=== PATIENT | female | born 1935 | race Hispanic/Latino ===

== ENCOUNTER 2017-07-09 16:11 | Inpatient (IN) | payer MEDICARE, OTHER ==
--- NOTE | 2017-07-09 16:52 | ED PDOC ---
Arrival/HPI - General Historian: Patient - History of Present Illness Time/Duration: Prior to Arrival Symptom Onset: Gradual Symptom Course: Unchanged Activities at Onset: Rest Context: Sitting <NINA MEJIA - Last Filed: 07/09/17 22:21> <YaChris - Last Filed: 07/09/17 22:46> - General Chief Complaint: Altered Mental Status Time Seen by Provider: 07/09/17 16:20 - History of Present Illness Narrative History of Present Illness (Text): 07/09/17 16:46 82yo F PMH ESRD on HD, ESRD, DM2, HTN and falls who presents [facility] after family insisted on it. Per nurse from [facility], the pt is mentally at baseline. The pt states that she fell 3 weeks ago because her legs gave out and was taken to [facility] ([facility] for a broken hip. Pt states that she was in a coma and only woke up from it an hour ago when she was in this hospital. Pt denies fevers, chills, n/v/d, cp, sob, but does complain of being unable to walk, and hunger. (NINA MEJIA) Past Medical History - Provider Review Nursing Documentation Reviewed: Yes - Infectious Disease Hx of Infectious Diseases: None - Cardiac Hx Cardiac Disorders: Yes Hx Hypertension: Yes - Pulmonary Hx Respiratory Disorders: Yes Hx Chronic Obstructive Pulmonary Disease (COPD): Yes - HEENT Other/Comment: Right eye blindness - Renal Hx Dialysis: Yes (was supposed to receive today but did not ) Hx Renal Failure: Yes - Endocrine/Metabolic Hx Diabetes Mellitus Type 2: Yes - Hematological/Oncological Hx Cancer: Yes (TO BREAST WITH MASTECTOMY B/L) - Gastrointestinal Other/Comment: "liver problems" - Genitourinary/Gynecological Other/Comment: HX OF BREAST CA WITH B/L MASTECTOMY - Psychiatric Hx Substance Use: No - Surgical History Other/Comment: BILATERAL MASTECTOMY. RIGHT SUBCLAVIAN PERMACATH H/D CATH - Anesthesia Hx Anesthesia: Yes Hx Anesthesia Reactions: No Hx Malignant Hyperthermia: No <NINA MEJIA - Last Filed: 07/09/17 22:21> Family/Social History - Physician Review Nursing Documentation Reviewed: Yes Family/Social History: No Known Family HX Smoking Status: Never Smoked Hx Alcohol Use: No Hx Substance Use: No <NINA MEJIA - Last Filed: 07/09/17 22:21> Allergies/Home Meds <NINA MEJIA - Last Filed: 07/09/17 22:21> <Chris Pandya - Last Filed: 07/09/17 22:46> Allergies/Adverse Reactions: Allergies albuterol Allergy (Verified 07/09/17 16:25) DIZZINESS clonidine Allergy (Verified 07/09/17 16:25) DIZZINESS ibuprofen Allergy (Verified 07/09/17 16:25) VOMITING prednisone Allergy (Verified 07/09/17 16:25) VOMITING Home Medications: Home Meds Medication Instructions Recorded Confirmed Atorvastatin [Lipitor] 10 mg PO DAILY 07/09/17 07/09/17 B Complex W-C No.20/Folic Acid 1 cap PO DAILY 07/09/17 07/09/17 [Nephrocaps Softgel] Calcitriol [Rocaltrol] 1 mcg PO MWF 07/09/17 07/09/17 Cinacalcet [Sensipar] 30 mg PO DAILY 07/09/17 07/09/17 Folic Acid 1 mg PO DAILY 07/09/17 07/09/17 Ipratropium 0.02% [Atrovent] 2.5 ml NEB Q6 07/09/17 07/09/17 Lactobacillus Acidophilus [Bacid 1 cap PO BID 07/09/17 07/09/17 Acidophilus] Miconazole 2% [Miconazole 2% Cream] 1 apful TOP Q8 07/09/17 07/09/17 Montelukast [Singulair] 10 mg PO DAILY 07/09/17 07/09/17 Ondansetron HCl [Zofran] 4 mg PO Q8 PRN 07/09/17 07/09/17 Pantoprazole Sodium [Protonix] 40 mg PO DAILY 07/09/17 07/09/17 Piperacillin/Tazobact 2.25gm 2.25 g IVPB Q8 07/09/17 07/09/17 [ZOSYN 2.25 gm in 0.9% 100 ml] Zolpidem [Ambien] 5 mg PO HS PRN 07/09/17 07/09/17 metroNIDAZOLE 500mg/100ml NS 500 mg IVPB Q8 07/09/17 07/09/17 [Flagyl 500MG/100ML NS] oxyCODONE [oxyCODONE Immediate 5 mg PO Q4 PRN 07/09/17 07/09/17 Release Tab] Review of Systems - Physician Review All systems were reviewed & negative as marked: Yes - Review of Systems Systems not reviewed;Unavailable: Altered Mental Status Constitutional: Normal Respiratory: absent: SOB, Cough Cardiovascular: absent: Chest Pain Gastrointestinal: absent: Nausea, Vomiting <NINA MEJIA - Last Filed: 07/09/17 22:21> Physical Exam Vital Signs Reviewed: Yes Appearance: Positive for: Non-Toxic Pain Distress: None Mental Status: Positive for: Confused - Systems Exam Head: Present: Atraumatic Pupils: Present: PERRL Extroacular Muscles: Present: EOMI Neck: Present: Normal Range of Motion Respiratory/Chest: Present: Clear to Auscultation, Good Air Exchange Cardiovascular: Present: Normal S1, S2, Tachycardic Abdomen: No: Tenderness, Distention Back: Present: Normal Inspection. No: CVA Tenderness Lower Extremity: Present: Normal Inspection. No: Edema, CALF TENDERNESS Neurological: Present: Speech Normal. No: Motor Func Grossly Intact Skin: Present: Other (sacral ulcer stage 3) Psychiatric: Present: Alert. No: Oriented x 3 (oriented to person and time but not place (thinks she's in [facility] <NINA MEJIA - Last Filed: 07/09/17 22:21> Vital Signs Temp Pulse Resp BP Pulse Ox 07/09/17 20:07 98.3 F 99 H 16 145/64 100 07/09/17 16:37 98.8 F 105 H 17 132/87 99 Medical Decision Making <NINA MEJIA - Last Filed: 07/09/17 22:21> <Chris Pandya - Last Filed: 07/09/17 22:46> ED Course and Treatment: 07/09/17 16:59 Impression: 82yo F PM COPD, ESRD on HD, DM2 and HTN presenting w/ AMS Plan: -- Reassess and disposition - EKG - CBC/CMP Progress Notes: was contacted @ [phone] by resident. States that the patient fell down 7-8wks ago and broke her hip which was treated at [facility], and the patient was transferred to "[facility]" which he further states is a [facility]. Pt was then transferred back to [facility] and found to be internally bleeding and experiencing loss of bowel movements which she was treated for. Pt continued to receive dialysis. This morning, the patient's contacted the [facility] and found out that she had not gotten her HD yet and he was agitated that at her condition, they would keep her in a chair for 2 hours while waiting for HD. then demanded that she be transferred to [facility]. States he will be down to ER in 15 minutes. 07/09/17 17:33 Pt's back was examined with aid of nurse. Shows stage 3 large lumbo-sacral ulcer about 3" in diameter. 07/09/17 18:33 K level of 2.7 noted. will replete 07/09/17 21:[address] Hodges who accepts her onto his service (NINA MEJIA) 07/09/17 22:42 Patient seen and examined; spoke with son and who said that patient suffered a hip fx several weeks ago and was treated at [facility]; they said she then developed an ulcer at the [facility] and now has a hip infection. She is now back at the [facility] but has progressively become more confused with a large sacral ulcer. She is also due for HD today. She will need to be admitted for work up and treatment of alt ms, ID eval, dialysis as well as surgical eval of the large sacral ulcer. 07/09/17 22:[address] Madrid at the [facility]. Case was discussed with the on-call physician, Dr. Hodges for admission. (Chris Pandya) - Lab Interpretations Lab Results: 07/09/17 18:00 07/09/17 18:00 Lab Results 07/09/17 18:00: Sodium 141, Potassium 2.7 L*, Chloride 104, Carbon Dioxide 24, Anion Gap 16, BUN 46 H, Creatinine 4.5 H, Est GFR ( Amer) 11, Est GFR ( Non-Af Amer) 9, Random Glucose 102, Calcium 7.6 L, Total Bilirubin 0.4, AST 31, ALT 26, Alkaline Phosphatase 121, Total Protein 6.1, Albumin 2.6 L, Globulin 3.5 , Albumin/Globulin Ratio 0.7 L 07/09/17 18:00: WBC 9.1, RBC 3.11 L, Hgb 8.8 L, Hct 29.1 L, MCV 93.6, MCH 28.3, MCHC 30.2 L, RDW 17.4 H, Plt Count 239, MPV 8.8, Gran % 76.9 H, Lymph % (Auto) 11.4 L, [place] % (Auto) 9.2 H, Eos % (Auto) 2.0, Baso % (Auto) 0.5, Gran # 7.01 H , Lymph # 1.0 L, [place] # 0.8 H, Eos # 0.2, Baso # 0.05 07/09/17 17:45: Urine Color Yellow, Urine Appearance Clear, Urine pH 6.5, Ur Specific Jack[place] 1.015, Urine Protein 100 H, Urine Glucose (UA) Negative, Urine Ketones Negative, Urine Blood Small H, Urine Nitrate Negative, Urine Bilirubin Negative, Urine Urobilinogen 0.2, Ur Leukocyte Esterase Negative, Urine RBC 5 - 10, Urine WBC 2 - 5, Ur Epithelial Cells 0 - 2, Urine Bacteria Small - RAD Interpretation Radiology Orders: 07/09/17 20:16 CHEST PORTABLE [RAD] Stat - Medication Orders Current Medication Orders: Calcitriol (Rocaltrol) 1 mcg PO MWF [facility] Cinacalcet (Sensipar) 30 mg PO DAILY [facility] Potassium Chloride (Potassium Chloride 20 Meq/100 Ml) 20 meq in 100 mls @ 50 mls/hr IVPB Q2H [facility] Stop: 07/09/17 23:14 Last Admin: 07/09/17 22:00 Dose: 50 mls/hr eMAR Start Stop Document 07/09/17 22:00 [facility] (Rec: 07/09/17 22[email or web address] Intravenous Solution Start Date 07/09/17 Start Time 22:00 End Date 07/09/17 Metronidazole (Flagyl) 500 mg in 100 mls @ 100 mls/hr IVPB Q8 [facility] Piperacillin Sod/Tazobactam Sod (Zosyn 2.25 Gm In 0.9% 100 Ml) 2.25 gm in 100 mls @ 100 mls/hr IVPB Q8 [facility] Stop: 07/10/17 06:59 Lactobacillus Acidophilus (Bacid Acidophilus) 1 cap PO BID [facility] Miconazole Nitrate (Miconazole 2% Cream) 0 ea TOP Q8 [facility] Morphine Sulfate (Morphine) 2 mg IVP Q4H PRN PRN Reason: Pain, moderate (4-7) Ondansetron HCl (Zofran Inj) 4 mg IVP Q4H PRN PRN Reason: Nausea/Vomiting Discontinued Medications Oxycodone/Acetaminophen (Percocet 5/325 Mg Tab) 1 tab PO STAT ST[facility] Stop: 07/09/17 18:03 Last Admin: 07/09/17 18:11 Dose: 1 tab MAR Pain Assessment Document 07/09/17 18:11 IT (Rec: 07/09/17 18:13 IT [id number]) Pain Reassessment Is this a pain reassessment? No Sleep Is patient sleeping during reassessment? 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 MD/DO has examined the patient and agrees with the treatment plan. <Chris Pandya - Last Filed: 07/09/17 22:46> Disposition/Present on Arrival - Present on Arrival Any Indicators Present on Arrival: No History of DVT/PE: No History of Uncontrolled Diabetes: No Urinary Catheter: No History of Decub. Ulcer: Yes - Disposition Have Diagnosis and Disposition been Completed?: Yes Disposition Time: 22:21 <NINA MEJIA - Last Filed: 07/09/17 22:21> - Present on Arrival Any Indicators Present on Arrival: No - Disposition Have Diagnosis and Disposition been Completed?: Yes Disposition Time: 21:50 Patient Plan: Admission <Chris Pandya - Last Filed: 07/09/17 22:46> - Disposition Diagnosis: Altered mental status, Sacral ulcer Disposition: HOSPITALIZED Patient Problems: Current Active Problems Problem Status Onset Altered mental status Acute Sacral ulcer Acute Condition: FAIR
[2017-07-09] MEDS ORDERED: Oxycodone/Acetaminophen 5/325 mg Tab PO STA (18:02)
[2017-07-09 18:29] LABS: BASO # 0.05 K/mm3 (0.0-2.0); BASO % 0.5 % (0.0-3.0); EOS # 0.2 (0.0-0.7); GRAN # 7.01 (1.4-6.5); GRAN % 76.9 % (50.0-68.0); HEMATOCRIT 29.1 % (36.0-48.0); LYMPH % 11.4 % (22.0-35.0); MEAN CELL VOLUME 93.6 fl (80.0-105.0); MEAN CORPUSCULAR HEMOGLOBIN 28.3 pg (25.0-35.0); MEAN CORPUSCULAR HGB CONC 30.2 g/dl (31.0-37.0); MEAN PLATELET VOLUME 8.8 fl (7.0-11.0); MONO # 0.8 (0.1-0.6); MONO % 9.2 % (1.0-6.0); RED CELL DISTRIBUTION WIDTH 17.4 % (11.5-14.5); WHITE BLOOD COUNT 9.1 10^3/ul (4.5-11.0)
[2017-07-09 18:34] LABS: ALB/GLOB RATIO 0.7 (1.1-1.8); BILIRUBIN,TOTAL 0.4 mg/dL (0.2-1.3); CALCIUM 7.6 mg/dL (8.4-10.5); TOTAL PROTEIN 6.1 g/dL (5.8-8.3)
[2017-07-09 18:45] LABS: POTASSIUM 2.7 mmol/L (3.6-5.0)
[2017-07-09] MEDS ORDERED: Morphine 2 mg/ml ISec IVP PRN (21:34)
[2017-07-09 22:00] LABS: PH,URINE 6.5 (4.7-8.0); URINE APPEARANCE CLEAR (CLEAR); URINE BILIRUBIN NEGATIVE (NEGATIVE); URINE BLOOD SMALL (NEGATIVE); URINE COLOR YELLOW (YELLOW); URINE GLUCOSE (UA) NEGATIVE (NEGATIVE); URINE KETONE NEGATIVE (NEGATIVE); URINE LEUKOCYTE ESTERASE NEGATIVE Leu/uL (NEGATIVE); URINE PROTEIN 100 mg/dL (<30 mg/dL); URINE UROBILINOGEN 0.2 E.U./dL (<1 E.U./dL)
[2017-07-09] MEDS ORDERED: TAZOBACT IVPB SCH (22:00)
[2017-07-09] MEDS ORDERED: PIPERACILLIN IVPB SCH (22:00)
[2017-07-09] MEDS ORDERED: NS 500 MG IVPB SCH (22:00)
[2017-07-09] MEDS ORDERED: METRONIDAZOLE 500 MG/100 ML IVPB SCH (22:00)
[2017-07-09 22:21] LABS: URINE BACTERIA SMALL (NEG); URINE EPITHELIAL CELLS 0 - 2 /hpf (0-5)
[2017-07-09 22:36] LABS: VENOUS BLOOD GAS BASE EXCESS -1.2 mmol/L (0.0-2.0); VENOUS BLOOD PH 7.39 (7.32-7.43)
--- NOTE | 2017-07-09 23:22 | CP.PCM.CON ---
History of Present Illness - History of Present Illness History of Present Illness: Surgery Consult note. Dr. Tirado 82yo F with ESRD on HD TThSat, DM, HTN, Breast CA, here for evaluation of AMS. Surgical consult requested for multiple pressure ulcers and wounds. Patient reports a fall about 3 weeks ago, found to have a right sided hip fracture treated with ORIF at [facility]. She was then discharged back to [facility] She was brought in by ambulance for eval of acute AMS. Patient states that she has been confused about where she has been over the past couple of days. She states that she has been c/o low back pain for many days at the [facility] and is unsure if she received any treatment for it. She also reports pain at the right knee and right foot. Patient denies any fevers or chills. Denies any CP/SOB. No N/V/D. No Abd pain. Denies any bowel changes or urinary changes. She does report that she missed her HD today. PMHx: ESRD on HD TThSat, DM, HTN, Breast CA PSHx: Bilat Mastectomy, right subclavian permacath Social Hx: hx of 1+ppd smoker for "many years", quit 20 years ago. Rare ETOH use. Denies any drugs. Resident at [facility]. Allergy: Albuterol, Clonidine, Ibuprofen, Prednisone : [phone] Review of Systems - Review of Systems Systems not reviewed;Unavailable: Altered Mental Status All systems: reviewed and no additional remarkable complaints except - Constitutional Constitutional: Frequent Falls. absent: Anorexia, Chills, Fever - EENT Eyes: absent: Blurred Vision - Cardiovascular Cardiovascular: absent: Chest Pain, Diaphoresis, Dyspnea - Respiratory Respiratory: absent: Dyspnea - Genitourinary Genitourinary: absent: Dysuria - Musculoskeletal Musculoskeletal: Back Pain - Integumentary Integumentary: Skin Ulcer, Wounds Past Patient History - Infectious Disease Hx of Infectious Diseases: None - Past Medical History & Family History Past Medical History?: Yes Past Family History: Reviewed and not pertinent - Past Social History Smoking Status: Former Smoker Alcohol: Occasional Drugs: Denies Home Situation {Lives}: Jail - CARDIAC Hx Cardiac Disorders: Yes Hx Hypertension: Yes - PULMONARY Hx Respiratory Disorders: Yes Hx Chronic Obstructive Pulmonary Disease (COPD): Yes - NEUROLOGICAL Hx Neurological Disorder: No - HEENT Other/Comment: Right eye blindness - RENAL Hx Dialysis: Yes (was supposed to receive today but did not ) Hx Renal Failure: Yes - ENDOCRINE/METABOLIC Hx Diabetes Mellitus Type 2: Yes - HEMATOLOGICAL/ONCOLOGICAL Hx Cancer: Yes (TO BREAST WITH MASTECTOMY B/L) - MUSCULOSKELETAL/RHEUMATOLOGICAL Other/Comment: FX HEAD/NECK R FEMUR - GASTROINTESTINAL Other/Comment: "liver problems" - GENITOURINARY/GYNECOLOGICAL Other/Comment: HX OF BREAST CA WITH B/L MASTECTOMY - PSYCHIATRIC Hx Substance Use: No - SURGICAL HISTORY Other/Comment: BILATERAL MASTECTOMY. RIGHT SUBCLAVIAN PERMACATH H/D CATH - ANESTHESIA Hx Anesthesia: Yes Hx Anesthesia Reactions: No Hx Malignant Hyperthermia: No Meds Allergies/Adverse Reactions: Allergies Allergy/AdvReac Type Severity Reaction Status Date / Time albuterol Allergy DIZZINESS Verified 07/09/17 16:25 clonidine Allergy DIZZINESS Verified 07/09/17 16:25 ibuprofen Allergy VOMITING Verified 07/09/17 16:25 prednisone Allergy VOMITING Verified 07/09/17 16:25 - Medications Medications: Current Medications Calcitriol (Rocaltrol) 1 mcg PO MWF [facility] Cinacalcet (Sensipar) 30 mg PO DAILY [facility] Metronidazole (Flagyl) 500 mg in 100 mls @ 100 mls/hr IVPB Q8 [facility] Piperacillin Sod/Tazobactam Sod (Zosyn 2.25 Gm In 0.9% 100 Ml) 2.25 gm in 100 mls @ 100 mls/hr IVPB Q8 [facility] Stop: 07/16/17 22:01 Lactobacillus Acidophilus (Bacid Acidophilus) 1 cap PO BID [facility] Miconazole Nitrate (Miconazole 2% Cream) 0 ea TOP Q8 [facility] Morphine Sulfate (Morphine) 2 mg IVP Q4H PRN PRN Reason: Pain, moderate (4-7) Ondansetron HCl (Zofran Inj) 4 mg IVP Q4H PRN PRN Reason: Nausea/Vomiting Physical Exam - Constitutional Appears: Well, No Acute Distress - Head Exam Head Exam: ATRAUMATIC, NORMAL INSPECTION, NORMOCEPHALIC - Eye Exam Eye Exam: EOMI, Normal appearance. absent: Scleral icterus - ENT Exam ENT Exam: Mucous Membranes Moist - Respiratory Exam Respiratory Exam: Clear to Auscultation Bilateral. absent: Accessory Muscle Use , Decreased Breath Sounds, Rales, Rhonchi, Wheezes, Respiratory Distress - Cardiovascular Exam Cardiovascular Exam: RRR, +S1, +S2. absent: JVD - GI/Abdominal Exam GI & Abdominal Exam: Soft. absent: Distended, Firm, Guarding, Rebound, Rigid, Tenderness - Extremities Exam Extremities exam: Negative for: calf tenderness, pedal edema - Neurological Exam Neurological exam: Alert Additional comments: Oriented to person and time, not oriented to place. - Psychiatric Exam Psychiatric exam: Normal Affect - Skin Skin Exam: Warm Additional comments: Sacrum: Large Stage 3/4 sacral decubitus ulcer. Skin edges with some necrotic skin. Clean pink skin base. Right knee: large ulce with some evidence of necrotic skin. tender to palpation. Right dorsum foot: large eschar noted, no active drainage Right heel: eschar noted Left heel: eschar noted. Results - Vital Signs Recent Vital Signs: Last Vital Signs Temp 98.3 F 07/09/17 20:07 Pulse 99 H 07/09/17 20:07 Resp 16 07/09/17 20:07 BP 145/64 07/09/17 20:07 Pulse Ox 100 07/09/17 20:07 - Labs Result Diagrams: 07/09/17 18:00 07/09/17 18:00 Labs: Laboratory Results - last 24 hr 07/09/17 22:15 pO2 166 H VBG pH 7.39 VBG pCO2 39.0 L VBG HCO3 23.6 VBG Total CO2 24.8 VBG O2 Sat (Calc) 99.4 H VBG Base Excess -1.2 L VBG Potassium 3.4 L Sodium 139.0 Chloride 111.0 H Glucose 81 Lactate 0.7 FiO2 21.0 Venous Blood Potassium 3.4 L Assessment & Plan - Assessment and Plan (Free Text) Assessment: 82yo F with PMHx of ESRD on HD, DM, HTN, COPD here for eval of AMS. Surgery consulted for multiple skin ulcers/decubiti - Recommend wound care consult - Sacral Decub: may consider debridement/wound vac placement - Right Knee: may consider local debridement - Right foot, Right heel, Left heel eschars: may benefit with santly and local wound care -pressure off-loading heel supports - air mattress - On Abx as per Primary/ID - continue to medically maximize - monitor and replete electrolytes prn - Pain management Will discuss case with Dr. Tirado for further wound care pamela Allan PGY1 surgery pager: [phone]
[2017-07-10] MEDS: Piperacillin/Tazobact 2.25gm 2.25 GM/100 ML BAG IVPB SCH ×4 (00:10→21:30)
[2017-07-10] MEDS: metroNIDAZOLE IV 500 mg in 100 ML IVPB SCH ×2 (01:32→06:00)
[2017-07-10] MEDS ORDERED: Morphine 2 mg/ml ISec IVP STA (02:31)
[2017-07-10] MEDS: Miconazole 2% Cream(30 gm) TOP SCH ×4 (06:08→21:31)
[2017-07-10 06:10] LABS: HEMATOCRIT 27.6 % (36.0-48.0); MEAN CELL VOLUME 93.6 fl (80.0-105.0); MEAN CORPUSCULAR HEMOGLOBIN 28.8 pg (25.0-35.0); MEAN CORPUSCULAR HGB CONC 30.8 g/dl (31.0-37.0); MEAN PLATELET VOLUME 8.9 fl (7.0-11.0); RED CELL DISTRIBUTION WIDTH 17.7 % (11.5-14.5)
[2017-07-10 07:10] LABS: ALB/GLOB RATIO 0.7 (1.1-1.8); BILIRUBIN,TOTAL 0.5 mg/dL (0.2-1.3); CALCIUM 7.7 mg/dL (8.4-10.5); POTASSIUM 3.2 mmol/L (3.6-5.0); TOTAL PROTEIN 5.6 g/dL (5.8-8.3)
[2017-07-10] MEDS ORDERED: Vancomycin 1gm in NS 250ml 1 GM/250 ML BAG IVPB STA (08:41)
[2017-07-10] MEDS: Morphine 2 mg/ml ISec IVP PRN ×4 (08:47→23:45)
[2017-07-10 08:53] LABS: MAGNESIUM 1.6 mg/dL (1.7-2.2); PHOSPHOROUS 4.1 mg/dL (2.5-4.5)
--- NOTE | 2017-07-10 09:31 | RAD ---
HISTORY: alt ms COMPARISON: No prior. FINDINGS: Right center venous catheter identified terminating at the distal superior cava. An additional central venous catheter appears to be a dialysis catheter prominent placed terminating at the cavoatrial junction. Further, left-sided central venous port is identified in position placed via left subclavian approach with tip terminating at the superior cava as well. The initial 2 catheters by right internal jugular approach. LUNGS: No airspace disease appreciated with some prominence of the bronchovascular markings noted at the mid inferior lung zones which may be a function of technique. PLEURA: No significant pleural effusion identified, no pneumothorax apparent. CARDIOVASCULAR: Normal. OSSEOUS STRUCTURES: No significant abnormalities. VISUALIZED UPPER ABDOMEN: Normal. OTHER FINDINGS: None. IMPRESSION: No acute infiltrate or pleural effusion identified bilaterally. No pulmonary derangement. Mild prominence of bronchovascular markings appears nonspecific.
[2017-07-10] MEDS: Multivitamin Vitamin B Complex (Nephro-Vite) Tab PO SCH (10:11)
[2017-07-10] MEDS: Lactobacillus Acidophilus 500 MU Cap PO SCH ×2 (10:11→18:02)
[2017-07-10] MEDS: Darbepoetin Alfa 60 mcg/ml Inj IVP ONE ×2 (10:11→13:10)
--- NOTE | 2017-07-10 10:58 | HP ---
HISTORY OF PRESENT ILLNESS: I was called down to the emergency room to evaluate Aan. She is resting in bed. She is alert and talking to me. She has a history being an 82-year-old female who had a fall about 3 weeks ago, had ORIF of the right hip at [facility] She went to [facility] where she was not able to do much therapy she said she was weak and just could no do what they asked her to do and she ended up with a very large sacral wound, deep and big. The family was very upset and they send her to [facility] for evaluation. She has low back pain. PAST MEDICAL HISTORY: She has a past medical history of diabetes, hypertension, breast cancer, and end-stage renal disease on hemodialysis. PAST SURGICAL HISTORY: She had bilateral mastectomy Right subclavian PermCath. SOCIAL HISTORY: She has history of one pack per day smoker for many years, quit 20 years ago, rare alcohol, and no drugs. She has albuterol, Clonidine, ibuprofen, and Prednisone. REVIEW OF SYSTEMS: She is alert, comfortable, talking to me, answering questions, in and out of it mentally, confused at times, and frequent falls. She has blurred vision. No acute hearing changes. She has back pain. No chest pain or palpitation. No cough or congestion. Now, she has a very large sacral ulcer. She also has hypertension, COPD, right eye is blind, dialysis, bilateral mastectomy with breast cancer. She had fracture of the right femur with ORIF. She has history of liver problems. ALLERGIES: SHE HAS ALLERGIES TO ALBUTEROL, CLONIDINE, IBUPROFEN, AND PREDNISONE. MEDICATIONS: She takes Rocaltrol, Sensipar, Flagyl, Zosyn, lactobacillus, miconazole, morphine, and Zofran. PHYSICAL EXAMINATION: VITAL SIGNS: She has a 98.3 temperature, 99 pulse, 16 respiratory rate, 145/64 blood pressure, and 100% O2 saturation on room air. GENERAL: She is alert and talking, in no acute distress at this moment. HEENT: Head is atraumatic and normocephalic. Extraocular muscles are intact. Throat is moist. NECK: Supple. Thyroid midline. No appreciable palpable lymphadenopathy at this time. HEART: Regular rate. Normal S1 and S2. LUNGS: Decreased breath sounds bilaterally. Poor inspiration, but there are no wheezes, rhonchi, or rales. ABDOMEN: Soft and tender. Positive bowel sounds. No guarding. No rebound. No CVA tenderness. EXTREMITIES: Legs, no edema. SKIN: She has a large 10 inches x 12 inches sacral ulcer grade IV almost to bone. NEUROLOGIC: She is alert. PSYCHIATRIC: Normal affect. Upset about her condition. No anxiety. No depression. LABORATORY DATA: She had multiple tests. She has 9 white count, 8.5 hemoglobin, 27.6 hematocrit with 226 platelets and 7.39 pH. She has 143 sodium, potassium was 2.7, it is up to 3.2, I will add potassium. BUN is 45 and creatinine is 4.9, she is on dialysis. GFR is 8. Calcium is 7.7 and sugar is 77. Total bilirubin is 0.58, AST is 28, ALT is 32, alkaline phosphatase is 111, and total protein is 5.6. Urine was negative. DIAGNOSTIC DATA: She has a chest x-ray pending. IMPRESSION AND PLAN: She was seen by Dr. Tirado, the surgeon for the large sacral ulcer, then may consider debridement, wound vac placement. She has multiple other ulcers on the right knee, on the right heel. Continue with antibiotics and checking laboratories. Continue with aggressive treatment and care on Ana Hendrickson, who has a large sacral decubitus ulcer. She also has end-stage renal disease, change in mentation, and possible sepsis. Eric Hodges DO MTDD
--- NOTE | 2017-07-10 11:42 | CARD ---
APPROVED REPORT EKG Measurement Heart [id number] <Conclusion> Sinus tachycardia Nonspecific ST abnormality Abnormal ECG
--- NOTE | 2017-07-10 12:21 | CP.PCM.CON ---
History of Present Illness - History of Present Illness History of Present Illness: renal consult dictated dialysis today and then TTS schedule Past Patient History - Infectious Disease Hx of Infectious Diseases: None - Past Medical History & Family History Past Medical History?: Yes Past Family History: Reviewed and not pertinent - Past Social History Smoking Status: Former Smoker Alcohol: Occasional Drugs: Denies Home Situation {Lives}: Retirement - CARDIAC Hx Cardiac Disorders: Yes Hx Hypertension: Yes - PULMONARY Hx Respiratory Disorders: Yes Hx Chronic Obstructive Pulmonary Disease (COPD): Yes - NEUROLOGICAL Hx Neurological Disorder: No - HEENT Other/Comment: Right eye blindness - RENAL Hx Dialysis: Yes (was supposed to receive today but did not ) Hx Renal Failure: Yes - ENDOCRINE/METABOLIC Hx Diabetes Mellitus Type 2: Yes - HEMATOLOGICAL/ONCOLOGICAL Hx Cancer: Yes (TO BREAST WITH MASTECTOMY B/L) - MUSCULOSKELETAL/RHEUMATOLOGICAL Other/Comment: FX HEAD/NECK R FEMUR - GASTROINTESTINAL Other/Comment: "liver problems" - GENITOURINARY/GYNECOLOGICAL Other/Comment: HX OF BREAST CA WITH B/L MASTECTOMY - PSYCHIATRIC Hx Substance Use: No - SURGICAL HISTORY Other/Comment: BILATERAL MASTECTOMY. RIGHT SUBCLAVIAN PERMACATH H/D CATH - ANESTHESIA Hx Anesthesia: Yes Hx Anesthesia Reactions: No Hx Malignant Hyperthermia: No Meds Allergies/Adverse Reactions: Allergies Allergy/AdvReac Type Severity Reaction Status Date / Time albuterol Allergy DIZZINESS Verified 07/09/17 16:25 clonidine Allergy DIZZINESS Verified 07/09/17 16:25 ibuprofen Allergy VOMITING Verified 07/09/17 16:25 prednisone Allergy VOMITING Verified 07/09/17 16:25 - Medications Medications: Current Medications Calcitriol (Rocaltrol) 1 mcg PO MWF [facility] Last Admin: 07/10/17 10:12 Dose: 1 mcg Cinacalcet (Sensipar) 30 mg PO DAILY [facility] Last Admin: 07/10/17 10:11 Dose: 30 mg Collagenase (Santyl) 1 gm TOP DAILY [facility] Piperacillin Sod/Tazobactam Sod (Zosyn 2.25 Gm In 0.9% 100 Ml) 2.25 gm in 100 mls @ 100 mls/hr IVPB Q8 [facility] Stop: 07/16/17 22:01 Last Admin: 07/10/17 07:28 Dose: 100 mls/hr Lactobacillus Acidophilus (Bacid Acidophilus) 1 cap PO BID [facility] Last Admin: 07/10/17 10:11 Dose: 1 cap Miconazole Nitrate (Miconazole 2% Cream) 0 ea TOP Q8 [facility] Last Admin: 07/10/17 06:08 Dose: 1 applic Morphine Sulfate (Morphine) 2 mg IVP Q4H PRN PRN Reason: Pain, moderate (4-7) Last Admin: 07/10/17 08:47 Dose: 2 mg Ondansetron HCl (Zofran Inj) 4 mg IVP Q4H PRN PRN Reason: Nausea/Vomiting Vitamin B Complex/Vit C/Folic Acid (Nephro-Yesica) 1 tab PO 0800 [facility] Last Admin: 07/10/17 10:11 Dose: 1 tab Results - Vital Signs Recent Vital Signs: Last Vital Signs Temp 98.3 F 07/09/17 20:07 Pulse 107 H 07/10/17 10:14 Resp 18 07/10/17 10:14 BP 148/50 L 07/10/17 10:14 Pulse Ox 98 07/10/17 10:14 - Labs Result Diagrams: 07/10/17 05:30 07/10/17 05:30 Labs: Laboratory Results - last 24 hr 07/09/17 07/10/17 07/10/17 22:15 05:30 05:30 WBC 9.0 RBC 2.95 L Hgb 8.5 L Hct 27.6 L MCV 93.6 MCH 28.8 MCHC 30.8 L RDW 17.7 H Plt Count 226 MPV 8.9 ESR pO2 166 H VBG pH 7.39 VBG pCO2 39.0 L VBG HCO3 23.6 VBG Total CO2 24.8 VBG O2 Sat (Calc) 99.4 H VBG Base Excess -1.2 L VBG Potassium 3.4 L Sodium 139.0 143 Chloride 111.0 H 109 Glucose 81 Lactate 0.7 FiO2 21.0 Potassium 3.2 L Carbon Dioxide 23 Anion Gap 14 BUN 45 H Creatinine 4.9 H Est GFR ( Amer) 10 Est GFR (Non-Af Amer) 8 Random Glucose 77 Calcium 7.7 L Phosphorus 4.1 Magnesium 1.6 L Total Bilirubin 0.5 AST 28 ALT 32 Alkaline Phosphatase 111 C-React Prot High Sens Total Protein 5.6 L Albumin 2.3 L Globulin 3.3 Albumin/Globulin Ratio 0.7 L Venous Blood Potassium 3.4 L 07/10/17 07/10/17 08:30 08:30 WBC RBC Hgb Hct MCV MCH MCHC RDW Plt Count MPV ESR 90 H pO2 VBG pH VBG pCO2 VBG HCO3 VBG Total CO2 VBG O2 Sat (Calc) VBG Base Excess VBG Potassium Sodium Chloride Glucose Lactate FiO2 Potassium Carbon Dioxide Anion Gap BUN Creatinine Est GFR ( Amer) Est GFR (Non-Af Amer) Random Glucose Calcium Phosphorus Magnesium Total Bilirubin AST ALT Alkaline Phosphatase C-React Prot High Sens > 15.00 H Total Protein Albumin Globulin Albumin/Globulin Ratio Venous Blood Potassium
--- NOTE | 2017-07-10 15:11 | CP.PCM.PCO ---
Physician Communication Note - Physician Communication Note Physician Communication Note: Not able to locate pt. today - will see contreras landa Vanco x 1
--- NOTE | 2017-07-10 15:14 | CON ---
DATE: 07/10/2017 INITIAL NEPHROLOGY CONSULTATION CHIEF COMPLAINT: Kidney problem. REASON FOR CONSULTATION: ESRD, hypokalemia. HISTORY OF PRESENT ILLNESS AND REVIEW OF SYSTEMS: The patient is an 82-year-old female with history as mentioned and was referred from [facility] for concern for altered mental status. The patient denies any new complaint at this time. She is not aware why she is in the hospital. She denies any nausea, vomiting, chest pain or palpitation. Denies any shortness of breath. The patient is mostly bed bound. PAST MEDICAL HISTORY: As mentioned in the consultation note. FAMILY HISTORY: No history of CKD or dialysis. REVIEW OF SYSTEMS: GENERAL: Overall, the patient feels in usual health. Denies any fevers or chills. NEUROLOGIC: Denies any headaches, tingling, numbness or dizziness. EYES: Denies any watery or itchy eyes, reports right eye blindness. EARS, NOSE, THROAT: Denies any ear pain, sore throat, or congestion. CARDIOVASCULAR: Denies any chest pain or palpitations. RESPIRATORY: Denies any shortness of breath, cough, or phlegm at this time. GASTROINTESTINAL: No nausea, vomiting, constipation, or diarrhea. EXTREMITIES: Denies any leg swelling. PSYCHIATRIC: Denies any depression. LYMPHATIC. Denies any lymph node swelling. HEMATOLOGIC: Denies any bleeding. SKIN: Does report wound in the legs. GENITOURINARY: Denies any painful burning urination. PHYSICAL EXAMINATION: GENERAL: The patient is elderly female, appears chronically debilitated, not in acute distress. VITAL SIGNS: Afebrile, pulse is 107, blood pressure 148/50, saturation is well maintained. NEUROLOGIC: The patient is alert, awake and oriented x3 at this time. She is mostly bed bound. Moving all 4 extremities though. EYES: Pupil equal and reactive. 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 EARS, NOSE, THROAT: Oral cavity with normal pharynx, normal mucosa. No rash, ulceration, or thrush. NECK: Supple. No lymphadenopathy. No bruits. No thyromegaly. CARDIOVASCULAR: S1 and S2 normal. No murmur, rub or gallop. RESPIRATORY: Bilateral vesicular breath sounds. Bilateral air entry normal and symmetrical. ABDOMEN: Soft and nontender. No organomegaly could be appreciated. EXTREMITIES: No edema at this time. SKIN: The patient has bilateral heal ulcers which are dressed at this time; otherwise, turgor is somewhat decreased as well. LYMPHATICS: No lymphadenopathy in neck. HEMATOLOGIC: No acute bleeding could be appreciated. PSYCHIATRIC: Judgement is appropriate. Affect is normal. Pleasant, she is cooperative. No hallucinations. LABORATORY STUDY: Workup was reviewed. Hemoglobin is 8.5. Potassium is 3.2. CRP and ESR are elevated. Cultures are pending. Chest x-ray is unremarkable. MEDICATIONS: Current medications were reviewed. ASSESSMENT: 1. End-stage renal disease, on hemodialysis via Perm-A-Cath. 2. 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 3. Questionable change in mental status. 4. Hypokalemia. 5. Recent hospitalization for femur fracture, status post surgery; history of gastrointestinal bleed at that time, history of Clostridium difficile at that time as well. 6. History of carcinoma of breast with bilateral mastectomy. RECOMMENDATIONS: The patient missed dialysis yesterday. She is on TTS schedule. We will plan for dialysis today with 3.5 potassium bath. We will also plan for dialysis from tomorrow onward as per TTS schedule. She is on Calcitrol - Saturday, Saturday, Saturday; also on Sensipar. We will give a dose of Aranesp because of her anemia. She was given potassium supplementation already. We will also start her on multivitamin. Thank you for the consultation. Please call if any questions. Wang France MD
[2017-07-10] MEDS: Collagenase 250 Units/gm Ointment(30 gm) TOP SCH (18:21)
[2017-07-10 19:09] VITALS: BMI 21.2
[2017-07-10] MEDS ORDERED: Pneumococcal 23-Valent Vaccine IM ONE (19:10)
--- NOTE | 2017-07-10 23:56 | CP.PCM.PN ---
Subjective - Date & Time of Evaluation Date of Evaluation: 07/10/17 Time of Evaluation: 23:56 - Subjective Subjective: Patient was seen at bedside. She complained of headache, mild headache. No dizziness, nausea, vomiting, paraestesia , weakness. No ear,nose eye symptoms. Medical record was reviewed. This 82 year old woman was admitted with weakness, back pain. Has PMH of DM II, HTN, breast cancer, ESRD. Objective - Vital Signs/Intake and Output Vital Signs (last 24 hours): Temp Pulse Resp BP Pulse Ox 982 F H 78 18 145/52 L 98 07/10/17 18:45 07/10/17 18:45 07/10/17 18:45 07/10/17 18:45 07/10/17 17:37 Intake and Output: 07/10/17 07/11/17 18:59 06:59 Intake Total 120 Balance 120 - Medications Medications: Current Medications Calcitriol (Rocaltrol) 1 mcg PO MWF [facility] Last Admin: 07/10/17 10:12 Dose: 1 mcg Cinacalcet (Sensipar) 30 mg PO DAILY [facility] Last Admin: 07/10/17 10:11 Dose: 30 mg Collagenase (Santyl) 1 gm TOP DAILY [facility] Last Admin: 07/10/17 18:21 Dose: Not Given Piperacillin Sod/Tazobactam Sod (Zosyn 2.25 Gm In 0.9% 100 Ml) 2.25 gm in 100 mls @ 100 mls/hr IVPB Q8 [facility] Stop: 07/16/17 22:01 Last Admin: 07/10/17 21:30 Dose: 100 mls/hr Lactobacillus Acidophilus (Bacid Acidophilus) 1 cap PO BID [facility] Last Admin: 07/10/17 18:02 Dose: 1 cap Miconazole Nitrate (Miconazole 2% Cream) 0 ea TOP Q8 [facility] Last Admin: 07/10/17 21:31 Dose: 1 applic Morphine Sulfate (Morphine) 2 mg IVP Q4H PRN PRN Reason: Pain, moderate (4-7) Last Admin: 07/10/17 23:45 Dose: 2 mg Ondansetron HCl (Zofran Inj) 4 mg IVP Q4H PRN PRN Reason: Nausea/Vomiting Vitamin B Complex/Vit C/Folic Acid (Nephro-Yesica) 1 tab PO 0800 [facility] Last Admin: 07/10/17 10:11 Dose: 1 tab - Labs Labs: 07/10/17 05:30 07/10/17 05:30 - Constitutional Appears: Well, No Acute Distress - Head Exam Head Exam: ATRAUMATIC, NORMAL INSPECTION, NORMOCEPHALIC - Eye Exam Eye Exam: Normal appearance - Neck Exam Neck Exam: Normal Inspection - Respiratory Exam Respiratory Exam: NORMAL BREATHING PATTERN - Cardiovascular Exam Cardiovascular Exam: absent: JVD - GI/Abdominal Exam GI & Abdominal Exam: absent: Distended - Rectal Exam Rectal Exam: Deferred - Exam Additional comments: Deferred. - Extremities Exam Extremities Exam: Normal Inspection - Back Exam Back Exam: NORMAL INSPECTION - Neurological Exam Neurological Exam: Alert, Oriented x3 - Psychiatric Exam Psychiatric exam: Normal Affect, Normal Mood - Skin Skin Exam: Normal Color Assessment and Plan - Assessment and Plan (Free Text) Assessment: Headache. DM II . HTN. Breast cancer. ESRD. Plan: Tylenol 650 mg PO x 1. Continue present management.
[2017-07-11] MEDS: Piperacillin/Tazobact 2.25gm 2.25 GM/100 ML BAG IVPB SCH ×3 (05:52→21:02)
[2017-07-11] MEDS: Miconazole 2% Cream(30 gm) TOP SCH ×3 (05:58→21:03)
[2017-07-11 06:30] LABS: MEAN CELL VOLUME 93.4 fl (80.0-105.0); MEAN CORPUSCULAR HEMOGLOBIN 28.7 pg (25.0-35.0); MEAN CORPUSCULAR HGB CONC 30.7 g/dl (31.0-37.0); MEAN PLATELET VOLUME 8.6 fl (7.0-11.0); RED CELL DISTRIBUTION WIDTH 17.7 % (11.5-14.5)
[2017-07-11 07:01] LABS: ALB/GLOB RATIO 0.7 (1.1-1.8); BILIRUBIN,TOTAL 0.4 mg/dL (0.2-1.3); CALCIUM 7.5 mg/dL (8.4-10.5); POTASSIUM 3.3 mmol/L (3.6-5.0); TOTAL PROTEIN 5.5 g/dL (5.8-8.3)
--- NOTE | 2017-07-11 11:33 | CP.PCM.PN ---
Subjective - Date & Time of Evaluation Date of Evaluation: 07/11/17 Time of Evaluation: 11:31 - Subjective Subjective: PGY1 Note for Dr. Tirado HPI: Patient seen and examined at bedside. Doing well. Complains of mild pain around ulcer sites. Also complains of pain when we try to rotate her on the bed to the point where it was not tolerated which made further examination difficult. Denies any SOB, Chest pain, N/V/D/F/chills. Objective - Vital Signs/Intake and Output Vital Signs (last 24 hours): Temp Pulse Resp BP Pulse Ox 97.8 F 87 20 149/53 L 99 07/11/17 08:31 07/11/17 08:31 07/11/17 08:31 07/11/17 08:31 07/11/17 08:31 Intake and Output: 07/11/17 07/11/17 06:59 18:59 Intake Total 420 Balance 420 - Medications Medications: Current Medications Calcitriol (Rocaltrol) 1 mcg PO MWF [facility] Last Admin: 07/10/17 10:12 Dose: 1 mcg Cinacalcet (Sensipar) 30 mg PO DAILY [facility] Last Admin: 07/10/17 10:11 Dose: 30 mg Collagenase (Santyl) 1 gm TOP DAILY [facility] Last Admin: 07/10/17 18:21 Dose: Not Given Piperacillin Sod/Tazobactam Sod (Zosyn 2.25 Gm In 0.9% 100 Ml) 2.25 gm in 100 mls @ 100 mls/hr IVPB Q8 [facility] Stop: 07/16/17 22:01 Last Admin: 07/11/17 05:52 Dose: 100 mls/hr Potassium Chloride (Potassium Chloride 10 Meq/100 Ml) 10 meq in 100 mls @ 100 mls/hr IVPB Q2H [facility] Stop: 07/11/17 11:44 Last Admin: 07/11/17 09:16 Dose: 100 mls/hr Lactobacillus Acidophilus (Bacid Acidophilus) 1 cap PO BID [facility] Last Admin: 07/10/17 18:02 Dose: 1 cap Miconazole Nitrate (Miconazole 2% Cream) 0 ea TOP Q8 [facility] Last Admin: 07/11/17 05:58 Dose: 1 applic Morphine Sulfate (Morphine) 2 mg IVP Q4H PRN PRN Reason: Pain, moderate (4-7) Last Admin: 07/10/17 23:45 Dose: 2 mg Ondansetron HCl (Zofran Inj) 4 mg IVP Q4H PRN PRN Reason: Nausea/Vomiting Vitamin B Complex/Vit C/Folic Acid (Nephro-Yesica) 1 tab PO 0800 [facility] Last Admin: 07/10/17 10:11 Dose: 1 tab - Labs Labs: 07/11/17 06:10 07/11/17 06:10 - Constitutional Appears: Well, Non-toxic, No Acute Distress - Eye Exam Eye Exam: EOMI, PERRL Pupil Exam: NORMAL ACCOMODATION - ENT Exam ENT Exam: Mucous Membranes Moist - Neck Exam Neck Exam: Full ROM - Respiratory Exam Respiratory Exam: Clear to Ausculation Bilateral, NORMAL BREATHING PATTERN - Cardiovascular Exam Cardiovascular Exam: REGULAR RHYTHM - GI/Abdominal Exam GI & Abdominal Exam: Soft, Normal Bowel Sounds. absent: Distended, Tenderness - Extremities Exam Extremities Exam: absent: Joint Swelling, Tenderness - Back Exam Back Exam: absent: CVA tenderness (L), CVA tenderness (R) - Neurological Exam Neurological Exam: Alert, Awake, Oriented x3 - Psychiatric Exam Psychiatric exam: Normal Affect, Normal Mood - Skin Skin Exam: Dry, Normal Color, Warm Additional comments: Sacrum: Large Stage 3 sacral decubitus ulcer. Right knee: large ulcer with some evidence of necrotic skin. tender to palpation. Right dorsum foot: large eschar Right heel: eschar Left heel: eschar Assessment and Plan - Assessment and Plan (Free Text) Assessment: 82 y/o white female with multiple pressure ulcers Plan: * Stage 3 sacral decubitus ulcer * Silvadene QD * Right knee ulcer * Silvadene QD * Right dorsal foot eschar * Santyl QD * Right heel eschar * Santyl QD * Left heel eschar * Santyl QD * Air mattress/offloading boots * Pain control: Morphine 2 Q4 * IVF: Zosyn 2.2 Q8 * DVT PPX: Heparin 5000 SC Q12 * Protonix 20 QD Marlon Knight DO PGY1
--- NOTE | 2017-07-11 13:09 | CP.PCM.CON ---
<Sheila Arreola - Last Filed: 07/12/17 10:02> History of Present Illness - History of Present Illness History of Present Illness: Podiatry Consult Note - Dr. Pollock 82 year old female patient PMHx ESRD on HD, DM2, HTN seen at bedside concerning bilateral foot pressure ulcers/wounds. Unknown to patient when foot wounds developed; believes they first appeared after she sustained a right hip fracture 7-8 weeks ago. Patient admits to pain in wounds on both feet, R>L. Patient not wearing offloading boots at time of visit. Patient also complaining of generalized pain and inability to control bowel movements. Review of Systems - Review of Systems All systems: reviewed and no additional remarkable complaints except (as per HPI ) Past Patient History - Infectious Disease Hx of Infectious Diseases: None - Past Medical History & Family History Past Medical History?: Yes Past Family History: Reviewed and not pertinent - Past Social History Smoking Status: Former Smoker - CARDIAC Hx Cardiac Disorders: Yes Hx Hypertension: Yes - PULMONARY Hx Chronic Obstructive Pulmonary Disease (COPD): Yes - NEUROLOGICAL Hx Neurological Disorder: No - HEENT Other/Comment: Right eye blindness - RENAL Date of Last Dialysis Treatment: 07/10/17 - ENDOCRINE/METABOLIC Hx Diabetes Mellitus Type 2: Yes - HEMATOLOGICAL/ONCOLOGICAL Hx Cancer: Yes (TO BREAST WITH MASTECTOMY B/L) Other/Comment: internal bleeding and loss of bm movements sent to [facility] [facility] [place] [facility] - INTEGUMENTARY Other/Comment: unstageable/unmeasurable large decubiti ulcer 3cm deep with 1cm induration from 2 oclock to 6 oclock, yellow and green slough wound bed is red, foul drainage bright red skin, r heel stage 1116.5cm x 4cm necrotic pressure ulcer, left heel 3.5cm x 2.5cm necrotic ulcer, right knee 4cm x 4.5cm stage 111 yellow slough surrounded by pink and brown skin small purulent dng,top of right ft 9cm x 2cm necrotic wound, bruises to inner left thigh and abd, r hip healing surgical incision reddened, multiple skin discolorations b/l arms, b/l groin red rash, brown dry wounds and dry flakey skin to r ft, blackened skin to outer r ft - MUSCULOSKELETAL/RHEUMATOLOGICAL Hx Falls: Yes - GASTROINTESTINAL Hx Gastroesophageal Reflux: Yes Other/Comment: "liver problems" - GENITOURINARY/GYNECOLOGICAL Other/Comment: HX OF BREAST CA WITH B/L MASTECTOMY - PSYCHIATRIC Hx Substance Use: No - SURGICAL HISTORY Hx Orthopedic Surgery: Yes (r fx femur head and neck) Other/Comment: BILATERAL MASTECTOMY. RIGHT SUBCLAVIAN PERMACATH H/D CATH - ANESTHESIA Hx Anesthesia: Yes Hx Anesthesia Reactions: No Hx Malignant Hyperthermia: No Meds Allergies/Adverse Reactions: Allergies Allergy/AdvReac Type Severity Reaction Status Date / Time albuterol Allergy DIZZINESS Verified 07/09/17 16:25 clonidine Allergy DIZZINESS Verified 07/09/17 16:25 ibuprofen Allergy VOMITING Verified 07/09/17 16:25 prednisone Allergy VOMITING Verified 07/09/17 16:25 - Medications Medications: Current Medications Acetaminophen (Tylenol 325mg Tab) 650 mg PO ONCE ONE Stop: 07/11/17 12:45 Calcitriol (Rocaltrol) 1 mcg PO MWF [facility] Last Admin: 07/10/17 10:12 Dose: 1 mcg Cinacalcet (Sensipar) 30 mg PO DAILY [facility] Last Admin: 07/10/17 10:11 Dose: 30 mg Collagenase (Santyl) 1 gm TOP DAILY [facility] Last Admin: 07/10/17 18:21 Dose: Not Given Heparin Sodium (Porcine) (Heparin) 5,000 units SC Q12 [facility] PRN Reason: Protocol Piperacillin Sod/Tazobactam Sod (Zosyn 2.25 Gm In 0.9% 100 Ml) 2.25 gm in 100 mls @ 100 mls/hr IVPB Q8 [facility] Stop: 07/16/17 22:01 Last Admin: 07/11/17 05:52 Dose: 100 mls/hr Lactobacillus Acidophilus (Bacid Acidophilus) 1 cap PO BID [facility] Last Admin: 07/10/17 18:02 Dose: 1 cap Miconazole Nitrate (Miconazole 2% Cream) 0 ea TOP Q8 [facility] Last Admin: 07/11/17 05:58 Dose: 1 applic Morphine Sulfate (Morphine) 2 mg IVP Q4H PRN PRN Reason: Pain, moderate (4-7) Last Admin: 07/10/17 23:45 Dose: 2 mg Ondansetron HCl (Zofran Inj) 4 mg IVP Q4H PRN PRN Reason: Nausea/Vomiting Pantoprazole Sodium (Protonix Ec Tab) 20 mg PO 0600 [facility] Vitamin B Complex/Vit C/Folic Acid (Nephro-Yesica) 1 tab PO 0800 [facility] Last Admin: 07/10/17 10:11 Dose: 1 tab Physical Exam - Constitutional Appears: Non-toxic, Confused - Extremities Exam Additional comments: VASC: DP and PT pulses nonpalpable. CFT wnl b/l. TG cool to cool. No edema noted. NEURO: Gross sensation intact DERM: RLE = Dry, adherent eschar noted to 1) posterior calcaneus and 2) dorsum of RLE extending from ankle joint to midfoot, with full thickness tissue loss, extent of tissue damage cannot be confirmed due to eschar. Periwound erythema noted to eschar at dorsum of RLE. No fluctuance noted. Localized area of purple discoloration noted to lateral asepct of 5th met head with overlying blister; area is noted to be boggy with periwound erythema. LLE= Localized area of purple discoloration noted to posterior calcaneus, boggy with periwound erythema. ORTHO: Pain on palpation RLE. Pain on palpation left calcaneus - Neurological Exam Neurological exam: Alert - Psychiatric Exam Psychiatric exam: Anxious Results - Vital Signs Recent Vital Signs: Last Vital Signs Temp 97.8 F 07/11/17 08:31 Pulse 87 07/11/17 08:31 Resp 20 07/11/17 08:31 BP 149/53 L 07/11/17 08:31 Pulse Ox 99 07/11/17 08:31 - Labs Result Diagrams: 07/12/17 06:10 07/12/17 06:10 Labs: Laboratory Results - last 24 hr 07/11/17 07/11/17 06:10 06:10 WBC 9.0 RBC 2.89 L Hgb 8.3 L Hct 27.0 L MCV 93.4 MCH 28.7 MCHC 30.7 L RDW 17.7 H Plt Count 219 MPV 8.6 Sodium 140 Potassium 3.3 L Chloride 101 Carbon Dioxide 30 Anion Gap 12 BUN 16 Creatinine 2.2 H Est GFR ( Amer) 26 Est GFR (Non-Af Amer) 21 Random Glucose 77 Calcium 7.5 L Total Bilirubin 0.4 AST 36 D ALT 22 Alkaline Phosphatase 135 H D Total Protein 5.5 L Albumin 2.3 L Globulin 3.2 Albumin/Globulin Ratio 0.7 L Assessment & Plan - Assessment and Plan (Free Text) Assessment: 82 year old female 1) unstageable pressure ulcer to right calcaneus and dorsum of right foot, 2) deep tissue injury lateral 5th met head right foot and left calcaneus Plan: Patient seen and evaluated at bedside with attending, Dr. Pollock Optifoam applied to wounds, QD dressing changes C/w air mattress Rigid multipodus boots ordered, to be worn at all times while in bed Continue pain mgmt per medicine Podiatry will continue to follow while in house <Sivan Pollock - Last Filed: 07/16/17 14:35> Meds - Medications Medications: Current Medications Aspirin (Ecotrin) 81 mg PO DAILY [facility] Last Admin: 07/15/17 09:30 Dose: 81 mg Atorvastatin Calcium (Lipitor) 10 mg PO DIN [facility] Last Admin: 07/15/17 17:36 Dose: 10 mg Calcitriol (Rocaltrol) 1 mcg PO MWF [facility] Last Admin: 07/15/17 09:32 Dose: 1 mcg Cinacalcet (Sensipar) 30 mg PO DAILY [facility] Last Admin: 07/15/17 09:32 Dose: 30 mg Collagenase (Santyl) 0 gm TOP DAILY [facility] Heparin Sodium (Porcine) (Heparin) 5,000 units SC Q12 [facility] PRN Reason: Protocol Last Admin: 07/15/17 21:27 Dose: 5,000 units Heparin Sodium (Porcine) (Heparin) 2,[facility] Heparin Sodium (Porcine) (Heparin) 2,200 [facility] Meropenem 250 mg/ Sodium (Chloride) 100 mls @ 100 mls/hr IVPB Q12H [facility] PRN Reason: Protocol Stop: 07/23/17 09:01 Last Admin: 07/15/17 21:27 Dose: 100 mls/hr Ipratropium [place] (Atrovent) 0.5 mg IH TIDRESP [facility] Last Admin: 07/15/17 22:06 Dose: 0.5 mg Lactobacillus Acidophilus (Bacid Acidophilus) 1 cap PO BID [facility] Last Admin: 07/15/17 17:35 Dose: 1 cap Latanoprost (Xalatan Opht) 0 ml OD DAILY [facility] Last Admin: 07/15/17 10:35 Dose: 1 ml Metoprolol Tartrate (Lopressor) 50 mg PO BRKDIN [facility] Last Admin: 07/16/17 08:02 Dose: 50 mg Miconazole Nitrate (Miconazole 2% Cream) 0 ea TOP Q8 [facility] Last Admin: 07/16/17 05:22 Dose: 1 applic Morphine Sulfate (Morphine) 3 mg IVP Q3H PRN PRN Reason: Pain, moderate (4-7) Last Admin: 07/16/17 08:42 Dose: 3 mg Ondansetron HCl (Zofran Inj) 4 mg IVP Q4H PRN PRN Reason: Nausea/Vomiting Pantoprazole Sodium (Protonix Ec Tab) 20 mg PO 0600 [facility] Last Admin: 07/16/17 05:22 Dose: 20 mg Pilocarpine HCl (Isopto Carpine 2% Opht Soln) 0 ml OS Q12H [facility] Last Admin: 07/15/17 21:28 Dose: 1 drop Vitamin B Complex/Vit C/Folic Acid (Nephro-Yesica) 1 tab PO 0800 [facility] Last Admin: 07/16/17 08:02 Dose: 1 tab Results - Vital Signs Recent Vital Signs: Last Vital Signs Temp 97.8 F 07/16/17 06:00 Pulse 85 07/16/17 10:00 Resp 20 07/16/17 06:00 BP 119/57 L 07/16/17 08:02 Pulse Ox 100 07/16/17 06:00 - Labs Result Diagrams: 07/16/17 06:10 07/16/17 06:10 Labs: Laboratory Results - last 24 hr 07/16/17 07/16/17 06:10 06:10 WBC 15.0 H RBC 3.05 L Hgb 8.9 L Hct 29.5 L MCV 96.7 MCH 29.2 MCHC 30.2 L RDW 17.6 H Plt Count 325 MPV 9.3 Sodium 137 Potassium 4.6 Chloride 99 Carbon Dioxide 28 Anion Gap 15 BUN 24 H Creatinine 4.8 H Est GFR ( Amer) 10 Est GFR (Non-Af Amer) 9 Random Glucose 110 Calcium 8.6 Total Bilirubin 0.4 AST 83 H D ALT 41 Alkaline Phosphatase 188 H Total Protein 6.6 Albumin 2.8 L Globulin 3.7 Albumin/Globulin Ratio 0.8 L Attending/Attestation - Attestation I have personally seen and examined this patient.: Yes I have fully participated in the care of the patient.: Yes I have reviewed all pertinent clinical information: Yes
[2017-07-11] MEDS: Multivitamin Vitamin B Complex (Nephro-Vite) Tab PO SCH (15:30)
[2017-07-11] MEDS: Lactobacillus Acidophilus 500 MU Cap PO SCH ×2 (15:31→17:52)
[2017-07-11] MEDS: Morphine 2 mg/ml ISec IVP PRN ×2 (15:31→20:57)
[2017-07-11] MEDS: Collagenase 250 Units/gm Ointment(30 gm) TOP SCH (15:32)
--- NOTE | 2017-07-11 15:48 | CP.PCM.CON ---
History of Present Illness - History of Present Illness History of Present Illness: 82 year old female with PMH of HTN, DM, ESRD on HD, COPD, right eye blindness, breast cancer S/P bilateral mastectomy, was brought in to [facility] because of a fall at a halfway. She is also noted to have multiple ulcers on her feet and back. She currently denies fever or chills, no nausea or vomiting, no chest pain, no SOB, no headache or dizziness, no abdominal pain, no diarrhea, no dysuria. Infectious Diseases consult is requested to further evaluate and manage. Review of Systems - Review of Systems All systems: reviewed and no additional remarkable complaints except (as per HPI ) Past Patient History - Infectious Disease Hx of Infectious Diseases: None - Past Social History Smoking Status: Never Smoked - CARDIAC Hx Cardiac Disorders: Yes Hx Hypertension: Yes - PULMONARY Hx Respiratory Disorders: Yes Hx Chronic Obstructive Pulmonary Disease (COPD): Yes - NEUROLOGICAL Hx Neurological Disorder: No - HEENT Other/Comment: Right eye blindness - RENAL Hx Dialysis: Yes (was supposed to receive today but did not ) Hx Renal Failure: Yes - ENDOCRINE/METABOLIC Hx Diabetes Mellitus Type 2: Yes - HEMATOLOGICAL/ONCOLOGICAL Hx Cancer: Yes (TO BREAST WITH MASTECTOMY B/L) - MUSCULOSKELETAL/RHEUMATOLOGICAL Other/Comment: FX HEAD/NECK R FEMUR - GASTROINTESTINAL Other/Comment: "liver problems" - GENITOURINARY/GYNECOLOGICAL Other/Comment: HX OF BREAST CA WITH B/L MASTECTOMY - PSYCHIATRIC Hx Substance Use: No - SURGICAL HISTORY Other/Comment: BILATERAL MASTECTOMY. RIGHT SUBCLAVIAN PERMACATH H/D CATH - ANESTHESIA Hx Anesthesia: Yes Hx Anesthesia Reactions: No Hx Malignant Hyperthermia: No Meds Allergies/Adverse Reactions: Allergies Allergy/AdvReac Type Severity Reaction Status Date / Time albuterol Allergy DIZZINESS Verified 07/09/17 16:25 clonidine Allergy DIZZINESS Verified 07/09/17 16:25 ibuprofen Allergy VOMITING Verified 07/09/17 16:25 prednisone Allergy VOMITING Verified 07/09/17 16:25 - Medications Medications: Current Medications Calcitriol (Rocaltrol) 1 mcg PO MWF [facility] Cinacalcet (Sensipar) 30 mg PO DAILY [facility] Potassium Chloride (Potassium Chloride 20 Meq/100 Ml) 20 meq in 100 mls @ 50 mls/hr IVPB Q2H [facility] Stop: 07/09/17 23:14 Last Admin: 07/09/17 22:00 Dose: 50 mls/hr Metronidazole (Flagyl) 500 mg in 100 mls @ 100 mls/hr IVPB Q8 [facility] Piperacillin Sod/Tazobactam Sod (Zosyn 2.25 Gm In 0.9% 100 Ml) 2.25 gm in 100 mls @ 100 mls/hr IVPB Q8 [facility] Stop: 07/10/17 06:59 Lactobacillus Acidophilus (Bacid Acidophilus) 1 cap PO BID [facility] Miconazole Nitrate (Miconazole 2% Cream) 0 ea TOP Q8 [facility] Morphine Sulfate (Morphine) 2 mg IVP Q4H PRN PRN Reason: Pain, moderate (4-7) Ondansetron HCl (Zofran Inj) 4 mg IVP Q4H PRN PRN Reason: Nausea/Vomiting Physical Exam - Constitutional Appears: Non-toxic, No Acute Distress - Head Exam Head Exam: NORMAL INSPECTION - ENT Exam ENT Exam: Mucous Membranes Moist - Neck Exam Neck exam: Negative for: Lymphadenopathy, Meningismus - Respiratory Exam Respiratory Exam: Decreased Breath Sounds - Cardiovascular Exam Cardiovascular Exam: +S1, +S2 - GI/Abdominal Exam GI & Abdominal Exam: Soft. absent: Tenderness - Extremities Exam Additional comments: multiple pressure ulcers on left heel, stage 3 decubitus ulcer on the sacral area Results - Vital Signs Recent Vital Signs: Last Vital Signs Temp 98.3 F 07/09/17 20:07 Pulse 99 H 07/09/17 20:07 Resp 16 07/09/17 20:07 BP 145/64 07/09/17 20:07 Pulse Ox 100 07/09/17 20:07 - Labs Result Diagrams: 07/11/17 06:10 07/11/17 06:10 Labs: Laboratory Results - last 24 hr 07/09/17 22:15 pO2 166 H VBG pH 7.39 VBG pCO2 39.0 L VBG HCO3 23.6 VBG Total CO2 24.8 VBG O2 Sat (Calc) 99.4 H VBG Base Excess -1.2 L VBG Potassium 3.4 L Sodium 139.0 Chloride 111.0 H Glucose 81 Lactate 0.7 FiO2 21.0 Venous Blood Potassium 3.4 L Assessment & Plan - Assessment and Plan (Free Text) Plan: Assessment Multiple pressure ulcers, probably infected HTN DM ESRD on HD COPD right eye blindness breast cancer S/P bilateral mastectomy Plan Gave a dose of IV Vancomycin and started Zosyn pending blood cx, wound cx reviewed Surgery and Podiatry recommendations will monitor clinically
--- NOTE | 2017-07-11 18:20 | PN ---
DATE: 07/09/2017 SUBJECTIVE: Ana resting in bed. She is alert, may be a little stronger than yesterday, little more with it than yesterday. She is on IV antibiotics and IV fluids. She said she wants to eat, she is hungry. PHYSICAL EXAMINATION: VITAL SIGNS: She has a 98.2 temperature, 78 pulse, 145/52 blood pressure, 18 respiratory rate, and 98% on O2 saturation on room air. HEENT: Head is atraumatic and normocephalic. Right eye blind. Throat moist. NECK: Supple. HEART: Regular rate. LUNGS: Decreased breath sounds. Clear to auscultation. ABDOMEN: Soft, obese, nontender. Positive bowel sounds. EXTREMITIES: Right instep ulcer and sacral ulcer, both are large. MEDICATIONS: She is on Nephro-Yesica, Bacid, miconazole, morphine, Rocaltrol, Santyl, Sensipar, Zofran, and Zosyn. LABORATORY DATA: She has 9 white count; 8.3 hemoglobin, if it drops to low 8, I will transfuse; 27 hematocrit, and 219 platelets. Sodium 140, potassium up to 3.3, I will give her 2 K today. BUN is 16 and creatinine 2.2 much better. GFR is 21, calcium 7.5, glucose 77, total bilirubin is 0.4, AST 36, ALT 22, alkaline phosphatase 135. C-reactive protein and total protein is 5.5. ASSESSMENT AND PLAN: 1. She is on antibiotics. She has been seen by Infectious Disease, Renal, Surgery and I called in Podiatry for the foot ulcer too. 2. We will try and get physical therapy to get her out of bed and get some walking, normally to get 2 weeks. We will continue with aggressive treatment and care on Ana Hendrickson. We will check her labs tomorrow. Eric Hodges DO [email or web address]
[2017-07-12] MEDS ORDERED: Potassium Chloride 20 mEq ER Tab PO STA (00:59)
[2017-07-12] MEDS: Piperacillin/Tazobact 2.25gm 2.25 GM/100 ML BAG IVPB SCH ×3 (06:17→21:49)
[2017-07-12] MEDS: Pantoprazole 20 mg EC Tab PO SCH (06:18)
[2017-07-12] MEDS: Miconazole 2% Cream(30 gm) TOP SCH ×3 (06:18→21:49)
[2017-07-12 06:43] LABS: HEMATOCRIT 30.5 % (36.0-48.0); MEAN CELL VOLUME 94.7 fl (80.0-105.0); MEAN CORPUSCULAR HEMOGLOBIN 28.3 pg (25.0-35.0); MEAN CORPUSCULAR HGB CONC 29.8 g/dl (31.0-37.0); RED CELL DISTRIBUTION WIDTH 17.8 % (11.5-14.5); WHITE BLOOD COUNT 10.6 10^3/ul (4.5-11.0)
[2017-07-12] MEDS: Morphine 2 mg/ml ISec IVP PRN (06:44)
[2017-07-12 07:23] LABS: ALB/GLOB RATIO 0.8 (1.1-1.8); BILIRUBIN,TOTAL 0.4 mg/dL (0.2-1.3); POTASSIUM 4.4 mmol/L (3.6-5.0); TOTAL PROTEIN 6.2 g/dL (5.8-8.3)
[2017-07-12] MEDS ORDERED: Morphine 2 mg/ml ISec IVP PRN (07:41)
--- NOTE | 2017-07-12 08:18 | CP.PCM.PN ---
Subjective - Date & Time of Evaluation Date of Evaluation: 07/12/17 Time of Evaluation: 08:16 - Subjective Subjective: PGY1 Note for Dr. Tirado HPI: Patient seen and examined at bedside. Doing well with no complaints at this time. Denies any N/V/D/F/CP/SOB. Still mild tenderness around wound sites. Objective - Vital Signs/Intake and Output Vital Signs (last 24 hours): Temp Pulse Resp BP Pulse Ox 98.2 F 94 H 20 144/82 99 07/12/17 07:38 07/12/17 07:38 07/12/17 07:38 07/12/17 07:38 07/12/17 07:38 Intake and Output: 07/12/17 07/12/17 06:59 18:59 Intake Total 120 120 Balance 120 120 - Medications Medications: Current Medications Calcitriol (Rocaltrol) 1 mcg PO MWF [facility] Last Admin: 07/10/17 10:12 Dose: 1 mcg Cinacalcet (Sensipar) 30 mg PO DAILY [facility] Last Admin: 07/11/17 15:30 Dose: 30 mg Collagenase (Santyl) 1 gm TOP DAILY [facility] Last Admin: 07/11/17 15:32 Dose: 1 applic Heparin Sodium (Porcine) (Heparin) 5,000 units SC Q12 [facility] PRN Reason: Protocol Last Admin: 07/11/17 21:01 Dose: 5,000 units Piperacillin Sod/Tazobactam Sod (Zosyn 2.25 Gm In 0.9% 100 Ml) 2.25 gm in 100 mls @ 100 mls/hr IVPB Q8 [facility] Stop: 07/16/17 22:01 Last Admin: 07/12/17 06:17 Dose: 100 mls/hr Lactobacillus Acidophilus (Bacid Acidophilus) 1 cap PO BID [facility] Last Admin: 07/11/17 17:52 Dose: 1 cap Miconazole Nitrate (Miconazole 2% Cream) 0 ea TOP Q8 [facility] Last Admin: 07/12/17 06:18 Dose: 1 applic Morphine Sulfate (Morphine) 3 mg IVP Q3H PRN PRN Reason: Pain, moderate (4-7) Ondansetron HCl (Zofran Inj) 4 mg IVP Q4H PRN PRN Reason: Nausea/Vomiting Pantoprazole Sodium (Protonix Ec Tab) 20 mg PO 0600 [facility] Last Admin: 07/12/17 06:18 Dose: 20 mg Vitamin B Complex/Vit C/Folic Acid (Nephro-Yesica) 1 tab PO 0800 [facility] Last Admin: 07/11/17 15:30 Dose: 1 tab - Labs Labs: 07/12/17 06:10 07/12/17 06:10 - Constitutional Appears: Well, Non-toxic, No Acute Distress - Head Exam Head Exam: ATRAUMATIC, NORMAL INSPECTION, NORMOCEPHALIC - Eye Exam Eye Exam: EOMI - ENT Exam ENT Exam: Mucous Membranes Moist - Respiratory Exam Respiratory Exam: Clear to Ausculation Bilateral, NORMAL BREATHING PATTERN - Cardiovascular Exam Cardiovascular Exam: REGULAR RHYTHM - GI/Abdominal Exam GI & Abdominal Exam: Soft, Normal Bowel Sounds. absent: Distended, Tenderness - Extremities Exam Extremities Exam: Tenderness (mild around wound sites. ). absent: Joint Swelling - Back Exam Back Exam: absent: CVA tenderness (L), CVA tenderness (R) - Neurological Exam Neurological Exam: Alert, Awake, Oriented x3 - Psychiatric Exam Psychiatric exam: absent: Normal Affect, Normal Mood - Skin Skin Exam: Dry, Intact, Normal Color, Warm Assessment and Plan - Assessment and Plan (Free Text) Assessment: 82 yo Female with Sacral Decub stage 3 and multiple LE wounds Plan: * Stage 3 sacral decubitus ulcer = wound vac today * Right knee ulcer = Silvadene QD * Right dorsal foot eschar = scored today and Santyl QD * Right heel eschar = Santyl QD * Left heel eschar = Santyl QD * Air mattress/offloading boots * Pain control: Morphine 2 Q4 * IVF: Zosyn 2.2 Q8 * DVT PPX: Heparin 5000 SC Q12 * Protonix 20 QD Marlon Knight DO PGY1
--- NOTE | 2017-07-12 08:54 | PN ---
FOLLOWUP NEPHROLOGY DATE: 07/11/2017 CHIEF COMPLAINT: "This is too much, I have pains all over." HISTORY OF PRESENT ILLNESS AND REVIEW OF SYSTEMS: The patient was seen during dialysis. She was uncomfortable during dialysis. She said this is too much. She had dialysis yesterday and also going to office today. She also reports pain in the abdomen, pain in the lower back. The patient also report multiple wounds and also pain in the legs and generalized body ache. She denied any fever or chills. . Denies nausea or vomiting. PHYSICAL EXAMINATION GENERAL: The patient is elderly chronically debilitated appearing female, seen during dialysis. VITAL SIGNS: She is afebrile, pulse is 87, blood pressure 149/53, saturation is well maintained. LUNGS: Bilateral vesicular breath sounds. Bilateral air entry normal and symmetrical, clear. CARDIOVASCULAR: S1, S2 normal. No murmur, rub, or gallop. ABDOMEN: Soft. No significant organomegaly could be appreciated. EXTREMITIES: No edema. PSYCHIATRIC: The patient appears depressed ; otherwise, no hallucination. LYMPHATIC: No lymphadenopathy in the neck. LABORATORY DATA: Workup had shown that she had a white blood cell count of 9, hemoglobin 8.3, platelet count of 219. Sodium is 140, potassium is 3.3, creatinine is 2.2. Cultures so far has been negative. MEDICATIONS: Current medications were reviewed. ASSESSMENT: 1. Overall condition is stable , which has resolved. 2. End-stage renal disease, on hemodialysis via Perm-A-Cath. 3. 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 4. Questionable change in mental status. 5. Hypokalemia. 6. Recent femur fracture status post surgery, history of gastrointestinal bleed, Clostridium difficile at this time. 7. History of carcinoma of breast with bilateral mastectomy. RECOMMENDATIONS: The patient is for dialysis today as per TTS schedule. Then, she is on 3.5 potassium bath. She also has received potassium supplementation. She is also on Calcitrol, also on Sensipar, she has received Aranesp. She is also on multivitamin, antibiotics as per the primary team. Podiatry has been evaluating her wound as well and managing it. The patient was started on lactobacillus. Consider checking stool for c. difficile. All questions were answered. Wang France MD
[2017-07-12] MEDS: Multivitamin Vitamin B Complex (Nephro-Vite) Tab PO SCH (09:32)
--- NOTE | 2017-07-12 10:20 | CP.PCM.PN ---
Subjective - Date & Time of Evaluation Date of Evaluation: 07/12/17 Time of Evaluation: 09:05 - Subjective Subjective: Comfortable, still has occasional pain in the left heel and sacral areas. No fevers overnight. Objective - Vital Signs/Intake and Output Vital Signs (last 24 hours): Temp Pulse Resp BP Pulse Ox 98.2 F 101 H 20 153/67 H 99 07/11/17 16:51 07/11/17 16:51 07/11/17 16:51 07/11/17 16:51 07/11/17 16:51 Intake and Output: 07/11/17 07/12/17 18:59 06:59 Intake Total 240 120 Balance 240 120 - Medications Medications: Current Medications Calcitriol (Rocaltrol) 1 mcg PO MWF [facility] Last Admin: 07/10/17 10:12 Dose: 1 mcg Cinacalcet (Sensipar) 30 mg PO DAILY [facility] Last Admin: 07/11/17 15:30 Dose: 30 mg Collagenase (Santyl) 1 gm TOP DAILY [facility] Last Admin: 07/11/17 15:32 Dose: 1 applic Heparin Sodium (Porcine) (Heparin) 5,000 units SC Q12 [facility] PRN Reason: Protocol Last Admin: 07/11/17 21:01 Dose: 5,000 units Piperacillin Sod/Tazobactam Sod (Zosyn 2.25 Gm In 0.9% 100 Ml) 2.25 gm in 100 mls @ 100 mls/hr IVPB Q8 [facility] Stop: 07/16/17 22:01 Last Admin: 07/12/17 06:17 Dose: 100 mls/hr Lactobacillus Acidophilus (Bacid Acidophilus) 1 cap PO BID [facility] Last Admin: 07/11/17 17:52 Dose: 1 cap Miconazole Nitrate (Miconazole 2% Cream) 0 ea TOP Q8 [facility] Last Admin: 07/12/17 06:18 Dose: 1 applic Morphine Sulfate (Morphine) 2 mg IVP Q4H PRN PRN Reason: Pain, moderate (4-7) Last Admin: 07/11/17 20:57 Dose: 2 mg Ondansetron HCl (Zofran Inj) 4 mg IVP Q4H PRN PRN Reason: Nausea/Vomiting Pantoprazole Sodium (Protonix Ec Tab) 20 mg PO 0600 [facility] Last Admin: 07/12/17 06:18 Dose: 20 mg Vitamin B Complex/Vit C/Folic Acid (Nephro-Yesica) 1 tab PO 0800 [facility] Last Admin: 07/11/17 15:30 Dose: 1 tab - Labs Labs: 07/11/17 06:10 07/11/17 06:10 - Constitutional Appears: Non-toxic, Chronically Ill - Head Exam Head Exam: NORMAL INSPECTION - ENT Exam ENT Exam: Mucous Membranes Moist - Neck Exam Neck Exam: absent: Meningismus - Respiratory Exam Respiratory Exam: Decreased Breath Sounds - Cardiovascular Exam Cardiovascular Exam: +S1, +S2 - GI/Abdominal Exam GI & Abdominal Exam: Soft. absent: Tenderness - Extremities Exam Additional comments: both feet with dressings in place Assessment and Plan - Assessment and Plan (Free Text) Plan: Assessment Multiple pressure ulcers (both heels, sacral ulcer stage 3), infected with gram negative bacilli HTN DM ESRD on HD COPD right eye blindness breast cancer S/P bilateral mastectomy Plan continue Zosyn; wound cx showing gram negative bacilli and yeast (yeast is probably colonization) reviewed Surgery and Podiatry recommendations - for wound vacuum placement on the sacral area will continue to monitor clinically
--- NOTE | 2017-07-12 11:57 | PN ---
DATE:07/09/2017 SUBJECTIVE: I saw Ana resting comfortably in bed. The nurse said that she slept fairly well last night. When I saw her, she was in pain. I asked the nurse to give her some pain medication. She was also telling that the pain medication needs to come more often, so I increased it and I am also going to give her more pain medication in general. I am going to go from two q.4 to three q.3 hours . She is also giving the surgeon's difficulty when I try and examine and take care of her multiple wounds. We will up the pain medication, so hopefully she will be more comfortable when I examined, debrided and take care of her wounds. Also I needed her to get out of the bed to chair and have physical therapy. I explained that to her at length and she was reluctant to move. PHYSICAL EXAMINATION: VITAL SIGNS: She has a 98.2 temperature, 94 pulse, 144/82 blood pressure, 20 respiratory rate, and 99% O2 saturation on 2 liter nasal cannula. HEENT: Head is atraumatic and normocephalic. Throat is moist. NECK: Supple. HEART: Regular rate. LUNGS: Decreased breath sounds, but clear. ABDOMEN: Soft and obese. EXTREMITIES: No edema. Multiple stage III plus wounds, right heel, right instep, sacral ulcer, her knees. She is being attended to by the surgeon and the tailor apprentice. MEDICATIONS: She is currently on lactobacillus, heparin, miconazole, morphine, I increased it to three q.3, Nephro-Yesica, Protonix, Rocaltrol, Santyl, Sensipar, Zofran, and Zosyn IV. LABORATORY DATA: She has a 140 sodium yesterday, 3.3 potassium yesterday. Labs are pending today. Give her 2 K-riders. BUN is 16 and creatinine 2.2, definitely improving when she came in. Hopefully will continue to improve. AST was 36, ALT was 22. Today's white count is 10.6, hemoglobin up to 9.1, which is great, 30.5 hematocrit with 280 platelets. She is being seen by Infectious Disease, Surgery, Podiatry, and kidney doctor. We will continue with the aggressive treatment and care. She will eventually do to subacute rehab and stand out of the bed. Problem at [facility], we could try another facility or possibly LTAC because she has so many wounds, which will take a longtime and she will need to help us with this by getting out of the bed and to be more physical and I think the pain is stopping her. We will increase the pain medication as we need and we will continue with aggressive treatment and care on Ana Hendrickson with multiple wound grade 3s and above, renal insufficiency, and debility. Eric Hodges DO
[2017-07-12] MEDS: Morphine 4 mg/ml ISec IVP PRN ×3 (12:43→20:31)
--- NOTE | 2017-07-12 14:29 | CP.PCM.PN ---
<Sheila Arreola - Last Filed: 07/12/17 14:23> Subjective - Date & Time of Evaluation Date of Evaluation: 07/12/17 Time of Evaluation: 14:23 - Subjective Subjective: Podiatry Progress Note - Dr. Kwan 82 year old female patient PMHx ESRD on HD, DM2, HTN seen at bedside foot bilateral foot wounds. Patient is uncomfortable at time of visit, complaining of generalized body aches and pains and reluctant to receive care. Patient reports continued pain to both foot wounds. Patient not wearing offloading boots at time of visit. Patient denies N/V/F/D/C/SOB/calf pain. No other pedal complaints at this time. Objective - Vital Signs/Intake and Output Vital Signs (last 24 hours): Temp Pulse Resp BP Pulse Ox 98.2 F 94 H 20 144/82 99 07/12/17 07:38 07/12/17 07:38 07/12/17 07:38 07/12/17 07:38 07/12/17 07:38 Intake and Output: 07/12/17 07/12/17 06:59 18:59 Intake Total 120 120 Balance 120 120 - Medications Medications: Current Medications Calcitriol (Rocaltrol) 1 mcg PO MWF [facility] Last Admin: 07/10/17 10:12 Dose: 1 mcg Cinacalcet (Sensipar) 30 mg PO DAILY [facility] Last Admin: 07/11/17 15:30 Dose: 30 mg Collagenase (Santyl) 1 gm TOP DAILY [facility] Last Admin: 07/11/17 15:32 Dose: 1 applic Heparin Sodium (Porcine) (Heparin) 5,000 units SC Q12 [facility] PRN Reason: Protocol Last Admin: 07/11/17 21:01 Dose: 5,000 units Piperacillin Sod/Tazobactam Sod (Zosyn 2.25 Gm In 0.9% 100 Ml) 2.25 gm in 100 mls @ 100 mls/hr IVPB Q8 [facility] Stop: 07/16/17 22:01 Last Admin: 07/12/17 06:17 Dose: 100 mls/hr Lactobacillus Acidophilus (Bacid Acidophilus) 1 cap PO BID [facility] Last Admin: 07/11/17 17:52 Dose: 1 cap Miconazole Nitrate (Miconazole 2% Cream) 0 ea TOP Q8 [facility] Last Admin: 07/12/17 06:18 Dose: 1 applic Morphine Sulfate (Morphine) 3 mg IVP Q3H PRN PRN Reason: Pain, moderate (4-7) Last Admin: 07/12/17 12:43 Dose: 3 mg Ondansetron HCl (Zofran Inj) 4 mg IVP Q4H PRN PRN Reason: Nausea/Vomiting Pantoprazole Sodium (Protonix Ec Tab) 20 mg PO 0600 [facility] Last Admin: 07/12/17 06:18 Dose: 20 mg Vitamin B Complex/Vit C/Folic Acid (Nephro-Yesica) 1 tab PO 0800 [facility] Last Admin: 07/12/17 09:32 Dose: 1 tab - Labs Labs: 07/12/17 06:10 07/12/17 06:10 - Constitutional Appears: Well, Non-toxic, No Acute Distress - Extremities Exam Additional comments: VASC: DP and PT pulses nonpalpable. CFT wnl b/l. TG cool to cool. No edema noted. NEURO: Gross sensation intact DERM: RLE = Dry, adherent eschar noted to 1) posterior calcaneus measuring approximately 6.5 x 4 cm and 2) dorsum of RLE extending from ankle joint to midfoot mesuring approximately 9 x 2 cm, with full thickness tissue loss, extent of tissue damage cannot be confirmed due to eschar. Periwound erythema noted to eschar at dorsum of RLE. No fluctuance noted. Localized area of purple discoloration noted to lateral asepct of 5th met head with overlying blister; area is noted to be boggy with periwound erythema. LLE= Localized area of purple discoloration measuring approximately 3.5 x 2.5 cm noted to posterior calcaneus, boggy with periwound erythema. ORTHO: Pain on palpation RLE. Pain on palpation left calcaneus - Neurological Exam Neurological Exam: Alert, Awake, Oriented x3 - Psychiatric Exam Psychiatric exam: Agitated, Depressed Assessment and Plan - Assessment and Plan (Free Text) Assessment: 82 year old female 1) unstageable pressure ulcer to right calcaneus and dorsum of right foot, 2) deep tissue injury lateral 5th met head right foot and left calcaneus Plan: Patient seen and evaluated at bedside Discussed with attending, Dr. Aquiles Callahanam applied to wounds, daily dressing changes C/w air mattress Rigid multipodus boots b/l, to be worn at all times while in bed Continue pain management per medicine Podiatry will continue to follow while in house <Fidel Kwan - Last Filed: 07/12/17 18:50> Objective - Vital Signs/Intake and Output Vital Signs (last 24 hours): Temp Pulse Resp BP Pulse Ox 98.4 F 101 H 20 151/56 H 97 07/12/17 17:50 07/12/17 17:50 07/12/17 17:50 07/12/17 17:50 07/12/17 17:50 Intake and Output: 07/12/17 07/12/17 06:59 18:59 Intake Total 120 600 Balance 120 600 - Medications Medications: Current Medications Calcitriol (Rocaltrol) 1 mcg PO MWF [facility] Last Admin: 07/12/17 14:35 Dose: 1 mcg Cinacalcet (Sensipar) 30 mg PO DAILY [facility] Last Admin: 07/12/17 14:37 Dose: 30 mg Collagenase (Santyl) 1 gm TOP DAILY [facility] Last Admin: 07/12/17 14:37 Dose: 1 applic Heparin Sodium (Porcine) (Heparin) 5,000 units SC Q12 [facility] PRN Reason: Protocol Last Admin: 07/12/17 14:36 Dose: 5,000 units Piperacillin Sod/Tazobactam Sod (Zosyn 2.25 Gm In 0.9% 100 Ml) 2.25 gm in 100 mls @ 100 mls/hr IVPB Q8 [facility] Stop: 07/16/17 22:01 Last Admin: 07/12/17 14:52 Dose: 100 mls/hr Lactobacillus Acidophilus (Bacid Acidophilus) 1 cap PO BID [facility] Last Admin: 07/12/17 14:37 Dose: 1 cap Latanoprost (Xalatan Opht) 0 ml OD DAILY [facility] Miconazole Nitrate (Miconazole 2% Cream) 0 ea TOP Q8 [facility] Last Admin: 07/12/17 14:28 Dose: 2 applic Morphine Sulfate (Morphine) 3 mg IVP Q3H PRN PRN Reason: Pain, moderate (4-7) Last Admin: 07/12/17 15:35 Dose: 3 mg Ondansetron HCl (Zofran Inj) 4 mg IVP Q4H PRN PRN Reason: Nausea/Vomiting Pantoprazole Sodium (Protonix Ec Tab) 20 mg PO 0600 [facility] Last Admin: 07/12/17 06:18 Dose: 20 mg Pilocarpine HCl (Isopto Carpine 2% Opht Soln) 0 ml OS Q12H [facility] Vitamin B Complex/Vit C/Folic Acid (Nephro-Yesica) 1 tab PO 0800 [facility] Last Admin: 07/12/17 09:32 Dose: 1 tab - Labs Labs: 07/12/17 06:10 07/12/17 06:10 Attending/Attestation - Attestation I have personally seen and examined this patient.: Yes I have fully participated in the care of the patient.: Yes I have reviewed all pertinent clinical information, including history, physical exam and plan: Yes
[2017-07-12] MEDS: Lactobacillus Acidophilus 500 MU Cap PO SCH (14:37)
[2017-07-12] MEDS: Collagenase 250 Units/gm Ointment(30 gm) TOP SCH (14:37)
--- NOTE | 2017-07-12 18:51 | PN ---
CHIEF COMPLAINT: Wound at the back. HISTORY OF PRESENT ILLNESS AND REVIEW OF SYSTEMS: Noted overnight event. The patient has debridement of her sacral wound. She reports discomfort from that. Son was at bedside. Otherwise, she denies any new complaint. Denies any chest pain or palpitation. Denies any shortness of breath at this time. She had dialysis yesterday. PHYSICAL EXAMINATION: GENERAL: She is debilitated-appearing female, not in acute distress. VITAL SIGNS: Afebrile, pulse is 94, blood pressure 144/82. LUNGS: Bilateral vesicular breath sounds. Air entry normal and symmetrical. CARDIOVASCULAR: S1 and S2 normal. No murmur, rub, or gallop. ABDOMEN: Soft. Nontender, no organomegaly. EXTREMITIES: No edema. SKIN: The patient has multiple wounds on the sacral area and in the lower extremities. VASCULAR: Access the PermCath. LABORATORY DATA: Workup shows white blood cell count of 10.6, hemoglobin 9.1, platelet count of 283. Potassium is 4.4, creatinine is 1.9, glucose is 80. CURRENT MEDICATIONS: Were reviewed. ASSESSMENT: 1. ?change in mental status, resolved. 2. Sacral decubitus ulcer. 3. Hypokalemia. 4. End-stage renal disease, on hemodialysis via PermCath, TTS schedule. 5. History of diabetic and hypertensive chronic kidney disease. 6. Previous history of femur fracture, status post surgery. 7. History of gastrointestinal bleed. 8. History of Clostridium difficile. 9. History of carcinoma of breast. RECOMMENDATIONS: No acute need for dialysis today. We will plan for dialysis tomorrow. We will change it to 3K bath considering improved potassium. She is also on Calcitrol and Sensipar. Also received dose of Aranesp. She is also on multivitamin, also on antibiotics as per the primary team. Her hemoglobin is bit improved. Discussed with the son at bedside. All questions were answered. Please call if any questions. Wang France MD
[2017-07-12] MEDS: Pilocarpine 2% Opht (15ml) OS SCH (21:42)
[2017-07-13 06:51] LABS: HEMATOCRIT 31.8 % (36.0-48.0); MEAN CELL VOLUME 94.6 fl (80.0-105.0); MEAN CORPUSCULAR HGB CONC 29.6 g/dl (31.0-37.0); MEAN PLATELET VOLUME 8.8 fl (7.0-11.0); RED CELL DISTRIBUTION WIDTH 17.6 % (11.5-14.5); WHITE BLOOD COUNT 14.6 10^3/ul (4.5-11.0)
[2017-07-13 06:56] LABS: ALB/GLOB RATIO 0.8 (1.1-1.8); BILIRUBIN,TOTAL 0.4 mg/dL (0.2-1.3); CALCIUM 8.9 mg/dL (8.4-10.5); POTASSIUM 4.5 mmol/L (3.6-5.0); TOTAL PROTEIN 6.4 g/dL (5.8-8.3)
[2017-07-13] MEDS: Miconazole 2% Cream(30 gm) TOP SCH ×3 (07:00→21:41)
[2017-07-13] MEDS: Piperacillin/Tazobact 2.25gm 2.25 GM/100 ML BAG IVPB SCH ×3 (07:00→21:41)
[2017-07-13] MEDS: Pantoprazole 20 mg EC Tab PO SCH (07:00)
--- NOTE | 2017-07-13 08:32 | CP.PCM.PN ---
<Travon Zuleta - Last Filed: 07/13/17 08:28> Subjective - Date & Time of Evaluation Date of Evaluation: 07/13/17 Time of Evaluation: 08:28 - Subjective Subjective: Podiatry Progress Note - Dr. Kwan 82 year old female patient PMHx ESRD on HD, DM2, HTN seen at bedside foot bilateral foot wounds. Patient states that she did not sleep well last night. She was experiencing chills. Reports sleeping only 3 hours. Patient reports continued pain to both foot wounds. Dressing is c/d/i without any strikethrough. Patient denies V/CP/SOB at this time. She complains of elongated nails to the right foot that is causing her pain. She reports the nails being curved and irritating surrounding toes. Objective - Vital Signs/Intake and Output Vital Signs (last 24 hours): Temp Pulse Resp BP Pulse Ox 98.2 F 133 H 20 169/99 H 96 07/13/17 06:00 07/13/17 06:00 07/13/17 06:00 07/13/17 06:00 07/13/17 06:00 Intake and Output: 07/13/17 07/13/17 06:59 18:59 Intake Total 480 Balance 480 - Medications Medications: Current Medications Calcitriol (Rocaltrol) 1 mcg PO MWF [facility] Last Admin: 07/12/17 14:35 Dose: 1 mcg Cinacalcet (Sensipar) 30 mg PO DAILY [facility] Last Admin: 07/12/17 14:37 Dose: 30 mg Collagenase (Santyl) 1 gm TOP DAILY [facility] Last Admin: 07/12/17 14:37 Dose: 1 applic Heparin Sodium (Porcine) (Heparin) 5,000 units SC Q12 [facility] PRN Reason: Protocol Last Admin: 07/12/17 21:41 Dose: 5,000 units Piperacillin Sod/Tazobactam Sod (Zosyn 2.25 Gm In 0.9% 100 Ml) 2.25 gm in 100 mls @ 100 mls/hr IVPB Q8 [facility] Stop: 07/16/17 22:01 Last Admin: 07/13/17 07:00 Dose: 100 mls/hr Lactobacillus Acidophilus (Bacid Acidophilus) 1 cap PO BID [facility] Last Admin: 07/12/17 14:37 Dose: 1 cap Latanoprost (Xalatan Opht) 0 ml OD DAILY [facility] Miconazole Nitrate (Miconazole 2% Cream) 0 ea TOP Q8 [facility] Last Admin: 07/13/17 07:00 Dose: 1 applic Morphine Sulfate (Morphine) 3 mg IVP Q3H PRN PRN Reason: Pain, moderate (4-7) Last Admin: 07/12/17 20:31 Dose: 3 mg Ondansetron HCl (Zofran Inj) 4 mg IVP Q4H PRN PRN Reason: Nausea/Vomiting Pantoprazole Sodium (Protonix Ec Tab) 20 mg PO 0600 [facility] Last Admin: 07/13/17 07:00 Dose: 20 mg Pilocarpine HCl (Isopto Carpine 2% Opht Soln) 0 ml OS Q12H [facility] Last Admin: 07/12/17 21:42 Dose: 1 drop Vitamin B Complex/Vit C/Folic Acid (Nephro-Yesica) 1 tab PO 0800 [facility] Last Admin: 07/12/17 09:32 Dose: 1 tab - Labs Labs: 07/13/17 06:00 07/13/17 06:00 - Constitutional Appears: Well, Non-toxic, No Acute Distress - Extremities Exam Additional comments: VASC: DP and PT pulses nonpalpable. CFT wnl b/l. TG cool to cool. No edema noted. NEURO: Gross sensation intact DERM: RLE = Dry, adherent eschar noted to 1) posterior calcaneus measuring approximately 6.5 x 4 cm and 2) dorsum of RLE extending from ankle joint to midfoot mesuring approximately 9 x 2 cm, with full thickness tissue loss, extent of tissue damage cannot be confirmed due to eschar. Periwound erythema noted to eschar at dorsum of RLE. No fluctuance noted. Localized area of purple discoloration noted to lateral asepct of 5th met head with overlying blister; area is noted to be boggy with periwound erythema. LLE= Localized area of purple discoloration measuring approximately 3.5 x 2.5 cm noted to posterior calcaneus, boggy with periwound erythema. ORTHO: Pain on palpation RLE. Pain on palpation left calcaneus - Neurological Exam Neurological Exam: Awake, Oriented x3 - Psychiatric Exam Psychiatric exam: Normal Affect, Normal Mood Assessment and Plan - Assessment and Plan (Free Text) Assessment: 82 year old female 1) unstageable pressure ulcer to right calcaneus and dorsum of right foot, 2) deep tissue injury lateral 5th met head right foot and left calcaneus Plan: Patient seen and evaluated at bedside Discussed with attending, Dr. Kwan Charts and labs reviewed- afebrile, WBC=14.6 Optifoam applied to wounds bilaterally with daily dressing changes C/w air mattress Rigid multipodus boots b/l, to be worn at all times while in bed Continue pain management per medicine Podiatry will continue to follow while in house <Fidel Kwan - Last Filed: 07/15/17 08:13> Objective - Vital Signs/Intake and Output Vital Signs (last 24 hours): Temp Pulse Resp BP Pulse Ox 98.6 F 104 H 20 113/64 100 07/14/17 06:00 07/14/17 09:10 07/14/17 06:00 07/14/17 09:10 07/14/17 06:00 Intake and Output: 07/15/17 07/15/17 06:59 18:59 Intake Total 400 Output Total 200 Balance 200 - Medications Medications: Current Medications Aspirin (Ecotrin) 81 mg PO DAILY [facility] Last Admin: 07/14/17 10:11 Dose: 81 mg Calcitriol (Rocaltrol) 1 mcg PO MWF [facility] Last Admin: 07/12/17 14:35 Dose: 1 mcg Cinacalcet (Sensipar) 30 mg PO DAILY [facility] Last Admin: 07/14/17 09:10 Dose: 30 mg Clopidogrel Bisulfate (Plavix) 75 mg PO DAILY [facility] Collagenase (Santyl) 1 gm TOP DAILY [facility] Last Admin: 07/14/17 09:12 Dose: 1 applic Heparin Sodium (Porcine) (Heparin) 5,000 units SC Q12 [facility] PRN Reason: Protocol Last Admin: 07/14/17 21:27 Dose: 5,000 units Heparin Sodium (Porcine) (Heparin) 2,100 units ICA ONCE [facility] Last Admin: 07/13/17 21:41 Dose: Not Given Meropenem 250 mg/ Sodium (Chloride) 100 mls @ 100 mls/hr IVPB Q12H [facility] PRN Reason: Protocol Stop: 07/23/17 09:01 Last Admin: 07/14/17 21:27 Dose: 100 mls/hr Ipratropium [place] (Atrovent) 0.5 mg IH TIDRESP [facility] Last Admin: 07/15/17 08:10 Dose: 0.5 mg Lactobacillus Acidophilus (Bacid Acidophilus) 1 cap PO BID [facility] Last Admin: 07/14/17 17:14 Dose: 1 cap Latanoprost (Xalatan Opht) 0 ml OD DAILY [facility] Last Admin: 07/14/17 09:12 Dose: 2.5 ml Metoprolol Tartrate (Lopressor) 25 mg PO BRKDIN [facility] Last Admin: 07/14/17 17:14 Dose: 25 mg Miconazole Nitrate (Miconazole 2% Cream) 0 ea TOP Q8 [facility] Last Admin: 07/15/17 06:35 Dose: 1 applic Morphine Sulfate (Morphine) 3 mg IVP Q3H PRN PRN Reason: Pain, moderate (4-7) Last Admin: 07/15/17 05:44 Dose: 3 mg Ondansetron HCl (Zofran Inj) 4 mg IVP Q4H PRN PRN Reason: Nausea/Vomiting Pantoprazole Sodium (Protonix Ec Tab) 20 mg PO 0600 [facility] Last Admin: 07/15/17 05:31 Dose: 20 mg Pilocarpine HCl (Isopto Carpine 2% Opht Soln) 0 ml OS Q12H [facility] Last Admin: 07/14/17 22:43 Dose: 1 drop Vitamin B Complex/Vit C/Folic Acid (Nephro-Yesica) 1 tab PO 0800 [facility] Last Admin: 07/14/17 09:10 Dose: 1 tab - Labs Labs: 07/15/17 06:58 07/15/17 06:58 PT 13.1 Seconds (9.9-11.8) H 07/14/17 07:30 INR 1.21 (0.93-1.08) H 07/14/17 07:30 APTT 25.7 Seconds (23.7-30.8) 07/14/17 07:30 Attending/Attestation - Attestation I have personally seen and examined this patient.: Yes I have fully participated in the care of the patient.: Yes I have reviewed all pertinent clinical information, including history, physical exam and plan: Yes
[2017-07-13] MEDS: Multivitamin Vitamin B Complex (Nephro-Vite) Tab PO SCH (10:10)
[2017-07-13] MEDS: Lactobacillus Acidophilus 500 MU Cap PO SCH ×2 (10:11→21:42)
[2017-07-13] MEDS: Morphine 4 mg/ml ISec IVP PRN ×4 (10:11→23:54)
[2017-07-13] MEDS: Collagenase 250 Units/gm Ointment(30 gm) TOP SCH (10:13)
[2017-07-13] MEDS: Pilocarpine 2% Opht (15ml) OS SCH ×2 (10:14→21:41)
--- NOTE | 2017-07-13 14:34 | CP.PCM.PCO ---
Additional Comments - Additional Comments Additional Comments: House Doctor Note Reason for note: Chest pain Patient has PMH HTN, DM and ESRD on HD is complaining of chest pain that radiates from her L and R shoulders to her chest. Her chest was tender to palpation. HR noted to be tachycardic, but regular rhythm without murmurs. Other vital signs were within normal limits. Lungs were clear to auscultation. This can be musculoskeletal, but will r/o ACS. Mag, Phos, EKG and Cardiac ISO ordered and reviewed. EKG showed sinus tachycardia. Troponin 0.68. Cardiology is on consult. Dr. Upton and Dr. Hodges were notified. Patient was given ASA and Lipitor. After re-evaluation, her CP resolved. Will do serial troponin for further monitoring. Alfredo Piedra PGY2
--- NOTE | 2017-07-13 14:51 | PN ---
DATE: 07/13/2017 SUBJECTIVE: The patient is in bed, in no acute distress. PHYSICAL EXAMINATION: VITAL SIGNS: Temperature is 98, blood pressure is 160/90, respiratory rate of 20, and heart rate of 130. HEENT: Unremarkable. NECK: Supple. LUNGS: Decreased breath sounds. HEART: Normal S1 and S2. ABDOMEN: Soft, nontender. LABORATORY DATA: Reveals a white count of 14,600, hemoglobin of 9, platelets of 326. BUN of 16, creatinine of 3.2. Urinalysis is noted. Microbiology reveals pseudomonas aeruginosa and yeast and a sacral culture. Review of orders reveals the patient to be on Zosyn. ASSESSMENT AND PLAN: This is an 82-year-old female, seen earlier this morning with multiple pressure ulcers and with pseudomonas and yeast from the culture of the sacrum, negative blood cultures, negative urine cultures with hypertension, diabetes, end-stage renal disease, on hemodialysis; chronic obstructive lung disease, on Zosyn and with breast cancer and currently on Zosyn. We will continue her present treatment. Amrik Rodríguez MD
[2017-07-13] MEDS ORDERED: Aspirin 325 mg EC Tablets PO STA (15:13)
[2017-07-13 15:48] LABS: MAGNESIUM 1.7 mg/dL (1.7-2.2)
[2017-07-13 16:26] LABS: TROPONIN I 0.68 ng/mL
[2017-07-13 22:29] LABS: TROPONIN I 1.15 ng/mL
[2017-07-14] MEDS: Piperacillin/Tazobact 2.25gm 2.25 GM/100 ML BAG IVPB SCH (06:46)
[2017-07-14] MEDS: Miconazole 2% Cream(30 gm) TOP SCH ×3 (06:46→22:43)
[2017-07-14] MEDS: Pantoprazole 20 mg EC Tab PO SCH (06:46)
[2017-07-14 07:59] LABS: HEMATOCRIT 31.1 % (36.0-48.0); INR 1.21 (0.93-1.08); MEAN CELL VOLUME 94.8 fl (80.0-105.0); MEAN CORPUSCULAR HEMOGLOBIN 28.4 pg (25.0-35.0); MEAN CORPUSCULAR HGB CONC 29.9 g/dl (31.0-37.0); MEAN PLATELET VOLUME 9.1 fl (7.0-11.0); PARTIAL THROMBOPLASTIN TIME 25.7 Seconds (23.7-30.8); RED CELL DISTRIBUTION WIDTH 17.6 % (11.5-14.5); WHITE BLOOD COUNT 11.2 10^3/ul (4.5-11.0)
[2017-07-14 08:13] LABS: ALB/GLOB RATIO 0.8 (1.1-1.8); BILIRUBIN,TOTAL 0.4 mg/dL (0.2-1.3); CALCIUM 8.4 mg/dL (8.4-10.5); TOTAL PROTEIN 6.2 g/dL (5.8-8.3)
[2017-07-14 08:20] LABS: TROPONIN I 0.99 ng/mL
--- NOTE | 2017-07-14 08:34 | CARD ---
APPROVED REPORT EKG Measurement Heart [id number] <Conclusion> Sinus tachycardia Anteroseptal infarct, new since 07/09/17
[2017-07-14] MEDS: Lactobacillus Acidophilus 500 MU Cap PO SCH ×2 (09:09→17:14)
[2017-07-14] MEDS: Multivitamin Vitamin B Complex (Nephro-Vite) Tab PO SCH (09:10)
[2017-07-14] MEDS: Pilocarpine 2% Opht (15ml) OS SCH ×2 (09:12→22:43)
[2017-07-14] MEDS: Latanoprost 2.5 ml Opht Soln OD SCH (09:12)
[2017-07-14] MEDS: Collagenase 250 Units/gm Ointment(30 gm) TOP SCH (09:12)
[2017-07-14] MEDS: Morphine 4 mg/ml ISec IVP PRN ×3 (10:11→18:47)
--- NOTE | 2017-07-14 11:58 | PN ---
DATE: 07/14/2017 SUBJECTIVE: The patient is in bed, in no acute distress, nontoxic. No fever. PHYSICAL EXAMINATION: VITAL SIGNS: Temperature is 98, blood pressure is 113/50, respiratory rate of 18, and heart rate of 130. HEENT: Unremarkable. NECK: Supple. LUNGS: Decreased breath sounds. HEART: Normal S1 and S2. ABDOMEN: Soft and nontender. LABORATORY [place]: [place] [address] and hemoglobin of 9. Chemistry reveals a BUN of 8 and creatinine of 2.1. Troponin is high, the third one, but 0.99. Review of orders reveals the patient is to be on aspirin, on heparin, on Lipitor, Lopressor, and Zosyn. Microbiology reveals pseudomonas and yeast. Blood cultures are negative. The pseudomonas and yeast are in the sacrum and the pseudomonas is resistant to piperacillin. Dr. Eric Hodges's notes is reviewed from yesterday. EKG from yesterday is noted, sinus tachycardia and new anterior septal infarct. ASSESSMENT AND PLAN: This is an 82-year-old female with end-stage renal disease, on hemodialysis, diabetes, hypertension, bilateral foot wounds with unstageable pressure ulcer in the right calcaneus and dorsum of the foot with pseudomonas from the sacral culture with acute anterior septal myocardial infarction with elevated troponins, managed by Cardiology, currently on Zosyn, we will discontinue Zosyn and use meropenem for the pseudomonas and local wound care. We will adjust the meropenem for renal insufficiency. Amrik Rodríguez MD
--- NOTE | 2017-07-14 12:06 | CP.PCM.PN ---
<Travon Zuleta - Last Filed: 07/14/17 12:02> Subjective - Date & Time of Evaluation Date of Evaluation: 07/14/17 Time of Evaluation: 09:00 - Subjective Subjective: Podiatry Progress Note - Dr. Kwan 82 year old female with PMHx ESRD on HD, DM2, HTN seen at bedside foot bilateral foot wounds. Patient still reports not being able to sleep well. Reports 4 hours last night. Patient reports continued pain to both foot wounds. Dressing is c/d/i without any strikethrough noted. Complains of right 5th digit being elongated. Offloading boots were on at the time of the visit. Patient denies N/F/V/CP/SOB at this time. Objective - Vital Signs/Intake and Output Vital Signs (last 24 hours): Temp Pulse Resp BP Pulse Ox 98.6 F 104 H 20 113/64 100 07/14/17 06:00 07/14/17 09:10 07/14/17 06:00 07/14/17 09:10 07/14/17 06:00 Intake and Output: 07/14/17 07/14/17 06:59 18:59 Intake Total 300 Balance 300 - Medications Medications: Current Medications Aspirin (Ecotrin) 81 mg PO DAILY [facility] Last Admin: 07/14/17 10:11 Dose: 81 mg Calcitriol (Rocaltrol) 1 mcg PO MWF [facility] Last Admin: 07/12/17 14:35 Dose: 1 mcg Cinacalcet (Sensipar) 30 mg PO DAILY [facility] Last Admin: 07/14/17 09:10 Dose: 30 mg Clopidogrel Bisulfate (Plavix) 75 mg PO DAILY [facility] Collagenase (Santyl) 1 gm TOP DAILY [facility] Last Admin: 07/14/17 09:12 Dose: 1 applic Heparin Sodium (Porcine) (Heparin) 5,000 units SC Q12 [facility] PRN Reason: Protocol Last Admin: 07/14/17 09:10 Dose: 5,000 units Heparin Sodium (Porcine) (Heparin) 2,100 units ICA ONCE [facility] Last Admin: 07/13/17 21:41 Dose: Not Given Meropenem 250 mg/ Sodium (Chloride) 100 mls @ 100 mls/hr IVPB Q12H [facility] PRN Reason: Protocol Stop: 07/23/17 09:01 Last Admin: 07/14/17 09:14 Dose: 100 mls/hr Lactobacillus Acidophilus (Bacid Acidophilus) 1 cap PO BID [facility] Last Admin: 07/14/17 09:09 Dose: 1 cap Latanoprost (Xalatan Opht) 0 ml OD DAILY [facility] Last Admin: 07/14/17 09:12 Dose: 2.5 ml Metoprolol Tartrate (Lopressor) 25 mg PO BRKDIN [facility] Last Admin: 07/14/17 09:10 Dose: 25 mg Miconazole Nitrate (Miconazole 2% Cream) 0 ea TOP Q8 [facility] Last Admin: 07/14/17 06:46 Dose: 1 applic Morphine Sulfate (Morphine) 3 mg IVP Q3H PRN PRN Reason: Pain, moderate (4-7) Last Admin: 07/14/17 10:11 Dose: 3 mg Ondansetron HCl (Zofran Inj) 4 mg IVP Q4H PRN PRN Reason: Nausea/Vomiting Pantoprazole Sodium (Protonix Ec Tab) 20 mg PO 0600 [facility] Last Admin: 07/14/17 06:46 Dose: 20 mg Pilocarpine HCl (Isopto Carpine 2% Opht Soln) 0 ml OS Q12H [facility] Last Admin: 07/14/17 09:12 Dose: 1 drop Vitamin B Complex/Vit C/Folic Acid (Nephro-Yesica) 1 tab PO 0800 [facility] Last Admin: 07/14/17 09:10 Dose: 1 tab - Labs Labs: 07/14/17 07:30 07/14/17 07:30 PT 13.1 Seconds (9.9-11.8) H 07/14/17 07:30 INR 1.21 (0.93-1.08) H 07/14/17 07:30 APTT 25.7 Seconds (23.7-30.8) 07/14/17 07:30 - Constitutional Appears: Well, Non-toxic, No Acute Distress - Extremities Exam Additional comments: VASC: DP and PT pulses nonpalpable. CFT wnl b/l. TG cool to cool. No edema noted. NEURO: Gross sensation intact DERM: RLE = Dry, adherent eschar noted to 1) posterior calcaneus measuring approximately 6.5 x 4 cm and 2) dorsum of RLE extending from ankle joint to midfoot mesuring approximately 9 x 2 cm, with full thickness tissue loss, extent of tissue damage cannot be confirmed due to eschar. Periwound erythema noted to eschar at dorsum of RLE. No fluctuance noted. Localized area of purple discoloration noted to lateral asepct of 5th met head with overlying blister; area is noted to be boggy with periwound erythema. LLE= Localized area of purple discoloration measuring approximately 3.5 x 2.5 cm noted to posterior calcaneus, boggy with periwound erythema. ORTHO: Pain on palpation RLE. Pain on palpation left calcaneus - Neurological Exam Neurological Exam: Awake, Oriented x3 - Psychiatric Exam Psychiatric exam: Flat Affect, Normal Mood Assessment and Plan - Assessment and Plan (Free Text) Assessment: 82 year old female 1) unstageable pressure ulcer to right calcaneus and dorsum of right foot, 2) deep tissue injury lateral 5th met head right foot and left calcaneus Plan: Patient seen and evaluated at bedside Discussed with attending, Dr. Kwan Charts and labs reviewed- afebrile, WBC=11.2 today down frmo 14.6 on 07/13/17 Bilaterally foot cleansed with saline, Optifoam applied to wounds bilaterally with daily dressing changes Will bring nippers to debride right 5th nail to normal length tomorrow C/w air mattress Rigid multipodus boots b/l, to be worn at all times while in bed Continue pain management per medicine Podiatry will continue to follow while in house <Fidel Kwan - Last Filed: 07/15/17 08:16> Objective - Vital Signs/Intake and Output Vital Signs (last 24 hours): Temp Pulse Resp BP Pulse Ox 98.6 F 100 H 20 113/64 100 07/14/17 06:00 07/15/17 08:12 07/14/17 06:00 07/14/17 09:10 07/14/17 06:00 Intake and Output: 07/15/17 07/15/17 06:59 18:59 Intake Total 400 Output Total 200 Balance 200 - Medications Medications: Current Medications Aspirin (Ecotrin) 81 mg PO DAILY [facility] Last Admin: 07/14/17 10:11 Dose: 81 mg Calcitriol (Rocaltrol) 1 mcg PO MWF [facility] Last Admin: 07/12/17 14:35 Dose: 1 mcg Cinacalcet (Sensipar) 30 mg PO DAILY [facility] Last Admin: 07/14/17 09:10 Dose: 30 mg Clopidogrel Bisulfate (Plavix) 75 mg PO DAILY [facility] Collagenase (Santyl) 1 gm TOP DAILY [facility] Last Admin: 07/14/17 09:12 Dose: 1 applic Heparin Sodium (Porcine) (Heparin) 5,000 units SC Q12 [facility] PRN Reason: Protocol Last Admin: 07/14/17 21:27 Dose: 5,000 units Heparin Sodium (Porcine) (Heparin) 2,100 units ICA ONCE [facility] Last Admin: 07/13/17 21:41 Dose: Not Given Meropenem 250 mg/ Sodium (Chloride) 100 mls @ 100 mls/hr IVPB Q12H [facility] PRN Reason: Protocol Stop: 07/23/17 09:01 Last Admin: 07/14/17 21:27 Dose: 100 mls/hr Ipratropium [place] (Atrovent) 0.5 mg IH TIDRESP [facility] Last Admin: 07/15/17 08:10 Dose: 0.5 mg Lactobacillus Acidophilus (Bacid Acidophilus) 1 cap PO BID [facility] Last Admin: 07/14/17 17:14 Dose: 1 cap Latanoprost (Xalatan Opht) 0 ml OD DAILY [facility] Last Admin: 07/14/17 09:12 Dose: 2.5 ml Metoprolol Tartrate (Lopressor) 25 mg PO BRKDIN [facility] Last Admin: 07/14/17 17:14 Dose: 25 mg Miconazole Nitrate (Miconazole 2% Cream) 0 ea TOP Q8 [facility] Last Admin: 07/15/17 06:35 Dose: 1 applic Morphine Sulfate (Morphine) 3 mg IVP Q3H PRN PRN Reason: Pain, moderate (4-7) Last Admin: 07/15/17 05:44 Dose: 3 mg Ondansetron HCl (Zofran Inj) 4 mg IVP Q4H PRN PRN Reason: Nausea/Vomiting Pantoprazole Sodium (Protonix Ec Tab) 20 mg PO 0600 [facility] Last Admin: 07/15/17 05:31 Dose: 20 mg Pilocarpine HCl (Isopto Carpine 2% Opht Soln) 0 ml OS Q12H [facility] Last Admin: 07/14/17 22:43 Dose: 1 drop Vitamin B Complex/Vit C/Folic Acid (Nephro-Yesica) 1 tab PO 0800 [facility] Last Admin: 07/14/17 09:10 Dose: 1 tab - Labs Labs: 07/15/17 06:58 07/15/17 06:58 PT 13.1 Seconds (9.9-11.8) H 07/14/17 07:30 INR 1.21 (0.93-1.08) H 07/14/17 07:30 APTT 25.7 Seconds (23.7-30.8) 07/14/17 07:30 Attending/Attestation - Attestation I have personally seen and examined this patient.: Yes I have fully participated in the care of the patient.: Yes I have reviewed all pertinent clinical information, including history, physical exam and plan: Yes
--- NOTE | 2017-07-14 12:31 | PN ---
DATE: SUBJECTIVE: Ana resting comfortably in bed at this time. She had a little chest indigestion. No chest pressure. No chest pain. No shortness of breath. She is on oxygen, but she is comfortable and it turned out that we did some troponin that came out positive. Dr. Upton, the equal opportunity counselor was called, and he has made some orders. She is ready on aspirin, metoprolol, Rocephin ordered, we will see if she get changed. Lovenox as per cardiology. At this time, she has a wound VAC on. She is in a comfortable position in bed. She is eating. PHYSICAL EXAMINATION VITAL SIGNS: She has 98.6 temperature, 104 pulse, 113/57 blood pressure, 20 respiratory rate, 100% O2 saturation on 2 liters nasal cannula. HEENT: Head is atraumatic and normocephalic. Throat is moist. NECK: Supple. She is alert. She is talking. She is looking at me, very nice conversation. HEART: Regular rate. LUNGS: Decreased breath sounds. Fair effort. No wheezes or rhonchi. No rales. ABDOMEN: Soft, obese, nontender. EXTREMITIES: No edema. She has multiple ulcers, larger one on the back with a wound VAC on the leg has got heel and instep ulcers. MEDICATIONS: She is currently on Bacid, heparin, Pilocarpine, Lopressor, miconazole, morphine, Nephro-Yesica, Protonix, Rocaltrol, Santyl, Sensipar, Solatene, Zofran, and Zosyn IV. LABORATORY DATA: She has a 11.2 white count better, 9.3 hemoglobin, 31.1 hematocrit, 279 platelets. Sodium 139, potassium 4, BUN 8, creatinine 2.1 better, GFR is up to 22. Sugar is 99, calcium 8.4, total bili is 0.4, AST is 64, ALT is 31, alkaline phosphatase 195. Lactate dehydrogenase is 472. Total creatinine kinase is 34. The troponin was 0.68, 1.15 and down to 0.99. Total protein is 6.2, albumin is 2.7. She is being seen by multiple physicians, Infectious disease, Renal, Podiatry, Surgery and Cardiology. She has multiple issues from multiple skin ulcers, end-stage renal disease, on hemodialysis, hypertension, now myocardial infarction. We will continue with the aggressive treatment and care, if we can, we will try and get her out of bed. We discussed that with Surgery. She has got the wound VAC on. Discussed with nurse. Discussed with the patient at length. She does know that someone will call me and I look forward to talking to them. Eric Hodges DO
--- NOTE | 2017-07-14 14:32 | CP.PCM.PN ---
Subjective - Date & Time of Evaluation Date of Evaluation: 07/14/17 Time of Evaluation: 10:00 - Subjective Subjective: Follow up Nephrology Consultation Note Assessment: Stable sacral decubitus ulcer s/p debridement chest paun Diabetic chronic Kidney Disease (E11.22) Hypertensive Chronic Kidney Disease (I12.0) End stage renal disease (N18.6) dependence on hemodialysis (Z99.2) (TTS) via permacath Anemia (D64.9), Hyperphosphatemia (E83.39), Secondary Hyperparathyroidism (E21.1 ), HTN (I12.0) Plan: No acute need for dialysis today. Will plan for dialysis saturday. Continue with Nephrovite 1 tab/day. PRBC as needed for anemia. On TEJINDER as weekly aranesp Continue with phos binders Continue with calcitriol and sensipar BP control with meds as ordered. Patient not on RAAS anna as BP low side Glycemic control, Dialysis consistent diet Further work up/management as per primary team Dose meds/antibiotics (if needed) for ESRD status. Avoid fleets enema/magnesium based laxatives. wound care. cardiology followin Thanks for allowing me to participate in care of your patient. Will follow patient with you. Please call if any Qs Dr Wang [place] Office: [phone] Subjective: Noted events overnight. Patients feels okay. Denies chest pain, palpitation, shortness of breath, leg swelling. No urinary complaints Physical Examination: General Appearance: Comfortable, in no acute respiratory distress, co- operative. debilitated Vitals reviewed and noted as below Lungs: Normal respiratory rate/effort. Breath sounds bilateral equal and clear Heart: Normal rate. s1s2 normal. No rub or gallop. Extremities: no edema. has decubitus ulcer over sacrum and legs Neurological: Patient is alert, awake and oriented to person, place and time. No focal deficit. Strength bilateral appropriate and equal Skin: Warm and dry. Normal turgor. No rash. Palpitation: Normal elasticity for age Abdomen: Abdomen is soft. Bowel sounds +. There is no abdominal tenderness, no guarding/rigidity or organomegaly : kidney or bladder not palpable Access: permacath Labs/imaging reviewed. Past medical history, past surgical history, family history, social history, allergy reviewed Objective - Vital Signs/Intake and Output Vital Signs (last 24 hours): Temp Pulse Resp BP Pulse Ox 98.6 F 104 H 20 113/64 100 07/14/17 06:00 07/14/17 09:10 07/14/17 06:00 07/14/17 09:10 07/14/17 06:00 Intake and Output: 07/14/17 07/14/17 06:59 18:59 Intake Total 300 Balance 300 - Medications Medications: Current Medications Aspirin (Ecotrin) 81 mg PO DAILY [facility] Last Admin: 07/14/17 10:11 Dose: 81 mg Calcitriol (Rocaltrol) 1 mcg PO MWF [facility] Last Admin: 07/12/17 14:35 Dose: 1 mcg Cinacalcet (Sensipar) 30 mg PO DAILY [facility] Last Admin: 07/14/17 09:10 Dose: 30 mg Clopidogrel Bisulfate (Plavix) 75 mg PO DAILY [facility] Collagenase (Santyl) 1 gm TOP DAILY [facility] Last Admin: 07/14/17 09:12 Dose: 1 applic Heparin Sodium (Porcine) (Heparin) 5,000 units SC Q12 [facility] PRN Reason: Protocol Last Admin: 07/14/17 09:10 Dose: 5,000 units Heparin Sodium (Porcine) (Heparin) 2,100 units ICA ONCE [facility] Last Admin: 07/13/17 21:41 Dose: Not Given Meropenem 250 mg/ Sodium (Chloride) 100 mls @ 100 mls/hr IVPB Q12H [facility] PRN Reason: Protocol Stop: 07/23/17 09:01 Last Admin: 07/14/17 09:14 Dose: 100 mls/hr Lactobacillus Acidophilus (Bacid Acidophilus) 1 cap PO BID [facility] Last Admin: 07/14/17 09:09 Dose: 1 cap Latanoprost (Xalatan Opht) 0 ml OD DAILY [facility] Last Admin: 07/14/17 09:12 Dose: 2.5 ml Metoprolol Tartrate (Lopressor) 25 mg PO BRKDIN [facility] Last Admin: 07/14/17 09:10 Dose: 25 mg Miconazole Nitrate (Miconazole 2% Cream) 0 ea TOP Q8 [facility] Last Admin: 07/14/17 06:46 Dose: 1 applic Morphine Sulfate (Morphine) 3 mg IVP Q3H PRN PRN Reason: Pain, moderate (4-7) Last Admin: 07/14/17 10:11 Dose: 3 mg Ondansetron HCl (Zofran Inj) 4 mg IVP Q4H PRN PRN Reason: Nausea/Vomiting Pantoprazole Sodium (Protonix Ec Tab) 20 mg PO 0600 [facility] Last Admin: 07/14/17 06:46 Dose: 20 mg Pilocarpine HCl (Isopto Carpine 2% Opht Soln) 0 ml OS Q12H [facility] Last Admin: 07/14/17 09:12 Dose: 1 drop Vitamin B Complex/Vit C/Folic Acid (Nephro-Yesica) 1 tab PO 0800 [facility] Last Admin: 07/14/17 09:10 Dose: 1 tab - Labs Labs: 07/14/17 07:30 07/14/17 07:30 PT 13.1 Seconds (9.9-11.8) H 07/14/17 07:30 INR 1.21 (0.93-1.08) H 07/14/17 07:30 APTT 25.7 Seconds (23.7-30.8) 07/14/17 07:30
--- NOTE | 2017-07-14 14:56 | CON ---
DATE: 07/14/2017 HISTORY OF PRESENT ILLNESS: The patient is an 82-year-old woman who presented with weakness and fall to the fdc. No shortness of breath. She does complain of intermittent chest discomfort. The patient's past medical history is notable for end-stage renal disease on dialysis. She suffers from hypercholesterolemia and is currently on oxycodone for chronic pain. Negative diabetes mellitus noted. SOCIAL HISTORY: She denies smoking. REVIEW OF SYSTEMS: A 14-point review of systems was reviewed in detail. No dyspnea. Positive diffuse body pains including chest pain. Negative edema in lower extremities. Negative orthopnea. PHYSICAL EXAMINATION: VITAL SIGNS: Blood pressure 113/64, heart rate is approximately 100. NECK: Negative JVD. LUNGS: Without rales. HEART: S1, S2. EXTREMITIES: Without edema. EKG shows sinus tachycardia with nonspecific ST-T changes. Troponins peaked at 1.15, BUN and creatinine is 8 and 2.1 with a glucose of 115, hemoglobin is 9.3. IMPRESSION: 1. Non-ST elevation myocardial infarction. 2. Sinus tachycardia. 3. Anemia. 4. End-stage renal disease. 5. Hypercholesterolemia. 6. Diffuse body aches. Given these findings, the patient started on aspirin, subcu heparin as well as Plavix started today. I have discussed with the patient about the potential for cardiac catheterization. We will discuss with the family to see whether this would be appropriate for her. Jordan Upton MD
[2017-07-14] MEDS ORDERED: HYDROmorphone 0.5 mg/0.5 ml ISec IVP STA (19:49)
[2017-07-15] MEDS: Morphine 4 mg/ml ISec IVP PRN ×4 (03:28→14:44)
[2017-07-15] MEDS: Pantoprazole 20 mg EC Tab PO SCH (05:31)
[2017-07-15] MEDS: Miconazole 2% Cream(30 gm) TOP SCH ×3 (06:35→23:01)
[2017-07-15 07:10] LABS: HEMATOCRIT 28.2 % (36.0-48.0); MEAN CELL VOLUME 95.6 fl (80.0-105.0); MEAN CORPUSCULAR HEMOGLOBIN 28.5 pg (25.0-35.0); MEAN CORPUSCULAR HGB CONC 29.8 g/dl (31.0-37.0); RED CELL DISTRIBUTION WIDTH 17.5 % (11.5-14.5); WHITE BLOOD COUNT 14.2 10^3/ul (4.5-11.0)
[2017-07-15 07:28] LABS: ALB/GLOB RATIO 0.8 (1.1-1.8); BILIRUBIN,TOTAL 0.4 mg/dL (0.2-1.3); CALCIUM 8.3 mg/dL (8.4-10.5); POTASSIUM 4.3 mmol/L (3.6-5.0)
[2017-07-15] MEDS: Ipratropium 0.02% Inhal Soln (0.5 mg/2.5 ml) UD IH SCH ×3 (08:10→22:06)
[2017-07-15] MEDS: Lactobacillus Acidophilus 500 MU Cap PO SCH ×2 (09:30→17:35)
[2017-07-15] MEDS: Pilocarpine 2% Opht (15ml) OS SCH ×2 (09:31→21:28)
--- NOTE | 2017-07-15 09:31 | CP.PCM.PN ---
Subjective - Date & Time of Evaluation Date of Evaluation: 07/15/17 Time of Evaluation: 09:27 - Subjective Subjective: PGY1 Note for Dr. Tirado HPI: patient seen and exmined at bedside. Says she wants to leave. Complains of pain when she is turned in the bed to examine the wound vac. No other complaints at this time. Denies CP/N/V/D/SOB/F Objective - Vital Signs/Intake and Output Vital Signs (last 24 hours): Temp Pulse Resp BP Pulse Ox 98.6 F 100 H 20 113/64 100 07/14/17 06:00 07/15/17 08:12 07/14/17 06:00 07/14/17 09:10 07/14/17 06:00 Intake and Output: 07/15/17 07/15/17 06:59 18:59 Intake Total 400 Output Total 200 Balance 200 - Medications Medications: Current Medications Aspirin (Ecotrin) 81 mg PO DAILY [facility] Last Admin: 07/14/17 10:11 Dose: 81 mg Atorvastatin Calcium (Lipitor) 10 mg PO DIN [facility] Calcitriol (Rocaltrol) 1 mcg PO MWF [facility] Last Admin: 07/12/17 14:35 Dose: 1 mcg Cinacalcet (Sensipar) 30 mg PO DAILY [facility] Last Admin: 07/14/17 09:10 Dose: 30 mg Collagenase (Santyl) 1 gm TOP DAILY [facility] Last Admin: 07/14/17 09:12 Dose: 1 applic Darbepoetin Luis (Aranesp) 60 mcg IVP ONCE ONE Stop: 07/16/17 09:26 Heparin Sodium (Porcine) (Heparin) 5,000 units SC Q12 [facility] PRN Reason: Protocol Last Admin: 07/14/17 21:27 Dose: 5,000 units Heparin Sodium (Porcine) (Heparin) 2,100 units ICA ONCE [facility] Last Admin: 07/13/17 21:41 Dose: Not Given Meropenem 250 mg/ Sodium (Chloride) 100 mls @ 100 mls/hr IVPB Q12H [facility] PRN Reason: Protocol Stop: 07/23/17 09:01 Last Admin: 07/14/17 21:27 Dose: 100 mls/hr Ipratropium [place] (Atrovent) 0.5 mg IH TIDRESP [facility] Last Admin: 07/15/17 08:10 Dose: 0.5 mg Lactobacillus Acidophilus (Bacid Acidophilus) 1 cap PO BID [facility] Last Admin: 07/14/17 17:14 Dose: 1 cap Latanoprost (Xalatan Opht) 0 ml OD DAILY [facility] Last Admin: 07/14/17 09:12 Dose: 2.5 ml Metoprolol Tartrate (Lopressor) 50 mg PO BRKDIN [facility] Miconazole Nitrate (Miconazole 2% Cream) 0 ea TOP Q8 [facility] Last Admin: 07/15/17 06:35 Dose: 1 applic Morphine Sulfate (Morphine) 3 mg IVP Q3H PRN PRN Reason: Pain, moderate (4-7) Last Admin: 07/15/17 05:44 Dose: 3 mg Ondansetron HCl (Zofran Inj) 4 mg IVP Q4H PRN PRN Reason: Nausea/Vomiting Pantoprazole Sodium (Protonix Ec Tab) 20 mg PO 0600 [facility] Last Admin: 07/15/17 05:31 Dose: 20 mg Pilocarpine HCl (Isopto Carpine 2% Opht Soln) 0 ml OS Q12H [facility] Last Admin: 07/14/17 22:43 Dose: 1 drop Vitamin B Complex/Vit C/Folic Acid (Nephro-Yesica) 1 tab PO 0800 [facility] Last Admin: 07/14/17 09:10 Dose: 1 tab - Labs Labs: 07/15/17 06:58 07/15/17 06:58 PT 13.1 Seconds (9.9-11.8) H 07/14/17 07:30 INR 1.21 (0.93-1.08) H 07/14/17 07:30 APTT 25.7 Seconds (23.7-30.8) 07/14/17 07:30 - Constitutional Appears: Well, Non-toxic, No Acute Distress - Head Exam Head Exam: ATRAUMATIC, NORMAL INSPECTION, NORMOCEPHALIC - Eye Exam Eye Exam: EOMI - ENT Exam ENT Exam: Mucous Membranes Moist - Respiratory Exam Respiratory Exam: Clear to Ausculation Bilateral, NORMAL BREATHING PATTERN - Cardiovascular Exam Cardiovascular Exam: REGULAR RHYTHM - GI/Abdominal Exam GI & Abdominal Exam: Soft, Normal Bowel Sounds. absent: Distended, Tenderness - Back Exam Back Exam: absent: CVA tenderness (L), CVA tenderness (R) Additional comments: Ulcers on Right Knee, Right foot, Right heel, Left heel dressing c/d/i offloading boots on Large sacral decub with wound vac on in good position, Suction holding - Neurological Exam Neurological Exam: Alert, Awake, Oriented x3 - Psychiatric Exam Psychiatric exam: Normal Affect, Normal Mood - Skin Skin Exam: Dry, Intact, Normal Color, Warm Assessment and Plan - Assessment and Plan (Free Text) Assessment: 82 y/o WF with Right Knee, Right foot, Right heel, Left heel ulcers and Sacral decub stage 3 Plan: * sacral decub - wound vac changed yesterday. continue monitoring output * LE ulcers - continue santly on eshars and silvadene on remaining ulcers QD * Discussed with Dr. Tirado Further reccs per Dr. Celestino Knight DO PGY1
[2017-07-15] MEDS: Multivitamin Vitamin B Complex (Nephro-Vite) Tab PO SCH (09:32)
--- NOTE | 2017-07-15 10:03 | CON ---
PULMONARY CONSULTATION DATE: 07/15/2017 REFERRING PHYSICIAN: Eric Hodges DO REASON FOR CONSULTATION: Cough. History is obtained via extensive discussion with the night nurse. I have also discussed the case with the patient at length, and reviewed the chart at length. The patient does not appear to be an adequate historian. HISTORY OF PRESENT ILLNESS: The patient is an 82-year-old chronically-ill female, with past medical history significant for hypertension, diabetes mellitus, end-stage renal disease, chronic obstructive pulmonary disease, breast cancer, and status post bilateral mastectomy, who presented to [facility] - originally on 07/09/2017 - with increasing weakness for the past few days. In the emergency room, the patient was noted to have a large sacral decubitus. She was thus admitted for additional evaluation and treatment. Again, I did discuss the case with the night nurse at length. There is no history of shortness of breath at rest or dyspnea on exertion. The nurse does note that the patient has an occasional nonproductive cough. There is no history of chest pain, coughing up of blood, or chest pain - made worse with deep respirations. There is no history of temperature, chills, or infectious exposure. There is no history of night sweats, weight loss, or appetite change prior to the above events. No history of calf pains. No history of syncope or diaphoresis. The patient has had several falls over the past month. No history of travel. REVIEW OF SYSTEMS: No history of nausea, vomiting, or diarrhea. No acute urinary symptoms. No new neurologic complaints. Rest of the review of systems negative. ALLERGIES: ALBUTEROL, CLONIDINE, IBUPROFEN, AND PREDNISONE. SOCIAL HISTORY: Positive for tobacco. Negative for alcohol. FAMILY HISTORY: No inheritable diseases. HOME MEDICATIONS: Include metronidazole, Zosyn, Protonix, Zofran, Singulair, Atrovent, folate, Sensipar, Rocaltrol, and Lipitor. PHYSICAL EXAMINATION: GENERAL: The patient appears comfortable this morning. She is not short of breath at rest. VITAL SIGNS: Temperature is 98.6, pulse is 104, respirations are 18, and blood pressure is 113/64. Oxygen saturation on nasal cannula is 100%. HEENT: Normocephalic and atraumatic. NECK: No JVD. CARDIOVASCULAR: Systolic ejection murmur at the lower left sternal border. No S3 or gallop. LUNGS: Decreased breath sounds at the bases. Very minimal rhonchi. No wheezing. EXTREMITIES: Mild edema is noted. No cyanosis or clubbing. Calves are nontender to palpation. GASTROINTESTINAL: Abdomen is soft, nontender, and nondistended. Bowel sounds are positive. SKIN: + sacral decubitus. There are other scattered excoriations. No rashes. NEUROLOGIC: Limited at the present time. PERTINENT LABORATORY DATA: Chest x-ray was done on 07/09/2017 and reviewed. There are no acute changes. Complete metabolic profile: Creatinine 2.1, AST 64, alkaline phosphatase 195, and troponin 0.99. Albumin 2.7. Rest of the metabolic profile is within normal limits. Peak troponin over the past 24 hours 1.15. CBC: White count 11.2, hemoglobin 9.3, hematocrit 31.1, and platelets of 279. IMPRESSION: 1. Sacral decubitus. 2. Chronic obstructive pulmonary disease. 3. End-stage renal disease. 4. Non-ST elevation myocardial infarction. 5. Anemia. PLAN: Again, I did discuss the case with the night nurse at length. I have also reviewed the chart at length. The patient presented - originally on 07/09/2017 - with progressive weakness for the past few days. As above, in the emergency room, she was also noted to have a large sacral decubitus, and thus admitted for additional evaluation and treatment. I did review the chest x-ray as above. There are no acute findings. On physical exam, there is only minimal bronchospasm noted. There is no significant alveolar-arterial gradient. Oxygen saturation on nasal cannula is 100%. The patient is on Atrovent nebulizers in the residential, and I will continue with those for now. Input by cardiology (Dr. Upton) is noted. Inputs by renal and infectious disease are also noted. Clinical status of the patient is certainly improved - compared to the initial presentation. However, the overall status/prognosis for this elderly patient, with multiple serious medical disorders, remains very guarded. I will discuss the above with Dr. Hodges. Thank you very much for this pulmonary consultation. Selvin Hernandez MD [facility] # [id number] MTDRyland
--- NOTE | 2017-07-15 10:20 | PN ---
DATE: 07/13/2017 SUBJECTIVE: I saw her in bed. I asked her to please get out of bed again on the third day in a roll and asking her to get out of bed. She was refusing to get out of bed. I asked her to rotate in bed with me, she would not rotate in bed. She would not move. I understand why now, she has so many ulcers. I will get physical therapy to help us get her out of bed hopefully. She is due for dialysis today. We need to get her body moving even if she does not want to do it. PHYSICAL EXAMINATION VITAL SIGNS: She has a 98.2 temperature, 136 pulse, 138/78 blood pressure, 20 respiratory rate, and 96% O2 saturation on 2 L nasal cannula. HEENT: Head is atraumatic and normocephalic. Throat is moist. NECK: Supple. HEART: Regular rate. LUNGS: Decreased breath sounds with poor inspiration bilaterally, for the most part clear. ABDOMEN: Soft, obese and nontender. EXTREMITIES: Getting to be contracted. There are multiple ulcers on the feet instep and large sacral ulcer on the low back, not good. This shows now lack of motion. lack of movement, have to get her body moving. I do not know if the hospital has bed placed for this. I tried to get her to long-term care facility, but the family got very upset about moving her out of the hospital. Tried to explain that the hospital is not the place for good physical therapy and subacute rehab versus LTAC or better. MEDICATIONS: Lactobacillus, heparin, pilocarpine, miconazole, morphine, Nephro-Yesica, Protonix, Rocaltrol, Santyl, Sensipar, Xalatan, Zofran, and Zosyn are the medicines she is on. LABORATORY DATA: She has 137 sodium, potassium is 4.5, BUN is 16, creatinine is 3.2, GFR is 14, sugar is 138 and calcium is 8.9. Total bilirubin is 04, AST is 51, ALT is 25, alkaline phosphatase is 199 and total protein is 6.4. Her white count now popped up to 14.6, she is on antibiotics for multiple ulcers, not a good sign. Hopefully she is not getting septic. She has a hemoglobin of 9.4, hematocrit of 31.8 and platelets of 326. IMPRESSION AND PLAN: She is being seen by multiple doctors, Podiatry, Renal, Infectious Diseases, and Surgery. I am going to add a little beta-anna and a Cardiology consult. Will also get out of bed to chair, dialysis and IV antibiotics. discussed w/ gc and son multiple skin ulcers, end-stage renal disease with hemodialysis. Eric Hodges DO MTDD
--- NOTE | 2017-07-15 10:24 | PN ---
FOLLOWUP NEPHROLOGY DATE: 07/13/2017 CHIEF COMPLAINT: Pain in the sacral decubitus area. HISTORY OF PRESENT ILLNESS AND REVIEW OF SYSTEMS: The patient denied any new complaints. Reports chronic pain in the lower extremities around the wound and the sacral decubitus area. She had debridation done yesterday. She at this time denies nausea, vomiting, chest pain, palpitation or shortness of breath. Otherwise, she feels in usual health. She is mostly in the bed. PHYSICAL EXAMINATION: GENERAL: The patient is chronically debilitated-appearing female, elderly, not in acute distress and afebrile. VITAL SIGNS: Pulse have been on the high side. Blood pressure is 138/78. LUNGS: Bilateral vesicular breath sounds, clear. CARDIOVASCULAR: S1 and S2 normal. Sinus tachycardia. No rubs or gallop. ABDOMEN: Soft and nontender. No organomegaly could be appreciated. EXTREMITIES: No edema. SKIN: Wound on the lower extremities and the sacral decubitus area. VASCULAR ACCESS: Has a Perm-A-Cath. NEUROLOGIC: Alert and oriented x3. Moving all 4 extremities. LABORATORY DATA: Workup shows white blood cell count is 14.6, hemoglobin 9.4 and platelet count is 326. Sodium is 137, potassium 4.5 and creatinine 3.2. CURRENT MEDICATIONS: Reviewed. ASSESSMENT: 1. Sacral decubitus ulcer, status post debridement and wound vacuum-assisted closure placement. 2. End-stage renal disease, on hemodialysis via Perm-A-Cath, TTS schedule. 3. Hypokalemia. 4. History of diabetic and hypertensive chronic kidney disease. 5. History of femur fracture, status post surgery. 6. History of gastrointestinal bleed, Clostridium difficile and carcinoma of breast. RECOMMENDATIONS: We will plan for dialysis today. Continue with the calcitriol and Sensipar. She had received a dose os Sensipar. She is also on multivitamin. Continue antibiotics as per the primary team. All questions were answered and discussed with the primary team as well. Wang France MD
[2017-07-15] MEDS: Latanoprost 2.5 ml Opht Soln OD SCH (10:35)
[2017-07-15] MEDS: Collagenase 250 Units/gm Ointment(30 gm) TOP SCH (10:56)
--- NOTE | 2017-07-15 10:59 | PN ---
CARDIOLOGY FOLLOWUP DATE: 07/15/2017 SUBJECTIVE: The patient is chest pain free. PHYSICAL EXAMINATION: VITAL SIGNS: Blood pressure is 113/64 and the heart rate is in the 90s. NECK: Negative JVD. LUNGS: Without rales. HEART: Reveals S1 and S2. EXTREMITIES: Without change. LABORATORY DATA: Hemoglobin is 8.4. Chemistries; BUN and creatinine is 17 and 3.4. IMPRESSION: 1. [id number] myocardial infarction. 2. End-stage renal disease. 3. Anemia. 4. Hypercholesterolemia. PLAN: Given these findings, medical therapy would appear to be the more appropriate therapy for her non-STEMI. We will increase her metoprolol to 50 b.i.d. Continue her aspirin. We will discontinued her Plavix. We will add Lipitor 10 mg daily. Jordan Upton MD
--- NOTE | 2017-07-15 11:02 | CP.PCM.PN ---
<Travon Zultea - Last Filed: 07/15/17 11:12> Subjective - Date & Time of Evaluation Date of Evaluation: 07/15/17 Time of Evaluation: 10:59 - Subjective Subjective: Podiatry Progress Note - Dr. Kwan 82 year old female with PMHx ESRD on HD, DM2, HTN seen at bedside with [facility] for bilateral foot wounds. Patient continues to have restless nights. Complains of pain in her lower back secondary to sacral wound as well as bilaterally foot pains. Dressing is c/d/i without any strikethrough noted. Left offloading boot was not on at the time of the visit. Patient reports the left boot makes her itch. Patient denies N/F/V/CP/SOB at this time. Objective - Vital Signs/Intake and Output Vital Signs (last 24 hours): Temp Pulse Resp BP Pulse Ox 98.1 F 100 H 20 97/52 L 98 07/15/17 06:00 07/15/17 08:12 07/15/17 06:00 07/15/17 06:00 07/15/17 06:00 Intake and Output: 07/15/17 07/15/17 06:59 18:59 Intake Total 400 Output Total 200 Balance 200 - Medications Medications: Current Medications Aspirin (Ecotrin) 81 mg PO DAILY [facility] Last Admin: 07/15/17 09:30 Dose: 81 mg Atorvastatin Calcium (Lipitor) 10 mg PO DIN [facility] Calcitriol (Rocaltrol) 1 mcg PO MWF [facility] Last Admin: 07/15/17 09:32 Dose: 1 mcg Cinacalcet (Sensipar) 30 mg PO DAILY [facility] Last Admin: 07/15/17 09:32 Dose: 30 mg Collagenase (Santyl) 1 gm TOP DAILY [facility] Last Admin: 07/15/17 10:56 Dose: Not Given Darbepoetin Luis (Aranesp) 60 mcg IVP ONCE ONE Stop: 07/16/17 09:26 Heparin Sodium (Porcine) (Heparin) 5,000 units SC Q12 [facility] PRN Reason: Protocol Last Admin: 07/15/17 09:30 Dose: 5,000 units Heparin Sodium (Porcine) (Heparin) 2,100 units ICA ONCE [facility] Last Admin: 07/13/17 21:41 Dose: Not Given Meropenem 250 mg/ Sodium (Chloride) 100 mls @ 100 mls/hr IVPB Q12H [facility] PRN Reason: Protocol Stop: 07/23/17 09:01 Last Admin: 07/15/17 09:31 Dose: 100 mls/hr Ipratropium [place] (Atrovent) 0.5 mg IH TIDRESP [facility] Last Admin: 07/15/17 08:10 Dose: 0.5 mg Lactobacillus Acidophilus (Bacid Acidophilus) 1 cap PO BID [facility] Last Admin: 07/15/17 09:30 Dose: 1 cap Latanoprost (Xalatan Opht) 0 ml OD DAILY [facility] Last Admin: 07/15/17 10:35 Dose: 1 ml Metoprolol Tartrate (Lopressor) 50 mg PO BRKDIN [facility] Miconazole Nitrate (Miconazole 2% Cream) 0 ea TOP Q8 [facility] Last Admin: 07/15/17 06:35 Dose: 1 applic Morphine Sulfate (Morphine) 3 mg IVP Q3H PRN PRN Reason: Pain, moderate (4-7) Last Admin: 07/15/17 10:00 Dose: 3 mg Ondansetron HCl (Zofran Inj) 4 mg IVP Q4H PRN PRN Reason: Nausea/Vomiting Pantoprazole Sodium (Protonix Ec Tab) 20 mg PO 0600 [facility] Last Admin: 07/15/17 05:31 Dose: 20 mg Pilocarpine HCl (Isopto Carpine 2% Opht Soln) 0 ml OS Q12H [facility] Last Admin: 07/15/17 09:31 Dose: 1 drop Vitamin B Complex/Vit C/Folic Acid (Nephro-Yesica) 1 tab PO 0800 [facility] Last Admin: 07/15/17 09:32 Dose: 1 tab - Labs Labs: 07/15/17 06:58 07/15/17 06:58 PT 13.1 Seconds (9.9-11.8) H 07/14/17 07:30 INR 1.21 (0.93-1.08) H 07/14/17 07:30 APTT 25.7 Seconds (23.7-30.8) 07/14/17 07:30 - Constitutional Appears: Non-toxic, No Acute Distress - Extremities Exam Additional comments: VASC: DP and PT pulses nonpalpable. CFT wnl b/l. TG cool to cool. No edema noted. NEURO: Gross sensation intact DERM: RLE = Dry, adherent eschar noted to 1) posterior calcaneus measuring approximately 6.5 x 4 cm and 2) dorsum of RLE extending from ankle joint to midfoot mesuring approximately 9 x 2 cm, with full thickness tissue loss, extent of tissue damage cannot be confirmed due to eschar. Periwound erythema noted to eschar at dorsum of RLE. No fluctuance noted. Localized area of purple discoloration noted to lateral asepct of 5th met head with overlying blister; area is noted to be boggy with periwound erythema. LLE= Localized area of purple discoloration measuring approximately 3.5 x 2.5 cm noted to posterior calcaneus, boggy with periwound erythema. ORTHO: Pain on palpation RLE. Pain on palpation left calcaneus - Neurological Exam Neurological Exam: Alert, Awake, Oriented x3 - Psychiatric Exam Psychiatric exam: Flat Affect, Normal Affect Assessment and Plan - Assessment and Plan (Free Text) Assessment: 82 year old female 1) unstageable pressure ulcer to right calcaneus and dorsum of right foot, 2) deep tissue injury lateral 5th met head right foot and left calcaneus Plan: Patient seen and evaluated at bedside Discussed with attending, Dr. Kwan Charts and labs reviewed- afebrile, WBC is 14.2 (increased from 07/14/17) Bilaterally foot wounds not likely cause of increase WBC Bilaterally foot cleansed with saline, Optifoam applied to wounds bilaterally with daily dressing changes Santyl ordered; will apply to right anterior wound with dressing change C/w air mattress Rigid multipodus boots b/l, to be worn at all times while in bed Continue pain management per medicine Podiatry will continue to follow while in house <Fidel Kwan - Last Filed: 07/16/17 09:51> Objective - Vital Signs/Intake and Output Vital Signs (last 24 hours): Temp Pulse Resp BP Pulse Ox 97.8 F 97 H 20 119/57 L 100 07/16/17 06:00 07/16/17 08:02 07/16/17 06:00 07/16/17 08:02 07/16/17 06:00 Intake and Output: 07/16/17 07/16/17 06:59 18:59 Intake Total 300 240 Balance 300 240 - Medications Medications: Current Medications Aspirin (Ecotrin) 81 mg PO DAILY [facility] Last Admin: 07/15/17 09:30 Dose: 81 mg Atorvastatin Calcium (Lipitor) 10 mg PO DIN [facility] Last Admin: 07/15/17 17:36 Dose: 10 mg Calcitriol (Rocaltrol) 1 mcg PO MWF [facility] Last Admin: 07/15/17 09:32 Dose: 1 mcg Cinacalcet (Sensipar) 30 mg PO DAILY [facility] Last Admin: 07/15/17 09:32 Dose: 30 mg Collagenase (Santyl) 0 gm TOP DAILY [facility] Heparin Sodium (Porcine) (Heparin) 5,000 units SC Q12 [facility] PRN Reason: Protocol Last Admin: 07/15/17 21:27 Dose: 5,000 units Meropenem 250 mg/ Sodium (Chloride) 100 mls @ 100 mls/hr IVPB Q12H [facility] PRN Reason: Protocol Stop: 07/23/17 09:01 Last Admin: 07/15/17 21:27 Dose: 100 mls/hr Ipratropium [place] (Atrovent) 0.5 mg IH TIDRESP [facility] Last Admin: 07/15/17 22:06 Dose: 0.5 mg Lactobacillus Acidophilus (Bacid Acidophilus) 1 cap PO BID [facility] Last Admin: 07/15/17 17:35 Dose: 1 cap Latanoprost (Xalatan Opht) 0 ml OD DAILY [facility] Last Admin: 07/15/17 10:35 Dose: 1 ml Metoprolol Tartrate (Lopressor) 50 mg PO BRKDIN [facility] Last Admin: 07/16/17 08:02 Dose: 50 mg Miconazole Nitrate (Miconazole 2% Cream) 0 ea TOP Q8 [facility] Last Admin: 07/16/17 05:22 Dose: 1 applic Morphine Sulfate (Morphine) 3 mg IVP Q3H PRN PRN Reason: Pain, moderate (4-7) Last Admin: 07/16/17 08:42 Dose: 3 mg Ondansetron HCl (Zofran Inj) 4 mg IVP Q4H PRN PRN Reason: Nausea/Vomiting Pantoprazole Sodium (Protonix Ec Tab) 20 mg PO 0600 [facility] Last Admin: 07/16/17 05:22 Dose: 20 mg Pilocarpine HCl (Isopto Carpine 2% Opht Soln) 0 ml OS Q12H [facility] Last Admin: 07/15/17 21:28 Dose: 1 drop Vitamin B Complex/Vit C/Folic Acid (Nephro-Yesica) 1 tab PO 0800 [facility] Last Admin: 07/16/17 08:02 Dose: 1 tab - Labs Labs: 07/16/17 06:10 07/16/17 06:10 PT 13.1 Seconds (9.9-11.8) H 07/14/17 07:30 INR 1.21 (0.93-1.08) H 07/14/17 07:30 APTT 25.7 Seconds (23.7-30.8) 07/14/17 07:30 Attending/Attestation - Attestation I have personally seen and examined this patient.: Yes I have fully participated in the care of the patient.: Yes I have reviewed all pertinent clinical information, including history, physical exam and plan: Yes
--- NOTE | 2017-07-15 13:50 | CP.PCM.PN ---
Subjective - Date & Time of Evaluation Date of Evaluation: 07/15/17 Time of Evaluation: 10:35 - Subjective Subjective: Patient is somewhat bothered by the wound vacuum but otherwise doing ok. No fevers, no nausea. Objective - Vital Signs/Intake and Output Vital Signs (last 24 hours): Temp Pulse Resp BP Pulse Ox 98.1 F 100 H 20 97/52 L 98 07/15/17 06:00 07/15/17 08:12 07/15/17 06:00 07/15/17 06:00 07/15/17 06:00 Intake and Output: 07/15/17 07/15/17 06:59 18:59 Intake Total 400 Output Total 200 Balance 200 - Medications Medications: Current Medications Aspirin (Ecotrin) 81 mg PO DAILY [facility] Last Admin: 07/15/17 09:30 Dose: 81 mg Atorvastatin Calcium (Lipitor) 10 mg PO DIN [facility] Calcitriol (Rocaltrol) 1 mcg PO MWF [facility] Last Admin: 07/15/17 09:32 Dose: 1 mcg Cinacalcet (Sensipar) 30 mg PO DAILY [facility] Last Admin: 07/15/17 09:32 Dose: 30 mg Collagenase (Santyl) 1 gm TOP DAILY [facility] Last Admin: 07/14/17 09:12 Dose: 1 applic Darbepoetin Luis (Aranesp) 60 mcg IVP ONCE ONE Stop: 07/16/17 09:26 Heparin Sodium (Porcine) (Heparin) 5,000 units SC Q12 [facility] PRN Reason: Protocol Last Admin: 07/15/17 09:30 Dose: 5,000 units Heparin Sodium (Porcine) (Heparin) 2,100 units ICA ONCE [facility] Last Admin: 07/13/17 21:41 Dose: Not Given Meropenem 250 mg/ Sodium (Chloride) 100 mls @ 100 mls/hr IVPB Q12H [facility] PRN Reason: Protocol Stop: 07/23/17 09:01 Last Admin: 07/15/17 09:31 Dose: 100 mls/hr Ipratropium [place] (Atrovent) 0.5 mg IH TIDRESP [facility] Last Admin: 07/15/17 08:10 Dose: 0.5 mg Lactobacillus Acidophilus (Bacid Acidophilus) 1 cap PO BID [facility] Last Admin: 07/15/17 09:30 Dose: 1 cap Latanoprost (Xalatan Opht) 0 ml OD DAILY [facility] Last Admin: 07/15/17 10:35 Dose: 1 ml Metoprolol Tartrate (Lopressor) 50 mg PO BRKDIN [facility] Miconazole Nitrate (Miconazole 2% Cream) 0 ea TOP Q8 [facility] Last Admin: 07/15/17 06:35 Dose: 1 applic Morphine Sulfate (Morphine) 3 mg IVP Q3H PRN PRN Reason: Pain, moderate (4-7) Last Admin: 07/15/17 10:00 Dose: 3 mg Ondansetron HCl (Zofran Inj) 4 mg IVP Q4H PRN PRN Reason: Nausea/Vomiting Pantoprazole Sodium (Protonix Ec Tab) 20 mg PO 0600 [facility] Last Admin: 07/15/17 05:31 Dose: 20 mg Pilocarpine HCl (Isopto Carpine 2% Opht Soln) 0 ml OS Q12H [facility] Last Admin: 07/15/17 09:31 Dose: 1 drop Vitamin B Complex/Vit C/Folic Acid (Nephro-Yesica) 1 tab PO 0800 [facility] Last Admin: 07/15/17 09:32 Dose: 1 tab - Labs Labs: 07/15/17 06:58 07/15/17 06:58 PT 13.1 Seconds (9.9-11.8) H 07/14/17 07:30 INR 1.21 (0.93-1.08) H 07/14/17 07:30 APTT 25.7 Seconds (23.7-30.8) 07/14/17 07:30 - Constitutional Appears: No Acute Distress, Chronically Ill - Head Exam Head Exam: NORMAL INSPECTION - Neck Exam Neck Exam: absent: Meningismus - Respiratory Exam Respiratory Exam: Decreased Breath Sounds - Cardiovascular Exam Cardiovascular Exam: +S1, +S2 - GI/Abdominal Exam GI & Abdominal Exam: Soft. absent: Tenderness - Back Exam Additional comments: wound vacuum in place over sacral area Assessment and Plan - Assessment and Plan (Free Text) Plan: Assessment Multiple pressure ulcers (both heels, sacral ulcer stage 3), infected with Pseudomonas; S/P wound vacuum placement HTN DM ESRD on HD COPD right eye blindness breast cancer S/P bilateral mastectomy Plan continue Merrem (day 2); C. tropicalis is probably colonization on the sacral wound follow up further plans of Surgery and Podiatry will continue to monitor clinically
--- NOTE | 2017-07-15 14:13 | PN ---
SUBJECTIVE: I saw her resting comfortably in bed. She has a breathing treatment going on. She is very alert, comfortable for this extensive situation. She had a small heart attack. She has severe sacral ulcers in leg, feet ulcers and she is on dialysis. She has been out of bed because the wound VAC was on the sacral ulcer. She is on Ativan, Bacid, Ecotrin, heparin, pilocarpine, Lopressor, Merrem IV, miconazole, morphine, Nephro-Yesica, Plavix, Protonix, Rocaltrol, Santyl, Sensipar, Xalatan and Zofran. PHYSICAL EXAMINATION: VITAL SIGNS: 98.6 temperature, 104 pulse, 113/57 blood pressure, 20 respiratory rate, 100% O2 saturation on 2 L nasal cannula. HEENT: Head is atraumatic and normocephalic. Throat is moist. NECK: Supple. HEART: Regular rate. LUNGS: Decreased breath sounds. Poor inspiration, but clear to auscultation. No wheezing. No rhonchi. No rales. ABDOMEN: Soft, nontender. Positive bowel sounds. Obese. EXTREMITIES: No edema. They are in boots. She has a right instep ulcer, heal ulcers and a large sacral ulcer with a wound VAC. LABORATORY DATA: She has a 14.2 white count; 8.4 hemoglobin, if it is transfuse it; 28.2 hematocrit with 259 platelets. Sodium 138, potassium 4.3, BUN 17, creatinine 3.4, she is on dialysis. GFR is 13. Sugar is 136. Calcium is 8.3. Total bili is 0.4, AST is 67, ALT is 33, alkaline phosphatase 167 and total protein is 6. She is being seen by renal, podiatry, cardiology, infectious disease. She has multiple issues. She has end-stage renal disease with hemodialysis; diabetes; hypertension; bilateral foot wounds; unstageable pressure ulcer of the sacrum; anterior septal infarct, acute, elevated troponins. On antibiotics, she will when medically stable from cardiology standpoint and for long-term care of the sacral ulcers. I will continue aggressive treatment and care. Eric Hodges DO [facility] # [id number] MTDD
--- NOTE | 2017-07-15 15:34 | CP.PCM.PN ---
Subjective - Date & Time of Evaluation Date of Evaluation: 07/15/17 Time of Evaluation: 15:33 - Subjective Subjective: Follow up Nephrology Consultation Note Assessment: Stable sacral decubitus ulcer s/p debridement chest paun Diabetic chronic Kidney Disease (E11.22) Hypertensive Chronic Kidney Disease (I12.0) End stage renal disease (N18.6) dependence on hemodialysis (Z99.2) (TTS) via permacath Anemia (D64.9), Hyperphosphatemia (E83.39), Secondary Hyperparathyroidism (E21.1 ), HTN (I12.0) NSTEMI Plan: No acute need for dialysis today. Will plan for dialysis saturday. Continue with Nephrovite 1 tab/day. PRBC as needed for anemia. On TEJINDER as weekly aranesp Continue with phos binders Continue with calcitriol and sensipar BP control with meds as ordered. Patient not on RAAS anna as BP low side Glycemic control, Dialysis consistent diet Further work up/management as per primary team Dose meds/antibiotics (if needed) for ESRD status. Avoid fleets enema/magnesium based laxatives. wound care. cardiology< ID following Thanks for allowing me to participate in care of your patient. Will follow patient with you. Please call if any Qs Dr Wang [place] Office: [phone] Subjective: Noted events overnight. Patients feels okay. Denies chest pain, palpitation, shortness of breath, leg swelling. No urinary complaints Physical Examination: General Appearance: Comfortable, in no acute respiratory distress, co- operative. debilitated Vitals reviewed and noted as below Lungs: Normal respiratory rate/effort. Breath sounds bilateral equal and clear Heart: Normal rate. s1s2 normal. No rub or gallop. Extremities: no edema. has decubitus ulcer over sacrum and legs Neurological: Patient is alert, awake and oriented to person, place and time. No focal deficit. Strength bilateral appropriate and equal Skin: Warm and dry. Normal turgor. No rash. Palpitation: Normal elasticity for age Abdomen: Abdomen is soft. Bowel sounds +. There is no abdominal tenderness, no guarding/rigidity or organomegaly : kidney or bladder not palpable Access: permacath Labs/imaging reviewed. Past medical history, past surgical history, family history, social history, allergy reviewed Objective - Vital Signs/Intake and Output Vital Signs (last 24 hours): Temp Pulse Resp BP Pulse Ox 98.1 F 100 H 20 97/52 L 98 07/15/17 06:00 07/15/17 08:12 07/15/17 06:00 07/15/17 06:00 07/15/17 06:00 Intake and Output: 07/15/17 07/15/17 06:59 18:59 Intake Total 400 725 Output Total 200 Balance 200 725 - Medications Medications: Current Medications Aspirin (Ecotrin) 81 mg PO DAILY [facility] Last Admin: 07/15/17 09:30 Dose: 81 mg Atorvastatin Calcium (Lipitor) 10 mg PO DIN [facility] Calcitriol (Rocaltrol) 1 mcg PO MWF [facility] Last Admin: 07/15/17 09:32 Dose: 1 mcg Cinacalcet (Sensipar) 30 mg PO DAILY [facility] Last Admin: 07/15/17 09:32 Dose: 30 mg Collagenase (Santyl) 0 gm TOP DAILY [facility] Darbepoetin Luis (Aranesp) 60 mcg IVP ONCE ONE Stop: 07/16/17 09:26 Heparin Sodium (Porcine) (Heparin) 5,000 units SC Q12 [facility] PRN Reason: Protocol Last Admin: 07/15/17 09:30 Dose: 5,000 units Heparin Sodium (Porcine) (Heparin) 2,100 units ICA ONCE [facility] Last Admin: 07/13/17 21:41 Dose: Not Given Meropenem 250 mg/ Sodium (Chloride) 100 mls @ 100 mls/hr IVPB Q12H [facility] PRN Reason: Protocol Stop: 07/23/17 09:01 Last Admin: 07/15/17 09:31 Dose: 100 mls/hr Ipratropium [place] (Atrovent) 0.5 mg IH TIDRESP [facility] Last Admin: 07/15/17 13:25 Dose: 0.5 mg Lactobacillus Acidophilus (Bacid Acidophilus) 1 cap PO BID [facility] Last Admin: 07/15/17 09:30 Dose: 1 cap Latanoprost (Xalatan Opht) 0 ml OD DAILY [facility] Last Admin: 07/15/17 10:35 Dose: 1 ml Metoprolol Tartrate (Lopressor) 50 mg PO BRKDIN [facility] Miconazole Nitrate (Miconazole 2% Cream) 0 ea TOP Q8 [facility] Last Admin: 07/15/17 15:18 Dose: 1 applic Morphine Sulfate (Morphine) 3 mg IVP Q3H PRN PRN Reason: Pain, moderate (4-7) Last Admin: 07/15/17 14:44 Dose: 3 mg Ondansetron HCl (Zofran Inj) 4 mg IVP Q4H PRN PRN Reason: Nausea/Vomiting Pantoprazole Sodium (Protonix Ec Tab) 20 mg PO 0600 [facility] Last Admin: 07/15/17 05:31 Dose: 20 mg Pilocarpine HCl (Isopto Carpine 2% Opht Soln) 0 ml OS Q12H [facility] Last Admin: 07/15/17 09:31 Dose: 1 drop Vitamin B Complex/Vit C/Folic Acid (Nephro-Yesica) 1 tab PO 0800 [facility] Last Admin: 07/15/17 09:32 Dose: 1 tab - Labs Labs: 07/15/17 06:58 07/15/17 06:58 PT 13.1 Seconds (9.9-11.8) H 07/14/17 07:30 INR 1.21 (0.93-1.08) H 07/14/17 07:30 APTT 25.7 Seconds (23.7-30.8) 07/14/17 07:30
[2017-07-16] MEDS: Morphine 4 mg/ml ISec IVP PRN ×3 (02:56→19:05)
[2017-07-16] MEDS: Pantoprazole 20 mg EC Tab PO SCH (05:22)
[2017-07-16] MEDS: Miconazole 2% Cream(30 gm) TOP SCH ×3 (05:22→22:04)
[2017-07-16 06:22] LABS: HEMATOCRIT 29.5 % (36.0-48.0); MEAN CELL VOLUME 96.7 fl (80.0-105.0); MEAN CORPUSCULAR HEMOGLOBIN 29.2 pg (25.0-35.0); MEAN CORPUSCULAR HGB CONC 30.2 g/dl (31.0-37.0); MEAN PLATELET VOLUME 9.3 fl (7.0-11.0); RED CELL DISTRIBUTION WIDTH 17.6 % (11.5-14.5)
--- NOTE | 2017-07-16 07:47 | CP.PCM.PN ---
Subjective - Date & Time of Evaluation Date of Evaluation: 07/16/17 Time of Evaluation: 07:43 - Subjective Subjective: Surgery Pt s&e. NAEON. Denies F/C/N/V/D/CP/SOB. WOund vac in place. Objective - Vital Signs/Intake and Output Vital Signs (last 24 hours): Temp Pulse Resp BP Pulse Ox 97.8 F 97 H 20 119/57 L 100 07/16/17 06:00 07/16/17 06:00 07/16/17 06:00 07/16/17 06:00 07/16/17 06:00 Intake and Output: 07/16/17 07/16/17 06:59 18:59 Intake Total 300 240 Balance 300 240 - Medications Medications: Current Medications Aspirin (Ecotrin) 81 mg PO DAILY [facility] Last Admin: 07/15/17 09:30 Dose: 81 mg Atorvastatin Calcium (Lipitor) 10 mg PO DIN [facility] Last Admin: 07/15/17 17:36 Dose: 10 mg Calcitriol (Rocaltrol) 1 mcg PO MWF [facility] Last Admin: 07/15/17 09:32 Dose: 1 mcg Cinacalcet (Sensipar) 30 mg PO DAILY [facility] Last Admin: 07/15/17 09:32 Dose: 30 mg Collagenase (Santyl) 0 gm TOP DAILY [facility] Darbepoetin Luis (Aranesp) 60 mcg IVP ONCE ONE Stop: 07/16/17 09:26 Heparin Sodium (Porcine) (Heparin) 5,000 units SC Q12 [facility] PRN Reason: Protocol Last Admin: 07/15/17 21:27 Dose: 5,000 units Meropenem 250 mg/ Sodium (Chloride) 100 mls @ 100 mls/hr IVPB Q12H [facility] PRN Reason: Protocol Stop: 07/23/17 09:01 Last Admin: 07/15/17 21:27 Dose: 100 mls/hr Ipratropium [place] (Atrovent) 0.5 mg IH TIDRESP [facility] Last Admin: 07/15/17 22:06 Dose: 0.5 mg Lactobacillus Acidophilus (Bacid Acidophilus) 1 cap PO BID [facility] Last Admin: 07/15/17 17:35 Dose: 1 cap Latanoprost (Xalatan Opht) 0 ml OD DAILY [facility] Last Admin: 07/15/17 10:35 Dose: 1 ml Metoprolol Tartrate (Lopressor) 50 mg PO BRKDIN [facility] Last Admin: 07/15/17 17:37 Dose: 50 mg Miconazole Nitrate (Miconazole 2% Cream) 0 ea TOP Q8 [facility] Last Admin: 07/16/17 05:22 Dose: 1 applic Morphine Sulfate (Morphine) 3 mg IVP Q3H PRN PRN Reason: Pain, moderate (4-7) Last Admin: 07/16/17 02:56 Dose: 3 mg Ondansetron HCl (Zofran Inj) 4 mg IVP Q4H PRN PRN Reason: Nausea/Vomiting Pantoprazole Sodium (Protonix Ec Tab) 20 mg PO 0600 [facility] Last Admin: 07/16/17 05:22 Dose: 20 mg Pilocarpine HCl (Isopto Carpine 2% Opht Soln) 0 ml OS Q12H [facility] Last Admin: 07/15/17 21:28 Dose: 1 drop Vitamin B Complex/Vit C/Folic Acid (Nephro-Yesica) 1 tab PO 0800 [facility] Last Admin: 07/15/17 09:32 Dose: 1 tab - Labs Labs: 07/16/17 06:10 07/15/17 06:58 PT 13.1 Seconds (9.9-11.8) H 07/14/17 07:30 INR 1.21 (0.93-1.08) H 07/14/17 07:30 APTT 25.7 Seconds (23.7-30.8) 07/14/17 07:30 - Constitutional Appears: No Acute Distress - Head Exam Head Exam: ATRAUMATIC, NORMAL INSPECTION, NORMOCEPHALIC - Eye Exam Eye Exam: EOMI, Normal appearance, PERRL Pupil Exam: NORMAL ACCOMODATION, PERRL - ENT Exam ENT Exam: Mucous Membranes Moist, Normal Exam - Neck Exam Neck Exam: Full ROM, Normal Inspection. absent: Lymphadenopathy - Respiratory Exam Respiratory Exam: Clear to Ausculation Bilateral, NORMAL BREATHING PATTERN - Cardiovascular Exam Cardiovascular Exam: REGULAR RHYTHM, +S1, +S2. absent: Murmur - GI/Abdominal Exam GI & Abdominal Exam: Soft, Normal Bowel Sounds. absent: Distended, Tenderness - Extremities Exam Extremities Exam: Tenderness - Back Exam Back Exam: tenderness. absent: NORMAL INSPECTION Additional comments: Large [id number] sacral wound. - Neurological Exam Neurological Exam: Alert, Awake, CN II-XII Intact, Normal Gait, Oriented x3 - Psychiatric Exam Psychiatric exam: Normal Affect, Normal Mood - Skin Skin Exam: Dry, Intact, Normal Color, Warm Assessment and Plan - Assessment and Plan (Free Text) Assessment: 82 yo Female with Sacral Decub stage 4 and multiple LE wounds: Wound vac placed on Sun Plan: * Stage 4 sacral decubitus ulcer: VAc change wed * Right knee ulcer = Silvadene QD * Right dorsal foot eschar = scored today and Santyl QD * Right heel eschar = Santyl QD * Left heel eschar = Santyl QD * Air mattress/offloading boots * Pain control: Morphine 2 Q4 * IVF: Zosyn 2.2 Q8 * DVT PPX: Heparin 5000 SC Q12 * Protonix 20 QD
[2017-07-16] MEDS: Multivitamin Vitamin B Complex (Nephro-Vite) Tab PO SCH (08:02)
[2017-07-16 08:19] LABS: ALB/GLOB RATIO 0.8 (1.1-1.8); BILIRUBIN,TOTAL 0.4 mg/dL (0.2-1.3); CALCIUM 8.6 mg/dL (8.4-10.5); POTASSIUM 4.6 mmol/L (3.6-5.0); TOTAL PROTEIN 6.6 g/dL (5.8-8.3)
--- NOTE | 2017-07-16 08:33 | PN ---
DATE: 07/16/2017 SUBJECTIVE: The patient appears comfortable this morning. She is not short of breath at rest. PHYSICAL EXAMINATION: VITAL SIGNS: Temperature is 98.1, pulse 90, respirations 18/20, blood pressure 139/75. Oxygen saturation on room air is 98%. HEENT: Normocephalic, atraumatic. No JVD. CARDIOVASCULAR: Systolic ejection murmur at the lower left sternal border. No S3 gallop. LUNGS: Decreased breath sounds at the bases. Less rhonchi. No wheezing. EXTREMITIES: Mild edema is noted. No cyanosis or clubbing. Calves are nontender to palpation. GI: Abdomen is soft, nontender and nondistended. Bowel sounds are positive. SKIN: Healing sacral decubitus. Mild scattered excoriations. No rashes. NEUROLOGIC: Exam is limited at the present time. IMPRESSION 1. Sacral decubitus. 2. Chronic obstructive pulmonary disease. 3. End-stage renal disease. 4. Non-ST elevation myocardial infarction. 5. Anemia. PLAN: The patient appears comfortable this morning. She is not short of breath at rest. She states she is feeling much better overall. On physical exam, there is less bronchospasm noted. In addition, the oxygen saturation on room air is now 98%. I will continue the current nebulizer treatments for now. The patient did state this morning that she feels much better getting the nebulizer treatments. I would continue with the antibiotic coverage as per infectious disease. Input by Dr. Catherine is noted. Input by Renal and Cardiology are also noted. Clinical status of the patient is certainly improved. However, again, the patient's overall status/prognosis does remain guarded. I will discuss the above with Dr. Hodges. Selvin Hernandez MD MTDD
[2017-07-16] MEDS ORDERED: Darbepoetin Alfa 60 mcg/ml Inj IVP ONE (09:25)
--- NOTE | 2017-07-16 14:20 | CP.PCM.PN ---
<Travon Zuleta - Last Filed: 07/16/17 14:17> Subjective - Date & Time of Evaluation Date of Evaluation: 07/16/17 Time of Evaluation: 14:17 - Subjective Subjective: Podiatry Progress Note - Dr. Kwan 82 year old female with PMHx ESRD on HD, DM2, HTN seen at bedside after returning from dialysis today for bilaterally foot wounds. Patient states she is doing much better today. She is seen resting comfortably in bed, in NAD, and AA0x3. Left offloading boot was not on at the time of the visit. She reports same constant pain to the lower extremity bilaterally. Patient denies N/F/V/CP/ SOB at this time. Objective - Vital Signs/Intake and Output Vital Signs (last 24 hours): Temp Pulse Resp BP Pulse Ox 97.8 F 85 20 119/57 L 100 07/16/17 06:00 07/16/17 10:00 07/16/17 06:00 07/16/17 08:02 07/16/17 06:00 Intake and Output: 07/16/17 07/16/17 06:59 18:59 Intake Total 300 240 Balance 300 240 - Medications Medications: Current Medications Aspirin (Ecotrin) 81 mg PO DAILY [facility] Last Admin: 07/15/17 09:30 Dose: 81 mg Atorvastatin Calcium (Lipitor) 10 mg PO DIN [facility] Last Admin: 07/15/17 17:36 Dose: 10 mg Calcitriol (Rocaltrol) 1 mcg PO MWF [facility] Last Admin: 07/15/17 09:32 Dose: 1 mcg Cinacalcet (Sensipar) 30 mg PO DAILY [facility] Last Admin: 07/15/17 09:32 Dose: 30 mg Collagenase (Santyl) 0 gm TOP DAILY [facility] Heparin Sodium (Porcine) (Heparin) 5,000 units SC Q12 [facility] PRN Reason: Protocol Last Admin: 07/15/17 21:27 Dose: 5,000 units Heparin Sodium (Porcine) (Heparin) 2,100 units ICA TUTHSA [facility] Heparin Sodium (Porcine) (Heparin) 2,200 units ICV TUTHSA [facility] Meropenem 250 mg/ Sodium (Chloride) 100 mls @ 100 mls/hr IVPB Q12H [facility] PRN Reason: Protocol Stop: 07/23/17 09:01 Last Admin: 07/15/17 21:27 Dose: 100 mls/hr Ipratropium [place] (Atrovent) 0.5 mg IH TIDRESP [facility] Last Admin: 07/15/17 22:06 Dose: 0.5 mg Lactobacillus Acidophilus (Bacid Acidophilus) 1 cap PO BID [facility] Last Admin: 07/15/17 17:35 Dose: 1 cap Latanoprost (Xalatan Opht) 0 ml OD DAILY [facility] Last Admin: 07/15/17 10:35 Dose: 1 ml Metoprolol Tartrate (Lopressor) 50 mg PO BRKDIN [facility] Last Admin: 07/16/17 08:02 Dose: 50 mg Miconazole Nitrate (Miconazole 2% Cream) 0 ea TOP Q8 [facility] Last Admin: 07/16/17 05:22 Dose: 1 applic Morphine Sulfate (Morphine) 3 mg IVP Q3H PRN PRN Reason: Pain, moderate (4-7) Last Admin: 07/16/17 08:42 Dose: 3 mg Ondansetron HCl (Zofran Inj) 4 mg IVP Q4H PRN PRN Reason: Nausea/Vomiting Pantoprazole Sodium (Protonix Ec Tab) 20 mg PO 0600 [facility] Last Admin: 07/16/17 05:22 Dose: 20 mg Pilocarpine HCl (Isopto Carpine 2% Opht Soln) 0 ml OS Q12H [facility] Last Admin: 07/15/17 21:28 Dose: 1 drop Vitamin B Complex/Vit C/Folic Acid (Nephro-Yesica) 1 tab PO 0800 [facility] Last Admin: 07/16/17 08:02 Dose: 1 tab - Labs Labs: 07/16/17 06:10 07/16/17 06:10 PT 13.1 Seconds (9.9-11.8) H 07/14/17 07:30 INR 1.21 (0.93-1.08) H 07/14/17 07:30 APTT 25.7 Seconds (23.7-30.8) 07/14/17 07:30 - Constitutional Appears: Well, Non-toxic, No Acute Distress - Extremities Exam Additional comments: VASC: DP and PT pulses nonpalpable. CFT wnl b/l. TG cool to cool. No edema noted. NEURO: Gross sensation intact DERM: RLE = Dry, adherent eschar noted to 1) posterior calcaneus measuring approximately 6.0 x 4 cm and 2) dorsum of RLE extending from ankle joint to midfoot mesuring approximately 9 x 2 cm, with full thickness tissue loss, extent of tissue damage cannot be confirmed due to eschar. Periwound erythema noted to eschar at dorsum of RLE. No fluctuance noted. Localized area of purple discoloration noted to lateral asepct of 5th met head with overlying blister; area is noted to be boggy with periwound erythema. LLE= Localized area of purple discoloration measuring approximately 3.5 x 2.5 cm noted to posterior calcaneus, less boggy than previous. Periwound with erythema still noted. ORTHO: Pain on palpation RLE. Pain on palpation left calcaneus - Neurological Exam Neurological Exam: Alert, Awake, Oriented x3 - Psychiatric Exam Psychiatric exam: Normal Affect, Normal Mood Assessment and Plan - Assessment and Plan (Free Text) Assessment: 82 year old female 1) unstageable pressure ulcer to right calcaneus and dorsum of right foot, 2) deep tissue injury lateral 5th met head right foot and left calcaneus Plan: Patient seen and evaluated at bedside Discussed with attending, Dr. Kwan Charts and labs reviewed- afebrile, leukocytosis Bilaterally foot cleansed with saline, santyl applied to the dorsum of the right foot, Optifoam applied to wounds bilaterally with daily dressing changes C/w air mattress Rigid multipodus boots b/l, to be worn at all times while in bed Educated on the importance of wearing multipodus while in bed Continue pain management per medicine Podiatry will continue to follow while in house <Fidel Kwan - Last Filed: 07/17/17 07:37> Objective - Vital Signs/Intake and Output Vital Signs (last 24 hours): Temp Pulse Resp BP Pulse Ox 97.8 F 93 H 20 110/53 L 100 07/16/17 06:00 07/16/17 17:19 07/16/17 06:00 07/16/17 17:19 07/16/17 06:00 Intake and Output: 07/17/17 07/17/17 06:59 18:59 Intake Total 300 120 Balance 300 120 - Medications Medications: Current Medications Aspirin (Ecotrin) 81 mg PO DAILY [facility] Last Admin: 07/16/17 14:33 Dose: 81 mg Atorvastatin Calcium (Lipitor) 10 mg PO DIN [facility] Last Admin: 07/16/17 17:20 Dose: 10 mg Calcitriol (Rocaltrol) 1 mcg PO MWF [facility] Last Admin: 07/15/17 09:32 Dose: 1 mcg Cinacalcet (Sensipar) 30 mg PO DAILY [facility] Last Admin: 07/16/17 14:33 Dose: 30 mg Collagenase (Santyl) 0 gm TOP DAILY [facility] Last Admin: 07/16/17 14:41 Dose: Not Given Heparin Sodium (Porcine) (Heparin) 5,000 units SC Q12 [facility] PRN Reason: Protocol Last Admin: 07/16/17 22:01 Dose: 5,000 units Heparin Sodium (Porcine) (Heparin) 2,100 units ICA TUTA [facility] Heparin Sodium (Porcine) (Heparin) 2,200 units ICV TUTA [facility] Meropenem 250 mg/ Sodium (Chloride) 100 mls @ 100 mls/hr IVPB Q12H [facility] PRN Reason: Protocol Stop: 07/23/17 09:01 Last Admin: 07/16/17 22:01 Dose: 100 mls/hr Ipratropium [place] (Atrovent) 0.5 mg IH TIDRESP [facility] Last Admin: 07/16/17 19:30 Dose: 0.5 mg Lactobacillus Acidophilus (Bacid Acidophilus) 1 cap PO BID [facility] Last Admin: 07/16/17 17:20 Dose: 1 cap Latanoprost (Xalatan Opht) 0 ml OD DAILY [facility] Last Admin: 07/16/17 14:34 Dose: 2.5 ml Metoprolol Tartrate (Lopressor) 50 mg PO BRKDIN [facility] Last Admin: 07/16/17 17:19 Dose: 50 mg Miconazole Nitrate (Miconazole 2% Cream) 0 ea TOP Q8 [facility] Last Admin: 07/17/17 06:25 Dose: 1 applic Morphine Sulfate (Morphine) 3 mg IVP Q3H PRN PRN Reason: Pain, moderate (4-7) Last Admin: 07/17/17 01:38 Dose: 3 mg Ondansetron HCl (Zofran Inj) 4 mg IVP Q4H PRN PRN Reason: Nausea/Vomiting Pantoprazole Sodium (Protonix Ec Tab) 20 mg PO 0600 [facility] Last Admin: 07/17/17 06:22 Dose: 20 mg Pilocarpine HCl (Isopto Carpine 2% Opht Soln) 0 ml OS Q12H [facility] Last Admin: 07/16/17 22:04 Dose: 1 drop Vitamin B Complex/Vit C/Folic Acid (Nephro-Yesica) 1 tab PO 0800 [facility] Last Admin: 07/16/17 08:02 Dose: 1 tab - Labs Labs: 07/17/17 06:00 07/16/17 06:10 PT 13.1 Seconds (9.9-11.8) H 07/14/17 07:30 INR 1.21 (0.93-1.08) H 07/14/17 07:30 APTT 25.7 Seconds (23.7-30.8) 07/14/17 07:30 Attending/Attestation - Attestation I have personally seen and examined this patient.: Yes I have fully participated in the care of the patient.: Yes I have reviewed all pertinent clinical information, including history, physical exam and plan: Yes
[2017-07-16] MEDS: Lactobacillus Acidophilus 500 MU Cap PO SCH ×2 (14:33→17:20)
[2017-07-16] MEDS: Latanoprost 2.5 ml Opht Soln OD SCH (14:34)
[2017-07-16] MEDS: Pilocarpine 2% Opht (15ml) OS SCH ×2 (14:35→22:04)
[2017-07-16] MEDS: Collagenase 250 Units/gm Ointment(30 gm) TOP SCH (14:41)
--- NOTE | 2017-07-16 14:53 | CP.PCM.PN ---
Subjective - Date & Time of Evaluation Date of Evaluation: 07/16/17 Time of Evaluation: 14:52 - Subjective Subjective: Follow up Nephrology Consultation Note Assessment: Stable sacral decubitus ulcer s/p debridement chest pain Diabetic chronic Kidney Disease (E11.22) Hypertensive Chronic Kidney Disease (I12.0) End stage renal disease (N18.6) dependence on hemodialysis (Z99.2) (TTS) via permacath Anemia (D64.9), Hyperphosphatemia (E83.39), Secondary Hyperparathyroidism (E21.1 ), HTN (I12.0) NSTEMI Plan: She underwent dialysis today as ordered. Continue with Nephrovite 1 tab/day. PRBC as needed for anemia. On TEJINDER as weekly aranesp Continue with phos binders Continue with calcitriol and sensipar BP control with meds as ordered. Patient not on RAAS anna as BP low side Glycemic control, Dialysis consistent diet Further work up/management as per primary team Dose meds/antibiotics (if needed) for ESRD status. Avoid fleets enema/magnesium based laxatives. wound care. cardiology< ID following Thanks for allowing me to participate in care of your patient. Will follow patient with you. Please call if any Qs Dr Wang [place] Office: [phone] Subjective: Noted events overnight. Patients feels okay. Denies chest pain, palpitation, shortness of breath, leg swelling. No urinary complaints Physical Examination: General Appearance: Comfortable, in no acute respiratory distress, co- operative. debilitated Vitals reviewed and noted as below Lungs: Normal respiratory rate/effort. Breath sounds bilateral equal and clear Heart: Normal rate. s1s2 normal. No rub or gallop. Extremities: no edema. has decubitus ulcer over sacrum and legs Neurological: Patient is alert, awake and oriented to person, place and time. No focal deficit. Strength bilateral appropriate and equal Skin: Warm and dry. Normal turgor. No rash. Palpitation: Normal elasticity for age Abdomen: Abdomen is soft. Bowel sounds +. There is no abdominal tenderness, no guarding/rigidity or organomegaly : kidney or bladder not palpable Access: permacath Labs/imaging reviewed. Past medical history, past surgical history, family history, social history, allergy reviewed Objective - Vital Signs/Intake and Output Vital Signs (last 24 hours): Temp Pulse Resp BP Pulse Ox 97.8 F 85 20 119/57 L 100 07/16/17 06:00 07/16/17 10:00 07/16/17 06:00 07/16/17 08:02 07/16/17 06:00 Intake and Output: 07/16/17 07/16/17 06:59 18:59 Intake Total 300 240 Balance 300 240 - Medications Medications: Current Medications Aspirin (Ecotrin) 81 mg PO DAILY [facility] Last Admin: 07/16/17 14:33 Dose: 81 mg Atorvastatin Calcium (Lipitor) 10 mg PO DIN [facility] Last Admin: 07/15/17 17:36 Dose: 10 mg Calcitriol (Rocaltrol) 1 mcg PO MWF [facility] Last Admin: 07/15/17 09:32 Dose: 1 mcg Cinacalcet (Sensipar) 30 mg PO DAILY [facility] Last Admin: 07/16/17 14:33 Dose: 30 mg Collagenase (Santyl) 0 gm TOP DAILY [facility] Last Admin: 07/16/17 14:41 Dose: Not Given Heparin Sodium (Porcine) (Heparin) 5,000 units SC Q12 [facility] PRN Reason: Protocol Last Admin: 07/16/17 14:33 Dose: 5,000 units Heparin Sodium (Porcine) (Heparin) 2,100 units ICA TUTA [facility] Heparin Sodium (Porcine) (Heparin) 2,200 units ICV TUTA [facility] Meropenem 250 mg/ Sodium (Chloride) 100 mls @ 100 mls/hr IVPB Q12H [facility] PRN Reason: Protocol Stop: 07/23/17 09:01 Last Admin: 07/16/17 14:39 Dose: 100 mls/hr Ipratropium [place] (Atrovent) 0.5 mg IH TIDRESP [facility] Last Admin: 07/15/17 22:06 Dose: 0.5 mg Lactobacillus Acidophilus (Bacid Acidophilus) 1 cap PO BID [facility] Last Admin: 07/16/17 14:33 Dose: 1 cap Latanoprost (Xalatan Opht) 0 ml OD DAILY [facility] Last Admin: 07/16/17 14:34 Dose: 2.5 ml Metoprolol Tartrate (Lopressor) 50 mg PO BRKDIN [facility] Last Admin: 07/16/17 08:02 Dose: 50 mg Miconazole Nitrate (Miconazole 2% Cream) 0 ea TOP Q8 [facility] Last Admin: 07/16/17 14:41 Dose: 1 applic Morphine Sulfate (Morphine) 3 mg IVP Q3H PRN PRN Reason: Pain, moderate (4-7) Last Admin: 07/16/17 08:42 Dose: 3 mg Ondansetron HCl (Zofran Inj) 4 mg IVP Q4H PRN PRN Reason: Nausea/Vomiting Pantoprazole Sodium (Protonix Ec Tab) 20 mg PO 0600 [facility] Last Admin: 07/16/17 05:22 Dose: 20 mg Pilocarpine HCl (Isopto Carpine 2% Opht Soln) 0 ml OS Q12H [facility] Last Admin: 07/16/17 14:35 Dose: 1 drop Vitamin B Complex/Vit C/Folic Acid (Nephro-Yesica) 1 tab PO 0800 [facility] Last Admin: 07/16/17 08:02 Dose: 1 tab - Labs Labs: 07/16/17 06:10 07/16/17 06:10 PT 13.1 Seconds (9.9-11.8) H 07/14/17 07:30 INR 1.21 (0.93-1.08) H 07/14/17 07:30 APTT 25.7 Seconds (23.7-30.8) 07/14/17 07:30
--- NOTE | 2017-07-16 15:22 | PN ---
DATE: SUBJECTIVE: The patient is seen earlier today in 361, bed 1. She is in bed, no acute distress, nontoxic. No fevers. PHYSICAL EXAMINATION: VITAL SIGNS: Temperature is 98, blood pressure is 120/70, and respiratory rate of 16. HEENT: Unremarkable. NECK: Supple. LUNGS: Decreased breath sounds. HEART: Normal S1 and S2. ABDOMEN: Soft and nontender. LABORATORY DATA: Reveals a white count of 15,000, hemoglobin of 8, and platelets of 325. Coagulation is noted. Chemistries reveals a BUN of 24 and creatinine of 4.8. Troponins are positive. Microbiology reveals sacral area with Pseudomonas aeruginosa and Koki tropicalis. Pseudomonas is sensitive to imipenem, resistant to cefepime, resistant to Zosyn. Koki tropicalis is a light growth and also light growth of . Blood cultures are negative. Review of orders reveals the patient to be on meropenem. Dr. Tirado's note is reviewed. There is decubitus stage IV with a wound VAC placed on Saturday. Dr. Hernandez's note is reviewed. ASSESSMENT AND PLAN: This is an 82-year-old female with multiple pressure ulcers, both heels, sacral ulcer stage III with Pseudomonas, status post wound vacuum placement with hypertension, diabetes, end-stage renal disease on hemodialysis, chronic obstructive lung disease, breast cancer with bilateral mastectomy, on day #3 of meropenem and now the patient has new systemic inflammatory response syndrome with heart rate of 97 and a new white count of 15,000 this morning, etiology of which is not clear. With the new systemic inflammatory response syndrome, we will repeat blood cultures, urine cultures, sputum cultures, chest x-ray, and stool for Clostridium difficile; the etiology of new leukocytosis is not clear. We will order a procalcitonin and a chest x-ray. We will make further recommendations on meropenem. Amrik Rodríguez MD
--- NOTE | 2017-07-16 16:14 | RAD ---
HISTORY: wbc 15k COMPARISON: 07/09/2017 FINDINGS: The right-sided dialysis catheter terminates at the cavoatrial junction. The right IJV line terminates at the cavoatrial junction. The left MediPort terminates at the cavoatrial junction. LUNGS: The lungs are hyperinflated with chronic changes in both lungs. No focal consolidation. PLEURA: No significant pleural effusion identified, no pneumothorax apparent. CARDIOVASCULAR: Normal. OSSEOUS STRUCTURES: No significant abnormalities. VISUALIZED UPPER ABDOMEN: Normal. OTHER FINDINGS: None. IMPRESSION: Stable position of central lines. COPD. No acute findings.
--- NOTE | 2017-07-16 16:36 | PN ---
DATE: 07/16/2017 SUBJECTIVE: The patient is in bed without shortness of breath, without chest pain. OBJECTIVE: VITAL SIGNS: On physical exam, blood pressure is 135/70, heart rate is in the 80s. NECK: Negative JVD. LUNGS: Without rales. HEART: Reveal short systolic ejection murmur. EXTREMITIES: Without edema. LABORATORIES: Reviewed. IMPRESSION: 1. [id number] myocardial infarction. 2. Coronary artery disease. 3. Chronic obstructive pulmonary disease. 4. Renal insufficiency. 5. Anemia. Given these findings, the patient is hemodynamically stable from a cardiac perspective, we will continue her non-STEMI treatment medically. Jordan Upton MD
[2017-07-16] MEDS: Ipratropium 0.02% Inhal Soln (0.5 mg/2.5 ml) UD IH SCH (19:30)
--- NOTE | 2017-07-16 23:15 | DS ---
HOSPITAL COURSE: I saw her resting comfortably in bed, and the first thing she tells is that she wants to leave, she wants to go now. She does not want to be in the hospital anymore. I explained to her the importance of IV antibiotics, the wound VAC skin care, status post acute myocardial infraction, NSTEMI care, and she has to go to long-term care facility because she was refused to go back to a subacute rehab. She understands that she still wants to go. MEDICATIONS: She is on Atrovent, Bacid, Ecotrin, pilocarpine, Lipitor, Lopressor, Merrem IV for a few more weeks, miconazole, morphine, Nephro-Yesica, Protonix, Rocaltrol, Santyl, Sensipar, Xalatan and Zofran. PHYSICAL EXAMINATION: VITAL SIGNS: 97.8 temp, 97 pulse, 119/57 blood pressure, 20 respiratory rate, and 100% O2 sat on nasal cannula. HEENT: Head is atraumatic, normocephalic. HEART: Regular rate. LUNGS: Decreased breath sounds, but clear. ABDOMEN: Soft, mildly obese, nontender, positive bowel sounds. EXTREMITIES: No edema. The wrapped up is a right instep ulcer, heal ulcers and a large sacral ulcer with a wound VAC. LABORATORY DATA: She has 137 sodium, potassium is 4.6, BUN is 24, creatinine 4.8. She is on dialysis. GFR is 9. Sugar is 110, calcium is 8.6, total bili is 0.4, AST is 83, ALT is 41, alk phos 188, total protein 6.6. She has a white count of 15, she is on antibiotics; 8.9 hemoglobin, a little bit better; 29.5 hematocrit; 325 platelets. ASSESSMENT AND PLAN: She is being see by surgery, pulmonary, renal, infectious disease, podiatry, cardiology. Overall, I think she is fairly stable and can do better with wound care at a long-term care facility plus physical therapy. IV antibiotics, wound care, and dialysis. This is a discharge on the patient who has got multiple skin ulcers, infections, end-stage renal disease, NSTEMI, hypertension, anemia, high cholesterol. Eric Hodges DO
[2017-07-17] MEDS: Morphine 4 mg/ml ISec IVP PRN ×4 (01:38→14:35)
[2017-07-17] MEDS: Pantoprazole 20 mg EC Tab PO SCH (06:22)
[2017-07-17] MEDS: Miconazole 2% Cream(30 gm) TOP SCH ×2 (06:25→14:14)
[2017-07-17 06:53] LABS: HEMATOCRIT 29.2 % (36.0-48.0); MEAN CELL VOLUME 96.4 fl (80.0-105.0); MEAN CORPUSCULAR HEMOGLOBIN 29.4 pg (25.0-35.0); MEAN CORPUSCULAR HGB CONC 30.5 g/dl (31.0-37.0); MEAN PLATELET VOLUME 9.3 fl (7.0-11.0); RED CELL DISTRIBUTION WIDTH 17.5 % (11.5-14.5); WHITE BLOOD COUNT 12.4 10^3/ul (4.5-11.0)
[2017-07-17] MEDS: Ipratropium 0.02% Inhal Soln (0.5 mg/2.5 ml) UD IH SCH ×2 (08:09→13:07)
[2017-07-17] MEDS: Multivitamin Vitamin B Complex (Nephro-Vite) Tab PO SCH (08:13)
[2017-07-17 08:15] VITALS: BP 111/50
--- NOTE | 2017-07-17 08:36 | PN ---
DATE: 07/17/2017 SUBJECTIVE: The patient appears comfortable this morning. She is not short of breath at rest. PHYSICAL EXAMINATION VITAL SIGNS: The temperature is 97.8, pulse 93, respirations 18, blood pressure 110/53. Oxygen saturation on nasal cannula is 100%. HEENT: Normocephalic, atraumatic. No JVD. CARDIOVASCULAR: Systolic ejection murmur at the lower left sternal border. No S3 gallop. LUNGS: Decreased breath sounds at the bases. Minimal/less rhonchi. No wheezing. EXTREMITIES: Mild edema is noted. No cyanosis or clubbing. Calves are nontender to palpation. GI: Abdomen is soft, nontender and nondistended. Bowel sounds are positive. SKIN: Healing sacral decubitus. Mild scattered excoriations. No rashes. NEUROLOGIC: Exam limited at the present time. IMPRESSION 1. Sacral decubitus. 2. Chronic obstructive pulmonary disease. 3. End-stage renal disease. 4. Non-ST elevation myocardial infarction. 5. Anemia. PLAN: The patient appears comfortable this morning. She is not short of breath at rest. She states she is feeling much better overall. On physical exam, there is certainly less bronchospasm noted. In addition, the oxygen saturation on nasal cannula is now 100%. I will continue the current nebulizer treatments for now. The patient remains on antibiotic therapy - as per infectious disease. There are no temperatures noted. There is a persistent mild leukocytosis. Input by Dr. Rodríguez is noted. Repeat a.m. labs are pending. Clinical status of the patient is certainly improved - compared to the initial presentation. However, again, the future status/prognosis for this patient does remain very guarded. I will discuss the above with Dr. Hodges. Selvin Hernandez MD [facility]
[2017-07-17 09:21] VITALS: RESP 18; TEMP 97.9; O2SAT 99
--- NOTE | 2017-07-17 10:48 | CP.PCM.PN ---
<Travon Zuleta - Last Filed: 07/17/17 10:42> Subjective - Date & Time of Evaluation Date of Evaluation: 07/17/17 Time of Evaluation: 10:43 - Subjective Subjective: Podiatry Progress Note - Dr. Kwan 82 year old female with PMHx ESRD on HD, DM2, HTN seen at bedside for bilaterally foot wounds. Patient states that she is frustrated and wants to go home . She is seen resting comfortably in bed, in NAD, and AA0x3. Left offloading boot was not on at the time of the visit. She reports same constant pain to the lower extremity bilaterally. Patient denies N/F/V/CP/SOB at this time. Objective - Vital Signs/Intake and Output Vital Signs (last 24 hours): Temp Pulse Resp BP Pulse Ox 97.9 F 102 H 18 111/50 L 99 07/17/17 06:00 07/17/17 08:13 07/17/17 06:00 07/17/17 08:13 07/17/17 06:00 Intake and Output: 07/17/17 07/17/17 06:59 18:59 Intake Total 300 120 Balance 300 120 - Medications Medications: Current Medications Aspirin (Ecotrin) 81 mg PO DAILY [facility] Last Admin: 07/16/17 14:33 Dose: 81 mg Atorvastatin Calcium (Lipitor) 10 mg PO DIN [facility] Last Admin: 07/16/17 17:20 Dose: 10 mg Calcitriol (Rocaltrol) 1 mcg PO MWF [facility] Last Admin: 07/15/17 09:32 Dose: 1 mcg Cinacalcet (Sensipar) 30 mg PO DAILY [facility] Last Admin: 07/16/17 14:33 Dose: 30 mg Collagenase (Santyl) 0 gm TOP DAILY [facility] Last Admin: 07/16/17 14:41 Dose: Not Given Heparin Sodium (Porcine) (Heparin) 5,000 units SC Q12 [facility] PRN Reason: Protocol Last Admin: 07/16/17 22:01 Dose: 5,000 units Heparin Sodium (Porcine) (Heparin) 2,100 units ICA TUTA [facility] Heparin Sodium (Porcine) (Heparin) 2,200 units ICV TUTA [facility] Meropenem 250 mg/ Sodium (Chloride) 100 mls @ 100 mls/hr IVPB Q12H [facility] PRN Reason: Protocol Stop: 07/23/17 09:01 Last Admin: 07/16/17 22:01 Dose: 100 mls/hr Ipratropium [place] (Atrovent) 0.5 mg IH TIDRESP [facility] Last Admin: 07/17/17 08:09 Dose: 0.5 mg Lactobacillus Acidophilus (Bacid Acidophilus) 1 cap PO BID [facility] Last Admin: 07/16/17 17:20 Dose: 1 cap Latanoprost (Xalatan Opht) 0 ml OD DAILY [facility] Last Admin: 07/16/17 14:34 Dose: 2.5 ml Metoprolol Tartrate (Lopressor) 50 mg PO BRKDIN [facility] Last Admin: 07/17/17 08:13 Dose: 50 mg Miconazole Nitrate (Miconazole 2% Cream) 0 ea TOP Q8 [facility] Last Admin: 07/17/17 06:25 Dose: 1 applic Morphine Sulfate (Morphine) 3 mg IVP Q3H PRN PRN Reason: Pain, moderate (4-7) Last Admin: 07/17/17 08:12 Dose: 3 mg Ondansetron HCl (Zofran Inj) 4 mg IVP Q4H PRN PRN Reason: Nausea/Vomiting Pantoprazole Sodium (Protonix Ec Tab) 20 mg PO 0600 [facility] Last Admin: 07/17/17 06:22 Dose: 20 mg Pilocarpine HCl (Isopto Carpine 2% Opht Soln) 0 ml OS Q12H [facility] Last Admin: 07/16/17 22:04 Dose: 1 drop Vitamin B Complex/Vit C/Folic Acid (Nephro-Yesica) 1 tab PO 0800 [facility] Last Admin: 07/17/17 08:13 Dose: 1 tab - Labs Labs: 07/17/17 06:00 07/16/17 06:10 PT 13.1 Seconds (9.9-11.8) H 07/14/17 07:30 INR 1.21 (0.93-1.08) H 07/14/17 07:30 APTT 25.7 Seconds (23.7-30.8) 07/14/17 07:30 - Constitutional Appears: Well, Non-toxic, No Acute Distress - Extremities Exam Additional comments: VASC: DP and PT pulses nonpalpable. CFT wnl b/l. TG cool to cool. No edema noted. NEURO: Gross sensation intact DERM: RLE = Dry, adherent eschar noted to 1) posterior calcaneus measuring approximately 6.0 x 4 cm and 2) dorsum of RLE extending from ankle joint to midfoot mesuring approximately 9 x 2 cm, with full thickness tissue loss, extent of tissue damage cannot be confirmed due to eschar. Periwound erythema noted to eschar at dorsum of RLE. No fluctuance noted. Localized area of purple discoloration noted to lateral asepct of 5th met head with overlying blister; area is noted to be boggy with periwound erythema. LLE= Localized area of purple discoloration measuring approximately 3.5 x 2.5 cm noted to posterior calcaneus, less boggy than previous. Periwound with erythema still noted. ORTHO: Pain on palpation RLE. Pain on palpation left calcaneus - Neurological Exam Neurological Exam: Alert, Awake, Oriented x3 - Psychiatric Exam Psychiatric exam: Agitated, Normal Affect Assessment and Plan - Assessment and Plan (Free Text) Assessment: 82 year old female 1) unstageable pressure ulcer to right calcaneus and dorsum of right foot, 2) deep tissue injury lateral 5th met head right foot and left calcaneus Plan: Patient seen and evaluated at bedside with attending Dr. Ge. Charts and labs reviewed- afebrile, leukocytosis Bilaterally foot cleansed with saline, santyl applied to the dorsum of the right foot, Optifoam applied to wounds bilaterally with daily dressing changes Will stop optifoam with dressing change tomorrow and apply santyl, dsd, abd, and kerlix. C/w air mattress Rigid multipodus boots b/l, to be worn at all times while in bed Educated on the importance of wearing multipodus while in bed Continue pain management per medicine Podiatry will continue to follow while in house <Fidel Kwan - Last Filed: 07/18/17 08:39> Objective - Vital Signs/Intake and Output Vital Signs (last 24 hours): Temp Pulse Resp BP Pulse Ox 97.9 F 95 H 18 111/50 L 99 07/17/17 06:00 07/17/17 10:00 07/17/17 06:00 07/17/17 08:13 07/17/17 06:00 - Labs Labs: 07/17/17 06:00 07/16/17 06:10 PT 13.1 Seconds (9.9-11.8) H 07/14/17 07:30 INR 1.21 (0.93-1.08) H 07/14/17 07:30 APTT 25.7 Seconds (23.7-30.8) 07/14/17 07:30 Attending/Attestation - Attestation I have personally seen and examined this patient.: Yes I have fully participated in the care of the patient.: Yes I have reviewed all pertinent clinical information, including history, physical exam and plan: Yes
--- NOTE | 2017-07-17 10:56 | DS ---
HISTORY OF PRESENT ILLNESS: She had been seen by pulmonary, cardiology, renal, podiatry, and infectious disease. She was resting in bed. She had multiple issues from sacral decubitus ulcer that was very large in the sacrum and feet ulcers and COPD, end-stage renal disease, NSTEMI, anemia. She was supposed to go to subacute rehab. I am hoping we can get her there today. Her white count was elevated yesterday, I believe it came down this morning. PHYSICAL EXAMINATION: GENERAL: She was talking at me, yelling at me, upset with me that she was still here in the hospital. VITAL SIGNS: She had 97.8 temperature, 85 pulse, 119/57 blood pressure, 20 respiratory rate, 100% O2 sat in room air. HEAD: Atraumatic and normocephalic. HEART: Regular rate. LUNGS: Clear to auscultation. ABDOMEN: Soft. EXTREMITIES: Bandaged. She had a large sacral ulcer with a wound VAC. She was lying on her side, which was good, still had not gotten out of bed. MEDICATIONS: She was on Atrovent, Bacid, Ecotrin, heparin, Isopto Carpine, Lipitor, Lopressor, Merrem IV, miconazole, morphine, Nephro-Yesica, Protonix, Rocaltrol, fentanyl,Sensipar, Xalatan and Zofran. LABORATORY DATA: She had a white count, which came down to 12.4, 8.9 hemoglobin, 29.2 hematocrit with 280 platelets. She had 137 sodium, potassium 4.6, BUN 24, creatinine 4.8, on dialysis. Sugar 110, calcium 8.6, total bili 0.4, AST 83, ALT 41, alk phos 188, total protein 6.6. PLAN: I am hoping to discharge her today to [facility]. I will put the order in and my plan was to discharge her there. She refused the CAT scan of the back to look for any osteomyelitis, but the plan was to go to LTAC for further treatment and care for these ulcers and IV antibiotics. Eric Hodges DO
[2017-07-17] MEDS: Lactobacillus Acidophilus 500 MU Cap PO SCH (11:11)
[2017-07-17] MEDS: Pilocarpine 2% Opht (15ml) OS SCH (11:11)
[2017-07-17] MEDS: Collagenase 250 Units/gm Ointment(30 gm) TOP SCH (11:12)
[2017-07-17] MEDS: Latanoprost 2.5 ml Opht Soln OD SCH (11:12)
--- NOTE | 2017-07-17 12:06 | CP.PCM.PN ---
Subjective - Date & Time of Evaluation Date of Evaluation: 07/17/17 Time of Evaluation: 12:04 - Subjective Subjective: Follow up Nephrology Consultation Note Assessment: Stable sacral decubitus ulcer s/p debridement chest pain resolved Diabetic chronic Kidney Disease (E11.22) Hypertensive Chronic Kidney Disease (I12.0) End stage renal disease (N18.6) dependence on hemodialysis (Z99.2) (TTS) via permacath Anemia (D64.9), Hyperphosphatemia (E83.39), Secondary Hyperparathyroidism (E21.1 ), HTN (I12.0) NSTEMI Plan: She underwent dialysis yesterday. next HD will be tomorrow as ordered. Continue with Nephrovite 1 tab/day. PRBC as needed for anemia. On TEJINDER as weekly aranesp Continue with phos binders Continue with calcitriol and sensipar BP control with meds as ordered. Patient not on RAAS anna as BP low side Glycemic control, Dialysis consistent diet Further work up/management as per primary team Dose meds/antibiotics (if needed) for ESRD status. Avoid fleets enema/magnesium based laxatives. wound care. cardiology< ID following Thanks for allowing me to participate in care of your patient. Please call if any Qs. she is planned for d/c to LTAC ([place]) today where she will get dialysis too pt stable for d/c from renal perspective Dr Wang [place] Office: [phone] Subjective: Noted events overnight. Patients feels okay. Denies chest pain, palpitation, has chronic shortness of breath, no leg swelling. No urinary complaints Physical Examination: General Appearance: Comfortable, in no acute respiratory distress, co- operative. debilitated Vitals reviewed and noted as below Lungs: Normal respiratory rate/effort. Breath sounds bilateral equal and clear Heart: Normal rate. s1s2 normal. No rub or gallop. Extremities: no edema. has decubitus ulcer over sacrum and legs Neurological: Patient is alert, awake and oriented to person, place and time. No focal deficit. Strength bilateral appropriate and equal Skin: Warm and dry. Normal turgor. No rash. Palpitation: Normal elasticity for age Abdomen: Abdomen is soft. Bowel sounds +. There is no abdominal tenderness, no guarding/rigidity or organomegaly : kidney or bladder not palpable Access: permacath Labs/imaging reviewed. Past medical history, past surgical history, family history, social history, allergy reviewed Objective - Vital Signs/Intake and Output Vital Signs (last 24 hours): Temp Pulse Resp BP Pulse Ox 97.9 F 102 H 18 111/50 L 99 07/17/17 06:00 07/17/17 08:13 07/17/17 06:00 07/17/17 08:13 07/17/17 06:00 Intake and Output: 07/17/17 07/17/17 06:59 18:59 Intake Total 300 120 Balance 300 120 - Medications Medications: Current Medications Aspirin (Ecotrin) 81 mg PO DAILY [facility] Last Admin: 07/17/17 11:11 Dose: 81 mg Atorvastatin Calcium (Lipitor) 10 mg PO DIN [facility] Last Admin: 07/16/17 17:20 Dose: 10 mg Calcitriol (Rocaltrol) 1 mcg PO MWF [facility] Last Admin: 07/17/17 11:12 Dose: 1 mcg Cinacalcet (Sensipar) 30 mg PO DAILY [facility] Last Admin: 07/17/17 11:12 Dose: 30 mg Collagenase (Santyl) 0 gm TOP DAILY [facility] Last Admin: 07/17/17 11:12 Dose: 1 applic Heparin Sodium (Porcine) (Heparin) 5,000 units SC Q12 [facility] PRN Reason: Protocol Last Admin: 07/17/17 11:11 Dose: 5,000 units Heparin Sodium (Porcine) (Heparin) 2,100 units ICA TUTA [facility] Heparin Sodium (Porcine) (Heparin) 2,200 units ICV TUTA [facility] Meropenem 250 mg/ Sodium (Chloride) 100 mls @ 100 mls/hr IVPB Q12H [facility] PRN Reason: Protocol Stop: 07/23/17 09:01 Last Admin: 07/17/17 11:12 Dose: 100 mls/hr Ipratropium [place] (Atrovent) 0.5 mg IH TIDRESP [facility] Last Admin: 07/17/17 08:09 Dose: 0.5 mg Lactobacillus Acidophilus (Bacid Acidophilus) 1 cap PO BID [facility] Last Admin: 07/17/17 11:11 Dose: 1 cap Latanoprost (Xalatan Opht) 0 ml OD DAILY [facility] Last Admin: 07/17/17 11:12 Dose: 2.5 ml Lorazepam (Ativan) 0.25 mg IM ONCE PRN; Protocol PRN Reason: Pain, moderate (4-7) Metoprolol Tartrate (Lopressor) 50 mg PO BRKDIN [facility] Last Admin: 07/17/17 08:13 Dose: 50 mg Miconazole Nitrate (Miconazole 2% Cream) 0 ea TOP Q8 [facility] Last Admin: 07/17/17 06:25 Dose: 1 applic Morphine Sulfate (Morphine) 3 mg IVP Q3H PRN PRN Reason: Pain, moderate (4-7) Last Admin: 07/17/17 11:25 Dose: 3 mg Ondansetron HCl (Zofran Inj) 4 mg IVP Q4H PRN PRN Reason: Nausea/Vomiting Pantoprazole Sodium (Protonix Ec Tab) 20 mg PO 0600 [facility] Last Admin: 07/17/17 06:22 Dose: 20 mg Pilocarpine HCl (Isopto Carpine 2% Opht Soln) 0 ml OS Q12H [facility] Last Admin: 07/17/17 11:11 Dose: 1 drop Vitamin B Complex/Vit C/Folic Acid (Nephro-Yesica) 1 tab PO 0800 [facility] Last Admin: 07/17/17 08:13 Dose: 1 tab - Labs Labs: 07/17/17 06:00 07/16/17 06:10 PT 13.1 Seconds (9.9-11.8) H 07/14/17 07:30 INR 1.21 (0.93-1.08) H 07/14/17 07:30 APTT 25.7 Seconds (23.7-30.8) 07/14/17 07:30
[2017-07-17 15:52] VITALS: PULSE 95
--- NOTE | 2017-07-18 00:15 | PN ---
DATE: 07/17/2017 SUBJECTIVE: The patient is in bed in no acute distress, nontoxic, was seen early this morning in room 361, bed 1. PHYSICAL EXAMINATION: VITAL SIGNS: Temperature is 97, blood pressure is 110/50, respiratory rate of 18 and heart rate of 105. HEENT: Unremarkable. NECK: Supple. LUNGS: Decreased breath sounds. HEART: Normal S1 and S2. ABDOMEN: Soft and nontender. LABORATORY DATA: Reveals a white count of 4,400, hemoglobin of 8 and platelets of 280. BUN is 24 and creatinine is up to 4.8. Troponin is a bit elevated at 1.15. Procalcitonin is 1.28. Microbiology is noted with Pseudomonas and Koki. The patient had a chest x-ray yesterday, is also reviewed. ASSESSMENT AND PLAN: This is an 82-year-old female with multiple pressure ulcers, both heels, stage III, sacral ulcers, with Pseudomonas, status post wound VAC placement, hypertension, diabetes, end-stage renal disease, hemodialysis, chronic obstructive lung disease, breast cancer. bilateral mastectomies, day #4 meropenem and the patient developed new systemic inflammatory response syndrome. We will check on repeat cultures and workup. Case discussed with nursing staff. Amrik Rodríguez MD
== END 2017-07-17 16:22 | DRG 592 ==
LOC: ED 16:11 → ERH 21:58 → 3RNO 07-10 14:23
PROVIDERS: ADMIT Family Medicine; ATTEND Family Medicine
PROC: 5A1D70Z Performance of Urinary Filtration, Intermittent, Less than 6 Hours Per Day (ICD-10-PCS; principal; 2017-07-10)
DX: L89.153 Pressure ulcer of sacral region, stage 3 (principal); I21.4 Non-ST elevation (NSTEMI) myocardial infarction; N18.6 End stage renal disease; R65.10 Systemic inflammatory response syndrome (SIRS) of non-infectious origin without acute organ dysfunction; I12.0 Hypertensive chronic kidney disease with stage 5 chronic kidney disease or end stage renal disease; N25.81 Secondary hyperparathyroidism of renal origin; B37.89 Other sites of candidiasis; L89.154 Pressure ulcer of sacral region, stage 4; E11.22 Type 2 diabetes mellitus with diabetic chronic kidney disease; R41.82 Altered mental status, unspecified; J44.9 Chronic obstructive pulmonary disease, unspecified; L89.623 Pressure ulcer of left heel, stage 3; L89.613 Pressure ulcer of right heel, stage 3; H54.40 Blindness, one eye, unspecified eye; E78.00 Pure hypercholesterolemia, unspecified; G89.29 Other chronic pain; D64.9 Anemia, unspecified; E87.6 Hypokalemia; L89.890 Pressure ulcer of other site, unstageable; B96.5 Pseudomonas (aeruginosa) (mallei) (pseudomallei) as the cause of diseases classified elsewhere; I25.10 Atherosclerotic heart disease of native coronary artery without angina pectoris; E83.39 Other disorders of phosphorus metabolism; Z99.2 Dependence on renal dialysis; Z85.3 Personal history of malignant neoplasm of breast; Z90.13 Acquired absence of bilateral breasts and nipples; S72.91XD Unspecified fracture of right femur, subsequent encounter for closed fracture with routine healing; W19.XXXD Unspecified fall, subsequent encounter; Z87.891 Personal history of nicotine dependence

== ENCOUNTER 2017-08-01 08:25 | Inpatient (IN) | payer MEDICARE ==
[2017-08-01 08:35] VITALS: BMI 18.8
--- NOTE | 2017-08-01 09:03 | ED PDOC ---
Arrival/HPI - General Chief Complaint: GI Problem Time Seen by Provider: 08/01/17 08:38 Historian: Patient - History of Present Illness Narrative History of Present Illness (Text): 08/01/17 08:59 A 82 year old female, whose past medical history includes, diabetes mellitus, COPD, hypertension, sacral ulcer, and currently on dialysis (MWF), presents to the emergency department for GI bleed, which began yesterday. The patient states she went sent in by her doctor Peter Madrid from the group home after her procedure yesterday 07/31/17. The patient denies any fevers, cough, or any other complaints at this time. Time/Duration: 24 hours Symptom Onset: Gradual Symptom Course: Unchanged Activities at Onset: Rest Context: Other (group home) Past Medical History - Provider Review Nursing Documentation Reviewed: Yes - Infectious Disease Hx of Infectious Diseases: None - Cardiac Hx Cardiac Disorders: Yes Hx Hypertension: Yes - Pulmonary Hx Chronic Obstructive Pulmonary Disease (COPD): Yes - Neurological Hx Neurological Disorder: No - HEENT Other/Comment: Right eye blindness - Renal Date of Last Dialysis Treatment: 07/10/17 Hx Renal Failure: Yes - Endocrine/Metabolic Hx Diabetes Mellitus Type 2: Yes - Hematological/Oncological Hx Cancer: Yes (TO BREAST WITH MASTECTOMY B/L) Other/Comment: internal bleeding and loss of bm movements sent to [facility] from [place] [facility] - Integumentary Other/Comment: Stage 4 Sacral wound. B/l heels - Musculoskeletal/Rheumatological Hx Falls: Yes - Gastrointestinal Hx Gastroesophageal Reflux: Yes Other/Comment: "liver problems" - Genitourinary/Gynecological Other/Comment: HX OF BREAST CA WITH B/L MASTECTOMY - Psychiatric Hx Anxiety: Yes Hx Substance Use: No - Surgical History Hx Orthopedic Surgery: Yes (r fx femur head and neck) Other/Comment: BILATERAL MASTECTOMY. RIGHT SUBCLAVIAN PERMACATH H/D CATH - Anesthesia Hx Anesthesia: Yes Hx Anesthesia Reactions: No Hx Malignant Hyperthermia: No Family/Social History - Physician Review Nursing Documentation Reviewed: Yes Family/Social History: Unknown Family HX Smoking Status: Former Smoker Hx Alcohol Use: No Hx Substance Use: No Allergies/Home Meds Allergies/Adverse Reactions: Allergies albuterol Allergy (Verified 07/09/17 16:25) DIZZINESS clonidine Allergy (Verified 07/09/17 16:25) DIZZINESS ibuprofen Allergy (Verified 07/09/17 16:25) VOMITING prednisone Allergy (Verified 07/09/17 16:25) VOMITING Home Medications: Home Meds Medication Instructions Recorded Confirmed Atorvastatin [Lipitor] 10 mg PO DAILY 07/09/17 08/01/17 B Complex W-C No.20/Folic Acid 1 cap PO DAILY 07/09/17 08/01/17 [Nephrocaps Softgel] Calcitriol [Rocaltrol] 1 mcg PO MWF 07/09/17 08/01/17 Cinacalcet [Sensipar] 30 mg PO DAILY 07/09/17 08/01/17 Folic Acid 1 mg PO DAILY 07/09/17 08/01/17 Ipratropium 0.02% [Atrovent] 2.5 ml NEB Q6 07/09/17 08/01/17 Lactobacillus Acidophilus [Bacid 1 cap PO BID 07/09/17 08/01/17 Acidophilus] Montelukast [Singulair] 10 mg PO DAILY 07/09/17 08/01/17 Ondansetron HCl [Zofran] 4 mg PO Q8 PRN 07/09/17 08/01/17 Pantoprazole Sodium [Protonix] 40 mg PO DAILY 07/09/17 08/01/17 oxyCODONE [oxyCODONE Immediate 5 mg PO Q4 PRN 07/09/17 08/01/17 Release Tab] Latanoprost 0.005% Opht [Xalatan 1 drop OD DAILY 07/12/17 08/01/17 Opht] Pilocarpine 2% Opht [Isopto 1 drop OS Q12H 07/12/17 08/01/17 Carpine 2% Opht Soln] Bacitracin OINT 500 unit TOP Q12 08/01/17 08/01/17 Benzonatate [Tessalon Perles] 100 mg PO TID 08/01/17 08/01/17 Miconazole CR [Miconazole 2% CREAM] 08/01/17 Zolpidem [Ambien] 5 mg PO PRN PRN 08/01/17 08/01/17 Review of Systems - Physician Review All systems were reviewed & negative as marked: Yes - Review of Systems Constitutional: absent: Fevers Respiratory: absent: Cough Gastrointestinal: Hematochezia Physical Exam Vital Signs Reviewed: Yes Vital Signs Temp Pulse Pulse Pulse Resp BP Pulse Ox 08/01/17 15:07 97.9 F 08/01/17 15:00 97.9 F 92 H 92 H 20 08/01/17 13:45 98.1 F 113 H 20 102/40 L 94 L 08/01/17 12:20 122 H 20 119/59 L 97 08/01/17 11:00 110 H 18 120/52 L 98 08/01/17 10:12 118 H 20 109/51 L 97 08/01/17 09:00 98.1 F 113 H 20 104/63 94 L 08/01/17 08:34 98.2 F 110 H 19 136/58 L 99 Temperature: Afebrile Blood Pressure: Hypotensive Pulse: Tachycardic Respiratory Rate: Normal Appearance: Positive for: Well-Appearing, Non-Toxic, Comfortable Pain Distress: None Mental Status: Positive for: Alert and Oriented X 3 - Systems Exam Head: Present: Atraumatic, Normocephalic Pupils: Present: PERRL, Other (right eye glacoma) Extroacular Muscles: Present: EOMI Conjunctiva: Present: Normal Mouth: Present: Moist Mucous Membranes Neck: Present: Normal Range of Motion Respiratory/Chest: Present: Clear to Auscultation, Good Air Exchange. No: Respiratory Distress, Accessory Muscle Use Cardiovascular: Present: Regular Rate and Rhythm, Normal S1, S2. No: Murmurs Abdomen: Present: Tenderness (diffusely), Distention (mild ), Other (ecchymosis to anterior abdominal wall) Rectal: Present: Gross Blood, Other (positive guaiac; rita Cai RN). No : Rectal Tenderness, Nodule/Mass/Lesions Back: Present: Other (stage 4 sacral ulcer) Upper Extremity: Present: NORMAL PULSES, Tenderness, Other (right knee ulcer, right anterior foot ulcer, right plantar's ulcer.). No: Cyanosis, Edema, Swelling, Erythema Lower Extremity: Present: Other Neurological: Present: GCS=15, CN II-XII Intact, Speech Normal Skin: Present: Warm, Dry, Normal Color. No: Rashes Psychiatric: Present: Alert, Oriented x 3, Normal Insight, Normal Concentration Medical Decision Making ED Course and Treatment: 08/01/17 09:04 Impression: A 82 year old female with GI bleed. Differential Diagnosis included but are not limited to: GI bleed r/o Abdominal Mass vs Diverticulitis Plan: -- Chest X-ray -- EKG -- Labs -- Reassess and disposition Prior Visits: Notes and results from previous visits were reviewed. The patient was last seen in the emergency department on 07/09/17 for altered mental status. The patient was admitted to the hospital. Progress Notes: EKG: Ordered, reviewed, and independently interpreted the EKG. Rate : 117 BPM Rhythm : Sinus Tachycardia Interpretation : 2 wave inversion in anterior lateral leads. Comparison : EKG compared to EKG on 07/13/17. 08/01/17 12:48 Chest X-ray Press Offbearer : David Carreon MD Report Date : 08/01/2017 11:27:29 COMPARISON:07/16/2017 FINDINGS: LUNGS:No active pulmonary disease. PLEURA:No significant pleural effusion identified, no pneumothorax apparent. CARDIOVASCULAR:Mild cardiomegaly. Moderate to severe vascular congestion right greater than left OSSEOUS STRUCTURES:No significant abnormalities. VISUALIZED UPPER ABDOMEN:Normal. OTHER FINDINGS:None. IMPRESSION: Mild cardiomegaly. Moderate to severe vascular congestion right greater than left 08/01/2017 14:06 Abd/Pelvis CT IMPRESSION: 1. No bowel obstruction measure edema, ascites, or free intrarenal gas. No obstructive uropathy. 2. 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 Follow-up ultrasonography is recommended as discussed above. 3. Extensive sigmoid diverticulosis without diverticulitis. 4. Hepatic steatosis. Cholelithiasis. No prominent biliary tree dilatation. Dictator: Marlon Solis MD 08/01/17 12:52 Patient became more tachycardic and treated with light hydration NS 500 at 100ml /hr. Pain controlled with Morphine IV. Case discussed with Dr. Carrera who agreed to accept patient to the ICU and recommended 1 unit of PRBC. Discussed case with QAMAR Doran who agreed to Protonix and he will evaluate patient. GI Fellow evaluated patient. He doesn't recommend 1 unit of PRBC so Dr. Carrera and I cancelled the ordered and will repeat H/H. He will follow. CT results reviewed. Called Dr. Ibarra who is covering for Dr. Hodges but no call back. Patient will be admitted to the hospitalist. discussed case with Dr. aGrcia who accepted the case. - Critical Care Critical Care Minutes: 60 minutes - Lab Interpretations Lab Results: 08/01/17 09:54 08/01/17 09:54 Lab Results 08/01/17 10:25: Blood Type Confirm A NEGATIVE 08/01/17 09:54: Blood Type A NEGATIVE, Antibody Screen Negative, Crossmatch See Detail, BBK History Checked No verified bt 08/01/17 09:54: Sodium 139, Potassium 3.7, Chloride 103, Carbon Dioxide 29, Anion Gap 11, BUN 16, Creatinine 3.1 H, Est GFR ( Amer) 17, Est GFR (Non- Af Amer) 14, Random Glucose 106, Calcium 8.3 L, Total Bilirubin 0.4, AST 49 H D , ALT 31, Alkaline Phosphatase 149 H D, Lactate Dehydrogenase 427, Total Creatine Kinase 28 L, Troponin I 0.07 D, Total Protein 5.6 L, Albumin 2.2 L, Globulin 3.4, Albumin/Globulin Ratio 0.6 L, Amylase < 30 L, Lipase 36 08/01/17 09:54: PT 13.7 H, INR 1.24 H, APTT 28.6 08/01/17 09:54: WBC 11.1 H, RBC 2.83 L, Hgb 8.2 L, Hct 26.4 L, MCV 93.3 D, MCH 29.0, MCHC 31.1, RDW 16.1 H, Plt Count 214, MPV 8.8, Gran % 79.5 H, Lymph % ( Auto) 9.7 L, [place] % (Auto) 9.4 H, Eos % (Auto) 1.1 L, Baso % (Auto) 0.3, Gran # 8.79 H, Lymph # 1.1 L, [place] # 1.0 H, Eos # 0.1, Baso # 0.03 - RAD Interpretation Radiology Orders: 08/01/17 08:58 CHEST PORTABLE [RAD] Stat 08/01/17 09:15 ABD PELVIS PO & IV CONTRAST [CT] Stat - EKG Interpretation Interpreted by ED Physician: Yes Type: 12 lead EKG - Medication Orders Current Medication Orders: Albuterol/Ipratropium (Duoneb 3 Mg/0.5 Mg (3 Ml) Ud) 3 ml IH [id number] BLAIR Atorvastatin Calcium (Lipitor) 10 mg PO DIN BLAIR Bacitracin (Bacitracin) 0 gm TOP Q12 BLAIR Benzonatate (Tessalon Perles) 100 mg PO TID BLAIR Calcitriol (Rocaltrol) 1 mcg PO MWF BLAIR Cinacalcet (Sensipar) 30 mg PO DAILY BLAIR Sodium Chloride (Sodium Chloride 0.9%) 500 mls @ 50 mls/hr IV .Q10H BLAIR Insulin Human Regular (Humulin R Low) 0 units SC ACHS BLAIR PRN Reason: Protocol Lactobacillus Acidophilus (Bacid Acidophilus) 1 cap PO BID BLAIR Latanoprost (Xalatan Opht) 0 ml OD HS BLAIR Lorazepam (Ativan) 0.25 mg IM ONCE PRN; Protocol PRN Reason: Pain, moderate (4-7) Metoprolol Tartrate (Lopressor) 50 mg PO BRKDIN BLAIR Montelukast Sodium (Singulair) 10 mg PO HS [facility] Morphine Sulfate (Morphine) 2 mg IVP Q4H PRN PRN Reason: Pain, moderate (4-7) Ondansetron HCl (Zofran Inj) 4 mg IVP Q8H PRN PRN Reason: Nausea/Vomiting Oxycodone HCl (Oxycodone Immediate Release Tab) 5 mg PO Q4 PRN PRN Reason: Pain, moderate (4-7) Pantoprazole Sodium (Protonix Ec Tab) 40 mg PO 0600,1600 BLAIR Pilocarpine HCl (Isopto Carpine 2% Opht Soln) 0 ml OS Q12 [facility] Vitamin B Complex/Vit C/Folic Acid (Nephro-Yesica) 1 tab PO 0800 BLAIR Zolpidem Tartrate (Ambien) 5 mg PO HS PRN; Protocol PRN Reason: Insomnia Discontinued Medications Sodium Chloride (Sodium Chloride 0.9%) 500 mls @ 100 mls/hr IV .Q5H [facility] Last Admin: 08/01/17 13:30 Dose: 100 mls/hr eMAR Start Stop Document 08/01/17 13:30 MB (Rec: 08/01/17 13:30 MB [id number]) Intravenous Solution Start Date 08/01/17 Start Time 13:30 Morphine Sulfate (Morphine) 4 mg IVP STAT STA Stop: 08/01/17 11:31 Last Admin: 08/01/17 11:46 Dose: 4 mg MAR Pain Assessment Document 08/01/17 11:46 MB (Rec: 08/01/17 11:47 [id number] Pain Reassessment Is this a pain reassessment? No Sleep Is patient sleeping during reassessment? No Presence of Pain Presence of Pain Yes Pain Scale Used Pain Scale Used Numeric Location Pain Location Body Site Back Leg Description Description Constant IVP Administration Document 08/01/17 11:46 MB (Rec: 08/01/17 11:47 MB [id number]) Charges for Administration # of IVP Administrations 1 Morphine Sulfate (Morphine) 4 mg IVP STAT STA Stop: 08/01/17 13:07 Last Admin: 08/01/17 13:35 Dose: 4 mg MAR Pain Assessment Document 08/01/17 13:35 MB (Rec: 08/01/17 13:36 [id number] Pain Reassessment Is this a pain reassessment? Yes Sleep Is patient sleeping during reassessment? No Presence of Pain Presence of Pain Yes Pain Scale Used Pain Scale Used Numeric Location Pain Location Body Site Back Description Intensity of Pain at present 8 Acceptable Level of Pain 0 Pain Behavior Facial Grimacing Aggravating Factors ADL's Alleviating Factors/Management Medication Techniques IVP Administration Document 08/01/17 13:35 MB (Rec: 08/01/17 13:36 [id number]) Charges for Administration # of IVP Administrations 1 Pantoprazole Sodium (Protonix Inj) 80 mg IVP STAT STA Stop: 08/01/17 12:52 Last Admin: 08/01/17 13:30 Dose: 80 mg IVP Administration Document 08/01/17 13:30 MB (Rec: 08/01/17 13:30 [id number]) Charges for Administration # of IVP Administrations 1 - Scribe Statement The provider has reviewed the documentation as recorded by the Guillermo Ferguson Provider Scribe Attestation: All medical record entries made by the Scribe were at my direction and personally dictated by me. I have reviewed the chart and agree that the record accurately reflects my personal performance of the history, physical exam, medical decision making, and the department course for this patient. I have also personally directed, reviewed, and agree with the discharge instructions and disposition. Disposition/Present on Arrival - Present on Arrival Any Indicators Present on Arrival: Yes History of DVT/PE: No History of Uncontrolled Diabetes: No Urinary Catheter: No History of Decub. Ulcer: Yes History Surgical Site Infection Following: None - Disposition Have Diagnosis and Disposition been Completed?: Yes Diagnosis: GI bleed Disposition: HOSPITALIZED Disposition Time: 12:52 Patient Plan: Admission, ICU Condition: FAIR
[2017-08-01] MEDS ORDERED: Iohexol 240 (50 ml) ONE (09:22)
[2017-08-01 10:14] LABS: BASO # 0.03 K/mm3 (0.0-2.0); BASO % 0.3 % (0.0-3.0); EOS # 0.1 (0.0-0.7); EOS % 1.1 % (1.5-5.0); GRAN # 8.79 (1.4-6.5); GRAN % 79.5 % (50.0-68.0); HEMATOCRIT 26.4 % (36.0-48.0); LYMPH # 1.1 (1.2-3.4); LYMPH % 9.7 % (22.0-35.0); MEAN CELL VOLUME 93.3 fl (80.0-105.0); MEAN CORPUSCULAR HGB CONC 31.1 g/dl (31.0-37.0); MEAN PLATELET VOLUME 8.8 fl (7.0-11.0); MONO % 9.4 % (1.0-6.0); RED CELL DISTRIBUTION WIDTH 16.1 % (11.5-14.5); WHITE BLOOD COUNT 11.1 10^3/ul (4.5-11.0)
[2017-08-01 10:18] LABS: ALB/GLOB RATIO 0.6 (1.1-1.8); ALKALINE PHOSPHATASE 149 U/L (38-126); ALT/SGPT 31 U/L (7-56); AST/SGOT 49 U/L (14-36); BILIRUBIN,TOTAL 0.4 mg/dL (0.2-1.3); BLOOD UREA NITROGEN 16 mg/dL (7-21); CALCIUM 8.3 mg/dL (8.4-10.5); CARBON DIOXIDE 29 mmol/L (21-33); CHLORIDE 103 mmol/L (98-107); GFR AFRICAN-AMERICAN 17; GLUCOSE,RANDOM 106 mg/dL (70-110); LIPASE 36 U/L (23-300); POTASSIUM 3.7 mmol/L (3.6-5.0); SODIUM 139 mmol/L (132-148); TOTAL PROTEIN 5.6 g/dL (5.8-8.3)
[2017-08-01 10:22] LABS: AMYLASE < 30 U/L (35-125)
[2017-08-01 10:26] LABS: INR 1.24 (0.93-1.08); PARTIAL THROMBOPLASTIN TIME 28.6 Seconds (25.1-36.5)
[2017-08-01 10:27] LABS: TROPONIN I 0.07 ng/mL
--- NOTE | 2017-08-01 11:28 | RAD ---
HISTORY: gi bleed COMPARISON: 07/16/2017 FINDINGS: LUNGS: No active pulmonary disease. PLEURA: No significant pleural effusion identified, no pneumothorax apparent. CARDIOVASCULAR: Mild cardiomegaly. Moderate to severe vascular congestion right greater than left OSSEOUS STRUCTURES: No significant abnormalities. VISUALIZED UPPER ABDOMEN: Normal. OTHER FINDINGS: None. IMPRESSION: Mild cardiomegaly. Moderate to severe vascular congestion right greater than left
[2017-08-01] MEDS ORDERED: Morphine 4 mg/ml ISec IVP STA ×2 (11:30→13:06)
[2017-08-01] MEDS ORDERED: Sodium Chloride 0.9% 500 ML IV SCH ×2 (12:15→14:14)
[2017-08-01] MEDS ORDERED: Iodixanol 320 MG/ML 100 ML BOTTLE IV ONE (12:54)
--- NOTE | 2017-08-01 13:51 | CP.PCM.CON ---
<Shane Madrid - Last Filed: 08/01/17 15:04> History of Present Illness - History of Present Illness History of Present Illness: PGY4 Initial GI Consult Ana Hendrickson is a 82F w. hx of ESRD on HD, DM, HTN, Breast Ca, and stage 4 sacral decubitus ulcer who presented to the ER due to GI bleed. As per ER staff , pt was brought in from a [facility] earlier today for a supposed GI bleed. Pt was a poor historian though she was oriented x3. Pt states that her bleeding started after her sacral decubitis debridgement. She notes that she has been constipated for the past few weeks to months. She states that her BM are only a few times a week and they are very hard. Pt notes that she has been bearing down significantly to have a BM. She denies any recent episodes of melena, hematemesis, or coffee-ground emesis. She states notes that she has been on narcotics in the NH, but denies any stool softners. She states that she has previously had a colonscopy and EGD but cannot recall the results. In the ER, her hgb was founf to be ~8.3, which seems to be around her baseline. As per ER physcian, there was BRB around the anus and in the rectal vault. She was slightly tachycardic but vitals were otherwise stable. PMHx: ESRD on HD TThSat, DM, HTN, Breast CA PSHx: Bilat Mastectomy, right subclavian permacath Social Hx: hx of 1+ppd smoker for "many years", quit 20 years ago. Rare ETOH use. Denies any drugs. Resident at [facility]. Allergy: Albuterol, Clonidine, Ibuprofen, Prednisone : [phone] ROS: 12-point ROS conducted, neg other than above Past Patient History - Infectious Disease Hx of Infectious Diseases: None - Past Medical History & Family History Past Medical History?: Yes - Past Social History Smoking Status: Former Smoker - CARDIAC Hx Cardiac Disorders: Yes Hx Hypertension: Yes - PULMONARY Hx Chronic Obstructive Pulmonary Disease (COPD): Yes - NEUROLOGICAL Hx Neurological Disorder: No - HEENT Other/Comment: Right eye blindness - RENAL Date of Last Dialysis Treatment: 07/10/17 Hx Renal Failure: Yes - ENDOCRINE/METABOLIC Hx Diabetes Mellitus Type 2: Yes - HEMATOLOGICAL/ONCOLOGICAL Hx Cancer: Yes (TO BREAST WITH MASTECTOMY B/L) Other/Comment: internal bleeding and loss of bm movements sent to [facility] - [facility] Other/Comment: Stage 4 Sacral wound. B/l heels - MUSCULOSKELETAL/RHEUMATOLOGICAL Hx Falls: Yes - GASTROINTESTINAL Hx Gastroesophageal Reflux: Yes Other/Comment: "liver problems" - GENITOURINARY/GYNECOLOGICAL Other/Comment: HX OF BREAST CA WITH B/L MASTECTOMY - PSYCHIATRIC Hx Anxiety: Yes Hx Substance Use: No - SURGICAL HISTORY Hx Orthopedic Surgery: Yes (r fx femur head and neck) Other/Comment: BILATERAL MASTECTOMY. RIGHT SUBCLAVIAN PERMACATH H/D CATH - ANESTHESIA Hx Anesthesia: Yes Hx Anesthesia Reactions: No Hx Malignant Hyperthermia: No Meds Allergies/Adverse Reactions: Allergies Allergy/AdvReac Type Severity Reaction Status Date / Time albuterol Allergy DIZZINESS Verified 07/09/17 16:25 clonidine Allergy DIZZINESS Verified 07/09/17 16:25 ibuprofen Allergy VOMITING Verified 07/09/17 16:25 prednisone Allergy VOMITING Verified 07/09/17 16:25 - Medications Medications: Current Medications Sodium Chloride (Sodium Chloride 0.9%) 500 mls @ 100 mls/hr IV .Q5H BLAIR Last Admin: 08/01/17 13:30 Dose: 100 mls/hr Physical Exam - Constitutional Appears: Well, Chronically Ill - Head Exam Head Exam: ATRAUMATIC, NORMOCEPHALIC - Eye Exam Eye Exam: Normal appearance - ENT Exam ENT Exam: Mucous Membranes Moist - Respiratory Exam Respiratory Exam: Clear to Auscultation Bilateral, NORMAL BREATHING PATTERN. absent: Rales, Rhonchi, Wheezes, Respiratory Distress - Cardiovascular Exam Cardiovascular Exam: REGULAR RHYTHM, +S1, +S2 - GI/Abdominal Exam GI & Abdominal Exam: Hypoactive Bowel Sounds. absent: Firm, Guarding, Hernia, Rebound, Rigid, Soft - Rectal Exam Additional comments: would not let me attempt a rectal exam, only visual examination of anus, which was slightly obstructed due to her sacral wound bandaging. sacral wound notes to extend towards the anus, buttocks ulcers notes - Extremities Exam Extremities exam: Positive for: pedal edema - Neurological Exam Neurological exam: Alert, Oriented x3 - Psychiatric Exam Psychiatric exam: Normal Affect, Normal Mood - Skin Skin Exam: Dry, Intact, Normal Color, Warm Results - Vital Signs Recent Vital Signs: Last Vital Signs Temp 98.1 F 08/01/17 13:45 Pulse 113 H 08/01/17 13:45 Resp 20 08/01/17 13:45 BP 102/40 L 08/01/17 13:45 Pulse Ox 94 L 08/01/17 13:45 - Labs Result Diagrams: 08/01/17 09:54 08/01/17 09:54 Assessment & Plan - Assessment and Plan (Free Text) Assessment: Ana Hendrickson is a 82F w/ hx of ESRD on HD, HTN, HL, BM, breast Ca who presented to the ER for BRBPR. Etiology is likely hemorrhoidal vs blood from the sacral wound based on clinical hx and presentation. DDX: AVM, malignancy, diverticular 1. Lower GI bleed 2. 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 Stage 4 sacral decubitius ulcer 4. Constipation likely 2/2 immobility vs narcotics Plan: -start PPI BID 40mg protonix -recommend miralax BID -continue to monitor -repeat H/H in the AM -maintain hgb >7, her baseline seems to be around ~8 -maintain adequate IV access -as per primary team, she is going to the ICU -She notes that she has gotten colonoscopy in the past, will try to get the records -try to minimize narcotic use -recommend surgical consult for scral decubiutis -start on clears for now D/W Dr. Murillo <Og Murillo - Last Filed: 08/01/17 16:37> Meds - Medications Medications: Current Medications Albuterol/Ipratropium (Duoneb 3 Mg/0.5 Mg (3 Ml) Ud) 3 ml IH [id number] BLAIR Atorvastatin Calcium (Lipitor) 10 mg PO DIN BLAIR Bacitracin (Bacitracin) 0 gm TOP Q12 BLAIR Benzonatate (Tessalon Perles) 100 mg PO TID BLAIR Calcitriol (Rocaltrol) 1 mcg PO MWF BLAIR Cinacalcet (Sensipar) 30 mg PO DAILY BLAIR Sodium Chloride (Sodium Chloride 0.9%) 500 mls @ 50 mls/hr IV .Q10H BLAIR Insulin Human Regular (Humulin R Low) 0 units SC ACHS BLAIR PRN Reason: Protocol Lactobacillus Acidophilus (Bacid Acidophilus) 1 cap PO BID BLAIR Latanoprost (Xalatan Opht) 0 ml OD HS BLAIR Lorazepam (Ativan) 0.25 mg IM ONCE PRN; Protocol PRN Reason: Pain, moderate (4-7) Metoprolol Tartrate (Lopressor) 50 mg PO BRKDIN BLAIR Montelukast Sodium (Singulair) 10 mg PO HS BLAIR Morphine Sulfate (Morphine) 2 mg IVP Q4H PRN PRN Reason: Pain, moderate (4-7) Ondansetron HCl (Zofran Inj) 4 mg IVP Q8H PRN PRN Reason: Nausea/Vomiting Oxycodone HCl (Oxycodone Immediate Release Tab) 5 mg PO Q4 PRN PRN Reason: Pain, moderate (4-7) Pantoprazole Sodium (Protonix Ec Tab) 40 mg PO 0600,1600 BLAIR Pilocarpine HCl (Isopto Carpine 2% Opht Soln) 0 ml OS Q12 BLAIR Vitamin B Complex/Vit C/Folic Acid (Nephro-Yesica) 1 tab PO 0800 BLAIR Zolpidem Tartrate (Ambien) 5 mg PO HS PRN; Protocol PRN Reason: Insomnia Results - Vital Signs Recent Vital Signs: Last Vital Signs Temp 97.9 F 08/01/17 15:07 Pulse 92 H 08/01/17 15:00 Resp 20 08/01/17 15:00 BP 102/40 L 08/01/17 13:45 Pulse Ox 94 L 08/01/17 13:45 - Labs Result Diagrams: 08/01/17 09:54 08/01/17 09:54 Labs: Laboratory Results - last 24 hr 08/01/17 16:03 POC Glucose (mg/dL) 88 Attending/Attestation - Attestation I have personally seen and examined this patient.: Yes I have fully participated in the care of the patient.: Yes I have reviewed all pertinent clinical information: Yes Notes (Text): 08/01/17 16:35 82 year old female with h/o ESRD on HD, Sacral decubitus ulcer, constipation, and diverticulosis admitted with BRBPR. 1. BRBPR 2. Anemia 3. Diverticulosis Plan: -bleeding seemed to occur in the setting of significant straining/pushing -no associated change in hemoglobin from baseline -mild tachycardia noted, normal bp -bleeding seems to be hemorrhoidal -would monitor for further bleeding -if she has signfiicant hematochezia associated with significant change in hemoglobin from baseline, would consider colonoscopy, but otherwise, would just monitor -she says she had a colonoscopy within the past 6 months possibly at [facility], this record should be obtained if possible
--- NOTE | 2017-08-01 14:00 | CP.PCM.HP ---
<Turner Ohara - Last Filed: 08/01/17 19:51> History of Present Illness - History of Present Illness History of Present Illness: This is a 82 year old female with a past medical history of Type II Diabetes Mellitus, COPD, Hypertension, scaral ulcer, End Stage Renal Disease(HD: MWF), breast carcinoma(s/p bilateral mastectomy) who came into [facility] with bright red blood per rectum witnessed by halfway staff. The patient reports having a similar episode a year and a half ago. The patient 's last colonoscopy was done 6 years ago at [facility]. The patient denies any fevers, chills,nausea, vomiting, changes in vision, chest pain, shortness of breath, lightheadedness, dizziness, abdominal pain, or any other complaints. PMD: Dr. Madrid (detention Attending) Past medical history: see HPI Allergies: Albuterol, clonidine, ibuprofen, prednisone PSurgicalHx: Bilat Mastectomy, right subclavian permacath Social Hx: hx of 2+ppd smoker for "many years", quit 20 years ago. Denies alcohol use. Denies any drugs. Resident at [facility]. Present on Admission - Present on Admission Any Indicators Present on Admission: No Review of Systems - Constitutional Constitutional: As Per HPI - EENT Eyes: As Per HPI Ears: As Per HPI Nose/Mouth/Throat: As Per HPI - Cardiovascular Cardiovascular: As Per HPI - Respiratory Respiratory: As Per HPI - Gastrointestinal Gastrointestinal: As Per HPI - Musculoskeletal Musculoskeletal: As Per HPI - Integumentary Integumentary: As Per HPI - Neurological Neurological: As Per HPI - Psychiatric Psychiatric: As Per HPI - Endocrine Endocrine: As Per HPI - Hematologic/Lymphatic Hematologic: As Per HPI Past Patient History - Infectious Disease Hx of Infectious Diseases: None - Past Medical History & Family History Past Medical History?: Yes - Past Social History Smoking Status: Former Smoker - CARDIAC Hx Cardiac Disorders: Yes Hx Hypertension: Yes - PULMONARY Hx Chronic Obstructive Pulmonary Disease (COPD): Yes - NEUROLOGICAL Hx Neurological Disorder: No - HEENT Other/Comment: Right eye blindness - RENAL Date of Last Dialysis Treatment: 07/10/17 Hx Renal Failure: Yes - ENDOCRINE/METABOLIC Hx Diabetes Mellitus Type 2: Yes - HEMATOLOGICAL/ONCOLOGICAL Hx Cancer: Yes (TO BREAST WITH MASTECTOMY B/L) Other/Comment: internal bleeding and loss of bm movements sent to [facility] from [facility] - INTEGUMENTARY Other/Comment: Stage 4 Sacral wound. B/l heels - MUSCULOSKELETAL/RHEUMATOLOGICAL Hx Falls: Yes - GASTROINTESTINAL Hx Gastroesophageal Reflux: Yes Other/Comment: "liver problems" - GENITOURINARY/GYNECOLOGICAL Other/Comment: HX OF BREAST CA WITH B/L MASTECTOMY - PSYCHIATRIC Hx Anxiety: Yes Hx Substance Use: No - SURGICAL HISTORY Hx Orthopedic Surgery: Yes (r fx femur head and neck) Other/Comment: BILATERAL MASTECTOMY. RIGHT SUBCLAVIAN PERMACATH H/D CATH - ANESTHESIA Hx Anesthesia: Yes Hx Anesthesia Reactions: No Hx Malignant Hyperthermia: No Meds Allergies/Adverse Reactions: Allergies Allergy/AdvReac Type Severity Reaction Status Date / Time albuterol Allergy DIZZINESS Verified 07/09/17 16:25 clonidine Allergy DIZZINESS Verified 07/09/17 16:25 ibuprofen Allergy VOMITING Verified 07/09/17 16:25 prednisone Allergy VOMITING Verified 07/09/17 16:25 Physical Exam - Head Exam Head Exam: ATRAUMATIC, NORMAL INSPECTION, NORMOCEPHALIC - Eye Exam Eye Exam: EOMI, Normal appearance, PERRL Additional comments: Right cataract noted. - ENT Exam ENT Exam: Mucous Membranes Moist, Normal Exam, Normal Oropharynx. absent: TM's Normal Bilaterally - Neck Exam Neck exam: Positive for: Normal Inspection. Negative for: Lymphadenopathy, Meningismus, Thyromegaly - Respiratory Exam Respiratory Exam: Clear to Auscultation Bilateral, NORMAL BREATHING PATTERN. absent: Chest Wall Tenderness, Prolonged Expiratory Phase, Respiratory Distress - Cardiovascular Exam Cardiovascular Exam: Tachycardia, +S1, +S2. absent: Gallop, Rubs - GI/Abdominal Exam GI & Abdominal Exam: Normal Bowel Sounds, Soft. absent: Guarding, Hypoactive Bowel Sounds, Mass, Pulsatile Mass - Back Exam Back exam: NORMAL INSPECTION. absent: paraspinal tenderness Additional comments: Stage 4 Sacral ulcer Noted. - Neurological Exam Additional comments: Confused. AOX2. - Psychiatric Exam Psychiatric exam: Normal Affect, Normal Mood - Skin Additional comments: Mutliple Ecchymosis noted on the body. Results - Vital Signs Recent Vital Signs: Last Vital Signs Temp 98.1 F 08/01/17 13:45 Pulse 113 H 08/01/17 13:45 Resp 20 08/01/17 13:45 BP 102/40 L 08/01/17 13:45 Pulse Ox 94 L 08/01/17 13:45 - Labs Result Diagrams: 08/01/17 09:54 08/01/17 09:54 Assessment & Plan - Assessment and Plan (Free Text) Assessment: This is a 82 year old female with a past medical history of Type 2 Diabetes Mellitus, COPD, Hypertension, stage 4 sacral ulcer , end stage renal disease (HD : MWF) who admitted for for lower GI bleed. Plan: 1.BRBPR (2/2 to Diverticulosis vs.Hemmorrhoids vs. Colon Mass) -Per Pola Scott on rectal exam bright red blood per rectum appreciated. Patient refused a second rectal exam. -Abdomen and pelvis PO and IV contrast showed no bowel obstruction measure edema , ascites or free intrarenal gas, no obstructive uropathy. It also showed mulitfocal hyperdense cysts in the bilateral kidneys that are poorly characterized and follow up ultrasonography is recommended. It also showed extensive sigmoid diverticulosis without diverticulitis, hepatic steatosis, cholelithiasis, and no prominent biliary tree dilatation -GI consulted. Will f/u with rec's. -Protonix 40mg BID. -Aspirin held until source of blood confirmed. -Patient hemodynamically stable now. Will give light IV fluids at 50ml/hr. -CBC Q6. Will monitor closely. -Patient Type and Screened. 1 Unit Ready for transfusion. Will transfuse if hemoglobin drops below 7.0. 2.End stage renal disease -Nephrology consulted. Will f/u with rec's. -Patient current HD schedule is MWF. Continue with schedule. 3. Sacral ulcer -On last admission wound grew Pseudomonas. Stage 4 Ulcer. -Wound consult. Will f/u with rec's. 4.COPD -Patient on O2 nasal cannula on 2.5 Liters. Sat'ing at 98% -Duonebs Q6 BLAIR -Continue home meds. 5. Hypertension -Continue home med's. -Hold Lopressor if Systolic blood pressure is below 110 or Heart rate is below 60. 6. Diabetes -Blood glucose 106 on admission. -Will start ISS-low -Accucheck ACHS GI PPX -Protonix DVT/PE PPX -SCD's <Tsering Garcia - Last Filed: 08/02/17 12:31> Results - Vital Signs Recent Vital Signs: Last Vital Signs Temp 97.9 F 08/01/17 15:07 Pulse 100 H 08/02/17 09:51 Resp 18 08/02/17 06:40 BP 117/36 L 08/02/17 09:51 Pulse Ox 100 08/02/17 06:40 - Labs Result Diagrams: 08/02/17 11:38 08/02/17 06:10 Labs: Laboratory Results - last 24 hr 08/01/17 08/01/17 08/01/17 14:53 16:03 18:17 WBC 9.5 RBC 2.54 L Hgb 7.4 L Hct 23.8 L MCV 93.7 MCH 29.1 MCHC 31.1 RDW 16.3 H Plt Count 187 MPV 8.5 Gran % Lymph % (Auto) [place] % (Auto) Eos % (Auto) Baso % (Auto) Gran # Lymph # [place] # Eos # Baso # Sodium Potassium Chloride Carbon Dioxide Anion Gap BUN Creatinine Est GFR ( Amer) Est GFR (Non-Af Amer) POC Glucose (mg/dL) 110 88 Random Glucose Calcium Total Bilirubin AST ALT Alkaline Phosphatase Total Protein Albumin Globulin Albumin/Globulin Ratio 08/01/17 08/01/17 08/02/17 21:33 22:25 06:10 WBC 10.8 12.6 H RBC 2.62 L 2.67 L Hgb 7.6 L 7.7 L Hct 24.6 L 24.9 L MCV 93.9 93.3 MCH 29.0 28.8 MCHC 30.9 L 30.9 L RDW 16.5 H 16.4 H Plt Count 214 250 MPV 9.1 9.0 Gran % 76.3 H 78.1 H Lymph % (Auto) 14.2 L 12.2 L [place] % (Auto) 8.0 H 8.1 H Eos % (Auto) 1.2 L 1.3 L Baso % (Auto) 0.3 0.3 Gran # 8.25 H 9.83 H Lymph # 1.5 1.5 [place] # 0.9 H 1.0 H Eos # 0.1 0.2 Baso # 0.03 0.04 Sodium Potassium Chloride Carbon Dioxide Anion Gap BUN Creatinine Est GFR ( Amer) Est GFR (Non-Af Amer) POC Glucose (mg/dL) 88 Random Glucose Calcium Total Bilirubin AST ALT Alkaline Phosphatase Total Protein Albumin Globulin Albumin/Globulin Ratio 08/02/17 08/02/17 08/02/17 06:10 07:59 11:38 WBC 15.3 H D RBC 2.66 L Hgb 7.7 L Hct 24.5 L MCV 92.1 MCH 28.9 MCHC 31.4 RDW 16.3 H Plt Count 221 MPV 8.5 Gran % Lymph % (Auto) [place] % (Auto) Eos % (Auto) Baso % (Auto) Gran # Lymph # [place] # Eos # Baso # Sodium 138 Potassium 4.2 Chloride 105 Carbon Dioxide 29 Anion Gap 8 L BUN 21 Creatinine 3.6 H Est GFR ( Amer) 15 Est GFR (Non-Af Amer) 12 POC Glucose (mg/dL) 97 Random Glucose 85 Calcium 8.4 Total Bilirubin 0.5 AST 51 H ALT 36 Alkaline Phosphatase 147 H Total Protein 5.5 L Albumin 2.2 L Globulin 3.3 Albumin/Globulin Ratio 0.7 L Attending/Attestation - Attestation I have personally seen and examined this patient.: Yes I have fully participated in the care of the patient.: Yes I have reviewed all pertinent clinical information: Yes Notes (Text): 08/02/17 12:20 Patient was seen and examined with medical staff specialist. Agreed with resident assessment and plan. 82 year old female with PMH of HTN, DM, ESRD on HD, COPD, right eye blindness, breast cancer S/P bilateral mastectomy was admitted with H/O bleeding per rectum.There is no active bleeding in ER.Patient will be admitted to the hospital, we will monitor hemoglobin and hematocrit.We will transfuse if hemoglobin is less than 7.We will follow up with GI. Nephrology is also consulted for maintenance hemodialysis. Management plan was discussed in detail with patient Education was provided.
--- NOTE | 2017-08-01 14:08 | CT ---
PROCEDURE: CT Abdomen and Pelvis with contrast HISTORY: abd pain r/o obstruction vs mass; gi bleed COMPARISON: None. TECHNIQUE: Contrast dose: Visipaque 320, 100 cc. Radiation dose: Total exam DLP = 391.29 mGy-cm. This CT exam was performed using one or more of the following dose reduction techniques: Automated exposure control, adjustment of the mA and/or kV according to patient size, and/or use of iterative reconstruction technique. FINDINGS: LOWER THORAX: Mild right and minimal left pleural effusions are identified identified with mild cardiomegaly but no pericardial effusion. Compression atelectasis identified affecting the right lower lobe with the left lung grossly nonfocal. A [id number] hiatal hernia is identified. LIVER: Diminished attenuation is seen throughout the liver suggesting hepatic steatosis. No discrete hepatic mass identified. GALLBLADDER AND BILE DUCTS: Gallbladder is distended with a thin wall and no pericholecystic fluid collection. A few calculi are identified at the dependent portion of the neck. Common bile duct appears normal caliber. PANCREAS: Unremarkable. No gross lesion or ductal dilatation. SPLEEN: Unremarkable. ADRENALS: Unremarkable. No mass. KIDNEYS AND URETERS: A 3.5 cm hyperdense cyst is seen at the is favored over nodule at the upper pole left kidney measuring 45 Hounsfield units and 3.5 cm with a similar cyst exophytic off the lower pole measuring 20 Hounsfield units and 4.1 cm. An upper midpole right renal lesions osteophytic laterally measure 1.5 cm greatest dimension a measuring 55 Hounsfield units. There are additional smaller foci which exhibits similar densities at the midpole and upper pole left kidney likely reflecting the same. Follow-up ultrasound or CT without contrast is advised for additional characterization. No obstructive uropathy bilaterally. No prominent perinephric reaction or radiodense urolithiasis bilaterally. 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 The superior measure artery appears occluded proximally with likely mid to distal collateralized reconstitution identified. The common swells internal and proximal to mid external iliac arteries appear occluded with distal external iliac arteries likely reconstituted by collaterals at the left greater than the right. BOWEL: Mildly prominent fecal loading is seen throughout the colon. No bowel obstruction or local pericolic or perienteric reaction is appreciated to suggest colitis or other acute bowel change. Sigmoid diverticular change appears without diverticulitis. APPENDIX: Normal appendix. PERITONEUM: Unremarkable. No free fluid. No free air. LYMPH NODES: Unremarkable. No enlarged lymph nodes. BLADDER: The bladder appears distended but thin walled. REPRODUCTIVE: Unremarkable. BONES: Right hip replacement hardware identified generating artifacts obscuring inferior pelvis soft tissues primarily. OTHER FINDINGS: None. IMPRESSION: 1. No bowel obstruction measure edema, ascites or free intrarenal gas. No obstructive uropathy. 2. 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 Follow-up ultrasonography is recommended as discussed above. 3. Extensive sigmoid diverticulosis without diverticulitis. 4. Hepatic steatosis. Cholelithiasis. No prominent biliary tree dilatation.
--- NOTE | 2017-08-01 14:13 | CP.PCM.CON ---
History of Present Illness - History of Present Illness History of Present Illness: Patient is 82yo female with PMhx of ESRD on HD, MWF, DM, HT, COPD, breast Ca, presents with bleeding from rectum x 1 day. Pt reports she is not sure why she is in the hospital, other than noting some bleeding from the rectum. Pt denies fever, chills, cough, chest pain, sob, palpitations, ARCOS, dizziness, ABD pain, n/ v/d. No other constitutional symptoms. Upon presentation to the ER, HH 8.2, baseline ~9.0. SBP 100-120, HR 100-120s. PMHx: ESRD on HD MWF ( last HD yesterday), DM, HTN, Breast CA PSHx: Bilat Mastectomy, right subclavian permacath Social Hx: hx of 2ppd smoker for 40y, quit 20 years ago. Rare ETOH use. Denies any drugs. Resident at [facility]. Allergy: Albuterol, Clonidine, Ibuprofen, Prednisone Review of Systems - Review of Systems Review of Systems: PER HPI Past Patient History - Infectious Disease Hx of Infectious Diseases: None - Past Medical History & Family History Past Medical History?: Yes - Past Social History Smoking Status: Former Smoker - CARDIAC Hx Cardiac Disorders: Yes Hx Hypertension: Yes - PULMONARY Hx Chronic Obstructive Pulmonary Disease (COPD): Yes - NEUROLOGICAL Hx Neurological Disorder: No - HEENT Other/Comment: Right eye blindness - RENAL Date of Last Dialysis Treatment: 07/10/17 Hx Renal Failure: Yes - ENDOCRINE/METABOLIC Hx Diabetes Mellitus Type 2: Yes - HEMATOLOGICAL/ONCOLOGICAL Hx Cancer: Yes (TO BREAST WITH MASTECTOMY B/L) Other/Comment: internal bleeding and loss of bm movements sent to [facility] [facility] [place] [facility] - INTEGUMENTARY Other/Comment: Stage 4 Sacral wound. B/l heels - MUSCULOSKELETAL/RHEUMATOLOGICAL Hx Falls: Yes - GASTROINTESTINAL Hx Gastroesophageal Reflux: Yes Other/Comment: "liver problems" - GENITOURINARY/GYNECOLOGICAL Other/Comment: HX OF BREAST CA WITH B/L MASTECTOMY - PSYCHIATRIC Hx Anxiety: Yes Hx Substance Use: No - SURGICAL HISTORY Hx Orthopedic Surgery: Yes (r fx femur head and neck) Other/Comment: BILATERAL MASTECTOMY. RIGHT SUBCLAVIAN PERMACATH H/D CATH - ANESTHESIA Hx Anesthesia: Yes Hx Anesthesia Reactions: No Hx Malignant Hyperthermia: No Meds Allergies/Adverse Reactions: Allergies Allergy/AdvReac Type Severity Reaction Status Date / Time albuterol Allergy DIZZINESS Verified 07/09/17 16:25 clonidine Allergy DIZZINESS Verified 07/09/17 16:25 ibuprofen Allergy VOMITING Verified 07/09/17 16:25 prednisone Allergy VOMITING Verified 07/09/17 16:25 - Medications Medications: Current Medications Sodium Chloride (Sodium Chloride 0.9%) 500 mls @ 100 mls/hr IV .Q5H BLAIR Last Admin: 08/01/17 13:30 Dose: 100 mls/hr Physical Exam - Constitutional Appears: Well, Non-toxic, No Acute Distress - Head Exam Head Exam: ATRAUMATIC - Eye Exam Eye Exam: EOMI, Normal appearance - ENT Exam ENT Exam: Mucous Membranes Moist - Neck Exam Neck exam: Positive for: Normal Inspection - Respiratory Exam Respiratory Exam: Clear to Auscultation Bilateral, NORMAL BREATHING PATTERN - Cardiovascular Exam Cardiovascular Exam: Tachycardia, REGULAR RHYTHM, +S1, +S2 - GI/Abdominal Exam GI & Abdominal Exam: Normal Bowel Sounds, Soft Additional comments: MILD RUQ TENDERNESS NO REBOUND NO GUARDING - Extremities Exam Additional comments: b/l ankles in dressings - Neurological Exam Neurological exam: Normal Gait, Oriented x3 Results - Vital Signs Recent Vital Signs: Last Vital Signs Temp 98.1 F 08/01/17 13:45 Pulse 113 H 08/01/17 13:45 Resp 20 08/01/17 13:45 BP 102/40 L 08/01/17 13:45 Pulse Ox 94 L 08/01/17 13:45 - Labs Result Diagrams: 08/01/17 09:54 08/01/17 09:54 Assessment & Plan - Assessment and Plan (Free Text) Assessment: 82yo female with PMHx as stated presents with GIB GIB ESRD on HD COPD HTN - currently HD stable, SBP 100-120s, HR 100-120s - CT A/P done, read pending - HH 8.2, baseline ~9, would hold off blood transfusion for now, repeat HH q6hr Recommend: - supp o2 as needed - no active ID issues - HD as per renal - monitor HH Q4-6hr - Hold off transfusion for now, HD stable, repeat HH - follow up CT A/P read - hold ASA, HSQ - follow up GI - Hold BP meds - maintain 2large bore IVs - PPI drip - SCDs - Monitor in MICU CC time: 35minutes
[2017-08-01] MEDS: Insulin Reg-LOW-Coverage SC SCH (17:19)
[2017-08-01] MEDS: Morphine 2 mg/ml ISec IVP PRN (17:33)
[2017-08-01 18:23] LABS: MEAN CELL VOLUME 93.7 fl (80.0-105.0); MEAN CORPUSCULAR HEMOGLOBIN 29.1 pg (25.0-35.0); MEAN CORPUSCULAR HGB CONC 31.1 g/dl (31.0-37.0); MEAN PLATELET VOLUME 8.5 fl (7.0-11.0); RED CELL DISTRIBUTION WIDTH 16.3 % (11.5-14.5); WHITE BLOOD COUNT 9.5 10^3/ul (4.5-11.0)
[2017-08-01 18:35] LABS: HEMATOCRIT 23.8 % (36.0-48.0)
[2017-08-01] MEDS: Lactobacillus Acidophilus 500 MU Cap PO SCH (18:58)
[2017-08-01] MEDS: Pantoprazole 40 mg EC Tab PO SCH (19:00)
[2017-08-01] MEDS: Albuterol-Ipratrop 3 mg / 0.5 (3 ml) UD IH SCH (20:50)
--- NOTE | 2017-08-01 20:51 | CARD ---
APPROVED REPORT EKG Measurement Heart [id number] <Conclusion> Sinus tachycardia ST & T wave abnormality, consider anterolateral ischemia Abnormal ECG
[2017-08-01 22:30] LABS: BASO # 0.03 K/mm3 (0.0-2.0); BASO % 0.3 % (0.0-3.0); EOS # 0.1 (0.0-0.7); EOS % 1.2 % (1.5-5.0); GRAN # 8.25 (1.4-6.5); GRAN % 76.3 % (50.0-68.0); HEMATOCRIT 24.6 % (36.0-48.0); LYMPH # 1.5 (1.2-3.4); LYMPH % 14.2 % (22.0-35.0); MEAN CELL VOLUME 93.9 fl (80.0-105.0); MEAN CORPUSCULAR HGB CONC 30.9 g/dl (31.0-37.0); MEAN PLATELET VOLUME 9.1 fl (7.0-11.0); MONO # 0.9 (0.1-0.6); RED CELL DISTRIBUTION WIDTH 16.5 % (11.5-14.5); WHITE BLOOD COUNT 10.8 10^3/ul (4.5-11.0)
[2017-08-02] MEDS: Albuterol-Ipratrop 3 mg / 0.5 (3 ml) UD IH SCH ×4 (02:42→20:34)
[2017-08-02] MEDS: Insulin Reg-LOW-Coverage SC SCH ×3 (05:07→23:42)
[2017-08-02] MEDS: Morphine 2 mg/ml ISec IVP PRN (05:28)
[2017-08-02 06:37] LABS: BASO # 0.04 K/mm3 (0.0-2.0); BASO % 0.3 % (0.0-3.0); EOS # 0.2 (0.0-0.7); EOS % 1.3 % (1.5-5.0); GRAN # 9.83 (1.4-6.5); GRAN % 78.1 % (50.0-68.0); HEMATOCRIT 24.9 % (36.0-48.0); LYMPH # 1.5 (1.2-3.4); LYMPH % 12.2 % (22.0-35.0); MEAN CELL VOLUME 93.3 fl (80.0-105.0); MEAN CORPUSCULAR HEMOGLOBIN 28.8 pg (25.0-35.0); MEAN CORPUSCULAR HGB CONC 30.9 g/dl (31.0-37.0); MONO % 8.1 % (1.0-6.0); RED CELL DISTRIBUTION WIDTH 16.4 % (11.5-14.5); WHITE BLOOD COUNT 12.6 10^3/ul (4.5-11.0)
[2017-08-02] MEDS ORDERED: Iodixanol 320 MG/ML 200 ML BOTTLE IV ONE (06:39)
[2017-08-02] MEDS ORDERED: Lidocaine 2% Inj (20ml) ONE (06:39)
[2017-08-02 06:48] LABS: ALB/GLOB RATIO 0.7 (1.1-1.8); BILIRUBIN,TOTAL 0.5 mg/dL (0.2-1.3); CALCIUM 8.4 mg/dL (8.4-10.5); POTASSIUM 4.2 mmol/L (3.6-5.0); TOTAL PROTEIN 5.5 g/dL (5.8-8.3)
--- NOTE | 2017-08-02 07:39 | CP.PCM.PN ---
<Shane Madrid - Last Filed: 08/02/17 11:22> Subjective - Date & Time of Evaluation Date of Evaluation: 08/02/17 Time of Evaluation: 07:15 - Subjective Subjective: PGY4 GI Follow-up Pt seen and examined bedside Denies any and pain, but noted some short cramping last night RN and pt do not report any additional GI bleeding overnight denies BM tolerated clears yesterday ROS: 10 point ROS conducted, neg other than above Objective - Vital Signs/Intake and Output Vital Signs (last 24 hours): Temp Pulse Resp BP Pulse Ox 97.9 F 116 H 18 159/53 H 100 08/01/17 15:07 08/02/17 06:40 08/02/17 06:40 08/02/17 06:00 08/02/17 06:40 Intake and Output: 08/02/17 08/02/17 06:59 18:59 Intake Total 600 Balance 600 - Medications Medications: Current Medications Albuterol/Ipratropium (Duoneb 3 Mg/0.5 Mg (3 Ml) Ud) 3 ml IH [id number] [facility] Last Admin: 08/02/17 07:06 Dose: Not Given Atorvastatin Calcium (Lipitor) 10 mg PO DIN [facility] Last Admin: 08/01/17 17:21 Dose: 10 mg Bacitracin (Bacitracin) 0 gm TOP Q12 [facility] Benzonatate (Tessalon Perles) 100 mg PO TID [facility] Last Admin: 08/01/17 19:00 Dose: 100 mg Calcitriol (Rocaltrol) 1 mcg PO MWF [facility] Cinacalcet (Sensipar) 30 mg PO DAILY [facility] Sodium Chloride (Sodium Chloride 0.9%) 500 mls @ 50 mls/hr IV .Q10H [facility] Last Admin: 08/02/17 05:33 Dose: 50 mls/hr Insulin Human Regular (Humulin R Low) 0 units SC ACHS [facility] PRN Reason: Protocol Last Admin: 08/02/17 05:07 Dose: Not Given Lactobacillus Acidophilus (Bacid Acidophilus) 1 cap PO BID [facility] Last Admin: 08/01/17 18:58 Dose: Not Given Latanoprost (Xalatan Opht) 0 ml OD HS [facility] Lorazepam (Ativan) 0.25 mg IM ONCE PRN; Protocol PRN Reason: Pain, moderate (4-7) Metoprolol Tartrate (Lopressor) 25 mg PO BRKDIN [facility] Montelukast Sodium (Singulair) 10 mg PO HS [facility] Last Admin: 08/02/17 05:09 Dose: Not Given Morphine Sulfate (Morphine) 2 mg IVP Q4H PRN PRN Reason: Pain, moderate (4-7) Last Admin: 08/02/17 05:28 Dose: 2 mg Ondansetron HCl (Zofran Inj) 4 mg IVP Q8H PRN PRN Reason: Nausea/Vomiting Oxycodone HCl (Oxycodone Immediate Release Tab) 5 mg PO Q4 PRN PRN Reason: Pain, moderate (4-7) Pantoprazole Sodium (Protonix Ec Tab) 40 mg PO 0600,1600 [facility] Last Admin: 08/01/17 19:00 Dose: 40 mg Pilocarpine HCl (Isopto Carpine 2% Opht Soln) 0 ml OS Q12 [facility] Vitamin B Complex/Vit C/Folic Acid (Nephro-Yesica) 1 tab PO 0800 [facility] Zolpidem Tartrate (Ambien) 5 mg PO HS PRN; Protocol PRN Reason: Insomnia - Labs Labs: 08/02/17 06:10 08/02/17 06:10 PT 13.7 SECONDS (9.4-12.5) H 08/01/17 09:54 INR 1.24 (0.93-1.08) H 08/01/17 09:54 APTT 28.6 Seconds (25.1-36.5) 08/01/17 09:54 - Constitutional Appears: Well, No Acute Distress, Chronically Ill - Head Exam Head Exam: ATRAUMATIC, NORMOCEPHALIC - Eye Exam Eye Exam: Normal appearance - ENT Exam ENT Exam: Mucous Membranes Moist - Respiratory Exam Respiratory Exam: Clear to Ausculation Bilateral, NORMAL BREATHING PATTERN. absent: Rales, Rhonchi, Wheezes, Respiratory Distress - Cardiovascular Exam Cardiovascular Exam: Tachycardia, REGULAR RHYTHM, +S1, +S2 - GI/Abdominal Exam GI & Abdominal Exam: Soft, Hypoactive Bowel Sounds. absent: Guarding, Rigid, Tenderness, Hyperactive Bowel Sounds, Organomegaly - Extremities Exam Extremities Exam: Pedal Edema - Neurological Exam Neurological Exam: Alert, Awake, Oriented x3 - Psychiatric Exam Psychiatric exam: Normal Affect, Normal Mood Assessment and Plan - Assessment and Plan (Free Text) Assessment: Ana Hendrickson is a 82F w/ hx of ESRD on HD, HTN, HL, BM, breast Ca who presented to the ER for BRBPR. Etiology is likely hemorrhoidal vs Diverticular. DDX: AVM, malignancy 1. Lower GI bleed 2. Anemia 2/2 ESRD on EPO, hgb~7.7 likely due to normalization from initial GI bleed 3. Stage 4 sacral decubitius ulcer 4. Constipation likely 2/2 immobility vs narcotics Plan: -continue PPI BID -drop in hgb is likely 2/2 normalization from initial GI bleed -should also consider diverticular source for lower bleed in the setting of this drop in hgb -no reported bleed overnight -would elect to manage conservatively -spoke to the pt and she wishes to hold on colonoscopy for now -If the hgb drop or she has another event of BRBPR, she is agreeable to the colonoscopy -can continue clear liquid diet for now will D/w Dr. Oshea <Pop Oshea - Last Filed: 08/02/17 12:27> Objective - Vital Signs/Intake and Output Vital Signs (last 24 hours): Temp Pulse Resp BP Pulse Ox 97.9 F 100 H 18 117/36 L 100 08/01/17 15:07 08/02/17 09:51 08/02/17 06:40 08/02/17 09:51 08/02/17 06:40 Intake and Output: 08/02/17 08/02/17 06:59 18:59 Intake Total 600 Balance 600 - Medications Medications: Current Medications Albuterol/Ipratropium (Duoneb 3 Mg/0.5 Mg (3 Ml) Ud) 3 ml IH [id number] [facility] Last Admin: 08/02/17 07:06 Dose: Not Given Atorvastatin Calcium (Lipitor) 10 mg PO DIN [facility] Last Admin: 08/01/17 17:21 Dose: 10 mg Bacitracin (Bacitracin) 0 gm TOP Q12 [facility] Last Admin: 08/02/17 10:00 Dose: 1 applic Benzonatate (Tessalon Perles) 100 mg PO TID [facility] Last Admin: 08/02/17 09:58 Dose: 100 mg Calcitriol (Rocaltrol) 1 mcg PO MWF [facility] Last Admin: 08/02/17 09:57 Dose: 1 mcg Cinacalcet (Sensipar) 30 mg PO DAILY [facility] Last Admin: 08/02/17 09:58 Dose: 30 mg Insulin Human Regular (Humulin R Low) 0 units SC ACHS [facility] PRN Reason: Protocol Last Admin: 08/02/17 08:00 Dose: Not Given Lactobacillus Acidophilus (Bacid Acidophilus) 1 cap PO BID [facility] Last Admin: 08/02/17 09:58 Dose: 1 cap Latanoprost (Xalatan Opht) 0 ml OD HS [facility] Lorazepam (Ativan) 0.25 mg IM ONCE PRN; Protocol PRN Reason: Pain, moderate (4-7) Metoprolol Tartrate (Lopressor) 25 mg PO BRKDIN [facility] Last Admin: 08/02/17 09:51 Dose: 25 mg Montelukast Sodium (Singulair) 10 mg PO HS [facility] Last Admin: 08/02/17 05:09 Dose: Not Given Morphine Sulfate (Morphine) 2 mg IVP Q4H PRN PRN Reason: Pain, moderate (4-7) Last Admin: 08/02/17 05:28 Dose: 2 mg Ondansetron HCl (Zofran Inj) 4 mg IVP Q8H PRN PRN Reason: Nausea/Vomiting Oxycodone HCl (Oxycodone Immediate Release Tab) 5 mg PO Q4 PRN PRN Reason: Pain, moderate (4-7) Last Admin: 08/02/17 09:53 Dose: 5 mg Pantoprazole Sodium (Protonix Ec Tab) 40 mg PO 0600,1600 [facility] Last Admin: 08/01/17 19:00 Dose: 40 mg Pilocarpine HCl (Isopto Carpine 2% Opht Soln) 0 ml OS Q12 [facility] Last Admin: 08/02/17 09:49 Dose: 1 applic Polyethylene Glycol (Miralax) 17 gm PO DAILY [facility] Last Admin: 08/02/17 09:52 Dose: 17 gm Sennosides (Senokot Tab) 17.2 mg PO HS [facility] Vitamin B Complex/Vit C/Folic Acid (Nephro-Yesica) 1 tab PO 0800 [facility] Last Admin: 08/02/17 09:52 Dose: 1 tab Zolpidem Tartrate (Ambien) 5 mg PO HS PRN; Protocol PRN Reason: Insomnia - Labs Labs: 08/02/17 11:38 08/02/17 06:10 PT 13.7 SECONDS (9.4-12.5) H 08/01/17 09:54 INR 1.24 (0.93-1.08) H 08/01/17 09:54 APTT 28.6 Seconds (25.1-36.5) 08/01/17 09:54 Attending/Attestation - Attestation I have personally seen and examined this patient.: Yes I have fully participated in the care of the patient.: Yes I have reviewed all pertinent clinical information, including history, physical exam and plan: Yes Notes (Text): 08/02/17 12:24 I have seen and examined patient with GI fellow. No acute events overnight, she is seen resting in bed, currently receiving hemodialysis. She denies abdominal pain, nausea, vomiting, fever/chills, or recurrent rectal bleeding. She is hungry and asking for her diet to be advanced. ESRD on HD Hypertension Hyperlipidemia Stage IV sacral decubitus ulceration Rectal bleeding - Advance diet as tolerated - H/H stable, has not required PRBC transfusion, continue to monitor - [place] with apparent [place] [facility] to [place] copy of report - No clinical indication for GI intervention at this time, will continue to monitor patient clinical course
[2017-08-02] MEDS: Pilocarpine 2% Opht (15ml) OS SCH ×2 (09:49→23:42)
[2017-08-02] MEDS: Multivitamin Vitamin B Complex (Nephro-Vite) Tab PO SCH (09:52)
[2017-08-02] MEDS: oxyCODONE 5 mg Immediate Release Tab PO PRN ×2 (09:53→15:08)
[2017-08-02] MEDS: Lactobacillus Acidophilus 500 MU Cap PO SCH ×2 (09:58→17:41)
[2017-08-02] MEDS ORDERED: CALCITRIOL 1 MCG PO SCH (10:00)
[2017-08-02] MEDS ORDERED: [UNRECOGNIZED DRUG - REMARK] PO SCH (10:00)
[2017-08-02] MEDS ORDERED: POLYETHYLENE GLYCOL 3350 17 GM/Dose PACKET PO SCH (10:00)
[2017-08-02] MEDS: Bacitracin Ointment 30 GM TUBE TOP SCH ×2 (10:00→23:42)
--- NOTE | 2017-08-02 11:36 | CP.PCM.PN ---
<LevYaeln - Last Filed: 08/02/17 15:54> Subjective - Date & Time of Evaluation Date of Evaluation: 08/02/17 Time of Evaluation: 08:33 - Subjective Subjective: Patient seen and examined at bedside. Per nursing no acute events occurred overnight . The patient still reports pain at the sacral decubitus ulcer. The patient denies any chest pain, shortness of breath, nausea, vomiting, changes in vision, abdominal pain, or any other complaints. Objective - Vital Signs/Intake and Output Vital Signs (last 24 hours): Temp Pulse Resp BP Pulse Ox 97.9 F 100 H 18 117/36 L 100 08/01/17 15:07 08/02/17 09:51 08/02/17 06:40 08/02/17 09:51 08/02/17 06:40 Intake and Output: 08/02/17 08/02/17 06:59 18:59 Intake Total 600 Balance 600 - Medications Medications: Current Medications Albuterol/Ipratropium (Duoneb 3 Mg/0.5 Mg (3 Ml) Ud) 3 ml IH [id number] [facility] Last Admin: 08/02/17 07:06 Dose: Not Given Atorvastatin Calcium (Lipitor) 10 mg PO DIN [facility] Last Admin: 08/01/17 17:21 Dose: 10 mg Bacitracin (Bacitracin) 0 gm TOP Q12 [facility] Last Admin: 08/02/17 10:00 Dose: 1 applic Benzonatate (Tessalon Perles) 100 mg PO TID [facility] Last Admin: 08/02/17 09:58 Dose: 100 mg Calcitriol (Rocaltrol) 1 mcg PO MWF [facility] Last Admin: 08/02/17 09:57 Dose: 1 mcg Cinacalcet (Sensipar) 30 mg PO DAILY [facility] Last Admin: 08/02/17 09:58 Dose: 30 mg Insulin Human Regular (Humulin R Low) 0 units SC ACHS [facility] PRN Reason: Protocol Last Admin: 08/02/17 08:00 Dose: Not Given Lactobacillus Acidophilus (Bacid Acidophilus) 1 cap PO BID [facility] Last Admin: 08/02/17 09:58 Dose: 1 cap Latanoprost (Xalatan Opht) 0 ml OD HS [facility] Lorazepam (Ativan) 0.25 mg IM ONCE PRN; Protocol PRN Reason: Pain, moderate (4-7) Metoprolol Tartrate (Lopressor) 25 mg PO BRKDIN [facility] Last Admin: 08/02/17 09:51 Dose: 25 mg Montelukast Sodium (Singulair) 10 mg PO HS [facility] Last Admin: 08/02/17 05:09 Dose: Not Given Morphine Sulfate (Morphine) 2 mg IVP Q4H PRN PRN Reason: Pain, moderate (4-7) Last Admin: 08/02/17 05:28 Dose: 2 mg Ondansetron HCl (Zofran Inj) 4 mg IVP Q8H PRN PRN Reason: Nausea/Vomiting Oxycodone HCl (Oxycodone Immediate Release Tab) 5 mg PO Q4 PRN PRN Reason: Pain, moderate (4-7) Last Admin: 08/02/17 09:53 Dose: 5 mg Pantoprazole Sodium (Protonix Ec Tab) 40 mg PO 0600,1600 [facility] Last Admin: 08/01/17 19:00 Dose: 40 mg Pilocarpine HCl (Isopto Carpine 2% Opht Soln) 0 ml OS Q12 [facility] Last Admin: 08/02/17 09:49 Dose: 1 applic Polyethylene Glycol (Miralax) 17 gm PO DAILY [facility] Last Admin: 08/02/17 09:52 Dose: 17 gm Sennosides (Senokot Tab) 17.2 mg PO HS [facility] Vitamin B Complex/Vit C/Folic Acid (Nephro-Yesica) 1 tab PO 0800 [facility] Last Admin: 08/02/17 09:52 Dose: 1 tab Zolpidem Tartrate (Ambien) 5 mg PO HS PRN; Protocol PRN Reason: Insomnia - Labs Labs: 08/02/17 06:10 08/02/17 06:10 PT 13.7 SECONDS (9.4-12.5) H 08/01/17 09:54 INR 1.24 (0.93-1.08) H 08/01/17 09:54 APTT 28.6 Seconds (25.1-36.5) 08/01/17 09:54 - Head Exam Head Exam: ATRAUMATIC, NORMAL INSPECTION, NORMOCEPHALIC - Eye Exam Eye Exam: EOMI, Normal appearance, PERRL. absent: Periorbital tenderness Pupil Exam: NORMAL ACCOMODATION, PERRL - ENT Exam ENT Exam: Mucous Membranes Moist, Normal Exam. absent: Normal Oropharynx, TM's Normal Bilaterally - Neck Exam Neck Exam: Normal Inspection. absent: Lymphadenopathy, Meningismus, Tenderness - Respiratory Exam Respiratory Exam: Clear to Ausculation Bilateral, NORMAL BREATHING PATTERN. absent: Prolonged Expiratory Phase, Rales - Cardiovascular Exam Cardiovascular Exam: REGULAR RHYTHM, RRR, +S1, +S2. absent: Rubs - GI/Abdominal Exam GI & Abdominal Exam: Soft, Normal Bowel Sounds. absent: Tenderness, Hyperactive Bowel Sounds - Extremities Exam Extremities Exam: absent: Joint Swelling, Pedal Edema, Tenderness - Back Exam Back Exam: NORMAL INSPECTION. absent: paraspinal tenderness - Psychiatric Exam Psychiatric exam: Normal Affect, Normal Mood. absent: Depressed, Suicidal Ideation - Skin Skin Exam: Abrasion, Dry Additional comments: Stage 4 Decubitus ulcer appreciated. Assessment and Plan - Assessment and Plan (Free Text) Assessment: Ana Hendrickson is a 82F w/ hx of ESRD on HD, HTN, HL, BM, breast Ca who presented to the ER for BRBPR. Etiology is likely hemorrhoidal vs Diverticular. DDX: AVM, malignancy Plan: 1.BRBPR (2/2 to Diverticulosis vs.Hemmorrhoids vs. Colon Mass) -Per Pola Scott on rectal exam bright red blood per rectum appreciated. Patient refused a second rectal exam. -Abdomen and pelvis PO and IV contrast showed no bowel obstruction measure edema , ascites or free intrarenal gas, no obstructive uropathy. It also showed mulitfocal hyperdense cysts in the bilateral kidneys that are poorly characterized and follow up ultrasonography is recommended. It also showed extensive sigmoid diverticulosis without diverticulitis, hepatic steatosis, cholelithiasis, and no prominent biliary tree dilatation -GI consulted and rec's appreciated. -Continue Protonix 40mg BID. -Continue to hold Aspirin until source of bleed is found. -Patient hemo-dynamically stable now. IV fluids discontinued. -CBC Q6. Will monitor closely. -Patient Type and Screened. 1 Unit Ready for transfusion. Will transfuse if hemoglobin drops below 7.0. 2.End stage renal disease -Nephrology consulted. Will f/u with rec's. -Patient current HD schedule is MWF. Currently in HD. Will continue to monitor. 3. Sacral ulcer -On last admission wound grew Pseudomonas. Stage 4 Ulcer. -Surgery consulted. Will f/u with rec's. -Wound consult. Will f/u with rec's. 4.COPD -Patient on O2 nasal cannula on 2.5 Liters. Sat'ing at 98% -Duonebs Q6 [facility] -Continue home meds. 5. Hypertension -Continue home med's. -Hold Lopressor if Systolic blood pressure is below 110 or Heart rate is below 60. 6. Diabetes -Blood glucose 106 on admission. -Continue ISS-low -Continue ccucheck ACHS GI PPX -Protonix DVT/PE PPX -SCD's <JoseAnaidld - Last Filed: 08/03/17 11:08> Objective - Vital Signs/Intake and Output Vital Signs (last 24 hours): Temp Pulse Resp BP Pulse Ox 98.1 F 87 20 113/62 97 08/03/17 07:18 08/03/17 09:34 08/03/17 07:18 08/03/17 09:34 08/03/17 07:18 - Medications Medications: Current Medications Albuterol/Ipratropium (Duoneb 3 Mg/0.5 Mg (3 Ml) Ud) 3 ml IH [id number] [facility] Last Admin: 08/03/17 07:19 Dose: 3 ml Atorvastatin Calcium (Lipitor) 10 mg PO DIN [facility] Last Admin: 08/02/17 17:41 Dose: 10 mg Bacitracin (Bacitracin) 0 gm TOP Q12 [facility] Last Admin: 08/03/17 10:41 Dose: 1 applic Benzonatate (Tessalon Perles) 100 mg PO TID [facility] Last Admin: 08/03/17 09:37 Dose: 100 mg Calcitriol (Rocaltrol) 1 mcg PO MWF [facility] Last Admin: 08/02/17 09:57 Dose: 1 mcg Cinacalcet (Sensipar) 30 mg PO DAILY [facility] Last Admin: 08/03/17 09:37 Dose: 30 mg Insulin Human Regular (Humulin R Low) 0 units SC ACHS [facility] PRN Reason: Protocol Last Admin: 08/03/17 08:34 Dose: Not Given Lactobacillus Acidophilus (Bacid Acidophilus) 1 cap PO BID [facility] Last Admin: 08/03/17 09:37 Dose: 1 cap Latanoprost (Xalatan Opht) 0 ml OD HS [facility] Last Admin: 08/02/17 23:43 Dose: Not Given Lorazepam (Ativan) 0.25 mg IM ONCE PRN; Protocol PRN Reason: Pain, moderate (4-7) Metoprolol Tartrate (Lopressor) 25 mg PO BRKDIN [facility] Last Admin: 08/03/17 09:34 Dose: 25 mg Montelukast Sodium (Singulair) 10 mg PO HS [facility] Last Admin: 08/02/17 23:43 Dose: Not Given Morphine Sulfate (Morphine) 2 mg IVP Q4H PRN PRN Reason: Pain, moderate (4-7) Last Admin: 08/03/17 09:32 Dose: 2 mg Ondansetron HCl (Zofran Inj) 4 mg IVP Q8H PRN PRN Reason: Nausea/Vomiting Oxycodone HCl (Oxycodone Immediate Release Tab) 5 mg PO Q4 PRN PRN Reason: Pain, moderate (4-7) Last Admin: 08/02/17 15:08 Dose: 5 mg Pantoprazole Sodium (Protonix Ec Tab) 40 mg PO 0600,1600 [facility] Last Admin: 08/03/17 06:15 Dose: 40 mg Pilocarpine HCl (Isopto Carpine 2% Opht Soln) 0 ml OS Q12 [facility] Last Admin: 08/02/17 23:42 Dose: Not Given Polyethylene Glycol (Miralax) 17 gm PO BID [facility] Last Admin: 08/03/17 09:38 Dose: 17 gm Sennosides (Senokot Tab) 17.2 mg PO HS [facility] Last Admin: 08/02/17 23:43 Dose: Not Given Vitamin B Complex/Vit C/Folic Acid (Nephro-Yesica) 1 tab PO 0800 [facility] Last Admin: 08/03/17 09:37 Dose: 1 tab Zolpidem Tartrate (Ambien) 5 mg PO HS PRN; Protocol PRN Reason: Insomnia - Labs Labs: 08/03/17 06:00 08/03/17 06:00 PT 13.7 SECONDS (9.4-12.5) H 08/01/17 09:54 INR 1.24 (0.93-1.08) H 08/01/17 09:54 APTT 28.6 Seconds (25.1-36.5) 10/19/17 09:54 Attending/Attestation - Attestation I have personally seen and examined this patient.: Yes I have fully participated in the care of the patient.: Yes I have reviewed all pertinent clinical information, including history, physical exam and plan: Yes Notes (Text): 08/03/17 11:04 Patient was seen and examined with medical records clerk. Agreed with resident assessment and plan. 82 year old female with PMH of HTN, DM, ESRD on HD, COPD, right eye blindness, breast cancer S/P bilateral mastectomy was admitted with H/O bleeding per rectum.There is no further bleeding in ER.Patient case was discussed with GI, no plan for any Colonoscopy.We will monitor hemoglobin and hematocrit. We will transfuse if hemoglobin is less than 7.5. Patient has decubitus ulcer, we will get Surgery consult. Management plan was discussed in detail with patient Education was provided.
[2017-08-02 11:44] LABS: HEMATOCRIT 24.5 % (36.0-48.0); MEAN CELL VOLUME 92.1 fl (80.0-105.0); MEAN CORPUSCULAR HEMOGLOBIN 28.9 pg (25.0-35.0); MEAN CORPUSCULAR HGB CONC 31.4 g/dl (31.0-37.0); MEAN PLATELET VOLUME 8.5 fl (7.0-11.0); RED CELL DISTRIBUTION WIDTH 16.3 % (11.5-14.5); WHITE BLOOD COUNT 15.3 10^3/ul (4.5-11.0)
[2017-08-02] MEDS ORDERED: Darbepoetin Alfa 100 mcg/ml Inj IVP ONE (13:24)
--- NOTE | 2017-08-02 16:18 | CP.PCM.CON ---
History of Present Illness - History of Present Illness History of Present Illness: Surgery 82 F w PMH of stage 4 sacral decubitus ulcer , COPD came with GI bleed. This is known pt for surgical service for sacral decubitus ulcer. Pt is immobile and had ulcer for a long time. It was being treated with wound vac. At this time pt refused to be treated with wound vac. Pt denies F/C/N/V/D/CP/SOB/weakness/ARCOS/ dizziness/abd pain. Started rectal bleeding yesterday. PMH: COPD PSH: wound debridement Review of Systems - Review of Systems Review of Systems: See HPI Past Patient History - Infectious Disease Hx of Infectious Diseases: None - Past Medical History & Family History Past Medical History?: Yes - Past Social History Smoking Status: Former Smoker - CARDIAC Hx Cardiac Disorders: Yes Hx Hypertension: Yes - PULMONARY Hx Chronic Obstructive Pulmonary Disease (COPD): Yes - NEUROLOGICAL Hx Neurological Disorder: No - HEENT Other/Comment: Right eye blindness - RENAL Date of Last Dialysis Treatment: 07/10/17 Hx Renal Failure: Yes - ENDOCRINE/METABOLIC Hx Diabetes Mellitus Type 2: Yes - HEMATOLOGICAL/ONCOLOGICAL Hx Cancer: Yes (TO BREAST WITH MASTECTOMY B/L) Other/Comment: internal bleeding and loss of bm movements sent to [facility] [place] [facility] - INTEGUMENTARY Other/Comment: Stage 4 Sacral wound. B/l heels - MUSCULOSKELETAL/RHEUMATOLOGICAL Hx Falls: Yes - GASTROINTESTINAL Hx Gastroesophageal Reflux: Yes Other/Comment: "liver problems" - GENITOURINARY/GYNECOLOGICAL Other/Comment: HX OF BREAST CA WITH B/L MASTECTOMY - PSYCHIATRIC Hx Anxiety: Yes Hx Substance Use: No - SURGICAL HISTORY Hx Orthopedic Surgery: Yes (r fx femur head and neck) Other/Comment: BILATERAL MASTECTOMY. RIGHT SUBCLAVIAN PERMACATH H/D CATH - ANESTHESIA Hx Anesthesia: Yes Hx Anesthesia Reactions: No Hx Malignant Hyperthermia: No Meds Allergies/Adverse Reactions: Allergies Allergy/AdvReac Type Severity Reaction Status Date / Time albuterol Allergy DIZZINESS Verified 07/09/17 16:25 clonidine Allergy DIZZINESS Verified 07/09/17 16:25 ibuprofen Allergy VOMITING Verified 07/09/17 16:25 prednisone Allergy VOMITING Verified 07/09/17 16:25 - Medications Medications: Current Medications Albuterol/Ipratropium (Duoneb 3 Mg/0.5 Mg (3 Ml) Ud) 3 ml IH [id number] [facility] Last Admin: 08/02/17 12:35 Dose: 3 ml Atorvastatin Calcium (Lipitor) 10 mg PO DIN [facility] Last Admin: 08/01/17 17:21 Dose: 10 mg Bacitracin (Bacitracin) 0 gm TOP Q12 [facility] Last Admin: 08/02/17 10:00 Dose: 1 applic Benzonatate (Tessalon Perles) 100 mg PO TID [facility] Last Admin: 08/02/17 15:08 Dose: 100 mg Calcitriol (Rocaltrol) 1 mcg PO MWF [facility] Last Admin: 08/02/17 09:57 Dose: 1 mcg Cinacalcet (Sensipar) 30 mg PO DAILY [facility] Last Admin: 08/02/17 09:58 Dose: 30 mg Insulin Human Regular (Humulin R Low) 0 units SC ACHS [facility] PRN Reason: Protocol Last Admin: 08/02/17 08:00 Dose: Not Given Lactobacillus Acidophilus (Bacid Acidophilus) 1 cap PO BID [facility] Last Admin: 08/02/17 09:58 Dose: 1 cap Latanoprost (Xalatan Opht) 0 ml OD HS [facility] Lorazepam (Ativan) 0.25 mg IM ONCE PRN; Protocol PRN Reason: Pain, moderate (4-7) Metoprolol Tartrate (Lopressor) 25 mg PO BRKDIN [facility] Last Admin: 08/02/17 09:51 Dose: 25 mg Montelukast Sodium (Singulair) 10 mg PO HS [facility] Last Admin: 08/02/17 05:09 Dose: Not Given Morphine Sulfate (Morphine) 2 mg IVP Q4H PRN PRN Reason: Pain, moderate (4-7) Last Admin: 08/02/17 05:28 Dose: 2 mg Ondansetron HCl (Zofran Inj) 4 mg IVP Q8H PRN PRN Reason: Nausea/Vomiting Oxycodone HCl (Oxycodone Immediate Release Tab) 5 mg PO Q4 PRN PRN Reason: Pain, moderate (4-7) Last Admin: 08/02/17 15:08 Dose: 5 mg Pantoprazole Sodium (Protonix Ec Tab) 40 mg PO 0600,1600 [facility] Last Admin: 08/01/17 19:00 Dose: 40 mg Pilocarpine HCl (Isopto Carpine 2% Opht Soln) 0 ml OS Q12 [facility] Last Admin: 08/02/17 09:49 Dose: 1 applic Polyethylene Glycol (Miralax) 17 gm PO DAILY [facility] Last Admin: 08/02/17 09:52 Dose: 17 gm Sennosides (Senokot Tab) 17.2 mg PO HS [facility] Vitamin B Complex/Vit C/Folic Acid (Nephro-Yesica) 1 tab PO 0800 [facility] Last Admin: 08/02/17 09:52 Dose: 1 tab Zolpidem Tartrate (Ambien) 5 mg PO HS PRN; Protocol PRN Reason: Insomnia Physical Exam - Constitutional Appears: No Acute Distress - Head Exam Head Exam: ATRAUMATIC, NORMAL INSPECTION, NORMOCEPHALIC - Eye Exam Eye Exam: EOMI, Normal appearance, PERRL Pupil Exam: NORMAL ACCOMODATION, PERRL - ENT Exam ENT Exam: Mucous Membranes Moist, Normal Exam - Neck Exam Neck exam: Positive for: Normal Inspection - Respiratory Exam Respiratory Exam: Clear to Auscultation Bilateral, NORMAL BREATHING PATTERN - Cardiovascular Exam Cardiovascular Exam: REGULAR RHYTHM - GI/Abdominal Exam GI & Abdominal Exam: Normal Bowel Sounds, Soft. absent: Distended, Firm, Guarding, Hernia, Tenderness - Extremities Exam Extremities exam: Positive for: normal inspection - Back Exam Back exam: tenderness. absent: NORMAL INSPECTION Additional comments: [id number] sacral wound - Neurological Exam Neurological exam: Alert, CN II-XII Intact, Oriented x3, Reflexes Normal - Psychiatric Exam Psychiatric exam: Normal Affect, Normal Mood - Skin Skin Exam: Erythema, Warm Results - Vital Signs Recent Vital Signs: Last Vital Signs Temp 97.9 F 08/01/17 15:07 Pulse 100 H 08/02/17 09:51 Resp 18 08/02/17 06:40 BP 117/36 L 08/02/17 09:51 Pulse Ox 100 08/02/17 06:40 - Labs Result Diagrams: 08/02/17 11:38 08/02/17 06:10 Labs: Laboratory Results - last 24 hr 08/01/17 08/01/17 08/01/17 14:53 16:03 18:17 WBC 9.5 RBC 2.54 L Hgb 7.4 L Hct 23.8 L MCV 93.7 MCH 29.1 MCHC 31.1 RDW 16.3 H Plt Count 187 MPV 8.5 Gran % Lymph % (Auto) [place] % (Auto) Eos % (Auto) Baso % (Auto) Gran # Lymph # [place] # Eos # Baso # Sodium Potassium Chloride Carbon Dioxide Anion Gap BUN Creatinine Est GFR ( Amer) Est GFR (Non-Af Amer) POC Glucose (mg/dL) 110 88 Random Glucose Calcium Total Bilirubin AST ALT Alkaline Phosphatase Total Protein Albumin Globulin Albumin/Globulin Ratio 08/01/17 08/01/17 08/02/17 21:33 22:25 06:10 WBC 10.8 12.6 H RBC 2.62 L 2.67 L Hgb 7.6 L 7.7 L Hct 24.6 L 24.9 L MCV 93.9 93.3 MCH 29.0 28.8 MCHC 30.9 L 30.9 L RDW 16.5 H 16.4 H Plt Count 214 250 MPV 9.1 9.0 Gran % 76.3 H 78.1 H Lymph % (Auto) 14.2 L 12.2 L [place] % (Auto) 8.0 H 8.1 H Eos % (Auto) 1.2 L 1.3 L Baso % (Auto) 0.3 0.3 Gran # 8.25 H 9.83 H Lymph # 1.5 1.5 [place] # 0.9 H 1.0 H Eos # 0.1 0.2 Baso # 0.03 0.04 Sodium Potassium Chloride Carbon Dioxide Anion Gap BUN Creatinine Est GFR ( Amer) Est GFR (Non-Af Amer) POC Glucose (mg/dL) 88 Random Glucose Calcium Total Bilirubin AST ALT Alkaline Phosphatase Total Protein Albumin Globulin Albumin/Globulin Ratio 08/02/17 08/02/17 08/02/17 06:10 07:59 11:38 WBC 15.3 H D RBC 2.66 L Hgb 7.7 L Hct 24.5 L MCV 92.1 MCH 28.9 MCHC 31.4 RDW 16.3 H Plt Count 221 MPV 8.5 Gran % Lymph % (Auto) [place] % (Auto) Eos % (Auto) Baso % (Auto) Gran # Lymph # [place] # Eos # Baso # Sodium 138 Potassium 4.2 Chloride 105 Carbon Dioxide 29 Anion Gap 8 L BUN 21 Creatinine 3.6 H Est GFR ( Amer) 15 Est GFR (Non-Af Amer) 12 POC Glucose (mg/dL) 97 Random Glucose 85 Calcium 8.4 Total Bilirubin 0.5 AST 51 H ALT 36 Alkaline Phosphatase 147 H Total Protein 5.5 L Albumin 2.2 L Globulin 3.3 Albumin/Globulin Ratio 0.7 L 08/02/17 12:42 WBC RBC Hgb Hct MCV MCH MCHC RDW Plt Count MPV Gran % Lymph % (Auto) [place] % (Auto) Eos % (Auto) Baso % (Auto) Gran # Lymph # [place] # Eos # Baso # Sodium Potassium Chloride Carbon Dioxide Anion Gap BUN Creatinine Est GFR ( Amer) Est GFR (Non-Af Amer) POC Glucose (mg/dL) 72 Random Glucose Calcium Total Bilirubin AST ALT Alkaline Phosphatase Total Protein Albumin Globulin Albumin/Globulin Ratio Assessment & Plan - Assessment and Plan (Free Text) Assessment: Sacral decubitus ulcer IV -refusing wound vac -wound care -[facility] Will DENVER Khan
--- NOTE | 2017-08-02 16:22 | CP.PCM.CON ---
History of Present Illness - History of Present Illness History of Present Illness: patient seen and examined on hd 82 year old female with a past medical history of Type II Diabetes Mellitus, COPD, Hypertension, sacral ulcer, End Stage Renal Disease(HD: MWF), breast carcinoma(s/p bilateral mastectomy) who came into [facility] with bright red blood per rectum per NH. patient seen on hd now. no abdominal pain. Review of Systems - Review of Systems All systems: reviewed and no additional remarkable complaints except Past Patient History - Infectious Disease Hx of Infectious Diseases: None - Past Medical History & Family History Past Medical History?: Yes - Past Social History Smoking Status: Former Smoker - CARDIAC Hx Cardiac Disorders: Yes Hx Hypertension: Yes - PULMONARY Hx Chronic Obstructive Pulmonary Disease (COPD): Yes - NEUROLOGICAL Hx Neurological Disorder: No - HEENT Other/Comment: Right eye blindness - RENAL Date of Last Dialysis Treatment: 07/10/17 Hx Renal Failure: Yes - ENDOCRINE/METABOLIC Hx Diabetes Mellitus Type 2: Yes - HEMATOLOGICAL/ONCOLOGICAL Hx Cancer: Yes (TO BREAST WITH MASTECTOMY B/L) Other/Comment: internal bleeding and loss of bm movements sent to [facility] [place] [facility] [place] [facility] - INTEGUMENTARY Other/Comment: Stage 4 Sacral wound. B/l heels - MUSCULOSKELETAL/RHEUMATOLOGICAL Hx Falls: Yes - GASTROINTESTINAL Hx Gastroesophageal Reflux: Yes Other/Comment: "liver problems" - GENITOURINARY/GYNECOLOGICAL Other/Comment: HX OF BREAST CA WITH B/L MASTECTOMY - PSYCHIATRIC Hx Anxiety: Yes Hx Substance Use: No - SURGICAL HISTORY Hx Orthopedic Surgery: Yes (r fx femur head and neck) Other/Comment: BILATERAL MASTECTOMY. RIGHT SUBCLAVIAN PERMACATH H/D CATH - ANESTHESIA Hx Anesthesia: Yes Hx Anesthesia Reactions: No Hx Malignant Hyperthermia: No Meds Allergies/Adverse Reactions: Allergies Allergy/AdvReac Type Severity Reaction Status Date / Time albuterol Allergy DIZZINESS Verified 07/09/17 16:25 clonidine Allergy DIZZINESS Verified 07/09/17 16:25 ibuprofen Allergy VOMITING Verified 07/09/17 16:25 prednisone Allergy VOMITING Verified 07/09/17 16:25 - Medications Medications: Current Medications Albuterol/Ipratropium (Duoneb 3 Mg/0.5 Mg (3 Ml) Ud) 3 ml IH [id number] [facility] Last Admin: 08/02/17 12:35 Dose: 3 ml Atorvastatin Calcium (Lipitor) 10 mg PO DIN [facility] Last Admin: 08/01/17 17:21 Dose: 10 mg Bacitracin (Bacitracin) 0 gm TOP Q12 [facility] Last Admin: 08/02/17 10:00 Dose: 1 applic Benzonatate (Tessalon Perles) 100 mg PO TID [facility] Last Admin: 08/02/17 15:08 Dose: 100 mg Calcitriol (Rocaltrol) 1 mcg PO MWF [facility] Last Admin: 08/02/17 09:57 Dose: 1 mcg Cinacalcet (Sensipar) 30 mg PO DAILY [facility] Last Admin: 08/02/17 09:58 Dose: 30 mg Insulin Human Regular (Humulin R Low) 0 units SC ACHS [facility] PRN Reason: Protocol Last Admin: 08/02/17 08:00 Dose: Not Given Lactobacillus Acidophilus (Bacid Acidophilus) 1 cap PO BID [facility] Last Admin: 08/02/17 09:58 Dose: 1 cap Latanoprost (Xalatan Opht) 0 ml OD HS [facility] Lorazepam (Ativan) 0.25 mg IM ONCE PRN; Protocol PRN Reason: Pain, moderate (4-7) Metoprolol Tartrate (Lopressor) 25 mg PO BRKDIN [facility] Last Admin: 08/02/17 09:51 Dose: 25 mg Montelukast Sodium (Singulair) 10 mg PO HS [facility] Last Admin: 08/02/17 05:09 Dose: Not Given Morphine Sulfate (Morphine) 2 mg IVP Q4H PRN PRN Reason: Pain, moderate (4-7) Last Admin: 08/02/17 05:28 Dose: 2 mg Ondansetron HCl (Zofran Inj) 4 mg IVP Q8H PRN PRN Reason: Nausea/Vomiting Oxycodone HCl (Oxycodone Immediate Release Tab) 5 mg PO Q4 PRN PRN Reason: Pain, moderate (4-7) Last Admin: 08/02/17 15:08 Dose: 5 mg Pantoprazole Sodium (Protonix Ec Tab) 40 mg PO 0600,1600 [facility] Last Admin: 08/01/17 19:00 Dose: 40 mg Pilocarpine HCl (Isopto Carpine 2% Opht Soln) 0 ml OS Q12 [facility] Last Admin: 08/02/17 09:49 Dose: 1 applic Polyethylene Glycol (Miralax) 17 gm PO DAILY [facility] Last Admin: 08/02/17 09:52 Dose: 17 gm Sennosides (Senokot Tab) 17.2 mg PO HS [facility] Vitamin B Complex/Vit C/Folic Acid (Nephro-Yesica) 1 tab PO 0800 [facility] Last Admin: 08/02/17 09:52 Dose: 1 tab Zolpidem Tartrate (Ambien) 5 mg PO HS PRN; Protocol PRN Reason: Insomnia Physical Exam - Constitutional Appears: Non-toxic, No Acute Distress, Chronically Ill - Head Exam Head Exam: NORMAL INSPECTION - Eye Exam Eye Exam: Normal appearance - ENT Exam ENT Exam: Mucous Membranes Moist - Respiratory Exam Respiratory Exam: NORMAL BREATHING PATTERN - Cardiovascular Exam Cardiovascular Exam: +S1, +S2 - Neurological Exam Neurological exam: Alert, Oriented x3 - Psychiatric Exam Psychiatric exam: Flat Affect - Skin Skin Exam: Dry Results - Vital Signs Recent Vital Signs: Last Vital Signs Temp 97.9 F 08/01/17 15:07 Pulse 100 H 08/02/17 09:51 Resp 18 08/02/17 06:40 BP 117/36 L 08/02/17 09:51 Pulse Ox 100 08/02/17 06:40 - Labs Result Diagrams: 08/03/17 06:00 08/03/17 06:00 Labs: Laboratory Results - last 24 hr 08/01/17 08/01/17 08/01/17 14:53 18:17 21:33 WBC 9.5 RBC 2.54 L Hgb 7.4 L Hct 23.8 L MCV 93.7 MCH 29.1 MCHC 31.1 RDW 16.3 H Plt Count 187 MPV 8.5 Gran % Lymph % (Auto) [place] % (Auto) Eos % (Auto) Baso % (Auto) Gran # Lymph # [place] # Eos # Baso # Sodium Potassium Chloride Carbon Dioxide Anion Gap BUN Creatinine Est GFR ( Amer) Est GFR (Non-Af Amer) POC Glucose (mg/dL) 110 88 Random Glucose Calcium Total Bilirubin AST ALT Alkaline Phosphatase Total Protein Albumin Globulin Albumin/Globulin Ratio 08/01/17 08/02/17 08/02/17 22:25 06:10 06:10 WBC 10.8 12.6 H RBC 2.62 L 2.67 L Hgb 7.6 L 7.7 L Hct 24.6 L 24.9 L MCV 93.9 93.3 MCH 29.0 28.8 MCHC 30.9 L 30.9 L RDW 16.5 H 16.4 H Plt Count 214 250 MPV 9.1 9.0 Gran % 76.3 H 78.1 H Lymph % (Auto) 14.2 L 12.2 L [place] % (Auto) 8.0 H 8.1 H Eos % (Auto) 1.2 L 1.3 L Baso % (Auto) 0.3 0.3 Gran # 8.25 H 9.83 H Lymph # 1.5 1.5 [place] # 0.9 H 1.0 H Eos # 0.1 0.2 Baso # 0.03 0.04 Sodium 138 Potassium 4.2 Chloride 105 Carbon Dioxide 29 Anion Gap 8 L BUN 21 Creatinine 3.6 H Est GFR ( Amer) 15 Est GFR (Non-Af Amer) 12 POC Glucose (mg/dL) Random Glucose 85 Calcium 8.4 Total Bilirubin 0.5 AST 51 H ALT 36 Alkaline Phosphatase 147 H Total Protein 5.5 L Albumin 2.2 L Globulin 3.3 Albumin/Globulin Ratio 0.7 L 08/02/17 08/02/17 08/02/17 07:59 11:38 12:42 WBC 15.3 H D RBC 2.66 L Hgb 7.7 L Hct 24.5 L MCV 92.1 MCH 28.9 MCHC 31.4 RDW 16.3 H Plt Count 221 MPV 8.5 Gran % Lymph % (Auto) [place] % (Auto) Eos % (Auto) Baso % (Auto) Gran # Lymph # [place] # Eos # Baso # Sodium Potassium Chloride Carbon Dioxide Anion Gap BUN Creatinine Est GFR ( Amer) Est GFR (Non-Af Amer) POC Glucose (mg/dL) 97 72 Random Glucose Calcium Total Bilirubin AST ALT Alkaline Phosphatase Total Protein Albumin Globulin Albumin/Globulin Ratio Assessment & Plan - Assessment and Plan (Free Text) Plan: esrd/anemia/GI bleed/dm/sacral ulcer/sec hyperpth hd mwf, continue per schedule lytes reviewed anemia: epo with hd, transfuse prn per icu bp ok continue binders, sensipar
[2017-08-02] MEDS: Pantoprazole 40 mg EC Tab PO SCH ×2 (17:41→17:45)
[2017-08-02 18:14] LABS: HEMATOCRIT 24.3 % (36.0-48.0); MEAN CELL VOLUME 93.1 fl (80.0-105.0); MEAN CORPUSCULAR HEMOGLOBIN 29.1 pg (25.0-35.0); MEAN CORPUSCULAR HGB CONC 31.3 g/dl (31.0-37.0); MEAN PLATELET VOLUME 8.4 fl (7.0-11.0); RED CELL DISTRIBUTION WIDTH 16.2 % (11.5-14.5); WHITE BLOOD COUNT 14.6 10^3/ul (4.5-11.0)
[2017-08-02] MEDS: Latanoprost 2.5 ml Opht Soln OD SCH (23:43)
[2017-08-03] MEDS: Albuterol-Ipratrop 3 mg / 0.5 (3 ml) UD IH SCH ×4 (02:50→19:48)
[2017-08-03] MEDS: Pantoprazole 40 mg EC Tab PO SCH ×2 (06:15→17:41)
[2017-08-03 06:40] LABS: BASO # 0.04 K/mm3 (0.0-2.0); BASO % 0.4 % (0.0-3.0); EOS # 0.1 (0.0-0.7); EOS % 1.5 % (1.5-5.0); GRAN # 6.93 (1.4-6.5); GRAN % 73.3 % (50.0-68.0); LYMPH # 1.5 (1.2-3.4); LYMPH % 15.4 % (22.0-35.0); MEAN CELL VOLUME 93.4 fl (80.0-105.0); MEAN CORPUSCULAR HGB CONC 31.1 g/dl (31.0-37.0); MONO # 0.9 (0.1-0.6); MONO % 9.4 % (1.0-6.0); RED CELL DISTRIBUTION WIDTH 16.1 % (11.5-14.5); WHITE BLOOD COUNT 9.5 10^3/ul (4.5-11.0)
[2017-08-03 06:46] LABS: ALB/GLOB RATIO 0.6 (1.1-1.8); BILIRUBIN,TOTAL 0.4 mg/dL (0.2-1.3); POTASSIUM 3.9 mmol/L (3.6-5.0); TOTAL PROTEIN 5.2 g/dL (5.8-8.3)
--- NOTE | 2017-08-03 06:56 | CP.PCM.PN ---
<Gege Avalos - Last Filed: 08/03/17 09:06> Subjective - Date & Time of Evaluation Date of Evaluation: 08/03/17 Time of Evaluation: 06:45 - Subjective Subjective: GI Fellow PGY4 Progress Note Pt seen and examined at bedside, pt denies any further rectal bleeding, non reported by nursing staff overnight. Pt and RN report no BM since admission and pt says she strains alot but is unable to have a BM and feels pain in her rectum from pushing. Pt denies abdominal pain, nausea and vomiting. Pt would like to eat regular food and says she is starving. ROS: A 12 point ROS was obtained and was negative except as above. Objective - Vital Signs/Intake and Output Vital Signs (last 24 hours): Temp Pulse Resp BP Pulse Ox 98.4 F 54 L 16 100/56 L 100 08/02/17 16:00 08/02/17 16:00 08/02/17 16:00 08/02/17 17:42 08/02/17 16:00 - Medications Medications: Current Medications Albuterol/Ipratropium (Duoneb 3 Mg/0.5 Mg (3 Ml) Ud) 3 ml IH [id number] [facility] Last Admin: 08/03/17 02:50 Dose: Not Given Atorvastatin Calcium (Lipitor) 10 mg PO DIN [facility] Last Admin: 08/02/17 17:41 Dose: 10 mg Bacitracin (Bacitracin) 0 gm TOP Q12 [facility] Last Admin: 08/02/17 23:42 Dose: Not Given Benzonatate (Tessalon Perles) 100 mg PO TID [facility] Last Admin: 08/02/17 18:41 Dose: 100 mg Calcitriol (Rocaltrol) 1 mcg PO MWF [facility] Last Admin: 08/02/17 09:57 Dose: 1 mcg Cinacalcet (Sensipar) 30 mg PO DAILY [facility] Last Admin: 08/02/17 09:58 Dose: 30 mg Insulin Human Regular (Humulin R Low) 0 units SC ACHS [facility] PRN Reason: Protocol Last Admin: 08/02/17 23:42 Dose: Not Given Lactobacillus Acidophilus (Bacid Acidophilus) 1 cap PO BID [facility] Last Admin: 08/02/17 17:41 Dose: 1 cap Latanoprost (Xalatan Opht) 0 ml OD HS [facility] Last Admin: 08/02/17 23:43 Dose: Not Given Lorazepam (Ativan) 0.25 mg IM ONCE PRN; Protocol PRN Reason: Pain, moderate (4-7) Metoprolol Tartrate (Lopressor) 25 mg PO BRKDIN [facility] Last Admin: 08/02/17 17:42 Dose: Not Given Montelukast Sodium (Singulair) 10 mg PO HS [facility] Last Admin: 08/02/17 23:43 Dose: Not Given Morphine Sulfate (Morphine) 2 mg IVP Q4H PRN PRN Reason: Pain, moderate (4-7) Last Admin: 08/02/17 05:28 Dose: 2 mg Ondansetron HCl (Zofran Inj) 4 mg IVP Q8H PRN PRN Reason: Nausea/Vomiting Oxycodone HCl (Oxycodone Immediate Release Tab) 5 mg PO Q4 PRN PRN Reason: Pain, moderate (4-7) Last Admin: 08/02/17 15:08 Dose: 5 mg Pantoprazole Sodium (Protonix Ec Tab) 40 mg PO 0600,1600 [facility] Last Admin: 08/03/17 06:15 Dose: 40 mg Pilocarpine HCl (Isopto Carpine 2% Opht Soln) 0 ml OS Q12 [facility] Last Admin: 08/02/17 23:42 Dose: Not Given Polyethylene Glycol (Miralax) 17 gm PO DAILY [facility] Last Admin: 08/02/17 09:52 Dose: 17 gm Sennosides (Senokot Tab) 17.2 mg PO HS [facility] Last Admin: 08/02/17 23:43 Dose: Not Given Vitamin B Complex/Vit C/Folic Acid (Nephro-Yesica) 1 tab PO 0800 [facility] Last Admin: 08/02/17 09:52 Dose: 1 tab Zolpidem Tartrate (Ambien) 5 mg PO HS PRN; Protocol PRN Reason: Insomnia - Labs Labs: 08/02/17 18:10 08/02/17 06:10 PT 13.7 SECONDS (9.4-12.5) H 08/01/17 09:54 INR 1.24 (0.93-1.08) H 08/01/17 09:54 APTT 28.6 Seconds (25.1-36.5) 08/01/17 09:54 Assessment and Plan - Assessment and Plan (Free Text) Assessment: This is a 82F w/ hx of ESRD on HD, HTN, HLD, Breast Ca who presented to the ER for BRBPR. 1. Lower GI bleed 2. Anemia 3. Constipation 4. Stage 4 sacral decubitius ulcer Plan: -Constipation likely due to immobility and pain medication -Continue supportive care with bowel regimen-pt reports straining, will increase miralax to bid and continue Senokot -No active GI bleed, monitor H/H Etiology is likely hemorrhoidal vs diverticular. ddx: AVM, malignancy -Pt with stable BP, slightly tachycardic -Hgb trending down at 7.0 this am, recommend blood transfusion 1U PRBCs -No plan for endoscopic evaluation at this time, if Hgb continues to drop after blood transfusion or active GI bleeding will plan for colonoscopy -Continue PPI BID -Pt receiving EPO for Anemia of chronic renal disease -Advance diet to Renal Diet today -Will continue to follow pt closely <Og Murillo - Last Filed: 08/03/17 11:29> Objective - Vital Signs/Intake and Output Vital Signs (last 24 hours): Temp Pulse Resp BP Pulse Ox 98.1 F 87 20 113/62 97 08/03/17 07:18 08/03/17 09:34 08/03/17 07:18 08/03/17 09:34 08/03/17 07:18 - Medications Medications: Current Medications Albuterol/Ipratropium (Duoneb 3 Mg/0.5 Mg (3 Ml) Ud) 3 ml IH [id number] [facility] Last Admin: 08/03/17 07:19 Dose: 3 ml Atorvastatin Calcium (Lipitor) 10 mg PO DIN [facility] Last Admin: 08/02/17 17:41 Dose: 10 mg Bacitracin (Bacitracin) 0 gm TOP Q12 [facility] Last Admin: 08/03/17 10:41 Dose: 1 applic Benzonatate (Tessalon Perles) 100 mg PO TID [facility] Last Admin: 08/03/17 09:37 Dose: 100 mg Calcitriol (Rocaltrol) 1 mcg PO MWF [facility] Last Admin: 08/02/17 09:57 Dose: 1 mcg Cinacalcet (Sensipar) 30 mg PO DAILY [facility] Last Admin: 08/03/17 09:37 Dose: 30 mg Insulin Human Regular (Humulin R Low) 0 units SC ACHS [facility] PRN Reason: Protocol Last Admin: 08/03/17 08:34 Dose: Not Given Lactobacillus Acidophilus (Bacid Acidophilus) 1 cap PO BID [facility] Last Admin: 08/03/17 09:37 Dose: 1 cap Latanoprost (Xalatan Opht) 0 ml OD HS [facility] Last Admin: 08/02/17 23:43 Dose: Not Given Lorazepam (Ativan) 0.25 mg IM ONCE PRN; Protocol PRN Reason: Pain, moderate (4-7) Metoprolol Tartrate (Lopressor) 25 mg PO BRKDIN [facility] Last Admin: 08/03/17 09:34 Dose: 25 mg Montelukast Sodium (Singulair) 10 mg PO HS [facility] Last Admin: 08/02/17 23:43 Dose: Not Given Morphine Sulfate (Morphine) 2 mg IVP Q4H PRN PRN Reason: Pain, moderate (4-7) Last Admin: 08/03/17 09:32 Dose: 2 mg Ondansetron HCl (Zofran Inj) 4 mg IVP Q8H PRN PRN Reason: Nausea/Vomiting Oxycodone HCl (Oxycodone Immediate Release Tab) 5 mg PO Q4 PRN PRN Reason: Pain, moderate (4-7) Last Admin: 08/02/17 15:08 Dose: 5 mg Pantoprazole Sodium (Protonix Ec Tab) 40 mg PO 0600,1600 [facility] Last Admin: 08/03/17 06:15 Dose: 40 mg Pilocarpine HCl (Isopto Carpine 2% Opht Soln) 0 ml OS Q12 [facility] Last Admin: 08/02/17 23:42 Dose: Not Given Polyethylene Glycol (Miralax) 17 gm PO BID [facility] Last Admin: 08/03/17 09:38 Dose: 17 gm Sennosides (Senokot Tab) 17.2 mg PO HS [facility] Last Admin: 08/02/17 23:43 Dose: Not Given Vitamin B Complex/Vit C/Folic Acid (Nephro-Yesica) 1 tab PO 0800 [facility] Last Admin: 08/03/17 09:37 Dose: 1 tab Zolpidem Tartrate (Ambien) 5 mg PO HS PRN; Protocol PRN Reason: Insomnia - Labs Labs: 08/03/17 06:00 08/03/17 06:00 PT 13.7 SECONDS (9.4-12.5) H 08/01/17 09:54 INR 1.24 (0.93-1.08) H 08/01/17 09:54 APTT 28.6 Seconds (25.1-36.5) 08/01/17 09:54 Attending/Attestation - Attestation I have personally seen and examined this patient.: Yes I have fully participated in the care of the patient.: Yes I have reviewed all pertinent clinical information, including history, physical exam and plan: Yes Notes (Text): 08/03/17 11:27 82 year old female with h/o ESRD on HD, Sacral decubitus ulcer, constipation, and diverticulosis admitted with BRBPR. 1. BRBPR 2. Anemia 3. Diverticulosis Plan: -monitor for overt blood loss -recommend blood transfusion x 2 units -supportive measures -obtain recent colonoscopy record -would only pursue colonoscopy in the setting of significant ongoing bleeding that would be potentially amenable to endoscopic therapy
[2017-08-03 06:58] LABS: HEMATOCRIT 22.5 % (36.0-48.0)
[2017-08-03] MEDS: Insulin Reg-LOW-Coverage SC SCH ×4 (08:34→21:12)
--- NOTE | 2017-08-03 08:40 | CP.PCM.PN ---
Subjective - Date & Time of Evaluation Date of Evaluation: 08/03/17 Time of Evaluation: 08:37 - Subjective Subjective: General surgery - Dr. Khan PT S&E. Pt. denies any complaints. She refused to answer any further questions and refused to allow examination of the decubitus. Objective - Vital Signs/Intake and Output Vital Signs (last 24 hours): Temp Pulse Resp BP Pulse Ox 98.1 F 87 20 113/62 97 08/03/17 07:18 08/03/17 07:18 08/03/17 07:18 08/03/17 07:18 08/03/17 07:18 - Medications Medications: Current Medications Albuterol/Ipratropium (Duoneb 3 Mg/0.5 Mg (3 Ml) Ud) 3 ml IH [id number] [facility] Last Admin: 08/03/17 07:19 Dose: 3 ml Atorvastatin Calcium (Lipitor) 10 mg PO DIN [facility] Last Admin: 08/02/17 17:41 Dose: 10 mg Bacitracin (Bacitracin) 0 gm TOP Q12 [facility] Last Admin: 08/02/17 23:42 Dose: Not Given Benzonatate (Tessalon Perles) 100 mg PO TID [facility] Last Admin: 08/02/17 18:41 Dose: 100 mg Calcitriol (Rocaltrol) 1 mcg PO MWF [facility] Last Admin: 08/02/17 09:57 Dose: 1 mcg Cinacalcet (Sensipar) 30 mg PO DAILY [facility] Last Admin: 08/02/17 09:58 Dose: 30 mg Insulin Human Regular (Humulin R Low) 0 units SC ACHS [facility] PRN Reason: Protocol Last Admin: 08/03/17 08:34 Dose: Not Given Lactobacillus Acidophilus (Bacid Acidophilus) 1 cap PO BID [facility] Last Admin: 08/02/17 17:41 Dose: 1 cap Latanoprost (Xalatan Opht) 0 ml OD HS [facility] Last Admin: 08/02/17 23:43 Dose: Not Given Lorazepam (Ativan) 0.25 mg IM ONCE PRN; Protocol PRN Reason: Pain, moderate (4-7) Metoprolol Tartrate (Lopressor) 25 mg PO BRKDIN [facility] Last Admin: 08/02/17 17:42 Dose: Not Given Montelukast Sodium (Singulair) 10 mg PO HS [facility] Last Admin: 08/02/17 23:43 Dose: Not Given Morphine Sulfate (Morphine) 2 mg IVP Q4H PRN PRN Reason: Pain, moderate (4-7) Last Admin: 08/02/17 05:28 Dose: 2 mg Ondansetron HCl (Zofran Inj) 4 mg IVP Q8H PRN PRN Reason: Nausea/Vomiting Oxycodone HCl (Oxycodone Immediate Release Tab) 5 mg PO Q4 PRN PRN Reason: Pain, moderate (4-7) Last Admin: 08/02/17 15:08 Dose: 5 mg Pantoprazole Sodium (Protonix Ec Tab) 40 mg PO 0600,1600 [facility] Last Admin: 08/03/17 06:15 Dose: 40 mg Pilocarpine HCl (Isopto Carpine 2% Opht Soln) 0 ml OS Q12 [facility] Last Admin: 08/02/17 23:42 Dose: Not Given Polyethylene Glycol (Miralax) 17 gm PO DAILY [facility] Last Admin: 08/02/17 09:52 Dose: 17 gm Sennosides (Senokot Tab) 17.2 mg PO HS [facility] Last Admin: 08/02/17 23:43 Dose: Not Given Vitamin B Complex/Vit C/Folic Acid (Nephro-Yesica) 1 tab PO 0800 [facility] Last Admin: 08/02/17 09:52 Dose: 1 tab Zolpidem Tartrate (Ambien) 5 mg PO HS PRN; Protocol PRN Reason: Insomnia - Labs Labs: 08/03/17 06:00 08/03/17 06:00 PT 13.7 SECONDS (9.4-12.5) H 08/01/17 09:54 INR 1.24 (0.93-1.08) H 08/01/17 09:54 APTT 28.6 Seconds (25.1-36.5) 08/01/17 09:54 - Constitutional Appears: No Acute Distress, Agitated - Head Exam Head Exam: ATRAUMATIC, NORMOCEPHALIC - Eye Exam Eye Exam: Normal appearance - Respiratory Exam Respiratory Exam: absent: NORMAL BREATHING PATTERN - Neurological Exam Neurological Exam: Alert, Oriented x3 - Psychiatric Exam Psychiatric exam: Agitated - Skin Skin Exam: Dry, Normal Color Assessment and Plan - Assessment and Plan (Free Text) Assessment: 82 yo F w/ stage IV decubitus ulcer -Pt refusing care from the surgical team at this time -Please discuss w/ wound care nurse as pt. likely needs a wound vac to the area DW Dr. Bill Kirk PGY3
[2017-08-03] MEDS ORDERED: Magnesium Sulfate 2 GM in Sodium Chloride 0.9% 100 ML IVPB ONE (09:00)
[2017-08-03] MEDS: Morphine 2 mg/ml ISec IVP PRN (09:32)
[2017-08-03] MEDS: Multivitamin Vitamin B Complex (Nephro-Vite) Tab PO SCH (09:37)
[2017-08-03] MEDS: Lactobacillus Acidophilus 500 MU Cap PO SCH ×2 (09:37→17:38)
[2017-08-03] MEDS: POLYETHYLENE GLYCOL 3350 17 GM/Dose PACKET PO SCH ×2 (09:38→19:06)
[2017-08-03] MEDS: Pilocarpine 2% Opht (15ml) OS SCH ×2 (10:06→21:16)
[2017-08-03] MEDS: Bacitracin Ointment 30 GM TUBE TOP SCH ×3 (10:41→21:00)
--- NOTE | 2017-08-03 11:27 | CP.PCM.PN ---
Subjective - Date & Time of Evaluation Date of Evaluation: 08/03/17 Time of Evaluation: 11:23 - Subjective Subjective: RENAL PROGRESS NOTE Pt seen and examined denies any n/v denies any fever or chills vs reviewed gen: nad sclera: anicteric op: clear neck supple cv +s1+s2 lungs cta abd soft ext no edema neuro: A+OX3 psych: normal affect, anxious skin: sacral decub A/P: esrd/anemia/GI bleed/diabetic kidney disease/sacral ulcer/sec hyperpth hd mwf anemia: epo with hd likely will need another transusion bp stable continue binders, sensipar f/u wound care f/u gi Objective - Vital Signs/Intake and Output Vital Signs (last 24 hours): Temp Pulse Resp BP Pulse Ox 98.1 F 87 20 113/62 97 08/03/17 07:18 08/03/17 09:34 08/03/17 07:18 08/03/17 09:34 08/03/17 07:18 - Medications Medications: Current Medications Albuterol/Ipratropium (Duoneb 3 Mg/0.5 Mg (3 Ml) Ud) 3 ml IH [id number] [facility] Last Admin: 08/03/17 07:19 Dose: 3 ml Atorvastatin Calcium (Lipitor) 10 mg PO DIN [facility] Last Admin: 08/02/17 17:41 Dose: 10 mg Bacitracin (Bacitracin) 0 gm TOP Q12 [facility] Last Admin: 08/03/17 10:41 Dose: 1 applic Benzonatate (Tessalon Perles) 100 mg PO TID [facility] Last Admin: 08/03/17 09:37 Dose: 100 mg Calcitriol (Rocaltrol) 1 mcg PO MWF [facility] Last Admin: 08/02/17 09:57 Dose: 1 mcg Cinacalcet (Sensipar) 30 mg PO DAILY [facility] Last Admin: 08/03/17 09:37 Dose: 30 mg Insulin Human Regular (Humulin R Low) 0 units SC ACHS [facility] PRN Reason: Protocol Last Admin: 08/03/17 08:34 Dose: Not Given Lactobacillus Acidophilus (Bacid Acidophilus) 1 cap PO BID [facility] Last Admin: 08/03/17 09:37 Dose: 1 cap Latanoprost (Xalatan Opht) 0 ml OD HS [facility] Last Admin: 08/02/17 23:43 Dose: Not Given Lorazepam (Ativan) 0.25 mg IM ONCE PRN; Protocol PRN Reason: Pain, moderate (4-7) Metoprolol Tartrate (Lopressor) 25 mg PO BRKDIN [facility] Last Admin: 08/03/17 09:34 Dose: 25 mg Montelukast Sodium (Singulair) 10 mg PO HS [facility] Last Admin: 08/02/17 23:43 Dose: Not Given Morphine Sulfate (Morphine) 2 mg IVP Q4H PRN PRN Reason: Pain, moderate (4-7) Last Admin: 08/03/17 09:32 Dose: 2 mg Ondansetron HCl (Zofran Inj) 4 mg IVP Q8H PRN PRN Reason: Nausea/Vomiting Oxycodone HCl (Oxycodone Immediate Release Tab) 5 mg PO Q4 PRN PRN Reason: Pain, moderate (4-7) Last Admin: 08/02/17 15:08 Dose: 5 mg Pantoprazole Sodium (Protonix Ec Tab) 40 mg PO 0600,1600 [facility] Last Admin: 08/03/17 06:15 Dose: 40 mg Pilocarpine HCl (Isopto Carpine 2% Opht Soln) 0 ml OS Q12 [facility] Last Admin: 08/02/17 23:42 Dose: Not Given Polyethylene Glycol (Miralax) 17 gm PO BID [facility] Last Admin: 08/03/17 09:38 Dose: 17 gm Sennosides (Senokot Tab) 17.2 mg PO HS [facility] Last Admin: 08/02/17 23:43 Dose: Not Given Vitamin B Complex/Vit C/Folic Acid (Nephro-Yesica) 1 tab PO 0800 [facility] Last Admin: 08/03/17 09:37 Dose: 1 tab Zolpidem Tartrate (Ambien) 5 mg PO HS PRN; Protocol PRN Reason: Insomnia - Labs Labs: 08/03/17 06:00 08/03/17 06:00 PT 13.7 SECONDS (9.4-12.5) H 08/01/17 09:54 INR 1.24 (0.93-1.08) H 08/01/17 09:54 APTT 28.6 Seconds (25.1-36.5) 08/01/17 09:54
[2017-08-03] MEDS: oxyCODONE 5 mg Immediate Release Tab PO PRN (12:38)
--- NOTE | 2017-08-03 14:23 | CP.PCM.PN ---
Subjective - Date & Time of Evaluation Date of Evaluation: 08/03/17 Time of Evaluation: 07:00 - Subjective Subjective: Patient seen and examined at bedside. denied anyacute events occurred overnight . The patient still has pain at the sacral decubitus ulcer area. Patient denies any chest pain, shortness of breath, nausea, vomiting, changes in vision, abdominal pain, fever, chills or any other complaints. Objective - Vital Signs/Intake and Output Vital Signs (last 24 hours): Temp Pulse Resp BP Pulse Ox 98.8 F 85 20 110/42 L 97 08/03/17 13:50 08/03/17 13:50 08/03/17 13:50 08/03/17 13:50 08/03/17 07:18 - Medications Medications: Current Medications Albuterol/Ipratropium (Duoneb 3 Mg/0.5 Mg (3 Ml) Ud) 3 ml IH [id number] [facility] Last Admin: 08/03/17 14:16 Dose: 3 ml Atorvastatin Calcium (Lipitor) 10 mg PO DIN [facility] Last Admin: 08/02/17 17:41 Dose: 10 mg Bacitracin (Bacitracin) 0 gm TOP Q12 [facility] Last Admin: 08/03/17 10:41 Dose: 1 applic Benzonatate (Tessalon Perles) 100 mg PO TID [facility] Last Admin: 08/03/17 09:37 Dose: 100 mg Calcitriol (Rocaltrol) 1 mcg PO MWF [facility] Last Admin: 08/02/17 09:57 Dose: 1 mcg Cinacalcet (Sensipar) 30 mg PO DAILY [facility] Last Admin: 08/03/17 09:37 Dose: 30 mg Insulin Human Regular (Humulin R Low) 0 units SC ACHS [facility] PRN Reason: Protocol Last Admin: 08/03/17 08:34 Dose: Not Given Lactobacillus Acidophilus (Bacid Acidophilus) 1 cap PO BID [facility] Last Admin: 08/03/17 09:37 Dose: 1 cap Latanoprost (Xalatan Opht) 0 ml OD HS [facility] Last Admin: 08/02/17 23:43 Dose: Not Given Lorazepam (Ativan) 0.25 mg IM ONCE PRN; Protocol PRN Reason: Pain, moderate (4-7) Metoprolol Tartrate (Lopressor) 25 mg PO BRKDIN [facility] Last Admin: 08/03/17 09:34 Dose: 25 mg Montelukast Sodium (Singulair) 10 mg PO HS [facility] Last Admin: 08/02/17 23:43 Dose: Not Given Morphine Sulfate (Morphine) 2 mg IVP Q4H PRN PRN Reason: Pain, moderate (4-7) Last Admin: 08/03/17 09:32 Dose: 2 mg Ondansetron HCl (Zofran Inj) 4 mg IVP Q8H PRN PRN Reason: Nausea/Vomiting Oxycodone HCl (Oxycodone Immediate Release Tab) 5 mg PO Q4 PRN PRN Reason: Pain, moderate (4-7) Last Admin: 08/03/17 12:38 Dose: 5 mg Pantoprazole Sodium (Protonix Ec Tab) 40 mg PO 0600,1600 [facility] Last Admin: 08/03/17 06:15 Dose: 40 mg Pilocarpine HCl (Isopto Carpine 2% Opht Soln) 0 ml OS Q12 [facility] Last Admin: 08/02/17 23:42 Dose: Not Given Polyethylene Glycol (Miralax) 17 gm PO BID [facility] Last Admin: 08/03/17 09:38 Dose: 17 gm Sennosides (Senokot Tab) 17.2 mg PO HS [facility] Last Admin: 08/02/17 23:43 Dose: Not Given Vitamin B Complex/Vit C/Folic Acid (Nephro-Yesica) 1 tab PO 0800 [facility] Last Admin: 08/03/17 09:37 Dose: 1 tab Zolpidem Tartrate (Ambien) 5 mg PO HS PRN; Protocol PRN Reason: Insomnia - Labs Labs: 08/03/17 06:00 08/03/17 06:00 PT 13.7 SECONDS (9.4-12.5) H 08/01/17 09:54 INR 1.24 (0.93-1.08) H 08/01/17 09:54 APTT 28.6 Seconds (25.1-36.5) 08/01/17 09:54 - Constitutional Appears: Non-toxic, No Acute Distress - Head Exam Head Exam: ATRAUMATIC, NORMAL INSPECTION, NORMOCEPHALIC - Eye Exam Eye Exam: PERRL - ENT Exam ENT Exam: Mucous Membranes Moist, Normal Exam - Respiratory Exam Respiratory Exam: Clear to Ausculation Bilateral, NORMAL BREATHING PATTERN - Cardiovascular Exam Cardiovascular Exam: REGULAR RHYTHM, +S1, +S2 - GI/Abdominal Exam GI & Abdominal Exam: Soft, Normal Bowel Sounds - Extremities Exam Extremities Exam: absent: Joint Swelling, Pedal Edema - Neurological Exam Neurological Exam: Alert, Awake, Oriented x3 - Psychiatric Exam Psychiatric exam: Normal Affect - Skin Skin Exam: Dry Assessment and Plan - Assessment and Plan (Free Text) Assessment: Ana Hendrickson is a 82F w/ hx of ESRD on HD, HTN, HL, BM, breast Ca who presented to the ER for BRBPR. Etiology is likely hemorrhoidal vs Diverticular. DDX: AVM, malignancy. She is being monitored. Plan: 1.BRBPR (2/2 to Diverticulosis vs.Hemmorrhoids vs. Colon Mass) -Per Pola Scott on rectal exam bright red blood per rectum appreciated. Patient refused a second rectal exam. -Abdomen and pelvis PO and IV contrast showed no bowel obstruction measure edema , ascites or free intrarenal gas, no obstructive uropathy. It also showed mulitfocal hyperdense cysts in the bilateral kidneys that are poorly characterized and follow up ultrasonography is recommended. It also showed extensive sigmoid diverticulosis without diverticulitis, hepatic steatosis, cholelithiasis, and no prominent biliary tree dilatation -GI consulted: [place]: Constipation likely due to immobility and pain medication , Continue supportive care with bowel regimen-pt reports straining, will increase miralax to bid and continue Senokot. No active GI bleed, monitor H/H Etiology is likely hemorrhoidal vs diverticular. ddx: AVM, malignancy Hgb trending down at 7.0 this am, recommend blood transfusion 1U PRBCs. No plan for endoscopic evaluation at this time, if Hgb continues to drop after blood transfusion or active GI bleeding will plan for colonoscopy. Continue PPI BID. Pt receiving EPO for Anemia of chronic renal disease. Advance diet to Renal Diet today -Continue Protonix 40mg BID. -Continue to hold Aspirin until source of bleed is found. -Patient hemo-dynamically stable now. IV fluids discontinued. -CBC Q6. Will monitor closely. -Patient Type and Screened. 1 Unit Transfused today, follow Hemoglobin and Hematocrit -Hgb: 7 Hct: 22.5 2.End stage renal disease -Nephrology consulted. Ferreira: continue dialysis plan MWF, may need additional blood transfusion. continue sensipar -Patient current HD schedule is MWF. Currently in HD. Will continue to monitor. 3. Sacral ulcer -On last admission wound grew Pseudomonas. Stage 4 Ulcer. -Surgery consulted: Pt refusing care from the surgical team at this time. Please discuss w/ wound care nurse as patient likely needs a wound vac to the area -Wound consult. Will f/u with rec's. 4.COPD -Patient on O2 nasal cannula on 2.5 Liters. Sat'ing at 98% -Duonebs Q6 [facility] -Continue home meds. 5. Hypertension -Continue home med's. -Hold Lopressor if Systolic blood pressure is below 110 or Heart rate is below 60. 6. Diabetes -Blood glucose 106 on admission. -Continue ISS-low -Continue ccucheck ACHS GI PPX -Protonix DVT/PE PPX -SCD's
[2017-08-03 19:21] LABS: HEMATOCRIT 28.9 % (36.0-48.0); MEAN CELL VOLUME 92.6 fl (80.0-105.0); MEAN CORPUSCULAR HEMOGLOBIN 29.5 pg (25.0-35.0); MEAN CORPUSCULAR HGB CONC 31.8 g/dl (31.0-37.0); RED CELL DISTRIBUTION WIDTH 15.9 % (11.5-14.5); WHITE BLOOD COUNT 13.4 10^3/ul (4.5-11.0)
[2017-08-03] MEDS: Latanoprost 2.5 ml Opht Soln OD SCH (21:16)
[2017-08-04] MEDS: Albuterol-Ipratrop 3 mg / 0.5 (3 ml) UD IH SCH ×4 (01:24→19:24)
[2017-08-04] MEDS: Pantoprazole 40 mg EC Tab PO SCH ×2 (05:42→16:54)
--- NOTE | 2017-08-04 06:46 | CP.PCM.PN ---
<Robbie,Gege - Last Filed: 08/04/17 10:26> Subjective - Date & Time of Evaluation Date of Evaluation: 08/04/17 Time of Evaluation: 06:30 - Subjective Subjective: GI Fellow PGY4 Progress Note Pt seen and examined at bedside, pt denies any further rectal bleeding, non reported by nursing staff overnight. Pt and RN report one large brown BM with foul smell. Pt denies abdominal pain, nausea and vomiting. Pt tolerating regular food. Pt is s/p 1UPRBCs, tolerated well with no complications, Hgb improved. ROS: A 12 point ROS was obtained and was negative except as above. Objective - Vital Signs/Intake and Output Vital Signs (last 24 hours): Temp Pulse Resp BP Pulse Ox 98.3 F 85 20 121/46 L 97 08/03/17 16:58 08/03/17 17:28 08/03/17 16:58 08/03/17 17:28 08/03/17 15:42 Intake and Output: 08/03/17 08/04/17 18:59 06:59 Intake Total 520 0 Balance 520 0 - Medications Medications: Current Medications Albuterol/Ipratropium (Duoneb 3 Mg/0.5 Mg (3 Ml) Ud) [id number] [facility] Last Admin: 08/04/17 01:24 Dose: 3 ml Atorvastatin Calcium (Lipitor) [address] [facility] Last Admin: 08/03/17 17:38 Dose: 10 mg Bacitracin (Bacitracin) [address] [facility] Last Admin: 08/03/17 21:00 Dose: Not Given Benzonatate (Tessalon Perles) [address] [facility] Last Admin: 08/03/17 17:41 Dose: Not Given Calcitriol (Rocaltrol) [address] [facility] Last Admin: 08/02/17 09:57 Dose: 1 mcg Cinacalcet (Sensipar) [address] [facility] Last Admin: 08/03/17 09:37 Dose: 30 mg Insulin Human Regular (Humulin R Low) [address] [facility] PRN Reason: Protocol Last Admin: 08/03/17 21:12 Dose: Not Given Lactobacillus Acidophilus (Bacid Acidophilus) [address] [facility] Last Admin: 08/03/17 17:38 Dose: 1 cap Latanoprost (Xalatan Opht) 0 ml OD HS [facility] Last Admin: 08/03/17 21:16 Dose: 2.5 ml Lorazepam (Ativan) 0.25 mg IM ONCE PRN; Protocol PRN Reason: Pain, moderate (4-7) Metoprolol Tartrate (Lopressor) 25 mg PO BRKDIN [facility] Last Admin: 08/03/17 17:28 Dose: Not Given Montelukast Sodium (Singulair) 10 mg PO HS [facility] Last Admin: 08/03/17 21:16 Dose: 10 mg Morphine Sulfate (Morphine) 2 mg IVP Q4H PRN PRN Reason: Pain, moderate (4-7) Last Admin: 08/03/17 09:32 Dose: 2 mg Ondansetron HCl (Zofran Inj) 4 mg IVP Q8H PRN PRN Reason: Nausea/Vomiting Oxycodone HCl (Oxycodone Immediate Release Tab) 5 mg PO Q4 PRN PRN Reason: Pain, moderate (4-7) Last Admin: 08/03/17 12:38 Dose: 5 mg Pantoprazole Sodium (Protonix Ec Tab) 40 mg PO 0600,1600 [facility] Last Admin: 08/04/17 05:42 Dose: Not Given Pilocarpine HCl (Isopto Carpine 2% Opht Soln) 0 ml OS Q12 [facility] Last Admin: 08/03/17 21:16 Dose: 1 applic Polyethylene Glycol (Miralax) [address] [facility] Last Admin: 08/03/17 19:06 Dose: Not Given Sennosides (Senokot Tab) 17.[address] [facility] Last Admin: 08/03/17 21:15 Dose: 17.2 mg Vitamin B Complex/Vit C/Folic Acid (Nephro-Yesica) [address] [facility] Last Admin: 08/03/17 09:37 Dose: 1 tab Zolpidem Tartrate (Ambien) 5 mg PO HS PRN; Protocol PRN Reason: Insomnia Last Admin: 08/03/17 21:16 Dose: 5 mg - Labs Labs: 08/03/17 19:10 08/03/17 06:00 PT 13.7 SECONDS (9.4-12.5) H 08/01/17 09:54 INR 1.24 (0.93-1.08) H 08/01/17 09:54 APTT 28.6 Seconds (25.1-36.5) 08/01/17 09:54 - Constitutional Appears: Non-toxic, No Acute Distress - Head Exam Head Exam: ATRAUMATIC, NORMAL INSPECTION, NORMOCEPHALIC - Eye Exam Eye Exam: EOMI, Normal appearance, PERRL Pupil Exam: PERRL - ENT Exam ENT Exam: Mucous Membranes Moist, Normal Exam - Neck Exam Neck Exam: Normal Inspection - Respiratory Exam Respiratory Exam: Clear to Ausculation Bilateral, NORMAL BREATHING PATTERN - Cardiovascular Exam Cardiovascular Exam: RRR, +S1, +S2 - GI/Abdominal Exam GI & Abdominal Exam: Soft, Normal Bowel Sounds. absent: Distended, Firm, Guarding, Tenderness, Organomegaly - Rectal Exam Rectal Exam: Deferred - Extremities Exam Extremities Exam: Full ROM. absent: Pedal Edema - Back Exam Back Exam: NORMAL INSPECTION - Neurological Exam Neurological Exam: Alert, Awake, Oriented x3 - Psychiatric Exam Psychiatric exam: Normal Affect, Normal Mood - Skin Skin Exam: Dry, Intact, Normal Color, Warm Assessment and Plan - Assessment and Plan (Free Text) Assessment: This is a 82F w/ hx of ESRD on HD, HTN, HLD, Breast Ca who presented to the ER for BRBPR. 1. Lower GI bleed 2. Anemia 3. Constipation 4. Stage 4 sacral decubitius ulcer Plan: -Constipation: pt had a large brown BM overnight -Continue supportive care with bowel regimen -Foul smell noted in stool per RN, will order C.diff in setting of leukocytes -No active GI bleed, Hgb stable s/p 1U PRBCs, hemodynamically stable -No plan for endoscopic evaluation at this time, if pt develops active GI bleeding will plan for colonoscopy -Continue PPI BID -Pt receiving EPO for Anemia of chronic renal disease -Surgical recommendations for stage 4 sacral decubitius ulcer -Renal Diet -Please call with any questions or concerns <Og Murillo - Last Filed: 08/04/17 15:51> Objective - Vital Signs/Intake and Output Vital Signs (last 24 hours): Temp Pulse Resp BP Pulse Ox 97.6 F 94 H 18 146/55 L 98 08/04/17 15:46 08/04/17 15:46 08/04/17 15:46 08/04/17 15:46 08/04/17 15:46 Intake and Output: 08/04/17 08/04/17 06:59 18:59 Intake Total 0 140 Balance 0 140 - Medications Medications: Current Medications Albuterol/Ipratropium (Duoneb 3 Mg/0.5 Mg (3 Ml) Ud) [id number] [facility] Last Admin: 08/04/17 13:10 Dose: 3 ml Atorvastatin Calcium (Lipitor) [address] [facility] Last Admin: 08/03/17 17:38 Dose: 10 mg Bacitracin (Bacitracin) [address] [facility] Last Admin: 08/04/17 10:07 Dose: 1 applic Benzonatate (Tessalon Perles) [address] [facility] Last Admin: 08/04/17 13:44 Dose: 100 mg Calcitriol (Rocaltrol) [address] [facility] Last Admin: 08/02/17 09:57 Dose: 1 mcg Cinacalcet (Sensipar) [address] [facility] Last Admin: 08/04/17 10:05 Dose: 30 mg Insulin Human Regular (Humulin R Low) [address] [facility] PRN Reason: Protocol Last Admin: 08/04/17 13:45 Dose: Not Given Lactobacillus Acidophilus (Bacid Acidophilus) [address] [facility] Last Admin: 08/04/17 10:05 Dose: 1 cap Latanoprost (Xalatan Opht) [address] [facility] Last Admin: 08/03/17 21:16 Dose: 2.5 ml Lorazepam (Ativan) 0.25 mg IM ONCE PRN; Protocol PRN Reason: Pain, moderate (4-7) Metoprolol Tartrate (Lopressor) [address] [facility] Last Admin: 08/04/17 08:14 Dose: 25 mg Montelukast Sodium (Singulair) [address] [facility] Last Admin: 08/03/17 21:16 Dose: 10 mg Morphine Sulfate (Morphine) 2 mg IVP Q4H PRN PRN Reason: Pain, moderate (4-7) Last Admin: 08/04/17 07:57 Dose: 2 mg Ondansetron HCl (Zofran Inj) 4 mg IVP Q8H PRN PRN Reason: Nausea/Vomiting Oxycodone HCl (Oxycodone Immediate Release Tab) 5 mg PO Q4 PRN PRN Reason: Pain, moderate (4-7) Last Admin: 08/04/17 11:03 Dose: 5 mg Pantoprazole Sodium (Protonix Ec Tab) 40 mg PO 0600,1600 [facility] Last Admin: 08/04/17 05:42 Dose: Not Given Pilocarpine HCl (Isopto Carpine 2% Opht Soln) 0 ml OS Q12 [facility] Last Admin: 08/04/17 10:11 Dose: 1 applic Polyethylene Glycol (Miralax) 17 gm PO BID [facility] Last Admin: 08/04/17 10:05 Dose: 17 gm Sennosides (Senokot Tab) 17.[address] [facility] Last Admin: 08/03/17 21:15 Dose: 17.2 mg Vitamin B Complex/Vit C/Folic Acid (Nephro-Yesica) [address] [facility] Last Admin: 08/04/17 08:15 Dose: 1 tab Zolpidem Tartrate (Ambien) 5 mg PO HS PRN; Protocol PRN Reason: Insomnia Last Admin: 08/03/17 21:16 Dose: 5 mg - Labs Labs: 08/04/17 10:20 08/04/17 10:20 PT 13.7 SECONDS (9.4-12.5) H 08/01/17 09:54 INR 1.24 (0.93-1.08) H 08/01/17 09:54 APTT 28.6 Seconds (25.1-36.5) 08/01/17 09:54 Attending/Attestation - Attestation I have personally seen and examined this patient.: Yes I have fully participated in the care of the patient.: Yes I have reviewed all pertinent clinical information, including history, physical exam and plan: Yes Notes (Text): 08/04/17 15:50 82 year old female with h/o ESRD on HD, Sacral decubitus ulcer, constipation, and diverticulosis admitted with BRBPR. 1. BRBPR 2. Anemia 3. Diverticulosis Plan: -no further bleeding, hemoglobin stable -would only pursue colonoscopy in the setting of significant ongoing bleeding that would be potentially amenable to endoscopic therapy, which is currently not the case -will sign off
[2017-08-04] MEDS: Morphine 4 mg/ml ISec IVP PRN ×2 (07:57→21:03)
[2017-08-04] MEDS: Insulin Reg-LOW-Coverage SC SCH ×4 (08:14→22:26)
[2017-08-04] MEDS: Multivitamin Vitamin B Complex (Nephro-Vite) Tab PO SCH (08:15)
--- NOTE | 2017-08-04 09:18 | CP.PCM.PN ---
<Jose Juan Brown - Last Filed: 08/04/17 13:18> Subjective - Date & Time of Evaluation Date of Evaluation: 08/04/17 Time of Evaluation: 06:00 - Subjective Subjective: Patient seen and evalayted bedside, she was reciving duoneb treatment. She was complaining of pain in her sacrum due to her ulcer and i ordered her pain medications. She did not want to lay on her sides so i reaffirmed that she has to be rotated every 2 hours. She denied any CP, SOB, nausea, vomiting, fever, chills, abdominal pain or any other complains. Objective - Vital Signs/Intake and Output Vital Signs (last 24 hours): Temp Pulse Resp BP Pulse Ox 98.8 F 99 H 18 120/51 L 94 L 08/04/17 07:00 08/04/17 08:14 08/04/17 07:00 08/04/17 08:14 08/04/17 07:00 Intake and Output: 08/04/17 08/04/17 06:59 18:59 Intake Total 0 Balance 0 - Medications Medications: Current Medications Albuterol/Ipratropium (Duoneb 3 Mg/0.5 Mg (3 Ml) Ud) 3 ml IH [id number] [facility] Last Admin: 08/04/17 07:13 Dose: 3 ml Atorvastatin Calcium (Lipitor) 10 mg PO DIN [facility] Last Admin: 08/03/17 17:38 Dose: 10 mg Bacitracin (Bacitracin) 0 gm TOP Q12 [facility] Last Admin: 08/03/17 21:00 Dose: Not Given Benzonatate (Tessalon Perles) 100 mg PO TID [facility] Last Admin: 08/03/17 17:41 Dose: Not Given Calcitriol (Rocaltrol) 1 mcg PO MWF [facility] Last Admin: 08/02/17 09:57 Dose: 1 mcg Cinacalcet (Sensipar) 30 mg PO DAILY [facility] Last Admin: 08/03/17 09:37 Dose: 30 mg Insulin Human Regular (Humulin R Low) 0 units SC ACHS [facility] PRN Reason: Protocol Last Admin: 08/04/17 08:14 Dose: Not Given Lactobacillus Acidophilus (Bacid Acidophilus) 1 cap PO BID [facility] Last Admin: 08/03/17 17:38 Dose: 1 cap Latanoprost (Xalatan Opht) 0 ml OD HS [facility] Last Admin: 08/03/17 21:16 Dose: 2.5 ml Lorazepam (Ativan) 0.25 mg IM ONCE PRN; Protocol PRN Reason: Pain, moderate (4-7) Metoprolol Tartrate (Lopressor) 25 mg PO BRKDIN [facility] Last Admin: 08/04/17 08:14 Dose: 25 mg Montelukast Sodium (Singulair) 10 mg PO HS [facility] Last Admin: 08/03/17 21:16 Dose: 10 mg Morphine Sulfate (Morphine) 2 mg IVP Q4H PRN PRN Reason: Pain, moderate (4-7) Last Admin: 08/04/17 07:57 Dose: 2 mg Ondansetron HCl (Zofran Inj) 4 mg IVP Q8H PRN PRN Reason: Nausea/Vomiting Oxycodone HCl (Oxycodone Immediate Release Tab) 5 mg PO Q4 PRN PRN Reason: Pain, moderate (4-7) Last Admin: 08/03/17 12:38 Dose: 5 mg Pantoprazole Sodium (Protonix Ec Tab) 40 mg PO 0600,1600 [facility] Last Admin: 08/04/17 05:42 Dose: Not Given Pilocarpine HCl (Isopto Carpine 2% Opht Soln) 0 ml OS Q12 [facility] Last Admin: 08/03/17 21:16 Dose: 1 applic Polyethylene Glycol (Miralax) 17 gm PO BID [facility] Last Admin: 08/03/17 19:06 Dose: Not Given Sennosides (Senokot Tab) 17.2 mg PO HS [facility] Last Admin: 08/03/17 21:15 Dose: 17.2 mg Vitamin B Complex/Vit C/Folic Acid (Nephro-Yesica) 1 tab PO 0800 [facility] Last Admin: 08/04/17 08:15 Dose: 1 tab Zolpidem Tartrate (Ambien) 5 mg PO HS PRN; Protocol PRN Reason: Insomnia Last Admin: 08/03/17 21:16 Dose: 5 mg - Labs Labs: 08/03/17 19:10 08/03/17 06:00 PT 13.7 SECONDS (9.4-12.5) H 08/01/17 09:54 INR 1.24 (0.93-1.08) H 08/01/17 09:54 APTT 28.6 Seconds (25.1-36.5) 08/01/17 09:54 - Constitutional Appears: Non-toxic - Head Exam Head Exam: ATRAUMATIC, NORMAL INSPECTION, NORMOCEPHALIC - Eye Exam Eye Exam: PERRL - ENT Exam ENT Exam: Mucous Membranes Moist, Normal Exam - Neck Exam Neck Exam: Normal Inspection - Respiratory Exam Respiratory Exam: Clear to Ausculation Bilateral, NORMAL BREATHING PATTERN - Cardiovascular Exam Cardiovascular Exam: REGULAR RHYTHM, +S1, +S2 - GI/Abdominal Exam GI & Abdominal Exam: Normal Bowel Sounds. absent: Distended, Tenderness - Extremities Exam Extremities Exam: absent: Joint Swelling - Back Exam Additional comments: Sacral ulcer present Stage 4 - Neurological Exam Neurological Exam: Alert, Awake, Oriented x3 - Psychiatric Exam Psychiatric exam: Normal Affect - Skin Skin Exam: Normal Color Assessment and Plan - Assessment and Plan (Free Text) Assessment: Ana Hendrickson is a 82F w/ hx of ESRD on HD, HTN, HL, BM, breast Ca who presented to the ER for BRBPR. Etiology is likely hemorrhoidal vs Diverticular. DDX: AVM, malignancy. She is being monitored. Plan: 1.BRBPR (2/2 to Diverticulosis vs.Hemmorrhoids vs. Colon Mass) -Per Pola Scott on rectal exam bright red blood per rectum appreciated. Patient refused a second rectal exam. -Abdomen and pelvis PO and IV contrast showed no bowel obstruction measure edema , ascites or free intrarenal gas, no obstructive uropathy. It also showed mulitfocal hyperdense cysts in the bilateral kidneys that are poorly characterized and follow up ultrasonography is recommended. It also showed extensive sigmoid diverticulosis without diverticulitis, hepatic steatosis, cholelithiasis, and no prominent biliary tree dilatation -GI consulted: Chidi: Constipation: pt had a large brown BM overnight. Continue supportive care with bowel regimen. Foul smell noted in stool per RN, will order C.diff in setting of leukocytes .No plan for endoscopic evaluation at this time, if pt develops active GI bleeding will plan for colonoscopy. -Continue Protonix 40mg BID. -Continue to hold Aspirin until source of bleed is found. -Patient hemo-dynamically stable now. IV fluids discontinued. -CBC Q6. Will monitor closely. -Patient Type and Screened. 1 additioanl unit PRBC Unit Transfused today, follow Hemoglobin and Hematocrit -Hgb: 8.5 Hct: 26.5 2.End stage renal disease -Nephrology consulted. Ferreira: continue dialysis plan MWF, may need additional blood transfusion. continue sensipar, will check phosporus level 3. Sacral ulcer -On last admission wound grew Pseudomonas. Stage 4 Ulcer. -Surgery consulted:Possible Debridement and Wound Vac if pt. complies -Wound consult. Will f/u with rec's. 4.COPD -Patient on O2 nasal cannula on 2.5 Liters. Sat'ing at 98% -Duonebs Q6 [facility] -Continue home meds. 5. Hypertension -Continue home med's. -Hold Lopressor if Systolic blood pressure is below 110 or Heart rate is below 60. 6. Diabetes -Blood glucose 106 on admission. -Continue ISS-low -Continue ccucheck ACHS GI PPX -Protonix DVT/PE PPX -SCD's <Eric Hodges - Last Filed: 08/05/17 07:57> Objective - Vital Signs/Intake and Output Vital Signs (last 24 hours): Temp Pulse Resp BP Pulse Ox 97.0 F L 64 22 128/68 94 L 08/05/17 07:30 08/05/17 07:30 08/05/17 07:30 08/05/17 07:30 08/05/17 07:30 - Medications Medications: Current Medications Albuterol/Ipratropium (Duoneb 3 Mg/0.5 Mg (3 Ml) Ud) 3 ml IH [id number] [facility] Last Admin: 08/05/17 07:13 Dose: 3 ml Atorvastatin Calcium (Lipitor) 10 mg PO DIN [facility] Last Admin: 08/04/17 16:55 Dose: 10 mg Bacitracin (Bacitracin) 0 gm TOP Q12 [facility] Last Admin: 08/04/17 22:26 Dose: Not Given Benzonatate (Tessalon Perles) 100 mg PO TID [facility] Last Admin: 08/04/17 17:58 Dose: 100 mg Calcitriol (Rocaltrol) 1 mcg PO MWF [facility] Last Admin: 08/02/17 09:57 Dose: 1 mcg Cinacalcet (Sensipar) 30 mg PO DAILY [facility] Last Admin: 08/04/17 10:05 Dose: 30 mg Insulin Human Regular (Humulin R Low) 0 units SC ACHS [facility] PRN Reason: Protocol Last Admin: 08/04/17 22:26 Dose: Not Given Lactobacillus Acidophilus (Bacid Acidophilus) 1 cap PO BID [facility] Last Admin: 08/04/17 17:58 Dose: 1 cap Latanoprost (Xalatan Opht) 0 ml OD HS [facility] Last Admin: 08/04/17 21:01 Dose: Not Given Lorazepam (Ativan) 0.25 mg IM ONCE PRN; Protocol PRN Reason: Pain, moderate (4-7) Metoprolol Tartrate (Lopressor) 25 mg PO BRKDIN [facility] Last Admin: 08/04/17 16:55 Dose: 25 mg Montelukast Sodium (Singulair) 10 mg PO HS [facility] Last Admin: 08/04/17 21:00 Dose: 10 mg Morphine Sulfate (Morphine) 2 mg IVP Q4H PRN PRN Reason: Pain, moderate (4-7) Last Admin: 08/04/17 21:03 Dose: 2 mg Ondansetron HCl (Zofran Inj) 4 mg IVP Q8H PRN PRN Reason: Nausea/Vomiting Oxycodone HCl (Oxycodone Immediate Release Tab) 5 mg PO Q4 PRN PRN Reason: Pain, moderate (4-7) Last Admin: 08/04/17 11:03 Dose: 5 mg Pantoprazole Sodium (Protonix Ec Tab) 40 mg PO 0600,1600 [facility] Last Admin: 08/05/17 06:44 Dose: 40 mg Pilocarpine HCl (Isopto Carpine 2% Opht Soln) 0 ml OS Q12 [facility] Last Admin: 08/04/17 21:01 Dose: Not Given Polyethylene Glycol (Miralax) 17 gm PO BID [facility] Last Admin: 08/04/17 17:58 Dose: 17 gm Sennosides (Senokot Tab) 17.2 mg PO HS [facility] Last Admin: 08/04/17 21:00 Dose: 17.2 mg Vitamin B Complex/Vit C/Folic Acid (Nephro-Yesica) 1 tab PO 0800 [facility] Last Admin: 08/04/17 08:15 Dose: 1 tab Zolpidem Tartrate (Ambien) 5 mg PO HS PRN; Protocol PRN Reason: Insomnia Last Admin: 08/04/17 21:00 Dose: 5 mg - Labs Labs: 08/05/17 06:56 08/05/17 06:56 PT 13.7 SECONDS (9.4-12.5) H 08/01/17 09:54 INR 1.24 (0.93-1.08) H 08/01/17 09:54 APTT 28.6 Seconds (25.1-36.5) 08/01/17 09:54 Assessment and Plan - Assessment and Plan (Free Text) Assessment: went over w/ resident at length meds orders labs and plans
[2017-08-04] MEDS: POLYETHYLENE GLYCOL 3350 17 GM/Dose PACKET PO SCH ×2 (10:05→17:58)
[2017-08-04] MEDS: Lactobacillus Acidophilus 500 MU Cap PO SCH ×2 (10:05→17:58)
[2017-08-04] MEDS: Bacitracin Ointment 30 GM TUBE TOP SCH ×2 (10:07→22:26)
[2017-08-04] MEDS: Pilocarpine 2% Opht (15ml) OS SCH ×2 (10:11→21:01)
--- NOTE | 2017-08-04 10:19 | CP.PCM.PN ---
Subjective - Date & Time of Evaluation Date of Evaluation: 08/04/17 Time of Evaluation: 10:16 - Subjective Subjective: General Surgery - Dr. Khan Pt S&E. AMAURY. Pt complaining of discomfort on her back from decubitus ulcer. She refused to allow examination this morning but did agree to allow examination later today. Cultures growing Pseudomonas. Objective - Vital Signs/Intake and Output Vital Signs (last 24 hours): Temp Pulse Resp BP Pulse Ox 98.8 F 99 H 18 120/51 L 94 L 08/04/17 07:00 08/04/17 08:14 08/04/17 07:00 08/04/17 08:14 08/04/17 07:00 Intake and Output: 08/04/17 08/04/17 06:59 18:59 Intake Total 0 Balance 0 - Medications Medications: Current Medications Albuterol/Ipratropium (Duoneb 3 Mg/0.5 Mg (3 Ml) Ud) 3 ml IH [id number] [facility] Last Admin: 08/04/17 07:13 Dose: 3 ml Atorvastatin Calcium (Lipitor) 10 mg PO DIN [facility] Last Admin: 08/03/17 17:38 Dose: 10 mg Bacitracin (Bacitracin) 0 gm TOP Q12 [facility] Last Admin: 08/03/17 21:00 Dose: Not Given Benzonatate (Tessalon Perles) 100 mg PO TID [facility] Last Admin: 08/03/17 17:41 Dose: Not Given Calcitriol (Rocaltrol) 1 mcg PO MWF [facility] Last Admin: 08/02/17 09:57 Dose: 1 mcg Cinacalcet (Sensipar) 30 mg PO DAILY [facility] Last Admin: 08/03/17 09:37 Dose: 30 mg Insulin Human Regular (Humulin R Low) 0 units SC ACHS [facility] PRN Reason: Protocol Last Admin: 08/04/17 08:14 Dose: Not Given Lactobacillus Acidophilus (Bacid Acidophilus) 1 cap PO BID [facility] Last Admin: 08/03/17 17:38 Dose: 1 cap Latanoprost (Xalatan Opht) 0 ml OD HS [facility] Last Admin: 08/03/17 21:16 Dose: 2.5 ml Lorazepam (Ativan) 0.25 mg IM ONCE PRN; Protocol PRN Reason: Pain, moderate (4-7) Metoprolol Tartrate (Lopressor) 25 mg PO BRKDIN [facility] Last Admin: 08/04/17 08:14 Dose: 25 mg Montelukast Sodium (Singulair) 10 mg PO HS [facility] Last Admin: 08/03/17 21:16 Dose: 10 mg Morphine Sulfate (Morphine) 2 mg IVP Q4H PRN PRN Reason: Pain, moderate (4-7) Last Admin: 08/04/17 07:57 Dose: 2 mg Ondansetron HCl (Zofran Inj) 4 mg IVP Q8H PRN PRN Reason: Nausea/Vomiting Oxycodone HCl (Oxycodone Immediate Release Tab) 5 mg PO Q4 PRN PRN Reason: Pain, moderate (4-7) Last Admin: 08/03/17 12:38 Dose: 5 mg Pantoprazole Sodium (Protonix Ec Tab) 40 mg PO 0600,1600 [facility] Last Admin: 08/04/17 05:42 Dose: Not Given Pilocarpine HCl (Isopto Carpine 2% Opht Soln) 0 ml OS Q12 [facility] Last Admin: 08/03/17 21:16 Dose: 1 applic Polyethylene Glycol (Miralax) 17 gm PO BID [facility] Last Admin: 08/03/17 19:06 Dose: Not Given Sennosides (Senokot Tab) 17.2 mg PO HS [facility] Last Admin: 08/03/17 21:15 Dose: 17.2 mg Vitamin B Complex/Vit C/Folic Acid (Nephro-Yesica) 1 tab PO 0800 [facility] Last Admin: 08/04/17 08:15 Dose: 1 tab Zolpidem Tartrate (Ambien) 5 mg PO HS PRN; Protocol PRN Reason: Insomnia Last Admin: 08/03/17 21:16 Dose: 5 mg - Labs Labs: 08/03/17 19:10 08/03/17 06:00 PT 13.7 SECONDS (9.4-12.5) H 08/01/17 09:54 INR 1.24 (0.93-1.08) H 08/01/17 09:54 APTT 28.6 Seconds (25.1-36.5) 08/01/17 09:54 - Constitutional Appears: No Acute Distress - Head Exam Head Exam: NORMAL INSPECTION, NORMOCEPHALIC - Respiratory Exam Respiratory Exam: NORMAL BREATHING PATTERN. absent: Respiratory Distress - Neurological Exam Neurological Exam: Alert, Oriented x3 Assessment and Plan - Assessment and Plan (Free Text) Assessment: 82yo F w/ stage IV decubitus ulcer, + Pseudomonas -Will return later today when pt. agreeable to examination -Possible Debridement and Wound Vac if pt. complies DW Dr. Bill Kirk PGY3
[2017-08-04 10:33] LABS: HEMATOCRIT 26.5 % (36.0-48.0); MEAN CORPUSCULAR HEMOGLOBIN 29.5 pg (25.0-35.0); MEAN CORPUSCULAR HGB CONC 32.1 g/dl (31.0-37.0); MEAN PLATELET VOLUME 8.9 fl (7.0-11.0); RED CELL DISTRIBUTION WIDTH 15.9 % (11.5-14.5); WHITE BLOOD COUNT 11.6 10^3/ul (4.5-11.0)
[2017-08-04 10:44] LABS: ALB/GLOB RATIO 0.6 (1.1-1.8); BILIRUBIN,TOTAL 0.5 mg/dL (0.2-1.3); CALCIUM 8.5 mg/dL (8.4-10.5); POTASSIUM 4.2 mmol/L (3.6-5.0); TOTAL PROTEIN 5.5 g/dL (5.8-8.3)
[2017-08-04] MEDS: oxyCODONE 5 mg Immediate Release Tab PO PRN (11:03)
--- NOTE | 2017-08-04 11:49 | CP.PCM.PN ---
Subjective - Date & Time of Evaluation Date of Evaluation: 08/04/17 Time of Evaluation: 11:47 - Subjective Subjective: RENAL PROGRESS NOTE Pt seen and examined getting dressing changed vs reviewed gen: nad sclera: anicteric op: clear neck supple cv +s1+s2 lungs cta abd soft ext no edema neuro: A+OX3 psych: normal affect, anxious skin: sacral decub A/P: esrd/anemia/GI bleed/diabetic kidney disease/sacral ulcer/sec hyperpth hd mwf anemia: epo with hd f/u GI bp stable continue binders, sensipar, will check phos level f/u wound care Objective - Vital Signs/Intake and Output Vital Signs (last 24 hours): Temp Pulse Resp BP Pulse Ox 98.8 F 99 H 18 120/51 L 94 L 08/04/17 07:00 08/04/17 08:14 08/04/17 07:00 08/04/17 08:14 08/04/17 07:00 Intake and Output: 08/04/17 08/04/17 06:59 18:59 Intake Total 0 Balance 0 - Medications Medications: Current Medications Albuterol/Ipratropium (Duoneb 3 Mg/0.5 Mg (3 Ml) Ud) 3 ml IH [id number] [facility] Last Admin: 08/04/17 07:13 Dose: 3 ml Atorvastatin Calcium (Lipitor) 10 mg PO DIN [facility] Last Admin: 08/03/17 17:38 Dose: 10 mg Bacitracin (Bacitracin) 0 gm TOP Q12 [facility] Last Admin: 08/04/17 10:07 Dose: 1 applic Benzonatate (Tessalon Perles) 100 mg PO TID [facility] Last Admin: 08/04/17 10:05 Dose: 100 mg Calcitriol (Rocaltrol) 1 mcg PO MWF [facility] Last Admin: 08/02/17 09:57 Dose: 1 mcg Cinacalcet (Sensipar) 30 mg PO DAILY [facility] Last Admin: 08/04/17 10:05 Dose: 30 mg Insulin Human Regular (Humulin R Low) 0 units SC ACHS [facility] PRN Reason: Protocol Last Admin: 08/04/17 08:14 Dose: Not Given Lactobacillus Acidophilus (Bacid Acidophilus) 1 cap PO BID [facility] Last Admin: 08/04/17 10:05 Dose: 1 cap Latanoprost (Xalatan Opht) 0 ml OD HS [facility] Last Admin: 08/03/17 21:16 Dose: 2.5 ml Lorazepam (Ativan) 0.25 mg IM ONCE PRN; Protocol PRN Reason: Pain, moderate (4-7) Metoprolol Tartrate (Lopressor) 25 mg PO BRKDIN [facility] Last Admin: 08/04/17 08:14 Dose: 25 mg Montelukast Sodium (Singulair) 10 mg PO HS [facility] Last Admin: 08/03/17 21:16 Dose: 10 mg Morphine Sulfate (Morphine) 2 mg IVP Q4H PRN PRN Reason: Pain, moderate (4-7) Last Admin: 08/04/17 07:57 Dose: 2 mg Ondansetron HCl (Zofran Inj) 4 mg IVP Q8H PRN PRN Reason: Nausea/Vomiting Oxycodone HCl (Oxycodone Immediate Release Tab) 5 mg PO Q4 PRN PRN Reason: Pain, moderate (4-7) Last Admin: 08/04/17 11:03 Dose: 5 mg Pantoprazole Sodium (Protonix Ec Tab) 40 mg PO 0600,1600 [facility] Last Admin: 08/04/17 05:42 Dose: Not Given Pilocarpine HCl (Isopto Carpine 2% Opht Soln) 0 ml OS Q12 [facility] Last Admin: 08/04/17 10:11 Dose: 1 applic Polyethylene Glycol (Miralax) 17 gm PO BID [facility] Last Admin: 08/04/17 10:05 Dose: 17 gm Sennosides (Senokot Tab) 17.2 mg PO HS [facility] Last Admin: 08/03/17 21:15 Dose: 17.2 mg Vitamin B Complex/Vit C/Folic Acid (Nephro-Yesica) 1 tab PO 0800 [facility] Last Admin: 08/04/17 08:15 Dose: 1 tab Zolpidem Tartrate (Ambien) 5 mg PO HS PRN; Protocol PRN Reason: Insomnia Last Admin: 08/03/17 21:16 Dose: 5 mg - Labs Labs: 08/04/17 10:20 08/04/17 10:20 PT 13.7 SECONDS (9.4-12.5) H 08/01/17 09:54 INR 1.24 (0.93-1.08) H 08/01/17 09:54 APTT 28.6 Seconds (25.1-36.5) 08/01/17 09:54
[2017-08-04] MEDS: Latanoprost 2.5 ml Opht Soln OD SCH (21:01)
[2017-08-05] MEDS: Albuterol-Ipratrop 3 mg / 0.5 (3 ml) UD IH SCH ×4 (01:32→19:30)
[2017-08-05] MEDS: Morphine 4 mg/ml ISec IVP PRN (06:43)
[2017-08-05] MEDS: Pantoprazole 40 mg EC Tab PO SCH ×2 (06:44→18:21)
[2017-08-05 07:07] LABS: BASO # 0.03 K/mm3 (0.0-2.0); BASO % 0.3 % (0.0-3.0); EOS # 0.2 (0.0-0.7); GRAN # 6.61 (1.4-6.5); GRAN % 73.8 % (50.0-68.0); HEMATOCRIT 29.9 % (36.0-48.0); LYMPH # 1.4 (1.2-3.4); LYMPH % 15.5 % (22.0-35.0); MEAN CELL VOLUME 92.9 fl (80.0-105.0); MEAN CORPUSCULAR HEMOGLOBIN 29.2 pg (25.0-35.0); MEAN CORPUSCULAR HGB CONC 31.4 g/dl (31.0-37.0); MEAN PLATELET VOLUME 9.3 fl (7.0-11.0); MONO # 0.8 (0.1-0.6); MONO % 8.4 % (1.0-6.0); RED CELL DISTRIBUTION WIDTH 15.8 % (11.5-14.5)
[2017-08-05 07:40] LABS: ALB/GLOB RATIO 0.6 (1.1-1.8); BILIRUBIN,TOTAL 0.7 mg/dL (0.2-1.3); CALCIUM 8.6 mg/dL (8.4-10.5); POTASSIUM 4.5 mmol/L (3.6-5.0); TOTAL PROTEIN 5.5 g/dL (5.8-8.3)
[2017-08-05] MEDS: Insulin Reg-LOW-Coverage SC SCH ×3 (07:44→17:40)
--- NOTE | 2017-08-05 08:25 | CP.PCM.PN ---
Subjective - Date & Time of Evaluation Date of Evaluation: 08/05/17 Time of Evaluation: 08:22 - Subjective Subjective: Surgery Pt seen. Pt sleeping comfortably. Objective - Vital Signs/Intake and Output Vital Signs (last 24 hours): Temp Pulse Resp BP Pulse Ox 97.0 F L 64 22 128/68 94 L 08/05/17 07:30 08/05/17 07:30 08/05/17 07:30 08/05/17 07:30 08/05/17 07:30 - Medications Medications: Current Medications Albuterol/Ipratropium (Duoneb 3 Mg/0.5 Mg (3 Ml) Ud) 3 ml IH [id number] [facility] Last Admin: 08/05/17 07:13 Dose: 3 ml Atorvastatin Calcium (Lipitor) 10 mg PO DIN [facility] Last Admin: 08/04/17 16:55 Dose: 10 mg Bacitracin (Bacitracin) 0 gm TOP Q12 [facility] Last Admin: 08/04/17 22:26 Dose: Not Given Benzonatate (Tessalon Perles) 100 mg PO TID [facility] Last Admin: 08/04/17 17:58 Dose: 100 mg Calcitriol (Rocaltrol) 1 mcg PO MWF [facility] Last Admin: 08/02/17 09:57 Dose: 1 mcg Cinacalcet (Sensipar) 30 mg PO DAILY [facility] Last Admin: 08/04/17 10:05 Dose: 30 mg Insulin Human Regular (Humulin R Low) 0 units SC ACHS [facility] PRN Reason: Protocol Last Admin: 08/04/17 22:26 Dose: Not Given Lactobacillus Acidophilus (Bacid Acidophilus) 1 cap PO BID [facility] Last Admin: 08/04/17 17:58 Dose: 1 cap Latanoprost (Xalatan Opht) 0 ml OD HS [facility] Last Admin: 08/04/17 21:01 Dose: Not Given Lorazepam (Ativan) 0.25 mg IM ONCE PRN; Protocol PRN Reason: Pain, moderate (4-7) Metoprolol Tartrate (Lopressor) 25 mg PO BRKDIN [facility] Last Admin: 08/04/17 16:55 Dose: 25 mg Montelukast Sodium (Singulair) 10 mg PO HS [facility] Last Admin: 08/04/17 21:00 Dose: 10 mg Morphine Sulfate (Morphine) 2 mg IVP Q4H PRN PRN Reason: Pain, moderate (4-7) Last Admin: 08/04/17 21:03 Dose: 2 mg Ondansetron HCl (Zofran Inj) 4 mg IVP Q8H PRN PRN Reason: Nausea/Vomiting Oxycodone HCl (Oxycodone Immediate Release Tab) 5 mg PO Q4 PRN PRN Reason: Pain, moderate (4-7) Last Admin: 08/04/17 11:03 Dose: 5 mg Pantoprazole Sodium (Protonix Ec Tab) 40 mg PO 0600,1600 [facility] Last Admin: 08/05/17 06:44 Dose: 40 mg Pilocarpine HCl (Isopto Carpine 2% Opht Soln) 0 ml OS Q12 [facility] Last Admin: 08/04/17 21:01 Dose: Not Given Polyethylene Glycol (Miralax) 17 gm PO BID [facility] Last Admin: 08/04/17 17:58 Dose: 17 gm Sennosides (Senokot Tab) 17.2 mg PO HS [facility] Last Admin: 08/04/17 21:00 Dose: 17.2 mg Vitamin B Complex/Vit C/Folic Acid (Nephro-Yesica) 1 tab PO 0800 [facility] Last Admin: 08/04/17 08:15 Dose: 1 tab Zolpidem Tartrate (Ambien) 5 mg PO HS PRN; Protocol PRN Reason: Insomnia Last Admin: 08/04/17 21:00 Dose: 5 mg - Labs Labs: 08/05/17 06:56 08/05/17 06:56 PT 13.7 SECONDS (9.4-12.5) H 08/01/17 09:54 INR 1.24 (0.93-1.08) H 08/01/17 09:54 APTT 28.6 Seconds (25.1-36.5) 08/01/17 09:54 - Constitutional Appears: No Acute Distress - Head Exam Head Exam: ATRAUMATIC, NORMAL INSPECTION, NORMOCEPHALIC - Eye Exam Eye Exam: EOMI, PERRL Pupil Exam: NORMAL ACCOMODATION, PERRL - ENT Exam ENT Exam: Mucous Membranes Moist, Normal Exam - Neck Exam Neck Exam: Full ROM, Normal Inspection. absent: Lymphadenopathy - Respiratory Exam Respiratory Exam: Clear to Ausculation Bilateral, NORMAL BREATHING PATTERN - Cardiovascular Exam Cardiovascular Exam: REGULAR RHYTHM, +S1, +S2. absent: Murmur - GI/Abdominal Exam GI & Abdominal Exam: Soft, Normal Bowel Sounds. absent: Distended, Firm - Rectal Exam Rectal Exam: Deferred - Back Exam Additional comments: large 20x15 cm wound. granulation tissue. - Skin Skin Exam: Erythema, Warm. absent: Dry, Intact, Normal Color Assessment and Plan - Assessment and Plan (Free Text) Assessment: 82yo F w/ stage IV decubitus ulcer, + Pseudomonas -Will return later today for possible wound vac placement : Pt refused Will DW Dr. Khan
[2017-08-05] MEDS: Multivitamin Vitamin B Complex (Nephro-Vite) Tab PO SCH (08:45)
[2017-08-05] MEDS: oxyCODONE 5 mg Immediate Release Tab PO PRN (09:54)
--- NOTE | 2017-08-05 11:21 | CP.PCM.PCO ---
Physician Communication Note - Physician Communication Note Physician Communication Note: Dr Khan seeing pt-Holding off debridement now/? angela
[2017-08-05] MEDS: Bacitracin Ointment 30 GM TUBE TOP SCH (15:48)
[2017-08-05] MEDS: Lactobacillus Acidophilus 500 MU Cap PO SCH ×2 (15:48→18:14)
[2017-08-05] MEDS: Pilocarpine 2% Opht (15ml) OS SCH (15:51)
[2017-08-05] MEDS: POLYETHYLENE GLYCOL 3350 17 GM/Dose PACKET PO SCH ×2 (15:51→18:18)
--- NOTE | 2017-08-05 15:53 | CP.PCM.PN ---
Subjective - Date & Time of Evaluation Date of Evaluation: 08/05/17 Time of Evaluation: 15:53 - Subjective Subjective: renal follow up note seen on hd wants to be taken off early vs reviewed gen: nad neck supple cv +s1+s2 lungs cta abd soft ext no edema neuro: A+OX3 psych: normal affect, anxious skin: sacral decub A/P: esrd/anemia/GI bleed/diabetic kidney disease/sacral ulcer/sec hyperpth hd mwf, seen on hd UF as tolerated anemia: epo with hd bp stable continue binders, sensipar sacral ulcer: wound care per primary team Objective - Vital Signs/Intake and Output Vital Signs (last 24 hours): Temp Pulse Resp BP Pulse Ox 97.0 F L 64 22 128/68 94 L 08/05/17 07:30 08/05/17 08:45 08/05/17 07:30 08/05/17 08:45 08/05/17 07:30 Intake and Output: 08/05/17 08/05/17 06:59 18:59 Intake Total 240 Balance 240 - Medications Medications: Current Medications Albuterol/Ipratropium (Duoneb 3 Mg/0.5 Mg (3 Ml) Ud) 3 ml IH [id number] [facility] Last Admin: 08/05/17 13:48 Dose: Not Given Atorvastatin Calcium (Lipitor) 10 mg PO DIN [facility] Last Admin: 08/04/17 16:55 Dose: 10 mg Bacitracin (Bacitracin) 0 gm TOP Q12 [facility] Last Admin: 08/05/17 15:48 Dose: Not Given Benzonatate (Tessalon Perles) 100 mg PO TID [facility] Last Admin: 08/05/17 09:09 Dose: 100 mg Calcitriol (Rocaltrol) 1 mcg PO MWF [facility] Last Admin: 08/02/17 09:57 Dose: 1 mcg Cinacalcet (Sensipar) 30 mg PO DAILY [facility] Last Admin: 08/04/17 10:05 Dose: 30 mg Heparin Sodium (Porcine) (Heparin) 2,100 units ICA MOWEFR [facility] Heparin Sodium (Porcine) (Heparin) 2,200 units ICV MOWEFR [facility] Insulin Human Regular (Humulin R Low) 0 units SC ACHS [facility] PRN Reason: Protocol Last Admin: 08/05/17 07:44 Dose: Not Given Lactobacillus Acidophilus (Bacid Acidophilus) 1 cap PO BID [facility] Last Admin: 08/05/17 15:48 Dose: Not Given Latanoprost (Xalatan Opht) 0 ml OD HS [facility] Last Admin: 08/04/17 21:01 Dose: Not Given Lorazepam (Ativan) 0.25 mg IM ONCE PRN; Protocol PRN Reason: Pain, moderate (4-7) Metoprolol Tartrate (Lopressor) 25 mg PO BRKDIN [facility] Last Admin: 08/05/17 08:45 Dose: 25 mg Montelukast Sodium (Singulair) 10 mg PO HS [facility] Last Admin: 08/04/17 21:00 Dose: 10 mg Morphine Sulfate (Morphine) 2 mg IVP Q4H PRN PRN Reason: Pain, moderate (4-7) Last Admin: 08/04/17 21:03 Dose: 2 mg Ondansetron HCl (Zofran Inj) 4 mg IVP Q8H PRN PRN Reason: Nausea/Vomiting Pantoprazole Sodium (Protonix Ec Tab) 40 mg PO 0600,1600 [facility] Last Admin: 08/05/17 06:44 Dose: 40 mg Pilocarpine HCl (Isopto Carpine 2% Opht Soln) 0 ml OS Q12 [facility] Last Admin: 08/04/17 21:01 Dose: Not Given Polyethylene Glycol (Miralax) 17 gm PO BID [facility] Last Admin: 08/04/17 17:58 Dose: 17 gm Sennosides (Senokot Tab) 17.2 mg PO HS [facility] Last Admin: 08/04/17 21:00 Dose: 17.2 mg Tramadol HCl (Ultram) 50 mg PO TID [facility] Vitamin B Complex/Vit C/Folic Acid (Nephro-Yesica) 1 tab PO 0800 [facility] Last Admin: 08/05/17 08:45 Dose: 1 tab Zolpidem Tartrate (Ambien) 5 mg PO HS PRN; Protocol PRN Reason: Insomnia Last Admin: 08/04/17 21:00 Dose: 5 mg - Labs Labs: 08/05/17 06:56 08/05/17 06:56 PT 13.7 SECONDS (9.4-12.5) H 08/01/17 09:54 INR 1.24 (0.93-1.08) H 08/01/17 09:54 APTT 28.6 Seconds (25.1-36.5) 08/01/17 09:54
[2017-08-05 17:23] VITALS: RESP 18
--- NOTE | 2017-08-05 17:51 | CP.PCM.PN ---
Objective - Vital Signs/Intake and Output Vital Signs (last 24 hours): Temp Pulse Resp BP Pulse Ox 98.2 F 89 18 112/52 L 98 08/05/17 16:00 08/05/17 16:00 08/05/17 16:00 08/05/17 16:00 08/05/17 16:00 Intake and Output: 08/05/17 08/05/17 06:59 18:59 Intake Total 240 Balance 240 - Medications Medications: Current Medications Albuterol/Ipratropium (Duoneb 3 Mg/0.5 Mg (3 Ml) Ud) 3 ml IH [id number] [facility] Last Admin: 08/05/17 13:48 Dose: Not Given Atorvastatin Calcium (Lipitor) 10 mg PO DIN [facility] Last Admin: 08/04/17 16:55 Dose: 10 mg Bacitracin (Bacitracin) 0 gm TOP Q12 [facility] Last Admin: 08/05/17 15:48 Dose: Not Given Benzonatate (Tessalon Perles) 100 mg PO TID [facility] Last Admin: 08/05/17 15:52 Dose: Not Given Calcitriol (Rocaltrol) 1 mcg PO MWF [facility] Last Admin: 08/05/17 15:56 Dose: 1 mcg Cinacalcet (Sensipar) 30 mg PO DAILY [facility] Last Admin: 08/05/17 15:56 Dose: 30 mg Heparin Sodium (Porcine) (Heparin) 2,100 units ICA MOWEFR [facility] Heparin Sodium (Porcine) (Heparin) 2,200 units ICV MOWEFR [facility] Metronidazole (Flagyl) 500 mg in 100 mls @ 100 mls/hr IVPB Q8 [facility] PRN Reason: Protocol Insulin Human Regular (Humulin R Low) 0 units SC ACHS [facility] PRN Reason: Protocol Last Admin: 08/05/17 15:50 Dose: Not Given Lactobacillus Acidophilus (Bacid Acidophilus) 1 cap PO BID [facility] Last Admin: 08/05/17 15:48 Dose: Not Given Latanoprost (Xalatan Opht) 0 ml OD HS [facility] Last Admin: 08/04/17 21:01 Dose: Not Given Lorazepam (Ativan) 0.25 mg IM ONCE PRN; Protocol PRN Reason: Pain, moderate (4-7) Metoprolol Tartrate (Lopressor) 25 mg PO BRKDIN [facility] Last Admin: 08/05/17 08:45 Dose: 25 mg Montelukast Sodium (Singulair) 10 mg PO HS [facility] Last Admin: 08/04/17 21:00 Dose: 10 mg Morphine Sulfate (Morphine) 2 mg IVP Q4H PRN PRN Reason: Pain, moderate (4-7) Last Admin: 08/04/17 21:03 Dose: 2 mg Ondansetron HCl (Zofran Inj) 4 mg IVP Q8H PRN PRN Reason: Nausea/Vomiting Pantoprazole Sodium (Protonix Ec Tab) 40 mg PO 0600,1600 [facility] Last Admin: 08/05/17 06:44 Dose: 40 mg Pilocarpine HCl (Isopto Carpine 2% Opht Soln) 0 ml OS Q12 [facility] Last Admin: 08/05/17 15:51 Dose: Not Given Polyethylene Glycol (Miralax) 17 gm PO BID [facility] Last Admin: 08/05/17 15:51 Dose: Not Given Sennosides (Senokot Tab) 17.2 mg PO HS [facility] Last Admin: 08/04/17 21:00 Dose: 17.2 mg Tramadol HCl (Ultram) 50 mg PO TID [facility] Last Admin: 08/05/17 15:05 Dose: Not Given Vitamin B Complex/Vit C/Folic Acid (Nephro-Yesica) 1 tab PO 0800 [facility] Last Admin: 08/05/17 08:45 Dose: 1 tab Zolpidem Tartrate (Ambien) 5 mg PO HS PRN; Protocol PRN Reason: Insomnia Last Admin: 08/04/17 21:00 Dose: 5 mg - Labs Labs: 08/05/17 06:56 08/05/17 06:56 PT 13.7 SECONDS (9.4-12.5) H 08/01/17 09:54 INR 1.24 (0.93-1.08) H 08/01/17 09:54 APTT 28.6 Seconds (25.1-36.5) 08/01/17 09:54
--- NOTE | 2017-08-05 18:55 | CP.PCM.PN ---
Subjective - Date & Time of Evaluation Date of Evaluation: 08/05/17 Time of Evaluation: 07:20 - Subjective Subjective: Patient was seen and examined at bedside. Patient states she is in pain at site of sacral ulcer. When trying to examine patient removed my hand and asked for examination to end. Sacral ulcer not observed due to patient non-compliance. Patient states overnight she did not experience any chest pain, shortness of breath, n/v/d. Objective - Vital Signs/Intake and Output Vital Signs (last 24 hours): Temp Pulse Resp BP Pulse Ox 98.2 F 89 18 112/82 98 08/05/17 16:00 08/05/17 18:14 08/05/17 16:00 08/05/17 18:14 08/05/17 16:00 Intake and Output: 08/05/17 08/05/17 06:59 18:59 Intake Total 240 Balance 240 - Medications Medications: Current Medications Albuterol/Ipratropium (Duoneb 3 Mg/0.5 Mg (3 Ml) Ud) 3 ml IH [id number] [facility] Last Admin: 08/05/17 13:48 Dose: Not Given Atorvastatin Calcium (Lipitor) 10 mg PO DIN [facility] Last Admin: 08/05/17 18:14 Dose: 10 mg Bacitracin (Bacitracin) 0 gm TOP Q12 [facility] Last Admin: 08/05/17 15:48 Dose: Not Given Benzonatate (Tessalon Perles) 100 mg PO TID [facility] Last Admin: 08/05/17 18:14 Dose: 100 mg Calcitriol (Rocaltrol) 1 mcg PO MWF [facility] Last Admin: 08/05/17 15:56 Dose: 1 mcg Cinacalcet (Sensipar) 30 mg PO DAILY [facility] Last Admin: 08/05/17 15:56 Dose: 30 mg Heparin Sodium (Porcine) (Heparin) 2,100 units ICA MOWEFR [facility] Heparin Sodium (Porcine) (Heparin) 2,200 units ICV MOWEFR [facility] Metronidazole (Flagyl) 500 mg in 100 mls @ 100 mls/hr IVPB Q8 [facility] PRN Reason: Protocol Meropenem 250 mg/ Sodium (Chloride) 100 mls @ 100 mls/hr IVPB Q12H [facility] PRN Reason: Protocol Stop: 08/12/17 18:46 Insulin Human Regular (Humulin R Low) 0 units SC ACHS [facility] PRN Reason: Protocol Last Admin: 08/05/17 17:40 Dose: Not Given Lactobacillus Acidophilus (Bacid Acidophilus) 1 cap PO BID [facility] Last Admin: 08/05/17 18:14 Dose: 1 cap Latanoprost (Xalatan Opht) 0 ml OD HS [facility] Last Admin: 08/04/17 21:01 Dose: Not Given Lorazepam (Ativan) 0.25 mg IM ONCE PRN; Protocol PRN Reason: Pain, moderate (4-7) Metoprolol Tartrate (Lopressor) 25 mg PO BRKDIN [facility] Last Admin: 08/05/17 18:14 Dose: 25 mg Montelukast Sodium (Singulair) 10 mg PO HS [facility] Last Admin: 08/04/17 21:00 Dose: 10 mg Morphine Sulfate (Morphine) 2 mg IVP Q4H PRN PRN Reason: Pain, moderate (4-7) Last Admin: 08/04/17 21:03 Dose: 2 mg Ondansetron HCl (Zofran Inj) 4 mg IVP Q8H PRN PRN Reason: Nausea/Vomiting Pantoprazole Sodium (Protonix Ec Tab) 40 mg PO 0600,1600 [facility] Last Admin: 08/05/17 18:21 Dose: 40 mg Pilocarpine HCl (Isopto Carpine 2% Opht Soln) 0 ml OS Q12 [facility] Last Admin: 08/05/17 15:51 Dose: Not Given Polyethylene Glycol (Miralax) 17 gm PO BID [facility] Last Admin: 08/05/17 18:18 Dose: Not Given Sennosides (Senokot Tab) 17.2 mg PO HS [facility] Last Admin: 08/04/17 21:00 Dose: 17.2 mg Tramadol HCl (Ultram) 50 mg PO TID [facility] Last Admin: 08/05/17 18:19 Dose: 50 mg Vancomycin HCl (Vancocin 25 Mg/Ml (Oral Use)) 125 mg PO QID [facility] PRN Reason: Protocol Vitamin B Complex/Vit C/Folic Acid (Nephro-Yesica) 1 tab PO 0800 [facility] Last Admin: 08/05/17 08:45 Dose: 1 tab Zolpidem Tartrate (Ambien) 5 mg PO HS PRN; Protocol PRN Reason: Insomnia Last Admin: 08/04/17 21:00 Dose: 5 mg - Labs Labs: 08/05/17 06:56 08/05/17 06:56 PT 13.7 SECONDS (9.4-12.5) H 08/01/17 09:54 INR 1.24 (0.93-1.08) H 08/01/17 09:54 APTT 28.6 Seconds (25.1-36.5) 08/01/17 09:54 - Constitutional Appears: In Acute Distress - Head Exam Head Exam: ATRAUMATIC, NORMAL INSPECTION - Eye Exam Eye Exam: EOMI, Normal appearance - ENT Exam ENT Exam: Mucous Membranes Moist, Normal Exam - Respiratory Exam Respiratory Exam: Wheezes (bilaterally upper and lower lobes) - Cardiovascular Exam Cardiovascular Exam: REGULAR RHYTHM, +S1, +S2 - GI/Abdominal Exam GI & Abdominal Exam: Soft, Normal Bowel Sounds - Neurological Exam Neurological Exam: Alert, Awake - Psychiatric Exam Psychiatric exam: Agitated - Skin Skin Exam: Intact, Normal Color, Warm Assessment and Plan - Assessment and Plan (Free Text) Plan: Assessment: Ana Hendrickson is a 82F w/ hx of ESRD on HD, HTN, HL, BM, breast Ca who presented to the ER for BRBPR. Etiology is likely hemorrhoidal vs Diverticular. DDX: AVM, malignancy. She is being monitored. Plan: 1.BRBPR (2/2 to Diverticulosis vs.Hemmorrhoids vs. Colon Mass) - H&H improving; up to 9.4&29.9 today from 8.5&26.5 yesterday -Abdomen and pelvis PO and IV contrast showed no bowel obstruction measure edema , ascites or free intrarenal gas, no obstructive uropathy. It also showed multifocal hyperdense cysts in the bilateral kidneys that are poorly characterized and follow up ultrasonography is recommended. It also showed extensive sigmoid diverticulosis without diverticulitis, hepatic steatosis, cholelithiasis, and no prominent biliary tree dilatation -GI consulted: Chidi: Constipation likely due to immobility and pain medication , Continue supportive care with bowel regimen-pt reports straining, will increase miralax to BID and continue Senokot. No active GI bleed, monitor H/H Etiology is likely hemorrhoidal vs diverticular. No plan for endoscopic evaluation at this time, if Hgb continues to drop after blood transfusion or active GI bleeding will plan for colonoscopy. Continue PPI BID. Pt receiving EPO for Anemia of chronic renal disease. - Diet advanced to renal -Continue Protonix 40mg BID. -Continue to hold Aspirin until source of bleed is found. -Patient hemo-dynamically stable now. IV fluids discontinued. -CBC Q6. Will monitor closely. 2.End stage renal disease -Nephrology consulted. continue dialysis plan MWF . Continue with sensipar -Patient current HD schedule is MWF. Currently in HD. Will continue to monitor. - BUN/Cr increased from 22/3.7 yesterday to 26/4.3 today. Will re-check in morning s/p dialysis. 3. Sacral ulcer -Wound culture positive for pseudomonas; ID consulted; patient placed on meropenem -Surgery consulted: Pt refusing care from the surgical team; no surgical intervention at this time. Surgery recommends treatment with santyl due to patient not wanting debridement. -Wound consult. Will f/u with rec's. - Tramadol for pain control 4.COPD - Wheezing present bilaterally -Patient on 2L NC with oxygen sat at 98% -Duonebs Q6 [facility] -Continue home meds. 5. Hypertension - Stable at 112/82 -Continue home med's. -Hold Lopressor if Systolic blood pressure is below 110 or Heart rate is below 60. 6. Diabetes -Blood glucose 106 on admission, currently 113 -Continue ISS-low -Continue accucheck ACHS 7. C. Diff - C. Diff toxin and antigen positive; metronidazole started 8. Agitation/Delirium - Seems as though patient doesn't realize she is in the hospital at times - Increased anger and agitation - Psych consulted for further evaluation GI PPX -Protonix DVT/PE PPX -SCD's, Patient also on Heparin
[2017-08-05] MEDS ORDERED: Cefepime 1gm in NS 100ml 1 GM/100 ML BAG IVPB SCH (19:00)
--- NOTE | 2017-08-05 19:05 | CP.PCM.CON ---
History of Present Illness - History of Present Illness History of Present Illness: 82 year old female with PMH of HTN, DM, ESRD on HD, COPD, right eye blindness, breast cancer S/P bilateral mastectomy was brought in to [facility] because of bright red blood per rectum. She is also known to have multiple decubitus ulcers on her back and legs, including her sacral area. Surgery is currently following her and is planning on debriding the sacral area and possibly putting a wound vacuum in place. She denies fever, no vomiting, no abdominal pain, no diarrhea, no headache or dizziness. Infectious diseases consult is requested to further evaluate and manage. Review of Systems - Review of Systems All systems: reviewed and no additional remarkable complaints except (as per HPI ) Past Patient History - Infectious Disease Hx of Infectious Diseases: None - Past Medical History & Family History Past Medical History?: Yes - Past Social History Smoking Status: Former Smoker - CARDIAC Hx Cardiac Disorders: Yes Hx Hypertension: Yes - PULMONARY Hx Chronic Obstructive Pulmonary Disease (COPD): Yes - NEUROLOGICAL Hx Neurological Disorder: No - HEENT Other/Comment: Right eye blindness - RENAL Date of Last Dialysis Treatment: 07/10/17 Hx Renal Failure: Yes - ENDOCRINE/METABOLIC Hx Diabetes Mellitus Type 2: Yes - HEMATOLOGICAL/ONCOLOGICAL Hx Cancer: Yes (TO BREAST WITH MASTECTOMY B/L) Other/Comment: internal bleeding and loss of bm movements sent [place] [facility] [place] [facility] - INTEGUMENTARY Other/Comment: Stage 4 Sacral wound. B/l heels - MUSCULOSKELETAL/RHEUMATOLOGICAL Hx Falls: Yes - GASTROINTESTINAL Hx Gastroesophageal Reflux: Yes Other/Comment: "liver problems" - GENITOURINARY/GYNECOLOGICAL Other/Comment: HX OF BREAST CA WITH B/L MASTECTOMY - PSYCHIATRIC Hx Anxiety: Yes Hx Substance Use: No - SURGICAL HISTORY Hx Orthopedic Surgery: Yes (r fx femur head and neck) Other/Comment: BILATERAL MASTECTOMY. RIGHT SUBCLAVIAN PERMACATH H/D CATH - ANESTHESIA Hx Anesthesia: Yes Hx Anesthesia Reactions: No Hx Malignant Hyperthermia: No Meds Allergies/Adverse Reactions: Allergies Allergy/AdvReac Type Severity Reaction Status Date / Time albuterol Allergy DIZZINESS Verified 07/09/17 16:25 clonidine Allergy DIZZINESS Verified 07/09/17 16:25 ibuprofen Allergy VOMITING Verified 07/09/17 16:25 prednisone Allergy VOMITING Verified 07/09/17 16:25 - Medications Medications: Current Medications Albuterol/Ipratropium (Duoneb 3 Mg/0.5 Mg (3 Ml) Ud) 3 ml IH [id number] [facility] Last Admin: 08/05/17 13:48 Dose: Not Given Atorvastatin Calcium (Lipitor) 10 mg PO DIN [facility] Last Admin: 08/05/17 18:14 Dose: 10 mg Bacitracin (Bacitracin) 0 gm TOP Q12 [facility] Last Admin: 08/05/17 15:48 Dose: Not Given Benzonatate (Tessalon Perles) 100 mg PO TID [facility] Last Admin: 08/05/17 18:14 Dose: 100 mg Calcitriol (Rocaltrol) 1 mcg PO MWF [facility] Last Admin: 08/05/17 15:56 Dose: 1 mcg Cinacalcet (Sensipar) 30 mg PO DAILY [facility] Last Admin: 08/05/17 15:56 Dose: 30 mg Heparin Sodium (Porcine) (Heparin) 2,100 units ICA MOWEFR [facility] Heparin Sodium (Porcine) (Heparin) 2,200 units ICV MOWEFR [facility] Metronidazole (Flagyl) 500 mg in 100 mls @ 100 mls/hr IVPB Q8 [facility] PRN Reason: Protocol Insulin Human Regular (Humulin R Low) 0 units SC ACHS [facility] PRN Reason: Protocol Last Admin: 08/05/17 17:40 Dose: Not Given Lactobacillus Acidophilus (Bacid Acidophilus) 1 cap PO BID [facility] Last Admin: 08/05/17 18:14 Dose: 1 cap Latanoprost (Xalatan Opht) 0 ml OD HS [facility] Last Admin: 08/04/17 21:01 Dose: Not Given Lorazepam (Ativan) 0.25 mg IM ONCE PRN; Protocol PRN Reason: Pain, moderate (4-7) Metoprolol Tartrate (Lopressor) 25 mg PO BRKDIN [facility] Last Admin: 08/05/17 18:14 Dose: 25 mg Montelukast Sodium (Singulair) 10 mg PO HS [facility] Last Admin: 08/04/17 21:00 Dose: 10 mg Morphine Sulfate (Morphine) 2 mg IVP Q4H PRN PRN Reason: Pain, moderate (4-7) Last Admin: 08/04/17 21:03 Dose: 2 mg Ondansetron HCl (Zofran Inj) 4 mg IVP Q8H PRN PRN Reason: Nausea/Vomiting Pantoprazole Sodium (Protonix Ec Tab) 40 mg PO 0600,1600 [facility] Last Admin: 08/05/17 18:21 Dose: 40 mg Pilocarpine HCl (Isopto Carpine 2% Opht Soln) 0 ml OS Q12 [facility] Last Admin: 08/05/17 15:51 Dose: Not Given Polyethylene Glycol (Miralax) 17 gm PO BID [facility] Last Admin: 08/05/17 18:18 Dose: Not Given Sennosides (Senokot Tab) 17.2 mg PO HS [facility] Last Admin: 08/04/17 21:00 Dose: 17.2 mg Tramadol HCl (Ultram) 50 mg PO TID [facility] Last Admin: 08/05/17 18:19 Dose: 50 mg Vancomycin HCl (Vancocin 25 Mg/Ml (Oral Use)) 125 mg PO QID [facility] PRN Reason: Protocol Vitamin B Complex/Vit C/Folic Acid (Nephro-Yesica) 1 tab PO 0800 [facility] Last Admin: 08/05/17 08:45 Dose: 1 tab Zolpidem Tartrate (Ambien) 5 mg PO HS PRN; Protocol PRN Reason: Insomnia Last Admin: 08/04/17 21:00 Dose: 5 mg Physical Exam - Constitutional Appears: No Acute Distress, Chronically Ill - Head Exam Head Exam: NORMAL INSPECTION - Neck Exam Neck exam: Negative for: Meningismus - Respiratory Exam Respiratory Exam: Decreased Breath Sounds - Cardiovascular Exam Cardiovascular Exam: +S1, +S2 - GI/Abdominal Exam GI & Abdominal Exam: Soft. absent: Tenderness Results - Vital Signs Recent Vital Signs: Last Vital Signs Temp 98.2 F 08/05/17 16:00 Pulse 89 08/05/17 18:14 Resp 18 08/05/17 16:00 BP 112/82 08/05/17 18:14 Pulse Ox 98 08/05/17 16:00 - Labs Result Diagrams: 08/05/17 06:56 08/05/17 06:56 Labs: Laboratory Results - last 24 hr 08/04/17 08/05/17 08/05/17 21:19 06:56 06:56 WBC 9.0 D RBC 3.22 L Hgb 9.4 L Hct 29.9 L MCV 92.9 MCH 29.2 MCHC 31.4 RDW 15.8 H Plt Count 235 MPV 9.3 Gran % 73.8 H Lymph % (Auto) 15.5 L [place] % (Auto) 8.4 H Eos % (Auto) 2.0 Baso % (Auto) 0.3 Gran # 6.61 H Lymph # 1.4 [place] # 0.8 H Eos # 0.2 Baso # 0.03 Sodium 137 Potassium 4.5 Chloride 102 Carbon Dioxide 29 Anion Gap 11 BUN 26 H Creatinine 4.3 H Est GFR ( Amer) 12 Est GFR (Non-Af Amer) 10 POC Glucose (mg/dL) 96 Random Glucose 74 Calcium 8.6 Phosphorus Total Bilirubin 0.7 AST 43 H D ALT 31 Alkaline Phosphatase 156 H Total Protein 5.5 L Albumin 2.1 L Globulin 3.4 Albumin/Globulin Ratio 0.6 L 08/05/17 08/05/17 08/05/17 07:00 07:15 16:45 WBC RBC Hgb Hct MCV MCH MCHC RDW Plt Count MPV Gran % Lymph % (Auto) [place] % (Auto) Eos % (Auto) Baso % (Auto) Gran # Lymph # [place] # Eos # Baso # Sodium Potassium Chloride Carbon Dioxide Anion Gap BUN Creatinine Est GFR ( Amer) Est GFR (Non-Af Amer) POC Glucose (mg/dL) 73 113 H Random Glucose Calcium Phosphorus 4.9 H Total Bilirubin AST ALT Alkaline Phosphatase Total Protein Albumin Globulin Albumin/Globulin Ratio Assessment & Plan - Assessment and Plan (Free Text) Plan: Assessment Multiple pressure ulcers (both heels, sacral ulcer stage 3), infected with Pseudomonas (sacral ulcer / buttock area); previously had wound vacuum placement done - for possible debridement and placement of wound vacuum C. diff associated diarrhea GI bleeding, etiology to be determined HTN DM ESRD on HD COPD right eye blindness breast cancer S/P bilateral mastectomy Plan started patient on Merrem and PO Vancomycin; stool for C. diff antigen and antibody are positive follow up further plans of Surgery will continue to monitor clinically
[2017-08-05] MEDS: Vancomycin 25 MG/ML PO SCH (19:23)
[2017-08-05] MEDS: metroNIDAZOLE IV 500 mg/100 ml 500 MG/100 ML BAG IVPB SCH (21:37)
[2017-08-06] MEDS: Vancomycin 25 MG/ML PO SCH ×5 (00:19→17:54)
[2017-08-06] MEDS: Albuterol-Ipratrop 3 mg / 0.5 (3 ml) UD IH SCH ×3 (01:30→13:41)
--- NOTE | 2017-08-06 07:39 | CP.PCM.PN ---
Subjective - Date & Time of Evaluation Date of Evaluation: 08/06/17 Time of Evaluation: 07:34 - Subjective Subjective: Surgery PT seen. Resting comfortably. Objective - Vital Signs/Intake and Output Vital Signs (last 24 hours): Temp Pulse Resp BP Pulse Ox 98.2 F 89 18 112/82 98 08/05/17 16:00 08/05/17 18:14 08/05/17 16:00 08/05/17 18:14 08/05/17 16:00 Intake and Output: 08/06/17 08/06/17 06:59 18:59 Intake Total 120 Balance 120 - Medications Medications: Current Medications Albuterol/Ipratropium (Duoneb 3 Mg/0.5 Mg (3 Ml) Ud) 3 ml IH [id number] [facility] Last Admin: 08/06/17 07:20 Dose: 3 ml Atorvastatin Calcium (Lipitor) 10 mg PO DIN [facility] Last Admin: 08/05/17 18:14 Dose: 10 mg Bacitracin (Bacitracin) 0 gm TOP Q12 [facility] Last Admin: 08/05/17 15:48 Dose: Not Given Benzonatate (Tessalon Perles) 100 mg PO TID [facility] Last Admin: 08/05/17 18:14 Dose: 100 mg Calcitriol (Rocaltrol) 1 mcg PO MWF [facility] Last Admin: 08/05/17 15:56 Dose: 1 mcg Cinacalcet (Sensipar) 30 mg PO DAILY [facility] Last Admin: 08/05/17 15:56 Dose: 30 mg Collagenase (Santyl) 0 gm TOP DAILY [facility] Heparin Sodium (Porcine) (Heparin) 2,100 units [facility] Heparin Sodium (Porcine) (Heparin) 2,200 units ICV MOWEFR [facility] Metronidazole (Flagyl) 500 mg in 100 mls @ 100 mls/hr IVPB Q8 [facility] PRN Reason: Protocol Last Admin: 08/05/17 21:37 Dose: 100 mls/hr Meropenem 250 mg/ Sodium (Chloride) 100 mls @ 100 mls/hr IVPB Q12H [facility] PRN Reason: Protocol Stop: 08/12/17 18:46 Last Admin: 08/06/17 06:29 Dose: 100 mls/hr Insulin Human Regular (Humulin R Low) 0 units SC ACHS [facility] PRN Reason: Protocol Last Admin: 08/05/17 17:40 Dose: Not Given Lactobacillus Acidophilus (Bacid Acidophilus) 1 cap PO BID [facility] Last Admin: 08/05/17 18:14 Dose: 1 cap Latanoprost (Xalatan Opht) 0 ml OD HS [facility] Last Admin: 08/04/17 21:01 Dose: Not Given Lorazepam (Ativan) 0.25 mg IM ONCE PRN; Protocol PRN Reason: Pain, moderate (4-7) Metoprolol Tartrate (Lopressor) 25 mg PO BRKDIN [facility] Last Admin: 08/05/17 18:14 Dose: 25 mg Montelukast Sodium (Singulair) 10 mg PO HS [facility] Last Admin: 08/05/17 21:38 Dose: 10 mg Morphine Sulfate (Morphine) 2 mg IVP Q4H PRN PRN Reason: Pain, moderate (4-7) Last Admin: 08/04/17 21:03 Dose: 2 mg Ondansetron HCl (Zofran Inj) 4 mg IVP Q8H PRN PRN Reason: Nausea/Vomiting Pantoprazole Sodium (Protonix Ec Tab) 40 mg PO 0600,1600 [facility] Last Admin: 08/05/17 18:21 Dose: 40 mg Pilocarpine HCl (Isopto Carpine 2% Opht Soln) 0 ml OS Q12 [facility] Last Admin: 08/05/17 15:51 Dose: Not Given Polyethylene Glycol (Miralax) 17 gm PO BID [facility] Last Admin: 08/05/17 18:18 Dose: Not Given Sennosides (Senokot Tab) 17.2 mg PO HS [facility] Last Admin: 08/05/17 21:38 Dose: 17.2 mg Tramadol HCl (Ultram) 50 mg PO TID [facility] Last Admin: 08/05/17 18:19 Dose: 50 mg Vancomycin HCl (Vancocin 25 Mg/Ml (Oral Use)) 125 mg PO QID [facility] PRN Reason: Protocol Last Admin: 08/06/17 00:19 Dose: 125 mg Vitamin B Complex/Vit C/Folic Acid (Nephro-Yesica) 1 tab PO 0800 [facility] Last Admin: 08/05/17 08:45 Dose: 1 tab Zolpidem Tartrate (Ambien) 5 mg PO HS PRN; Protocol PRN Reason: Insomnia Last Admin: 08/04/17 21:00 Dose: 5 mg - Labs Labs: 08/05/17 06:56 08/05/17 06:56 PT 13.7 SECONDS (9.4-12.5) H 08/01/17 09:54 INR 1.24 (0.93-1.08) H 08/01/17 09:54 APTT 28.6 Seconds (25.1-36.5) 08/01/17 09:54 - Constitutional Appears: No Acute Distress - Head Exam Head Exam: ATRAUMATIC, NORMAL INSPECTION, NORMOCEPHALIC - Eye Exam Eye Exam: EOMI, Normal appearance, PERRL Pupil Exam: NORMAL ACCOMODATION, PERRL - ENT Exam ENT Exam: Mucous Membranes Moist, Normal Exam - Neck Exam Neck Exam: Full ROM, Normal Inspection. absent: Lymphadenopathy - Respiratory Exam Respiratory Exam: Clear to Ausculation Bilateral, NORMAL BREATHING PATTERN - Cardiovascular Exam Cardiovascular Exam: REGULAR RHYTHM, +S1, +S2. absent: Murmur - GI/Abdominal Exam GI & Abdominal Exam: Soft, Normal Bowel Sounds. absent: Distended, Tenderness - Extremities Exam Extremities Exam: Full ROM, Normal Capillary Refill, Normal Inspection. absent : Joint Swelling, Pedal Edema - Back Exam Additional comments: Large [id number] sacral ulcer. - Neurological Exam Neurological Exam: Alert, Awake, CN II-XII Intact, Oriented x3 - Skin Skin Exam: Erythema, Warm. absent: Intact Assessment and Plan - Assessment and Plan (Free Text) Assessment: 82yo F w/ stage IV decubitus ulcer, + Pseudomonas -Pt refusing wound vac -Santyl -Duoderm -Wound care nurse on board Will DENVER Khan
[2017-08-06] MEDS ORDERED: Collagenase 250 Units/gm Ointment(30 gm) TOP SCH (10:00)
[2017-08-06] MEDS: Lactobacillus Acidophilus 500 MU Cap PO SCH ×2 (10:57→17:06)
[2017-08-06] MEDS: POLYETHYLENE GLYCOL 3350 17 GM/Dose PACKET PO SCH ×2 (10:58→17:05)
[2017-08-06] MEDS: Pilocarpine 2% Opht (15ml) OS SCH (10:58)
[2017-08-06] MEDS: Insulin Reg-LOW-Coverage SC SCH ×3 (10:59→16:57)
[2017-08-06] MEDS: Pantoprazole 40 mg EC Tab PO SCH ×2 (11:05→17:05)
[2017-08-06] MEDS: Multivitamin Vitamin B Complex (Nephro-Vite) Tab PO SCH (11:05)
[2017-08-06] MEDS: Bacitracin Ointment 30 GM TUBE TOP SCH (11:19)
--- NOTE | 2017-08-06 11:44 | CP.PCM.CON ---
History of Present Illness - History of Present Illness History of Present Illness: Palliative consult requested by Dr. Kira Garcia Reason: Goals of care/advance care planning 82 year old female with history of DM, COPD,HTN, sacral ulcer,ESRD on HD, breast cancer who presented with BRRB. She denied fever, chills, vomiting, pain or shortness of breath PHMX: breast cancer s/p bilateral mastectomy, ESRD on HD, R subclavian permacath , HTN, COPD, DM sacral decubiti,anemia, Fx of left femur, blind in right eye. Social History: Former heavy smoker, no alcohol or drug use. Marred lived with spouse. Recently sent to [facility]. Family History: Non contributory Advance Care Planning: The patient does not have an Advanced Directive, she is full code status. Review of Systems - Constitutional Constitutional: Lethargy - Breasts Additional comments: s/p double mastectomy - Cardiovascular Additional comments: negative - Respiratory Additional comments: negative - Psychiatric Additional comments: negative - Endocrine Additional Comments: negative - Hematologic/Lymphatic Hematologic: Easy Bruising Past Patient History - Infectious Disease Hx of Infectious Diseases: None - Past Medical History & Family History Past Medical History?: Yes - Past Social History Smoking Status: Former Smoker - CARDIAC Hx Cardiac Disorders: Yes Hx Hypertension: Yes - PULMONARY Hx Chronic Obstructive Pulmonary Disease (COPD): Yes - NEUROLOGICAL Hx Neurological Disorder: No - HEENT Other/Comment: Right eye blindness - RENAL Date of Last Dialysis Treatment: 07/10/17 Hx Renal Failure: Yes - ENDOCRINE/METABOLIC Hx Diabetes Mellitus Type 2: Yes - HEMATOLOGICAL/ONCOLOGICAL Hx Cancer: Yes (TO BREAST WITH MASTECTOMY B/L) Other/Comment: internal bleeding and loss of [place] [facility] [place] [facility] - INTEGUMENTARY Other/Comment: Stage 4 Sacral wound. B/l heels - MUSCULOSKELETAL/RHEUMATOLOGICAL Hx Falls: Yes - GASTROINTESTINAL Hx Gastroesophageal Reflux: Yes Other/Comment: "liver problems" - GENITOURINARY/GYNECOLOGICAL Other/Comment: HX OF BREAST CA WITH B/L MASTECTOMY - PSYCHIATRIC Hx Anxiety: Yes Hx Substance Use: No - SURGICAL HISTORY Hx Orthopedic Surgery: Yes (r fx femur head and neck) Other/Comment: BILATERAL MASTECTOMY. RIGHT SUBCLAVIAN PERMACATH H/D CATH - ANESTHESIA Hx Anesthesia: Yes Hx Anesthesia Reactions: No Hx Malignant Hyperthermia: No Meds Allergies/Adverse Reactions: Allergies Allergy/AdvReac Type Severity Reaction Status Date / Time albuterol Allergy DIZZINESS Verified 07/09/17 16:25 clonidine Allergy DIZZINESS Verified 07/09/17 16:25 ibuprofen Allergy VOMITING Verified 07/09/17 16:25 prednisone Allergy VOMITING Verified 07/09/17 16:25 - Medications Medications: Current Medications Albuterol/Ipratropium (Duoneb 3 Mg/0.5 Mg (3 Ml) Ud) 3 ml IH [id number] [facility] Last Admin: 08/06/17 07:20 Dose: 3 ml Atorvastatin Calcium (Lipitor) 10 mg PO DIN [facility] Last Admin: 08/05/17 18:14 Dose: 10 mg Bacitracin (Bacitracin) 0 gm TOP Q12 [facility] Last Admin: 08/06/17 11:19 Dose: Not Given Benzonatate (Tessalon Perles) 100 mg PO TID [facility] Last Admin: 08/06/17 10:57 Dose: 100 mg Calcitriol (Rocaltrol) 1 mcg PO MWF [facility] Last Admin: 08/05/17 15:56 Dose: 1 mcg Cinacalcet (Sensipar) 30 mg PO DAILY [facility] Last Admin: 08/06/17 10:57 Dose: 30 mg Collagenase (Santyl) 0 gm TOP DAILY [facility] Last Admin: 08/06/17 10:57 Dose: 1 applic Heparin Sodium (Porcine) (Heparin) 2,100 units ICA [facility] Heparin Sodium (Porcine) (Heparin) 2,200 units ICV [facility] Metronidazole (Flagyl) 500 mg in 100 mls @ 100 mls/hr IVPB Q8 [facility] PRN Reason: Protocol Last Admin: 08/05/17 21:37 Dose: 100 mls/hr Meropenem 250 mg/ Sodium (Chloride) 100 mls @ 100 mls/hr IVPB Q12H [facility] PRN Reason: Protocol Stop: 08/12/17 18:46 Last Admin: 08/06/17 06:29 Dose: 100 mls/hr Albumin Human (Albumin Human 5% (12.5 Gm/250 Ml)) 250 mls @ 62.5 mls/hr IV ONCE ONE Stop: 08/06/17 14:07 Insulin Human Regular (Humulin R Low) 0 units SC ACHS [facility] PRN Reason: Protocol Last Admin: 08/06/17 10:59 Dose: Not Given Lactobacillus Acidophilus (Bacid Acidophilus) 1 cap PO BID [facility] Last Admin: 08/06/17 10:57 Dose: 1 cap Latanoprost (Xalatan Opht) 0 ml OD HS [facility] Last Admin: 08/04/17 21:01 Dose: Not Given Lorazepam (Ativan) 0.25 mg IM ONCE PRN; Protocol PRN Reason: Pain, moderate (4-7) Metoprolol Tartrate (Lopressor) 25 mg PO BRKDIN [facility] Last Admin: 08/06/17 08:35 Dose: 25 mg Montelukast Sodium (Singulair) 10 mg PO HS [facility] Last Admin: 08/05/17 21:38 Dose: 10 mg Morphine Sulfate (Morphine) 2 mg IVP Q4H PRN PRN Reason: Pain, moderate (4-7) Last Admin: 08/04/17 21:03 Dose: 2 mg Ondansetron HCl (Zofran Inj) 4 mg IVP Q8H PRN PRN Reason: Nausea/Vomiting Pantoprazole Sodium (Protonix Ec Tab) 40 mg PO 0600,1600 [facility] Last Admin: 08/06/17 11:05 Dose: 40 mg Pilocarpine HCl (Isopto Carpine 2% Opht Soln) 0 ml OS Q12 [facility] Last Admin: 08/06/17 10:58 Dose: 1 drop Polyethylene Glycol (Miralax) 17 gm PO BID [facility] Last Admin: 08/06/17 10:58 Dose: Not Given Sennosides (Senokot Tab) 17.2 mg PO [facility] Last Admin: 08/05/17 21:38 Dose: 17.2 mg Tramadol HCl (Ultram) 50 mg PO TID [facility] Last Admin: 08/06/17 09:26 Dose: 50 mg Vancomycin HCl (Vancocin 25 Mg/Ml (Oral Use)) 125 mg PO QID [facility] PRN Reason: Protocol Last Admin: 08/06/17 11:02 Dose: 125 mg Vitamin B Complex/Vit C/Folic Acid (Nephro-Yesica) 1 tab PO 0800 [facility] Last Admin: 08/06/17 11:05 Dose: 1 tab Zolpidem Tartrate (Ambien) 5 mg PO HS PRN; Protocol PRN Reason: Insomnia Last Admin: 08/04/17 21:00 Dose: 5 mg Physical Exam - Constitutional Appears: No Acute Distress, Chronically Ill - Head Exam Head Exam: NORMOCEPHALIC - Eye Exam Eye Exam: PERRL Additional comments: blind in right eye - ENT Exam ENT Exam: Mucous Membranes Moist - Neck Exam Neck exam: Positive for: Normal Inspection - Respiratory Exam Respiratory Exam: Clear to Auscultation Bilateral, NORMAL BREATHING PATTERN - Cardiovascular Exam Cardiovascular Exam: REGULAR RHYTHM, +S1, +S2 - GI/Abdominal Exam GI & Abdominal Exam: Normal Bowel Sounds, Soft - Neurological Exam Neurological exam: Alert, Oriented x3 - Skin Skin Exam: Dry, Pallor Additional comments: left heel necrotic, right heel necrotic, sacral wound> tunneling, Right foot dorsal wound stage III,Two small necrotic wounds on posterior aspect of plantar foot and more on medial aspect of plantar - Additional Findings Additional findings: Palliative 30% performance scale rating Results - Vital Signs Recent Vital Signs: Last Vital Signs Temp 98.2 F 08/05/17 16:00 Pulse 100 H 08/06/17 08:35 Resp 18 08/05/17 16:00 BP 125/45 L 08/06/17 08:35 Pulse Ox 98 08/05/17 16:00 - Labs Result Diagrams: 08/05/17 06:56 08/05/17 06:56 Labs: Laboratory Results - last 24 hr 08/05/17 08/05/17 08/06/17 16:45 21:31 07:37 POC Glucose (mg/dL) 113 H 79 78 Assessment & Plan - Assessment and Plan (Free Text) Assessment: 82 year old female with multiple comorbidities(see PMH) who is admitted with bright red rectal bleeding,anemia,C Difficile, multiple pressure ulcers. She is alert and oriented. She states that she is tired of having procedures done.The patient has been refusing would vac for sacral decubiti. She and I had discussion regarding resuscitation wishes. The patient does not want CPR/ intubation or artificial nutrition via PEG feeding. Patient's son Davian at bedside. Advance care planning discussion ensued. POLST directive explained. POLST DNR/DNI completed. Patient's son Davian Hendrickson is health care surrogate. A copy is on the chart. Time spent in goals of care and advance care planning discussion, 30 minutes Plan: Advance care planning POLST: DNR/DNI
--- NOTE | 2017-08-06 12:24 | CP.PCM.PN ---
Subjective - Date & Time of Evaluation Date of Evaluation: 08/06/17 Time of Evaluation: 11:40 - Subjective Subjective: Patient is refusing debridement and wound vacuum placement on her wounds, no fevers overnight. Objective - Vital Signs/Intake and Output Vital Signs (last 24 hours): Temp Pulse Resp BP Pulse Ox 98.2 F 100 H 18 125/45 L 98 08/05/17 16:00 08/06/17 08:35 08/05/17 16:00 08/06/17 08:35 08/05/17 16:00 Intake and Output: 08/06/17 08/06/17 06:59 18:59 Intake Total 120 Balance 120 - Medications Medications: Current Medications Albuterol/Ipratropium (Duoneb 3 Mg/0.5 Mg (3 Ml) Ud) 3 ml IH [id number] [facility] Last Admin: 08/06/17 07:20 Dose: 3 ml Atorvastatin Calcium (Lipitor) 10 mg PO DIN [facility] Last Admin: 08/05/17 18:14 Dose: 10 mg Bacitracin (Bacitracin) 0 gm TOP Q12 [facility] Last Admin: 08/05/17 15:48 Dose: Not Given Benzonatate (Tessalon Perles) 100 mg PO TID [facility] Last Admin: 08/05/17 18:14 Dose: 100 mg Calcitriol (Rocaltrol) 1 mcg PO MWF [facility] Last Admin: 08/05/17 15:56 Dose: 1 mcg Cinacalcet (Sensipar) 30 mg PO DAILY [facility] Last Admin: 08/05/17 15:56 Dose: 30 mg Collagenase (Santyl) 0 gm TOP DAILY [facility] Heparin Sodium (Porcine) (Heparin) 2,100 units ICA MOWEFR [facility] Heparin Sodium (Porcine) (Heparin) 2,200 units ICV MOWEFR [facility] Metronidazole (Flagyl) 500 mg in 100 mls @ 100 mls/hr IVPB Q8 [facility] PRN Reason: Protocol Last Admin: 08/05/17 21:37 Dose: 100 mls/hr Meropenem 250 mg/ Sodium (Chloride) 100 mls @ 100 mls/hr IVPB Q12H [facility] PRN Reason: Protocol Stop: 08/12/17 18:46 Last Admin: 08/06/17 06:29 Dose: 100 mls/hr Albumin Human (Albumin Human 5% (12.5 Gm/250 Ml)) 250 mls @ 62.5 mls/hr IV ONCE ONE Stop: 08/06/17 14:07 Insulin Human Regular (Humulin R Low) 0 units SC ACHS [facility] PRN Reason: Protocol Last Admin: 08/05/17 17:40 Dose: Not Given Lactobacillus Acidophilus (Bacid Acidophilus) 1 cap PO BID [facility] Last Admin: 08/05/17 18:14 Dose: 1 cap Latanoprost (Xalatan Opht) 0 ml OD HS [facility] Last Admin: 08/04/17 21:01 Dose: Not Given Lorazepam (Ativan) 0.25 mg IM ONCE PRN; Protocol PRN Reason: Pain, moderate (4-7) Metoprolol Tartrate (Lopressor) 25 mg PO BRKDIN [facility] Last Admin: 08/06/17 08:35 Dose: 25 mg Montelukast Sodium (Singulair) 10 mg PO HS [facility] Last Admin: 08/05/17 21:38 Dose: 10 mg Morphine Sulfate (Morphine) 2 mg IVP Q4H PRN PRN Reason: Pain, moderate (4-7) Last Admin: 08/04/17 21:03 Dose: 2 mg Ondansetron HCl (Zofran Inj) 4 mg IVP Q8H PRN PRN Reason: Nausea/Vomiting Pantoprazole Sodium (Protonix Ec Tab) 40 mg PO 0600,1600 [facility] Last Admin: 08/05/17 18:21 Dose: 40 mg Pilocarpine HCl (Isopto Carpine 2% Opht Soln) 0 ml OS Q12 [facility] Last Admin: 08/05/17 15:51 Dose: Not Given Polyethylene Glycol (Miralax) 17 gm PO BID [facility] Last Admin: 08/05/17 18:18 Dose: Not Given Sennosides (Senokot Tab) 17.2 mg PO HS [facility] Last Admin: 08/05/17 21:38 Dose: 17.2 mg Tramadol HCl (Ultram) 50 mg PO TID [facility] Last Admin: 08/06/17 09:26 Dose: 50 mg Vancomycin HCl (Vancocin 25 Mg/Ml (Oral Use)) 125 mg PO QID [facility] PRN Reason: Protocol Last Admin: 08/06/17 00:19 Dose: 125 mg Vitamin B Complex/Vit C/Folic Acid (Nephro-Yesica) 1 tab PO 0800 [facility] Last Admin: 08/05/17 08:45 Dose: 1 tab Zolpidem Tartrate (Ambien) 5 mg PO HS PRN; Protocol PRN Reason: Insomnia Last Admin: 08/04/17 21:00 Dose: 5 mg - Labs Labs: 08/05/17 06:56 08/05/17 06:56 PT 13.7 SECONDS (9.4-12.5) H 08/01/17 09:54 INR 1.24 (0.93-1.08) H 08/01/17 09:54 APTT 28.6 Seconds (25.1-36.5) 08/01/17 09:54 - Constitutional Appears: Non-toxic - Head Exam Head Exam: NORMAL INSPECTION - Neck Exam Neck Exam: absent: Meningismus - Respiratory Exam Respiratory Exam: Decreased Breath Sounds - Cardiovascular Exam Cardiovascular Exam: +S1, +S2 - GI/Abdominal Exam GI & Abdominal Exam: Soft. absent: Tenderness Assessment and Plan - Assessment and Plan (Free Text) Plan: Assessment Multiple pressure ulcers (both heels, sacral ulcer stage 3), infected with Pseudomonas (sacral ulcer / buttock area); previously had wound vacuum placement done - for possible debridement and placement of wound vacuum (but patient is refusing) C. diff associated diarrhea, acute infection GI bleeding, etiology to be determined HTN DM ESRD on HD COPD right eye blindness breast cancer S/P bilateral mastectomy Plan continue Merrem and PO Vancomycin (day 2); stool for C. diff antigen and antibody are positive follow up further plans of Surgery after patient is evaluated by Psych will continue to monitor clinically
--- NOTE | 2017-08-06 14:03 | CP.PCM.DIS ---
Provider - Provider Date of Admission: 08/01/17 12:52 Attending physician: Augustine Waite MD Consults: General Surgery: Dr. Khan Nephrology: Dr. France Infectious Disease: Dr. Rodríguez Psychiatry: Dr. Zurita Palliative Care: Kathryn Elizabeth Time Spent in preparation of Discharge (in minutes): 45 Diagnosis - Discharge Diagnosis (1) Sacral decubitus ulcer, stage IV Status: Acute (2) Unspecified open wound, right knee, initial encounter Status: Acute (3) C. difficile colitis Status: Acute (4) Pseudomonas infection Status: Acute (5) GI bleed Status: Acute Hospital Course - Lab Results Lab Results: Micro Results 08/04/17 18:30 Stool C. difficile Antigen & Toxin A,B (M - Final 08/01/17 14:40 Buttock Gram Stain - Final 08/01/17 14:40 Buttock Wound Culture - Final Pseudomonas Aeruginosa 08/01/17 14:40 Naris MRSA Culture (Admit) - Final MRSA NOT DETECTED Most Recent Lab Values WBC 9.0 10^3/ul (4.5-11.0) D 08/05/17 06:56 RBC 3.22 10^6/uL (3.5-6.1) L 08/05/17 06:56 Hgb 9.4 g/dL (12.0-16.0) L 08/05/17 06:56 Hct 29.9 % (36.0-48.0) L 08/05/17 06:56 MCV 92.9 fl (80.0-105.0) 08/05/17 06:56 MCH 29.2 pg (25.0-35.0) 08/05/17 06:56 MCHC 31.4 g/dl (31.0-37.0) 08/05/17 06:56 RDW 15.8 % (11.5-14.5) H 08/05/17 06:56 Plt Count 235 10^3/uL (120.0-450.0) 08/05/17 06:56 MPV 9.3 fl (7.0-11.0) 08/05/17 06:56 Gran % 73.8 % (50.0-68.0) H 08/05/17 06:56 Lymph % (Auto) 15.5 % (22.0-35.0) L 08/05/17 06:56 Letcher % (Auto) 8.4 % (1.0-6.0) H 08/05/17 06:56 Eos % (Auto) 2.0 % (1.5-5.0) 08/05/17 06:56 Baso % (Auto) 0.3 % (0.0-3.0) 08/05/17 06:56 Gran # 6.61 (1.4-6.5) H 08/05/17 06:56 Lymph # 1.4 (1.2-3.4) 08/05/17 06:56 Letcher # 0.8 (0.1-0.6) H 08/05/17 06:56 Eos # 0.2 (0.0-0.7) 08/05/17 06:56 Baso # 0.03 K/mm3 (0.0-2.0) 08/05/17 06:56 PT 13.7 SECONDS (9.4-12.5) H 08/01/17 09:54 INR 1.24 (0.93-1.08) H 08/01/17 09:54 APTT 28.6 Seconds (25.1-36.5) 08/01/17 09:54 Sodium 137 mmol/L (132-148) 08/05/17 06:56 Potassium 4.5 mmol/L (3.6-5.0) 08/05/17 06:56 Chloride 102 mmol/L (95-110) 08/05/17 06:56 Carbon Dioxide 29 mmol/L (21-33) 08/05/17 06:56 Anion Gap 11 (10-20) 08/05/17 06:56 BUN 26 mg/dL (7-21) H 08/05/17 06:56 Creatinine 4.3 mg/dL (0.7-1.2) H 08/05/17 06:56 Est GFR ( Amer) 12 08/05/17 06:56 Est GFR (Non-Af Amer) 10 08/05/17 06:56 POC Glucose (mg/dL) 92 mg/dL (65-110) 08/06/17 12:27 Random Glucose 74 mg/dL (70-110) 08/05/17 06:56 Calcium 8.6 mg/dL (8.4-10.5) 08/05/17 06:56 Phosphorus 4.9 mg/dL (2.5-4.5) H 08/05/17 07:00 Total Bilirubin 0.7 mg/dL (0.2-1.3) 08/05/17 06:56 AST 43 U/L (14-36) H D 08/05/17 06:56 ALT 31 U/L (7-56) 08/05/17 06:56 Alkaline Phosphatase 156 U/L (38-126) H 08/05/17 06:56 Lactate Dehydrogenase 427 U/L (333-699) 08/01/17 09:54 Total Creatine Kinase 28 U/L (35-230) L 08/01/17 09:54 Troponin I 0.07 ng/mL D 08/01/17 09:54 Total Protein 5.5 g/dL (5.8-8.3) L 08/05/17 06:56 Albumin 2.1 g/dL (3.0-4.8) L 08/05/17 06:56 Globulin 3.4 gm/dL 08/05/17 06:56 Albumin/Globulin Ratio 0.6 (1.1-1.8) L 08/05/17 06:56 Amylase < 30 U/L (35-125) L 08/01/17 09:54 Lipase 36 U/L (23-300) 08/01/17 09:54 Stool Occult Blood Positive (NEGATIVE) H 08/03/17 09:50 Blood Type A NEGATIVE 08/04/17 12:15 Blood Type Confirm A NEGATIVE 08/01/17 10:25 Antibody Screen Negative 08/04/17 12:15 Crossmatch See Detail 08/04/17 12:15 BBK History Checked Patient has bt 08/04/17 12:15 - Hospital Course Hospital Course: Patient is an 82 year old female with history of DM II, COPD, HTN, ESRD (MWF hemodialysis), Breast cancer s/p mastectomy who presented to [facility] ED on from [facility] long term with complains of bright red bleeding per rectum. With imaging, source of bleeding was found to be diverticulosis. H&H began to improve and stabilize after bein transfused 1 PRBC; Gastroenterology decided it would be unnecessary to perform a colonoscopy due to patient's stability. Patient was also found to have decubitus sacral ulcers as well as wounds on right knee. Surgery was consulted for possible debridement; patient refused to be treated by surgery. Gen surgery as a result recommended santyl dressings along with duoderm. Nephrology was consulted for patient's ESRD. As per nephro, patient continued with MWF hemodialysis schedule, received EPO for anemia, as well as binders and sensipar for prophylactic calcium depletion due to secondary hyperparathyroidism due to ESRD. During course of stay patient developed C diff which is being treated with PO vancomycin by ID for which patient will receive a prescription to continue outside of the hospital. Patient's sacral wound was found to be positive for pseudomonas which was treated with Merem as per infection disease. Patient began refusing any further treatment per medical staff. Discussed with patient and son regarding transfer back to [facility]. Both patient and son agree with decision. Patient will be transferred to [facility] where PICC line will also be placed. Discharge Exam - Head Exam Head Exam: NORMOCEPHALIC - Eye Exam Eye Exam: EOMI, Normal appearance - ENT Exam ENT Exam: Mucous Membranes Dry - Respiratory Exam Respiratory Exam: NORMAL BREATHING PATTERN. absent: Wheezes - Cardiovascular Exam Cardiovascular Exam: REGULAR RHYTHM, +S1, +S2 - GI/Abdominal Exam GI & Abdominal Exam: Normal Bowel Sounds, Soft - Extremities Exam Additional comments: Right Knee wound - Back Exam Additional comments: left sided sacral ulcer stage IV - Neurological Exam Neurological exam: Alert, Oriented x3 - Psychiatric Exam Psychiatric exam: Agitated - Skin Skin Exam: Normal Color, Warm Discharge Plan - Follow Up Plan Condition: FAIR [facility] Additional Instructions: - Discharge back to [facility] - Patient will need 4 weeks of merrem for pseudomona wound infection - Patient will need 14 days total of po vanco for clostridium difficile. - Patient will need daily wound care, and turning every 2 hours with air mattress.
--- NOTE | 2017-08-06 15:22 | CP.PCM.PN ---
Subjective - Date & Time of Evaluation Date of Evaluation: 08/06/17 Time of Evaluation: 15:22 - Subjective Subjective: no events overnight vs reviewed gen: nad neck supple cv +s1+s2 lungs cta abd soft ext no edema neuro: A+OX3 psych: normal affect, anxious skin: sacral decub A/P: esrd/anemia/GI bleed/diabetic kidney disease/sacral ulcer/sec hyperpth hd mwf,continue per schedule anemia: epo with hd bp stable continue binders, sensipar Objective - Vital Signs/Intake and Output Vital Signs (last 24 hours): Temp Pulse Resp BP Pulse Ox 98.2 F 100 H 18 125/45 L 98 08/05/17 16:00 08/06/17 08:35 08/05/17 16:00 08/06/17 08:35 08/05/17 16:00 Intake and Output: 08/06/17 08/06/17 06:59 18:59 Intake Total 400 Balance 400 - Medications Medications: Current Medications Albuterol/Ipratropium (Duoneb 3 Mg/0.5 Mg (3 Ml) Ud) 3 ml IH [id number] [facility] Last Admin: 08/06/17 13:41 Dose: 3 ml Atorvastatin Calcium (Lipitor) 10 mg PO DIN [facility] Last Admin: 08/05/17 18:14 Dose: 10 mg Bacitracin (Bacitracin) 0 gm TOP Q12 [facility] Last Admin: 08/06/17 11:19 Dose: Not Given Benzonatate (Tessalon Perles) 100 mg PO TID [facility] Last Admin: 08/06/17 14:39 Dose: 100 mg Calcitriol (Rocaltrol) 1 mcg PO MWF [facility] Last Admin: 08/05/17 15:56 Dose: 1 mcg Cinacalcet (Sensipar) 30 mg PO DAILY [facility] Last Admin: 08/06/17 10:57 Dose: 30 mg Collagenase (Santyl) 0 gm TOP DAILY [facility] Last Admin: 08/06/17 10:57 Dose: 1 applic Heparin Sodium (Porcine) (Heparin) 2,100 units ICA MOWEFR [facility] Heparin Sodium (Porcine) (Heparin) 2,200 units ICV MOWEFR [facility] Metronidazole (Flagyl) 500 mg in 100 mls @ 100 mls/hr IVPB Q8 [facility] PRN Reason: Protocol Last Admin: 08/05/17 21:37 Dose: 100 mls/hr Meropenem 250 mg/ Sodium (Chloride) 100 mls @ 100 mls/hr IVPB Q12H [facility] PRN Reason: Protocol Stop: 08/12/17 18:46 Last Admin: 08/06/17 06:29 Dose: 100 mls/hr Insulin Human Regular (Humulin R Low) 0 units SC ACHS [facility] PRN Reason: Protocol Last Admin: 08/06/17 12:06 Dose: Not Given Lactobacillus Acidophilus (Bacid Acidophilus) 1 cap PO BID [facility] Last Admin: 08/06/17 10:57 Dose: 1 cap Latanoprost (Xalatan Opht) 0 ml OD HS [facility] Last Admin: 08/04/17 21:01 Dose: Not Given Lorazepam (Ativan) 0.25 mg IM ONCE PRN; Protocol PRN Reason: Pain, moderate (4-7) Metoprolol Tartrate (Lopressor) 25 mg PO BRKDIN [facility] Last Admin: 08/06/17 08:35 Dose: 25 mg Montelukast Sodium (Singulair) 10 mg PO [facility] Last Admin: 08/05/17 21:38 Dose: 10 mg Morphine Sulfate (Morphine) 2 mg IVP Q4H PRN PRN Reason: Pain, moderate (4-7) Last Admin: 08/04/17 21:03 Dose: 2 mg Ondansetron HCl (Zofran Inj) 4 mg IVP Q8H PRN PRN Reason: Nausea/Vomiting Pantoprazole Sodium (Protonix Ec Tab) 40 mg PO 0600,1600 [facility] Last Admin: 08/06/17 11:05 Dose: 40 mg Pilocarpine HCl (Isopto Carpine 2% Opht Soln) 0 ml OS Q12 [facility] Last Admin: 08/06/17 10:58 Dose: 1 drop Polyethylene Glycol (Miralax) 17 gm PO BID [facility] Last Admin: 08/06/17 10:58 Dose: Not Given Sennosides (Senokot Tab) 17.2 mg PO [facility] Last Admin: 08/05/17 21:38 Dose: 17.2 mg Tramadol HCl (Ultram) 50 mg PO TID [facility] Last Admin: 08/06/17 14:40 Dose: 50 mg Vancomycin HCl (Vancocin 25 Mg/Ml (Oral Use)) 125 mg PO QID [facility] PRN Reason: Protocol Last Admin: 08/06/17 14:44 Dose: 125 mg Vitamin B Complex/Vit C/Folic Acid (Nephro-Yesica) 1 tab PO 0800 [facility] Last Admin: 08/06/17 11:05 Dose: 1 tab Zolpidem Tartrate (Ambien) 5 mg PO HS PRN; Protocol PRN Reason: Insomnia Last Admin: 08/04/17 21:00 Dose: 5 mg - Labs Labs: 08/05/17 06:56 08/05/17 06:56 PT 13.7 SECONDS (9.4-12.5) H 08/01/17 09:54 INR 1.24 (0.93-1.08) H 08/01/17 09:54 APTT 28.6 Seconds (25.1-36.5) 08/01/17 09:54
[2017-08-06] MEDS: metroNIDAZOLE IV 500 mg/100 ml 500 MG/100 ML BAG IVPB SCH (16:55)
[2017-08-06 17:10] VITALS: BP 119/76; PULSE 85
[2017-08-06 18:27] VITALS: TEMP 97.6; O2SAT 95
--- NOTE | 2017-08-07 06:37 | CON ---
DATE: HISTORY OF PRESENT ILLNESS: The patient is an 82 year old female with multiple medical issues including diabetes, COPD, hypertension, end stage renal disease, breast cancer status post lumpectomy, who presented to the emergency room from [facility]pc complaining of bleeding per rectum. Psych consult was called for evaluation of possible delusions, and the patient was refusing to have debridement procedure for her lower extremities described as erythematous, thick by the patient. The patient reported that she feels tired. She took medications earlier, pain meds. The patient said that she feels better and she just wanted to rest. The patient's son is next to her, and the patient's son's name is Roel, phone number [phone]. As per the patient's son, the patient was doing better today, was compliant with medication and treatment plan. Initially, the patient was very confused about treatment plan, but right now she has clear understanding of what is going on with her and what is the treatment plan offered by medical team. The patient's son said that the patient is very tired to be in the hospital and she wants to go home. Besides that, there are no complaints, and son seems to be appreciative. PHYSICAL EXAMINATION: VITAL SIGNS: Seems to stable. Temperature , blood pressure 119/76, respirations 18, oxygen saturation is 98. MEDICATIONS: Reviewed. The patient was on Duoneb, Lipitor, bacitracin, benzonatate, calcitriol, Sensipar, collagenase, heparin, Humulin, Ativan 0.25 mg IM once, meropenem, Lopressor, Flagyl, Singulair, morphine, Zofran, Protonix, Pilocarpine, Miralax, Senokot, Ultram, vancomycin, vitamin B, and Ambien 5 mg at nighttime as needed. LABORATORY DATA: Reviewed. Today, WBC is still at 9.0, hemoglobin and hematocrit are 9.4 and 29.9. Coagulation reviewed. Chemistry reviewed. MENTAL STATUS EXAMINATION: The patient presented to be sleepy, easily arousable, intermittent eye contact. 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 Speech was underproductive, described I want to sleep, I want to rest. Affect was flat. Thought process concrete. Thought content, the patient denies visual or auditory hallucinations, denied paranoid ideation. The patient denies thoughts of harming himself or others, denies intent or plan. Insight and judgment are improving. Impulses are well controlled. There is no signs of delusions or hallucinations. IMPRESSION: Rule out mood disorder due to general medical condition. The patient has multiple medical issues. Please see medical team notes for more detailed information. Discussed with the patient's family. The patient is participating with the treatment plan. The patient is willing to go to LTAC. The patient is participating in treatment plan right now. She understands discharge plan and treatment plan and has no concerns. This teletypewriter operator will sign off. Should you have any questions, give me a call back. Cinthya Zurita MD
== END 2017-08-06 20:26 | DRG 377 ==
LOC: ED 08:25 → ERH 12:52 → CCU 13:55 → 5RNO 08-02 16:30
PROVIDERS: ADMIT Internal Medicine; ATTEND Internal Medicine
PROC: 5A1D70Z Performance of Urinary Filtration, Intermittent, Less than 6 Hours Per Day (ICD-10-PCS; principal; 2017-08-02)
PROC: 30233N1 Transfusion of Nonautologous Red Blood Cells into Peripheral Vein, Percutaneous Approach (ICD-10-PCS; 2017-08-03)
DX: K57.31 Diverticulosis of large intestine without perforation or abscess with bleeding (principal); L89.154 Pressure ulcer of sacral region, stage 4; N18.6 End stage renal disease; L89.523 Pressure ulcer of left ankle, stage 3; A04.72 Enterocolitis due to Clostridium difficile, not specified as recurrent; I12.0 Hypertensive chronic kidney disease with stage 5 chronic kidney disease or end stage renal disease; N25.81 Secondary hyperparathyroidism of renal origin; E11.22 Type 2 diabetes mellitus with diabetic chronic kidney disease; K76.0 Fatty (change of) liver, not elsewhere classified; J44.9 Chronic obstructive pulmonary disease, unspecified; B96.5 Pseudomonas (aeruginosa) (mallei) (pseudomallei) as the cause of diseases classified elsewhere; H54.61 Unqualified visual loss, right eye, normal vision left eye; D63.1 Anemia in chronic kidney disease; K59.00 Constipation, unspecified; E78.5 Hyperlipidemia, unspecified; K80.20 Calculus of gallbladder without cholecystitis without obstruction; K64.9 Unspecified hemorrhoids; R19.09 Other intra-abdominal and pelvic swelling, mass and lump; L89.620 Pressure ulcer of left heel, unstageable; L89.610 Pressure ulcer of right heel, unstageable; R41.0 Disorientation, unspecified; Z66 Do not resuscitate; Z85.3 Personal history of malignant neoplasm of breast; Z91.19 Patient's noncompliance with other medical treatment and regimen; Z87.891 Personal history of nicotine dependence; Z99.2 Dependence on renal dialysis; Z90.13 Acquired absence of bilateral breasts and nipples

== ENCOUNTER 2017-09-17 19:14 | Inpatient (IN) | payer MEDICARE, OTHER ==
[2017-09-17] MEDS ORDERED: Vancomycin 1gm in NS 250ml 1 GM/250 ML BAG IVPB STA (19:59)
--- NOTE | 2017-09-17 20:12 | ED PDOC ---
Arrival/HPI - General Historian: Patient - History of Present Illness Time/Duration: 1-3 hours Symptom Course: Unchanged Activities at Onset: Rest, Light Context: Other (Dialysis) <Cornelius Khan - Last Filed: 09/18/17 00:31> <Augustine Cowart - Last Filed: 09/19/17 05:55> - General Chief Complaint: Back Pain Time Seen by Provider: 09/17/17 19:34 - History of Present Illness Narrative History of Present Illness (Text): 09/17/17 20:04 Ms. Hendrickson is an 82 year old female resident of [facility] with a past medical history significant for DM2, COPD, HTN, ESRD on HD (MWF), right eye blindness breast carcinoma s/p bilateral mastectomy, sacral ulcer s/p wound debridement in 07/19/2017 and history of C. difficile who presents to the [facility] from dialysis with a chief complaint of chronic back pain and bilateral foot pain due to chronic ulcers in these locations. Per EMS handoff, patients dialysis physician noted the ulcers and suggested patient have them evaluated. Of note, patient is non-compliant with questioning as well as being disoriented to place, time and event. Patient does endorse that she has pain at the previously mentioned sites but does not comply with further ROS questioning. Care Home Physician: Dr. Madrid PMD: Dr. Waite PMH: As mentioned above PSH: Bilat Mastectomy, right subclavian permacath Family: Unknown at this time Social: History of 2+ppd smoker for "many years", quit 20 years ago; Denies alcohol or illicit drug use Allergies: Albuterol, clonidine, ibuprofen, prednisone Medications: As per EMR (Cornelius Khan) Past Medical History - Provider Review Nursing Documentation Reviewed: Yes - Travel History Have you recently traveled outside [place] w/in the past 3 mons?: No - Past History Past History: No Previous - Infectious Disease Hx of Infectious Diseases: None - Tetanus Immunization Tetanus Immunization: Unknown - Cardiac Hx Cardiac Disorders: Yes Hx Congestive Heart Failure: Yes Hx Hypertension: Yes - Pulmonary Hx Respiratory Disorders: Yes Hx Chronic Obstructive Pulmonary Disease (COPD): Yes - Neurological Hx Neurological Disorder: No - HEENT Hx HEENT Disorder: Yes Hx Blind: Yes (right eye) - Renal Hx Renal Disorder: Yes Hx Dialysis: Yes Type of Dialysis Access: R arm fistula Date of Last Dialysis Treatment: 09/17/17 Hx Renal Failure: Yes - Endocrine/Metabolic Hx Endocrine Disorders: Yes Hx Diabetes Mellitus Type 2: Yes - Hematological/Oncological Hx Blood Disorders: Yes Hx Cancer: Yes (breast) - Integumentary Hx Dermatological Disorder: Yes Other/Comment: Stage 4 sacral wound. L heel ulcer. R heel ulcer and dorsum ulcers x3. R knee ulcer. R hip bruising with three skin tears - Musculoskeletal/Rheumatological Hx Musculoskeletal Disorders: Yes Hx Falls: Yes (fell in the NH 3-4 days ago [employer]. Right knee bandage) - Gastrointestinal Hx Gastrointestinal Disorders: Yes Hx Gastroesophageal Reflux: Yes - Genitourinary/Gynecological Hx Genitourinary Disorders: Yes Other/Comment: HX OF BREAST CA WITH B/L MASTECTOMY - Psychiatric Hx Psychophysiologic Disorder: Yes Hx Anxiety: Yes Hx Substance Use: No - Surgical History Hx Mastectomy: Yes (left, right lumpectomy) Hx Orthopedic Surgery: (right hip replacement) - Anesthesia Hx Anesthesia: Yes Hx Anesthesia Reactions: No Hx Malignant Hyperthermia: No <Cornelius Khan - Last Filed: 09/18/17 00:31> Family/Social History - Physician Review Nursing Documentation Reviewed: Yes Family/Social History: Unknown Family HX Smoking Status: Former Smoker Hx Alcohol Use: No Hx Substance Use: No <Cornelius Khan - Last Filed: 09/18/17 00:31> Allergies/Home Meds <Cornelius Khan - Last Filed: 09/18/17 00:31> <Augustine Cowart - Last Filed: 09/19/17 05:55> Allergies/Adverse Reactions: Allergies albuterol Allergy (Verified 09/17/17 19:26) DIZZINESS clonidine Allergy (Verified 09/17/17 19:26) DIZZINESS ibuprofen Allergy (Verified 09/17/17 19:26) VOMITING prednisone Allergy (Verified 09/17/17 19:26) VOMITING Home Medications: Home Meds Medication Instructions Recorded Confirmed Albuterol/Ipratropium [Duoneb 3 3 ml IH Q4H 09/17/17 09/17/17 mg/0.5 mg (3 ml) UD] Aspirin [Adult Low Dose Aspirin EC] 81 mg PO DAILY 09/17/17 09/17/17 Fluticasone Propionate [Flovent 1 puff IH BID 09/17/17 09/17/17 Hfa] Glimepiride [Amaryl] 1 mg PO DAILY 09/17/17 09/17/17 Isosorbide Mononitrate [Isosorbide 30 mg PO DAILY 09/17/17 09/17/17 Mononitrate ER] Metoprolol Succinate [Metoprolol 50 mg PO HS 09/17/17 09/17/17 Succinate] Metoprolol Succinate [Toprol XL] 100 mg PO DAILY 09/17/17 09/17/17 Montelukast [Singulair] 10 mg PO HS 09/17/17 09/17/17 Sevelamer Carbonate [Renvela] 1 packet PO BID 09/17/17 09/17/17 Valsartan [Diovan] 160 mg PO DAILY 09/17/17 09/17/17 amLODIPine [Norvasc] 10 mg PO HS 09/17/17 09/17/17 Review of Systems - Review of Systems Systems not reviewed;Unavailable: Uncooperative Musculoskeletal: Back Pain, Other (Bilateral foot pain). absent: Normal Skin: Ulcer (On back and bilateral feet). absent: Normal <Cornelius Khan - Last Filed: 09/18/17 00:31> Physical Exam Vital Signs Reviewed: Yes Temperature: Febrile Blood Pressure: Normal Pulse: Regular Respiratory Rate: Normal Appearance: Positive for: Non-Toxic, Uncomfortable. No: Comfortable Pain Distress: Moderate Mental Status: Positive for: other (Oriented to person but not to place, time or event). No: Alert and Oriented X 3 - Systems Exam Head: Present: Atraumatic, Normocephalic Pupils: Present: Other (PERRL on L; R eye with lens opacification). No: PERRL Extroacular Muscles: Present: EOMI Conjunctiva: Present: Normal Mouth: Present: Moist Mucous Membranes Pharnyx: Present: Normal. No: ERYTHEMA, EXUDATE Nose (External): Present: Atraumatic Nose (Internal): Present: No Active Bleeding Neck: Present: Normal Range of Motion, Trachea Midline. No: Meningeal Signs, MIDLINE TENDERNESS, Paraspinal Tenderness, JVD, Lymphadenopathy Respiratory/Chest: Present: Clear to Auscultation, Good Air Exchange. No: Respiratory Distress, Accessory Muscle Use, Wheezes, Decreased Breath Sounds, Rales, Retracting, Rhonchi, Tachypneic, Tender to Palpation Cardiovascular: Present: Regular Rate and Rhythm, Normal S1, S2, Peripheal Pulses Present. No: Murmurs, Irregular Rhythm, Tachycardic, Bradycardic Abdomen: Present: Normal Bowel Sounds. No: Tenderness, Distention, Peritoneal Signs Back: Present: Decubitus Ulcer (Stage IV sacral decubitis ulcer approximately [id number]). No: Normal Inspection Upper Extremity: Present: Other (Laceration on L wrist with wound dressing; appropriate healing with no surrounding erythema, discharge or areas of fluctuance). No: Normal Inspection, Cyanosis, Edema Lower Extremity: Present: NORMAL PULSES, Other (Stage IV decubitus ulcer on dorsum of right foot approx 4cm, Ulceration on R patella; unstageable ulceration in bilateral heels). No: Normal Inspection, Edema, CALF TENDERNESS, Cyanosis, Sarah's Sign Neurological: Present: GCS=15, CN II-XII Intact, Speech Normal Skin: Present: Warm, Dry, Normal Color. No: Rashes Lymphatic: No: Cervical Adenopathy Psychiatric: Present: Alert, Other (Disoriented). No: Oriented x 3 (As above), Normal Insight, Normal Concentration <Cornelius Khan - Last Filed: 09/18/17 00:31> Vital Signs Temp Pulse Resp BP Pulse Ox 09/18/17 01:31 74 18 97 09/18/17 01:17 99.9 F H 78 19 112/59 L 97 09/17/17 20:13 100.6 F H 89 18 110/40 L 95 09/17/17 19:23 100.6 F H Medical Decision Making - Lab Interpretations I have reviewed the lab results: Yes - RAD Interpretation Behavioral Interventionist: ED Physician, Radiologist - EKG Interpretation Interpreted by ED Physician: Yes Type: 12 lead EKG <Cornelius Khan - Last Filed: 09/18/17 00:31> - Lab Interpretations I have reviewed the lab results: Yes - RAD Interpretation Behavioral Interventionist: ED Physician, Radiologist - EKG Interpretation Interpreted by ED Physician: Yes Type: 12 lead EKG <Augustine Cowart - Last Filed: 09/19/17 05:55> ED Course and Treatment: 09/17/17 20:20 Impression: 82 year old female resident of [facility] with a past medical history significant for DM2, COPD, HTN, ESRD on HD (MWF), right eye blindness breast carcinoma s/p bilateral mastectomy, sacral ulcer s/p wound debridement in 07/19/2017 and history of C. difficile who presents to the [facility] from dialysis with a chief complaint of chronic back pain and bilateral foot pain due to chronic ulcers in these locations Plan: -CBC, CMP, Mag/Phos, VBG shock panel, UA, blood/urine/wound cultures, INR/aPTT -EKG -Chest X-Ray (portable) -Vanco IVPB (1 dose) -Reassess and disposition Prior Visits: Patient seen and evaluated for anemia 08/30 Patient seen and evaluated for GI bleed 07/30 Patient seen and evaluated for AMS 06/3009/18/17 00:[address] Waite who accepts patient to his service (Cornelius Khan) Impression: Pt seen and evaluated with biomedical repair technician. Pt, whose past medical history includes diabetes, hypertension, ESRD on hemodialysis (M/W/F), right eye blindness, breast carcinom s/p bilateral mastectomy, and sacral ulcer, presented for chronic back pain and bilateral foot pain. Aware and agree with HPI, clinical findings, plan, and management. Plan: -- EKG -- Chest X-ray -- Labs, VBG, blood cultures, wound cultures -- Urinalysis, urine cultures -- Tylenol -- Vancomycin -- Zosyn -- Reassess and disposition (Augustine Cowart) - Lab Interpretations Microbiology Results: Microbiology Results 09/17/17 20:04 Blood Blood Culture - Preliminary NO GROWTH AFTER 24 HOURS 09/17/17 19:48 Blood Blood Culture - Preliminary NO GROWTH AFTER 24 HOURS 09/17/17 20:04 Decubitus - Sacral Area Gram Stain - Preliminary Lab Results: 09/17/17 20:04 09/17/17 20:04 Lab Results 09/17/17 20:04: Sodium 135, Chloride 99, Potassium 4.5, Carbon Dioxide 28, Anion Gap 13, BUN 14, Creatinine 2.1 H, Est GFR ( Amer) 27, Est GFR (Non- Af Amer) 22, Random Glucose 97, Calcium 8.4, Phosphorus 2.6, Magnesium 1.9, Total Bilirubin 0.7, AST 50 H D, ALT 40, Alkaline Phosphatase 176 H D, Total Protein 6.8, Albumin 2.6 L, Globulin 4.2, Albumin/Globulin Ratio 0.6 L 09/17/17 20:04: PT 13.1 H, INR 1.20 H, APTT 28.4 09/17/17 20:04: WBC 23.1 H D, RBC 3.32 L, Hgb 9.8 L, Hct 32.1 L, MCV 96.7 D, MCH 29.5, MCHC 30.5 L, RDW 17.5 H, Plt Count 245, MPV 9.2, Gran % 88.3 H, Lymph % (Auto) 6.4 L, [place] % (Auto) 4.9, Eos % (Auto) 0.2 L, Baso % (Auto) 0.2, Gran # 20.45 H, Lymph # 1.5, [place] # 1.1 H, Eos # 0.0, Baso # 0.04 09/17/17 20:00: pO2 34, VBG pH 7.32, VBG pCO2 58.0, VBG HCO3 29.9 H, VBG Total CO2 31.7 H, VBG O2 Sat (Calc) 67.6 H, VBG Base Excess 2.4 H, VBG Potassium 4.4, Sodium 135.0, Chloride 99.0, Glucose 94, Lactate 2.6 H, FiO2 21.0, Venous Blood Potassium 4.4 - RAD Interpretation Radiology Orders: 09/17/17 19:55 CHEST PORTABLE [RAD] Stat - Medication Orders Current Medication Orders: Aspirin (Ecotrin) 81 mg PO DAILY [facility] Last Admin: 09/18/17 12:34 Dose: 81 mg Darbepoetin Luis (Aranesp) 60 mcg IVP ONCE ONE Stop: 09/19/17 10:20 Famotidine (Pepcid) 20 mg PO DAILY [facility] Hydralazine HCl (Apresoline) 10 mg IVP Q6 PRN PRN Reason: Systolic Blood Pressure Meropenem 250 mg/ Sodium (Chloride) 100 mls @ 100 mls/hr IVPB Q12H [facility] PRN Reason: Protocol Stop: 09/27/17 10:16 Last Admin: 09/18/17 22:10 Dose: 100 mls/hr eMAR Start Stop Document 09/18/17 22:10 AP (Rec: 09/18/17 23:10 AP [id number]) Intravenous Solution Start Date 09/18/17 Start Time 22:10 End Date 09/18/17 End time 23:10 Total Infusion Time 60 Insulin Human Lispro (Humalog Med) 0 units SC ACHS [facility] PRN Reason: Protocol Last Admin: 09/18/17 22:11 Dose: Not Given Non-Admin Reason: Blood Sugar Parameter [facility] Blood Glucose Document 09/18/17 22:11 AP (Rec: 09/18/17 22:11 AP [place] [id number]) Blood Glucose Finger Stick Blood Glucose (70-120) 90 Losartan Potassium (Cozaar) 100 mg PO DAILY [facility] Last Admin: 09/18/17 12:34 Dose: 100 mg Metoprolol Succinate (Toprol Xl) 50 mg PO [facility] Last Admin: 09/18/17 21:34 Dose: 50 mg [facility] Pulse and Blood Pressure Document 09/18/17 21:34 AP (Rec: 09/18/17 21:34 AP [place] [id number]) Pulse Pulse Rate (60-90) 89 Blood Pressure Blood Pressure (100/60-150/90) 132/52 Montelukast Sodium (Singulair) 10 mg PO [facility] Last Admin: 09/18/17 21:35 Dose: 10 mg Non-Formulary Medication (Fluticasone Propionate [Flovent Hfa]) 1 puff IH BID [facility] Sevelamer HCl (Renagel) 400 mg PO BID [facility] Last Admin: 09/18/17 18:39 Dose: 400 mg Tramadol HCl (Ultram) 25 mg PO Q8H PRN PRN Reason: Pain, moderate (4-7) Last Admin: 09/18/17 21:34 Dose: 25 mg MAR Pain Assessment Document 09/18/17 21:34 AP (Rec: 09/18/17 21:35 AP [place] [id number]) Pain Reassessment Is this a pain reassessment? No Presence of Pain Presence of Pain Yes Location Pain Location Body Site Back Description Description Constant Intensity of Pain at present 8 Pain Behavior Irritability Restlessness Alleviating Factors/Management Medication Techniques Re-Assess: FOSTER Pain Assessment Document 09/18/17 22:34 AP (Rec: 09/18/17 23:11 AP [id number] Pain Reassessment Is this a pain reassessment? Yes Sleep Is patient sleeping during reassessment? Yes Vitamin B Complex/Vit C/Folic Acid (Nephro-Yesica) 1 tab PO 0800 [facility] Discontinued Medications Acetaminophen (Tylenol 325mg Tab) 975 mg PO STAT STA Stop: 09/17/17 20:28 Last Admin: 09/17/17 20:52 Dose: 975 mg MAR Pain/Vitals Document 09/17/17 20:52 [email or web address] (Rec: 09/17/17 20:52 [id number] Pain Reassessment Is This A Pain ReAssessment? No Sleep Is patient sleeping during reassessment? No Presence of Pain Presence of Pain Yes Pain Scale Used Pain Scale Used Numeric Location Pain Location Body Site Generalized Description Constant Intensity 7 Scale Used Numeric Pain Behavior Facial Grimacing Aggravating Factors Changing Position Alleviating Factors Medication Bacitracin (Bacitracin) 1 ea TOP ONCE ONE Stop: 09/17/17 22:28 Last Admin: 09/18/17 02:02 Dose: Famotidine (Pepcid) 20 mg IVP DAILY [facility] Last Admin: 09/18/17 12:34 Dose: 20 mg IVP Administration Document 09/18/17 12:34 MS (Rec: 09/18/17 12:34 MS [id number]) Charges for Administration # of IVP Administrations 1 Vancomycin HCl (Vancomycin 1gm) 1 gm in 250 mls @ 167 mls/hr IVPB STAT [facility] PRN Reason: Protocol Stop: 09/17/17 21:28 Last Admin: 09/18/17 00:22 Dose: 167 mls/hr eMAR Start Stop Document 09/18/17 00:22 [email or web address] (Rec: 09/18/17 00:22 [id number] Intravenous Solution Start Date 09/18/17 Start Time 00:22 End Date 09/18/17 Piperacillin Sod/Tazobactam Sod (Zosyn 2.25 Gm In 0.9% 100 Ml) 2.25 gm in 100 mls @ 100 mls/hr IVPB STAT [facility] PRN Reason: Protocol Stop: 09/17/17 21:37 Last Admin: 09/17/17 20:52 Dose: 100 mls/hr eMAR Start Stop Document 09/17/17 20:52 [email or web address] (Rec: 09/17/17 20:[email or web address]) Intravenous Solution Start Date 09/17/17 Start Time 20:52 End Date 09/17/17 Vancomycin HCl 2 gm/ Sodium (Chloride) 500 mls @ 170 mls/hr IVPB ONCE ONE PRN Reason: Protocol Stop: 09/18/17 13:08 Last Admin: 09/18/17 12:33 Dose: 170 mls/hr eMAR Start Stop Document 09/18/17 12:33 MS (Rec: 09/18/17 12:33 MS [id number]) Intravenous Solution Start Date 09/18/17 Start Time 12:33 Sevelamer HCl (Renagel) 800 mg PO BID [facility] - PA / ENROLLMENT SERVICES VICE PRESIDENT / Resident Statement / has reviewed & agrees with the documentation as recorded. / has examined the patient and agrees with the treatment plan. <Augustine Cowart - Last Filed: 09/19/17 05:55> Disposition/Present on Arrival - Present on Arrival Any Indicators Present on Arrival: No History of DVT/PE: No History of Uncontrolled Diabetes: No Urinary Catheter: No History of Decub. Ulcer: No History Surgical Site Infection Following: None - Disposition Have Diagnosis and Disposition been Completed?: Yes Disposition Time: 00:32 Patient Plan: Admission <Cornelius Khan - Last Filed: 09/18/17 00:31> <Augustine Cowart - Last Filed: 09/19/17 05:55> - Disposition Diagnosis: Sacral decubitus ulcer, stage IV Disposition: HOSPITALIZED Patient Problems: Current Active Problems Problem Status Onset Sacral decubitus ulcer, stage IV Acute Condition: STABLE
[2017-09-17 20:19] LABS: BASO # 0.04 K/mm3 (0.0-2.0); BASO % 0.2 % (0.0-3.0); EOS % 0.2 % (1.5-5.0); GRAN # 20.45 (1.4-6.5); GRAN % 88.3 % (50.0-68.0); HEMATOCRIT 32.1 % (36.0-48.0); LYMPH # 1.5 (1.2-3.4); LYMPH % 6.4 % (22.0-35.0); MEAN CELL VOLUME 96.7 fl (80.0-105.0); MEAN CORPUSCULAR HEMOGLOBIN 29.5 pg (25.0-35.0); MEAN CORPUSCULAR HGB CONC 30.5 g/dl (31.0-37.0); MEAN PLATELET VOLUME 9.2 fl (7.0-11.0); MONO # 1.1 (0.1-0.6); MONO % 4.9 % (1.0-6.0); RED CELL DISTRIBUTION WIDTH 17.5 % (11.5-14.5); WHITE BLOOD COUNT 23.1 10^3/ul (4.5-11.0)
[2017-09-17 20:19] LABS: VENOUS BLOOD GAS BASE EXCESS 2.4 mmol/L (0.0-2.0); VENOUS BLOOD PH 7.32 (7.32-7.43)
[2017-09-17 20:32] LABS: ALB/GLOB RATIO 0.6 (1.1-1.8); BILIRUBIN,TOTAL 0.7 mg/dL (0.2-1.3); CALCIUM 8.4 mg/dL (8.4-10.5); MAGNESIUM 1.9 mg/dL (1.7-2.2); PHOSPHOROUS 2.6 mg/dL (2.5-4.5); POTASSIUM 4.5 mmol/L (3.6-5.0); TOTAL PROTEIN 6.8 g/dL (5.8-8.3)
[2017-09-17 20:33] LABS: INR 1.2 (0.93-1.08); PARTIAL THROMBOPLASTIN TIME 28.4 Seconds (25.1-36.5)
[2017-09-17] MEDS ORDERED: Piperacillin/Tazobact 2.25gm 2.25 GM/100 ML BAG IVPB STA (20:38)
--- NOTE | 2017-09-17 21:36 | CP.PCM.HP ---
History of Present Illness - History of Present Illness History of Present Illness: CC: Pain secondary to wounds Subjective: HPI: Patient is a 82 year old female resident of [facility] with a past medical history significant for DM2, COPD, HTN, ESRD on HD (MWF), right eye blindness breast carcinoma s/p bilateral mastectomy, sacral ulcer s/p wound debridement in 07/19/2017 and history of C. difficile who presents to the [facility] from dialysis for evaluation and treatment of chronic back pain and bilateral foot pain due to chronic ulcers in these locations. Patient states the pain in her sacral region is sharp localized and rated a 10/10. Patient states that moving exacerbates the pain. She is oriented to name, but disoriented to place and time. Denies fever, chills, chest pain, SOB, abdominal pain, N/V, diarrhea, constipation, and urinary symptoms. ROS: 12 point review of systems negative except as indicated in HPI PMHx: DM2, COPD, HTN, ESRD on HD (MWF), right eye blindness breast carcinoma s/ p bilateral mastectomy, sacral ulcer s/p wound debridement PSHx: Bilat Mastectomy, right subclavian permacath Family Hx: Unknown at this time Social: History of 2+ppd smoker for "many years", quit 20 years ago; Denies alcohol or illicit drug use Medications: Please see medication reconciliation Allergies: Albuterol, clonidine, ibuprofen, prednisone PMD: Dr. Waite Snf Physician: Dr. Madrid Physical Examination: - Constitutional Appears: Non-toxic, No Acute Distress - Head Exam Head Exam: atraumatic, normocephalic - Eye Exam Eye Exam: right eye pathology noted absent: Scleral icterus - ENT Exam ENT Exam: Mucous Membranes Moist - Neck Exam Neck exam: Normal Inspection - Respiratory Exam Respiratory Exam: Normal Breathing Pattern - Cardiovascular Exam Cardiovascular Exam: +S1, +S2. 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 difficile who presents to the [facility] from dialysis with a chief complaint of chronic back pain and bilateral foot pain due to chronic ulcers in these locations. Sepsis - greater than 2/4 SIRS criteria met in setting of infectious source - blood cultures x 2 - urine culture - wound culture - no IVF as patient is HD - infectious disease consulted- appreciate recommendations for antibiotic coverage (approved by attending physician) Multiple Ulcers - general surgery consult - bacitracin cream to affected areas - pain control with tramadol (no tylenol as LFT is elevated, no NSAIDs due to patient having CKD on HD- preserve the little kidney function that may be present) Chronic COPD - c/w home montelukast - start oxygen supplementation 2 L via NC if patient is SOB - vbg reviewed and appreciated, repeat vbg in AM if change in respiratory status - consider pulmonology consult pending clinical course CKD on HD - creatinine and Bun reviewed, trended, and appreciated - avoid nephrotoxins- reconsider home valsartan - renal diet - continue renvela - nephrology consulted for management of HD Anemia - Hgb reviewed, trended, and appreciated- at baseline - monitor closely via CBC - consider iron, tibc, ferritin, peripheral smear pending patients clinical course Hx of Htn - hold metoprolo succinate- confirm dosage with halfway prior to administering - hold norvasc and isosorbide mononitrate as patients pressures are WNL and is septic - reconsider valsartan as patient is CKD on HD - hydralazine 5mg IV q6 prn SBP > 180, holding parameters- do not administer if HR is > 100 bpm Hx of Diabetes - hold home diabetic medications - fingersticks ACHS - insulin sliding scale- lispro medium - resume diet as carb consistent Prophylaxis - DVT ppx- subq heparin as per kinza score - GI ppx- famotidine Patient case discussed with and plan approved by attending physician. Present on Admission - Present on Admission Any Indicators Present on Admission: Yes Past Patient History - Infectious Disease Hx of Infectious Diseases: None - Tetanus Immunizations Tetanus Immunization: Unknown - Past Medical History & Family History Past Medical History?: Yes - Past Social History Smoking Status: Former Smoker - CARDIAC Hx Cardiac Disorders: Yes Hx Congestive Heart Failure: Yes Hx Hypertension: Yes - PULMONARY Hx Respiratory Disorders: Yes Hx Chronic Obstructive Pulmonary Disease (COPD): Yes - NEUROLOGICAL Hx Neurological Disorder: No - HEENT Hx HEENT Problems: Yes Hx Blind: Yes (right eye) - RENAL Hx Chronic Kidney Disease: Yes Hx Dialysis: Yes Type of Dialysis Access: R arm fistula Date of Last Dialysis Treatment: 09/17/17 Hx Renal Failure: Yes - ENDOCRINE/METABOLIC Hx Endocrine Disorders: Yes Hx Diabetes Mellitus Type 2: Yes - HEMATOLOGICAL/ONCOLOGICAL Hx Blood Disorders: Yes Hx Cancer: Yes (breast) - INTEGUMENTARY Hx Dermatological Problems: Yes Other/Comment: Stage 4 sacral wound. L heel ulcer. R heel ulcer and dorsum ulcers x3. R knee ulcer. R hip bruising with three skin tears - MUSCULOSKELETAL/RHEUMATOLOGICAL Hx Musculoskeletal Disorders: Yes Hx Falls: Yes (fell in the [place] 3-4 days ago DELIVERY MGR. Right knee bandage) - GASTROINTESTINAL Hx Gastrointestinal Disorders: Yes Hx Gastroesophageal Reflux: Yes - GENITOURINARY/GYNECOLOGICAL Hx Genitourinary Disorders: Yes Other/Comment: HX OF BREAST CA WITH B/L MASTECTOMY - PSYCHIATRIC Hx Psychophysiologic Disorder: Yes Hx Anxiety: Yes Hx Substance Use: No - SURGICAL HISTORY Hx Mastectomy: Yes (left, right lumpectomy) Hx Orthopedic Surgery: (right hip replacement) - ANESTHESIA Hx Anesthesia: Yes Hx Anesthesia Reactions: No Hx Malignant Hyperthermia: No Meds Allergies/Adverse Reactions: Allergies Allergy/AdvReac Type Severity Reaction Status Date / Time albuterol Allergy DIZZINESS Verified 09/17/17 19:26 clonidine Allergy DIZZINESS Verified 09/17/17 19:26 ibuprofen Allergy VOMITING Verified 09/17/17 19:26 prednisone Allergy VOMITING Verified 09/17/17 19:26 Results - Vital Signs Recent Vital Signs: Last Vital Signs Temp 100.6 F H 09/17/17 20:13 Pulse 89 09/17/17 20:13 Resp 18 09/17/17 20:13 BP 110/40 L 09/17/17 20:13 Pulse Ox 95 09/17/17 20:13 - Labs Result Diagrams: 09/17/17 20:04 09/17/17 20:04 Labs: Laboratory Results - last 24 hr 09/17/17 09/17/17 09/17/17 20:00 20:04 20:04 WBC 23.1 H D RBC 3.32 L Hgb 9.8 L Hct 32.1 L MCV 96.7 D MCH 29.5 MCHC 30.5 L RDW 17.5 H Plt Count 245 MPV 9.2 Gran % 88.3 H Lymph % (Auto) 6.4 L [place] % (Auto) 4.9 Eos % (Auto) 0.2 L Baso % (Auto) 0.2 Gran # 20.45 H Lymph # 1.5 [place] # 1.1 H Eos # 0.0 Baso # 0.04 PT 13.1 H INR 1.20 H APTT 28.4 pO2 34 VBG pH 7.32 VBG pCO2 58.0 VBG HCO3 29.9 H VBG Total CO2 31.7 H VBG O2 Sat (Calc) 67.6 H VBG Base Excess 2.4 H VBG Potassium 4.4 Sodium 135.0 Chloride 99.0 Glucose 94 Lactate 2.6 H FiO2 21.0 Potassium Carbon Dioxide Anion Gap BUN Creatinine Est GFR ( Amer) Est GFR (Non-Af Amer) Random Glucose Calcium Phosphorus Magnesium Total Bilirubin AST ALT Alkaline Phosphatase Total Protein Albumin Globulin Albumin/Globulin Ratio Venous Blood Potassium 4.4 09/17/17 20:04 WBC RBC Hgb Hct MCV MCH MCHC RDW Plt Count MPV Gran % Lymph % (Auto) [place] % (Auto) Eos % (Auto) Baso % (Auto) Gran # Lymph # [place] # Eos # Baso # PT INR APTT pO2 VBG pH VBG pCO2 VBG HCO3 VBG Total CO2 VBG O2 Sat (Calc) VBG Base Excess VBG Potassium Sodium 135 Chloride 99 Glucose Lactate FiO2 Potassium 4.5 Carbon Dioxide 28 Anion Gap 13 BUN 14 Creatinine 2.1 H Est GFR ( Amer) 27 Est GFR (Non-Af Amer) 22 Random Glucose 97 Calcium 8.4 Phosphorus 2.6 Magnesium 1.9 Total Bilirubin 0.7 AST 50 H D ALT 40 Alkaline Phosphatase 176 H D Total Protein 6.8 Albumin 2.6 L Globulin 4.2 Albumin/Globulin Ratio 0.6 L Venous Blood Potassium
[2017-09-17] MEDS ORDERED: Bacitracin 500 Units/gm Oint Foilpak UD TOP ONE (22:27)
[2017-09-18 01:37] LABS: VENOUS BLOOD GAS BASE EXCESS 2.7 mmol/L (0.0-2.0); VENOUS BLOOD PH 7.41 (7.32-7.43)
[2017-09-18 02:47] VITALS: BMI 17.8
--- NOTE | 2017-09-18 04:42 | CP.PCM.CON ---
History of Present Illness - History of Present Illness History of Present Illness: General Surgery Consult Re: Sacral and Heel ulcers HPI: 82F, well known to surgical service, presented from [facility] post dialysis for evaluation of chronic back pain and bilateral LE pain due to pressure ulcers. She has been seen in the past for the same and refused wound vac. Pain is 10/10 and worse with movement. At time of eval pt had AMS only oriented to self. On presentation she was febrile. Denied F/C, N/V/D, abd pain, chest pain, SOB. PMH: DM, COPD, HTN, ESRD on HD, hx breast CA, blind in R eye PSH: Bilateral mastectomy, R SC permacath, debridement of sacral ulcer SH: Former tobacco use, No EtOH or drug use All: albuterol, clonidine, ibuprofen Meds: See MAR Review of Systems - Review of Systems All systems: reviewed and no additional remarkable complaints except (aas per HPI) Past Patient History - Infectious Disease Hx of Infectious Diseases: None - Tetanus Immunizations Tetanus Immunization: Unknown - Past Medical History & Family History Past Medical History?: Yes - Past Social History Smoking Status: Former Smoker - CARDIAC Hx Cardiac Disorders: Yes Hx Congestive Heart Failure: Yes Hx Hypertension: Yes - PULMONARY Hx Respiratory Disorders: Yes Hx Chronic Obstructive Pulmonary Disease (COPD): Yes - NEUROLOGICAL Hx Neurological Disorder: No - HEENT Hx HEENT Problems: Yes Hx Blind: Yes (right eye) - RENAL Hx Chronic Kidney Disease: Yes Hx Dialysis: Yes Hx Renal Failure: Yes - ENDOCRINE/METABOLIC Hx Endocrine Disorders: Yes Hx Diabetes Mellitus Type 2: Yes - HEMATOLOGICAL/ONCOLOGICAL Hx Blood Disorders: Yes Hx Cancer: Yes (breast) - INTEGUMENTARY Hx Dermatological Problems: Yes Other/Comment: Stage 4 sacral wound. L heel ulcer. R heel ulcer and dorsum ulcers x3. R knee ulcer. R hip bruising with three skin tears - MUSCULOSKELETAL/RHEUMATOLOGICAL Hx Musculoskeletal Disorders: Yes Hx Falls: Yes - GASTROINTESTINAL Hx Gastrointestinal Disorders: Yes Hx Gastroesophageal Reflux: Yes - GENITOURINARY/GYNECOLOGICAL Hx Genitourinary Disorders: Yes Other/Comment: HX OF BREAST CA WITH B/L MASTECTOMY - PSYCHIATRIC Hx Psychophysiologic Disorder: Yes Hx Anxiety: Yes Hx Substance Use: No - SURGICAL HISTORY Hx Mastectomy: Yes (left, right lumpectomy) Hx Orthopedic Surgery: (right hip replacement) - ANESTHESIA Hx Anesthesia: Yes Hx Anesthesia Reactions: No Hx Malignant Hyperthermia: No Meds Allergies/Adverse Reactions: Allergies Allergy/AdvReac Type Severity Reaction Status Date / Time albuterol Allergy DIZZINESS Verified 09/17/17 19:26 clonidine Allergy DIZZINESS Verified 09/17/17 19:26 ibuprofen Allergy VOMITING Verified 09/17/17 19:26 prednisone Allergy VOMITING Verified 09/17/17 19:26 - Medications Medications: Current Medications Aspirin (Ecotrin) 81 mg PO DAILY BLAIR Famotidine (Pepcid) 20 mg IVP DAILY BLAIR Hydralazine HCl (Apresoline) 10 mg IVP Q6 PRN PRN Reason: Systolic Blood Pressure Insulin Human Lispro (Humalog Med) 0 units SC ACHS BLAIR PRN Reason: Protocol Montelukast Sodium (Singulair) 10 mg PO HS BLAIR Non-Formulary Medication (Fluticasone Propionate [Flovent Hfa]) 1 puff IH BID BLAIR Non-Formulary Medication (Sevelamer Carbonate [Renvela]) 1 packet PO BID BLAIR Tramadol HCl (Ultram) 25 mg PO Q8H PRN PRN Reason: Pain, moderate (4-7) Last Admin: 09/18/17 01:29 Dose: 25 mg Physical Exam - Constitutional Appears: No Acute Distress, Chronically Ill - Head Exam Head Exam: ATRAUMATIC, NORMOCEPHALIC - Eye Exam Eye Exam: EOMI. absent: Scleral icterus - ENT Exam ENT Exam: Mucous Membranes Dry Additional comments: trachea midline - Respiratory Exam Respiratory Exam: NORMAL BREATHING PATTERN. absent: Respiratory Distress - Cardiovascular Exam Cardiovascular Exam: +S1, +S2. absent: Bradycardia, Tachycardia - GI/Abdominal Exam GI & Abdominal Exam: Soft. absent: Distended, Tenderness - Rectal Exam Rectal Exam: Deferred - Back Exam Additional comments: Stage 4 sacral wound approximately [id number]. - Neurological Exam Neurological exam: Alert, Altered - Skin Skin Exam: Dry, Warm - Additional Findings Additional findings: Stage 4 decubitus ulcer on dorsum of right foot approx 5cm, Ulcer on R patella; unstageable ulceration in bilateral heels Results - Vital Signs Recent Vital Signs: Last Vital Signs Temp 97.8 F 09/18/17 01:55 Pulse 73 09/18/17 02:00 Resp 20 09/18/17 01:55 BP 138/54 L 09/18/17 01:55 Pulse Ox 97 09/18/17 01:31 - Labs Result Diagrams: 09/18/17 06:00 09/18/17 06:00 Labs: Laboratory Results - last 24 hr 09/18/17 01:12 pO2 80 H VBG pH 7.41 VBG pCO2 44.0 VBG HCO3 27.9 VBG Total CO2 29.3 H VBG O2 Sat (Calc) 98.7 H VBG Base Excess 2.7 H VBG Potassium 4.0 Sodium 135.0 Chloride 102.0 Glucose 77 Lactate 0.8 FiO2 21.0 Venous Blood Potassium 4.0 Assessment & Plan - Assessment and Plan (Free Text) Assessment: 82F with Stage IV sacral decubitous ulcer ([id number]), decubitus ulcer on dorsum of right foot (5cm), Ulceration on R patella; unstageable ulceration in bilateral heels Plan: Air mattress Turn Q2H Heel protectors Continue abx F/U cultures to look for other source of infection Dressing changes PRN Wound care consult Dr Tirado to evaluate D/W Dr. Celestino Arteaga PGY4
[2017-09-18 06:22] LABS: BASO # 0.04 K/mm3 (0.0-2.0); BASO % 0.3 % (0.0-3.0); EOS # 0.1 (0.0-0.7); EOS % 0.5 % (1.5-5.0); GRAN # 12.68 (1.4-6.5); GRAN % 82.1 % (50.0-68.0); HEMATOCRIT 29.4 % (36.0-48.0); LYMPH # 1.7 (1.2-3.4); LYMPH % 10.9 % (22.0-35.0); MEAN CELL VOLUME 96.1 fl (80.0-105.0); MEAN CORPUSCULAR HEMOGLOBIN 28.8 pg (25.0-35.0); MEAN CORPUSCULAR HGB CONC 29.9 g/dl (31.0-37.0); MEAN PLATELET VOLUME 9.2 fl (7.0-11.0); MONO % 6.2 % (1.0-6.0); RED CELL DISTRIBUTION WIDTH 17.7 % (11.5-14.5); WHITE BLOOD COUNT 15.4 10^3/ul (4.5-11.0)
[2017-09-18 06:46] LABS: ALB/GLOB RATIO 0.6 (1.1-1.8); BILIRUBIN,TOTAL 0.9 mg/dL (0.2-1.3); CALCIUM 8.4 mg/dL (8.4-10.5); POTASSIUM 4.1 mmol/L (3.6-5.0)
[2017-09-18] MEDS: Insulin Lispro (humaLOG) MEDIUM Coverage SC SCH ×4 (07:38→22:11)
--- NOTE | 2017-09-18 09:38 | RAD ---
HISTORY: Sepsis Patient COMPARISON: 08/15/2017 FINDINGS: LUNGS: No active pulmonary disease. PLEURA: Small right pleural effusion CARDIOVASCULAR: Normal. OSSEOUS STRUCTURES: No significant abnormalities. VISUALIZED UPPER ABDOMEN: Normal. OTHER FINDINGS: There are 3 separate central catheters. IMPRESSION: No active disease.
--- NOTE | 2017-09-18 09:41 | CP.PCM.PN ---
Subjective - Date & Time of Evaluation Date of Evaluation: 09/18/17 Time of Evaluation: 09:00 - Subjective Subjective: Medicine progress note: Pt seen and examined at bedside. No acute events overnight. Pt c/o R knee pain. Denies any back pain at this time. No other complaints. 12 point ROS performed and negative other than stated above. Objective - Vital Signs/Intake and Output Vital Signs (last 24 hours): Temp Pulse Resp BP Pulse Ox 97.6 F 74 18 133/50 L 95 09/18/17 05:52 09/18/17 05:53 09/18/17 05:52 09/18/17 05:52 09/18/17 05:52 Intake and Output: 09/18/17 09/18/17 06:59 18:59 Intake Total 350 Balance 350 - Medications Medications: Current Medications Aspirin (Ecotrin) 81 mg PO DAILY BLAIR Famotidine (Pepcid) 20 mg IVP DAILY BLAIR Hydralazine HCl (Apresoline) 10 mg IVP Q6 PRN PRN Reason: Systolic Blood Pressure Piperacillin Sod/Tazobactam Sod (Zosyn 2.25 Gm In 0.9% 100 Ml) 2.25 gm in 100 mls @ 100 mls/hr IVPB Q6 BLAIR PRN Reason: Protocol Stop: 09/18/17 18:59 Insulin Human Lispro (Humalog Med) 0 units SC ACHS BLAIR PRN Reason: Protocol Last Admin: 09/18/17 07:38 Dose: Not Given Montelukast Sodium (Singulair) 10 mg PO HS BLAIR Non-Formulary Medication (Fluticasone Propionate [Flovent Hfa]) 1 puff IH BID BLAIR Sevelamer HCl (Renagel) 800 mg PO BID BLAIR Tramadol HCl (Ultram) 25 mg PO Q8H PRN PRN Reason: Pain, moderate (4-7) Last Admin: 09/18/17 01:29 Dose: 25 mg - Labs Labs: 09/18/17 06:00 09/18/17 06:00 PT 13.1 SECONDS (9.4-12.5) H 09/17/17 20:04 INR 1.20 (0.93-1.08) H 09/17/17 20:04 APTT 28.4 Seconds (25.1-36.5) 09/17/17 20:04 - Constitutional Appears: No Acute Distress - Head Exam Head Exam: ATRAUMATIC, NORMOCEPHALIC - Eye Exam Eye Exam: EOMI - ENT Exam ENT Exam: Mucous Membranes Moist - Respiratory Exam Respiratory Exam: Clear to Ausculation Bilateral. absent: Rales, Wheezes - Cardiovascular Exam Cardiovascular Exam: RRR, +S1, +S2 - GI/Abdominal Exam GI & Abdominal Exam: Soft. absent: Tenderness - Extremities Exam Extremities Exam: absent: Calf Tenderness, Pedal Edema Additional comments: multipodus boots in place Stage 4 sacral wound. L heel ulcer. R heel ulcer and dorsum ulcers. - Neurological Exam Neurological Exam: Alert, Awake - Skin Skin Exam: Dry, Intact, Warm Assessment and Plan - Assessment and Plan (Free Text) Assessment: Patient is a 82 year old female resident of [facility] with a past medical history significant for DM2, COPD, HTN, ESRD on HD (MWF), right eye blindness breast carcinoma s/p bilateral mastectomy, sacral ulcer s/p wound debridement in 07/19/2017 and history of C. diff now with complaint of back pain and bilateral foot pain presenting with sepsis possibly 2/2 to multiple ulcers. 1. Sepsis - wbx 23.1--> 15.4 , temp in ED 100.6 - Lacatate 2.6 - + 2/4 SIRS criteria met in setting of infectious source - Broad coverage with Vanc & zosyn - blood cultures x 2 - urine culture - wound culture - no IVF as patient is HD - infectious disease consulted for recs 2. Multiple Ulcers - surgery consulted for recs - bacitracin cream to affected areas - pain control with tramadol (no tylenol as LFT is elevated, no NSAIDs due to patient having CKD on HD- preserve the little kidney function that may be present) - cont abx 3. Chronic COPD - c/w home montelukast - oxygen supplementation 2 L via NC PRN 4. CKD on HD - creatinine and Bun reviewed, trended, and appreciated - avoid nephrotoxins- reconsider home valsartan - renal diet - continue renvela - nephrology consulted for management of HD 5. Anemia - Hgb 8.8 at this time - stable at this time - cont to monitor 6. Hx of Htn - Cont metoprolol succinate - hold norvasc and isosorbide mononitrate as patients pressures are WNL - cont valsartan as patient is CKD on HD - hydralazine 5mg IV q6 prn SBP > 180, holding parameters- do not administer if HR is > 100 bpm 7. Hx of Diabetes - hold home diabetic medications - fingersticks ACHS - insulin sliding scale- lispro medium - resume diet as carb consistent 8. Prophylaxis - DVT ppx- subq heparin as per kinza score - GI ppx- famotidine Patient case and plan was discussed in detail with attending physician.
[2017-09-18] MEDS ORDERED: Vancomycin 2 GM in Sodium Chloride 0.9% 500 ML IVPB ONE (10:12)
[2017-09-18] MEDS ORDERED: Piperacillin/Tazobact 2.25gm 2.25 GM/100 ML BAG IVPB SCH (12:00)
--- NOTE | 2017-09-18 13:44 | CARD ---
APPROVED REPORT EKG Measurement Heart [id number] <Conclusion> Normal sinus rhythm ST & T wave abnormality, consider anterior ischemia Abnormal ECG
--- NOTE | 2017-09-18 14:51 | RAD ---
PROCEDURE: Right Knee Radiographs. HISTORY: R knee pain COMPARISON: None. FINDINGS: BONES: Normal. No fracture. JOINTS: Normal. No osteoarthritis. JOINT EFFUSION: None. OTHER FINDINGS: None. IMPRESSION: Normal radiographs of the right knee.
--- NOTE | 2017-09-18 16:06 | CP.PCM.CON ---
History of Present Illness - History of Present Illness History of Present Illness: Initial Nephrology Consultation: Assessment: Stable sacral decubitus ulcer with cellulitis Diabetic chronic Kidney Disease (E11.22) Hypertensive Chronic Kidney Disease (I12.0) End stage renal disease (N18.6) dependence on hemodialysis (Z99.2) (TTS) via permacath Anemia (D64.9), Hyperphosphatemia (E83.39), Secondary Hyperparathyroidism (E21.1 ), HTN (I12.0) COPD, CA breast, hx of C diff, hip surgery Plan: No acute need for dialysis today. Will plan for dialysis tomorrow. Continue with Nephrovite 1 tab/day. PRBC as needed for anemia. On TEJINDER as aransep 60 mcg weekly last Hb 8.4 Continue with phos binders home dose but lowered, last phos level 2.6 BP control with meds as ordered. Patient on RAAS anna as losartan Glycemic control, Dialysis consistent diet Further work up/management as per primary team Dose meds/antibiotics (if needed) for ESRD status. Avoid fleets enema/magnesium based laxatives. dose Vanco by level Thanks for allowing me to participate in care of your patient. Will follow patient with you. Please call if any Qs Dr Wang [place] Office: [phone] Chief Complaint; wound at back HPI: Pt is a 82 F with hx of ESRD on hemodialysis (TTS) via permacath, last dialysis yesterday, chronic anemia, hyperphosphatemia, secondary hyperparathyroidism, Diabetes Mellitus, hypertension, COPD, CA breast, hip fracture, C diff presented with complaints of wound at lower back. pt was in LTAC recently. Denies chest pain, palpitation, shortness of breath, leg swelling she want to go home ROS: Constitutional Symptoms: Denies fever. No chills. No Recent Weight Changes Eyes: denies change in vision, denies watery eyes, denies double vision Ears/Nose/Mouth/Throat: Denies Abnormal Taste. No Bad breath or Bad Taste. Cardiovascular: No chest pain. No palpitations. Pulmonary: No shortness of breath no cough. Gastrointestinal: denies abdominal pain No nausea. No vomiting. Denies change in bowel habits. Denies Bleeding Genitourinary: makes small urine. No associated pain or blood. Neurological: Denies headaches. No dizziness. Denies loss of balance. c/o overall weakness, denies tingling/numbness Dermatological: No Rash or Bruising. c/o ulcer at lower back and heels. Psychiatric: Denies Anxiety. No depression. Denies hallucinations. Rheumatological: No joint pain. Denies Joint swelling. mostly wheelchair/bebd bound. non ambulatory Endocrine: c/o tiredness. c/o Fatigue and denies Heat/Cold Intolerance. All other negative. Physical Examination: General Appearance: Comfortable, in no acute respiratory distress, co-operative . restless Vitals reviewed and noted as below Head; Atraumatic, normocephalic ENT: no ulcers no thrush. Tongue is midline. Oropharynx: no rash or ulcers. EYES: Pupils are equal, round and reactive to light accommodation. Eye muscles and extraocular movement intact. Sclera is anicteric. Neck; supple no lymphadenopathy, no thyromegaly or bruit Lungs: Normal respiratory rate/effort. Breath sounds bilateral equal and clear Heart: Normal rate. s1s2 normal. No rub or gallop. Extremities: no edema. No varicose veins. has ulcers at heel and sacral area ( dressed) Neurological: Patient is alert, awake and oriented to person, place and time. No focal deficit. Strength bilateral appropriate and equal Skin: Warm and dry. Normal turgor. No rash. Palpitation: Normal elasticity for age Abdomen: Abdomen is soft. Bowel sounds +. There is no abdominal tenderness, no guarding/rigidity or organomegaly Psych: limited insight and has normal affect/mood MSK: no joint tenderness or swelling. Digits and nails normal, no deformity : kidney or bladder not palpable Access: permacath Labs/imaging reviewed. Past medical history, past surgical history, family history, social history, allergy reviewed and noted as below Family Hx: no hx of CKD. Non contributory Past Patient History - Infectious Disease Hx of Infectious Diseases: None - Tetanus Immunizations Tetanus Immunization: Unknown - Past Medical History & Family History Past Medical History?: Yes - Past Social History Smoking Status: Former Smoker - CARDIAC Hx Cardiac Disorders: Yes Hx Congestive Heart Failure: Yes Hx Hypertension: Yes - PULMONARY Hx Respiratory Disorders: Yes Hx Chronic Obstructive Pulmonary Disease (COPD): Yes - NEUROLOGICAL Hx Neurological Disorder: No - HEENT Hx HEENT Problems: Yes Hx Blind: Yes (right eye) - RENAL Hx Chronic Kidney Disease: Yes Hx Dialysis: Yes Hx Renal Failure: Yes - ENDOCRINE/METABOLIC Hx Endocrine Disorders: Yes Hx Diabetes Mellitus Type 2: Yes - HEMATOLOGICAL/ONCOLOGICAL Hx Blood Disorders: Yes Hx Cancer: Yes (breast) - INTEGUMENTARY Hx Dermatological Problems: Yes Other/Comment: Stage 4 sacral wound. L heel ulcer. R heel ulcer and dorsum ulcers x3. R knee ulcer. R hip bruising with three skin tears - MUSCULOSKELETAL/RHEUMATOLOGICAL Hx Musculoskeletal Disorders: Yes Hx Falls: Yes - GASTROINTESTINAL Hx Gastrointestinal Disorders: Yes Hx Gastroesophageal Reflux: Yes - GENITOURINARY/GYNECOLOGICAL Hx Genitourinary Disorders: Yes Other/Comment: HX OF BREAST CA WITH B/L MASTECTOMY - PSYCHIATRIC Hx Psychophysiologic Disorder: Yes Hx Anxiety: Yes Hx Substance Use: No - SURGICAL HISTORY Hx Mastectomy: Yes (left, right lumpectomy) Hx Orthopedic Surgery: (right hip replacement) - ANESTHESIA Hx Anesthesia: Yes Hx Anesthesia Reactions: No Hx Malignant Hyperthermia: No Meds Allergies/Adverse Reactions: Allergies Allergy/AdvReac Type Severity Reaction Status Date / Time albuterol Allergy DIZZINESS Verified 09/17/17 19:26 clonidine Allergy DIZZINESS Verified 09/17/17 19:26 ibuprofen Allergy VOMITING Verified 09/17/17 19:26 prednisone Allergy VOMITING Verified 09/17/17 19:26 - Medications Medications: Current Medications Aspirin (Ecotrin) 81 mg PO DAILY [facility] Last Admin: 09/18/17 12:34 Dose: 81 mg Darbepoetin Luis (Aranesp) 60 mcg IVP ONCE ONE Stop: 09/19/17 10:20 Famotidine (Pepcid) 20 mg IVP DAILY [facility] Last Admin: 09/18/17 12:34 Dose: 20 mg Hydralazine HCl (Apresoline) 10 mg IVP Q6 PRN PRN Reason: Systolic Blood Pressure Meropenem 250 mg/ Sodium (Chloride) 100 mls @ 100 mls/hr IVPB Q12H [facility] PRN Reason: Protocol Stop: 09/27/17 10:16 Last Admin: 09/18/17 12:35 Dose: 100 mls/hr Insulin Human Lispro (Humalog Med) 0 units SC ACHS [facility] PRN Reason: Protocol Last Admin: 09/18/17 12:35 Dose: Not Given Losartan Potassium (Cozaar) 100 mg PO DAILY [facility] Last Admin: 09/18/17 12:34 Dose: 100 mg Metoprolol Succinate (Toprol Xl) 50 mg PO HS [facility] Montelukast Sodium (Singulair) 10 mg PO HS [facility] Non-Formulary Medication (Fluticasone Propionate [Flovent Hfa]) 1 puff IH BID [facility] Sevelamer HCl (Renagel) 400 mg PO BID [facility] Tramadol HCl (Ultram) 25 mg PO Q8H PRN PRN Reason: Pain, moderate (4-7) Last Admin: 09/18/17 12:39 Dose: 25 mg Vitamin B Complex/Vit C/Folic Acid (Nephro-Yesica) 1 tab PO 0800 [facility] Results - Vital Signs Recent Vital Signs: Last Vital Signs Temp 97.0 F L 09/18/17 12:00 Pulse 80 09/18/17 14:00 Resp 18 09/18/17 12:00 BP 139/80 09/18/17 12:00 Pulse Ox 95 09/18/17 05:52 - Labs Result Diagrams: 09/18/17 06:00 09/18/17 06:00 Labs: Laboratory Results - last 24 hr 09/18/17 09/18/17 09/18/17 01:12 06:00 06:00 WBC 15.4 H D RBC 3.06 L Hgb 8.8 L Hct 29.4 L MCV 96.1 MCH 28.8 MCHC 29.9 L RDW 17.7 H Plt Count 212 MPV 9.2 Gran % 82.1 H Lymph % (Auto) 10.9 L [place] % (Auto) 6.2 H Eos % (Auto) 0.5 L Baso % (Auto) 0.3 Gran # 12.68 H Lymph # 1.7 [place] # 1.0 H Eos # 0.1 Baso # 0.04 pO2 80 H VBG pH 7.41 VBG pCO2 44.0 VBG HCO3 27.9 VBG Total CO2 29.3 H VBG O2 Sat (Calc) 98.7 H VBG Base Excess 2.7 H VBG Potassium 4.0 Sodium 135.0 137 Chloride 102.0 102 Glucose 77 Lactate 0.8 FiO2 21.0 Potassium 4.1 Carbon Dioxide 27 Anion Gap 12 BUN 19 Creatinine 2.6 H Est GFR ( Amer) 21 Est GFR (Non-Af Amer) 18 Random Glucose 74 Calcium 8.4 Total Bilirubin 0.9 AST 52 H ALT 38 Alkaline Phosphatase 139 H D Total Protein 6.0 Albumin 2.3 L Globulin 3.7 Albumin/Globulin Ratio 0.6 L Venous Blood Potassium 4.0
[2017-09-18] MEDS: Metoprolol Succinate 50 mg XL Tab PO SCH (21:34)
--- NOTE | 2017-09-18 22:11 | US ---
EXAM: US Abdomen Complete CLINICAL HISTORY: 82 years old, female; Abnormal findings; Abnormal lab test; Elevated liver enzymes; Additional info: Inc lft s TECHNIQUE: Real-time ultrasound of the abdomen (complete) with image documentation. COMPARISON: CT - ABD PELVIS PO IV CONTRAST 2017-08-01 13:05 FINDINGS: Liver: Fatty infiltration. No mass. No intrahepatic ductal dilatation. Gallbladder: Gallstones. 0.32 cm wall thickness. No pericholecystic fluid. No sonographic Smith's sign. Common bile duct: No dilatation. No stones. Pancreas: Obscured by overlying bowel gas. Kidneys: Increased in echogenicity. Multiple renal cysts, largest up to 3.5 cm. No hydronephrosis. Spleen: No splenomegaly. 0.9 x 0.9 cm hypervascular lesion. Aorta: Obscured by overlying bowel gas.. Inferior vena cava: Unremarkable. Free fluid: No significant free fluid. IMPRESSION: 1. Cholelithiasis. 2. Hepatic steatosis. 3. Splenic lesion, indeterminate. Consider nonemergent MRI. 4. Echogenic kidneys suggesting medical renal disease. 5. Incidental/non-acute findings are described above.
[2017-09-19 07:16] LABS: BASO # 0.04 K/mm3 (0.0-2.0); BASO % 0.2 % (0.0-3.0); EOS # 0.1 (0.0-0.7); EOS % 0.6 % (1.5-5.0); GRAN # 14.41 (1.4-6.5); HEMATOCRIT 27.6 % (36.0-48.0); LYMPH # 1.8 (1.2-3.4); LYMPH % 10.3 % (22.0-35.0); MEAN CELL VOLUME 94.5 fl (80.0-105.0); MEAN CORPUSCULAR HEMOGLOBIN 29.1 pg (25.0-35.0); MEAN CORPUSCULAR HGB CONC 30.8 g/dl (31.0-37.0); MEAN PLATELET VOLUME 9.1 fl (7.0-11.0); MONO # 1.2 (0.1-0.6); MONO % 6.9 % (1.0-6.0); RED CELL DISTRIBUTION WIDTH 17.4 % (11.5-14.5); WHITE BLOOD COUNT 17.6 10^3/ul (4.5-11.0)
[2017-09-19 07:49] LABS: ALB/GLOB RATIO 0.6 (1.1-1.8); BILIRUBIN,TOTAL 0.5 mg/dL (0.2-1.3); CALCIUM 8.4 mg/dL (8.4-10.5); POTASSIUM 4.1 mmol/L (3.6-5.0)
[2017-09-19] MEDS: Insulin Lispro (humaLOG) MEDIUM Coverage SC SCH ×4 (08:06→22:39)
[2017-09-19] MEDS: Multivitamin Vitamin B Complex (Nephro-Vite) Tab PO SCH (08:06)
--- NOTE | 2017-09-19 08:38 | CON ---
DATE: 09/18/2017 LOCATION: The patient was seen earlier today in [facility]. CHIEF COMPLAINT: Fever of 100.6, one day duration. HISTORY OF PRESENT ILLNESS: This is an 82-year-old female, [facility] patient, who was recently hospitalized. The patient has end-stage renal disease, on hemodialysis. She is unable to give history. She has confusion, history of hypertension, diabetes, chronic obstructive lung disease, non-ST elevation myocardial infarction, coronary artery disease, right eye blindness, breast cancer, and the patient has Pseudomonas sacral infection, now admitted with fever and significant infection of sacral decubiti. Infectious Disease consult the patient requested. REVIEW OF SYSTEMS: Reveals no chest pain has been reported. No abdominal pain, diarrhea or constipation. No bright red blood per rectum, no melena. PAST MEDICAL HISTORY: Significant for hypertension, diabetes, end-stage renal disease, chronic obstructive lung disease, non-ST elevation myocardial infarction, and coronary artery disease. PAST SURGICAL HISTORY: Significant for Port-A-Cath insertion and bilateral mastectomy. ALLERGIES: THE PATIENT IS ALLERGIC TO ALBUTEROL, CLONIDINE, IBUPROFEN, AND PREDNISONE. MEDICATIONS: At [facility] are reviewed and include Diovan, metoprolol, aspirin, amlodipine, and medications are noted. PHYSICAL EXAMINATION: GENERAL: The patient is in bed, chronically debilitated, end-stage, cachectic. VITAL SIGNS: Temperature of 100.6, blood pressure is 130/50, respiratory rate is 20, and heart rate of 89. HEENT: Unremarkable. NECK: Supple. LUNGS: Decreased breath sounds. HEART: Normal S1 and S2. ABDOMEN: Soft. SKIN: Reveal stage IV decubitus ulcer and also bilateral heel ulcers and hip ulcer. LABORATORY DATA: Reveals the patient's white count is 23,000, hemoglobin of 9, and platelets of 245. Coagulation is noted. Chemistry reveals BUN of 14 and creatinine of 2.1. LFTs are elevated. Alkaline phosphatase is 176. Microbiology is noted from pre-admissions. progress note from today is reviewed. ASSESSMENT AND PLAN: Now, the patient is admitted with sepsis and stage IV decubitus ulcer. We will treat the patient with vancomycin and meropenem underlying intraabdominal pathology. Ordered an ultrasound of the abdomen and pending urban cultures. Overall, prognosis is quite poor for this end-stage patient, who is bedridden and should consider supportive care, cachectic, with BMI of . Amrik Rodríguez MD
--- NOTE | 2017-09-19 09:32 | CP.PCM.PN ---
Subjective - Date & Time of Evaluation Date of Evaluation: 09/19/17 Time of Evaluation: 09:29 - Subjective Subjective: PGY1 Note for Dr. Tirado HPI: Patient seen and examined at bedside. Complains that her sacral wound is "sore". No other complaints at this time. Will continue to encourage wound care Objective - Vital Signs/Intake and Output Vital Signs (last 24 hours): Temp Pulse Resp BP Pulse Ox 97.6 F 71 19 142/55 L 96 09/19/17 00:01 09/19/17 06:00 09/19/17 00:01 09/19/17 00:01 09/19/17 00:01 Intake and Output: 09/19/17 09/19/17 06:59 18:59 Intake Total 640 360 Output Total 1 Balance 640 359 - Medications Medications: Current Medications Aspirin (Ecotrin) 81 mg PO DAILY [facility] Last Admin: 09/18/17 12:34 Dose: 81 mg Darbepoetin Luis (Aranesp) 60 mcg IVP ONCE ONE Stop: 09/19/17 10:20 Last Admin: 09/19/17 08:48 Dose: 60 mcg Famotidine (Pepcid) 20 mg PO DAILY [facility] Hydralazine HCl (Apresoline) 10 mg IVP Q6 PRN PRN Reason: Systolic Blood Pressure Meropenem 250 mg/ Sodium (Chloride) 100 mls @ 100 mls/hr IVPB Q12H [facility] PRN Reason: Protocol Stop: 09/27/17 10:16 Last Admin: 09/18/17 22:10 Dose: 100 mls/hr Insulin Human Lispro (Humalog Med) 0 units SC ACHS [facility] PRN Reason: Protocol Last Admin: 09/19/17 08:06 Dose: Not Given Losartan Potassium (Cozaar) 100 mg PO DAILY [facility] Last Admin: 09/18/17 12:34 Dose: 100 mg Metoprolol Succinate (Toprol Xl) 50 mg PO HS [facility] Last Admin: 09/18/17 21:34 Dose: 50 mg Montelukast Sodium (Singulair) 10 mg PO HS [facility] Last Admin: 09/18/17 21:35 Dose: 10 mg Non-Formulary Medication (Fluticasone Propionate [Flovent Hfa]) 1 puff IH BID [facility] Sevelamer HCl (Renagel) 400 mg PO BID [facility] Last Admin: 09/18/17 18:39 Dose: 400 mg Tramadol HCl (Ultram) 25 mg PO Q8H PRN PRN Reason: Pain, moderate (4-7) Last Admin: 09/19/17 05:45 Dose: 25 mg Vitamin B Complex/Vit C/Folic Acid (Nephro-Yesica) 1 tab PO 0800 [facility] Last Admin: 09/19/17 08:06 Dose: Not Given - Labs Labs: 09/19/17 06:20 09/19/17 06:20 PT 13.1 SECONDS (9.4-12.5) H 09/17/17 20:04 INR 1.20 (0.93-1.08) H 09/17/17 20:04 APTT 28.4 Seconds (25.1-36.5) 09/17/17 20:04 - Constitutional Appears: Non-toxic - Head Exam Head Exam: ATRAUMATIC, NORMAL INSPECTION, NORMOCEPHALIC - Respiratory Exam Respiratory Exam: Clear to Ausculation Bilateral, NORMAL BREATHING PATTERN - Cardiovascular Exam Cardiovascular Exam: REGULAR RHYTHM - GI/Abdominal Exam GI & Abdominal Exam: Soft. absent: Distended, Tenderness - Extremities Exam Extremities Exam: absent: Joint Swelling, Tenderness - Back Exam Additional comments: sacral decub with necrotic tissue as well as granulation tissue present - Neurological Exam Neurological Exam: Alert, Awake, Oriented x3 Assessment and Plan - Assessment and Plan (Free Text) Assessment: 82F with sacral decub Plan: * currently patient does not want surgical intervention * will continue to encourage wound care * continue abx/medical management * Further reccs per Dr. Tirado
[2017-09-19] MEDS ORDERED: Darbepoetin Alfa 60 mcg/ml Inj IVP ONE (10:19)
[2017-09-19 11:16] LABS: MAGNESIUM 1.9 mg/dL (1.7-2.2); PHOSPHOROUS 3.7 mg/dL (2.5-4.5)
--- NOTE | 2017-09-19 11:23 | CP.PCM.PN ---
Subjective - Date & Time of Evaluation Date of Evaluation: 09/19/17 Time of Evaluation: 11:21 - Subjective Subjective: Follow up Nephrology Consultation: Assessment: Stable sacral decubitus ulcer with cellulitis Diabetic chronic Kidney Disease (E11.22) Hypertensive Chronic Kidney Disease (I12.0) End stage renal disease (N18.6) dependence on hemodialysis (Z99.2) (TTS) via permacath Anemia (D64.9), Hyperphosphatemia (E83.39), Secondary Hyperparathyroidism (E21.1 ), HTN (I12.0) COPD, CA breast, hx of C diff, hip surgery Plan: for dialysis today as per TTS schedule. Continue with Nephrovite 1 tab/day. PRBC as needed for anemia. On TEJINDER as aransep 60 mcg weekly last Hb 8.5 Continue with phos binders home dose but lowered, last phos level 3.7 BP control with meds as ordered. Patient on RAAS anna as losartan Glycemic control, Dialysis consistent diet Further work up/management as per primary team Dose meds/antibiotics for ESRD status. Avoid fleets enema/magnesium based laxatives. dose Vanco by level Thanks for allowing me to participate in care of your patient. Will follow patient with you. Please call if any Qs Dr Wang [place] Office: [phone] Chief Complaint; wound at back HPI: Pt is a 82 F with hx of ESRD on hemodialysis (TTS) via permacath, last dialysis yesterday, chronic anemia, hyperphosphatemia, secondary hyperparathyroidism, Diabetes Mellitus, hypertension, COPD, CA breast, hip fracture, C diff presented with complaints of wound at lower back. pt was in LTAC recently. Denies chest pain, palpitation, shortness of breath, leg swelling c/o back and legs pain Physical Examination: seen on HD General Appearance: Comfortable, in no acute respiratory distress, co-operative . restless Vitals reviewed and noted as below Head; Atraumatic, normocephalic ENT: no ulcers no thrush. Tongue is midline. Oropharynx: no rash or ulcers. EYES: Pupils are equal, round and reactive to light accommodation. Eye muscles and extraocular movement intact. Sclera is anicteric. Neck; supple no lymphadenopathy, no thyromegaly or bruit Lungs: Normal respiratory rate/effort. Breath sounds bilateral equal and clear Heart: Normal rate. s1s2 normal. No rub or gallop. Extremities: no edema. No varicose veins. has ulcers at heel and sacral area ( dressed) Neurological: Patient is alert, awake and oriented to person, place and time. No focal deficit. Strength bilateral appropriate and equal Skin: Warm and dry. Normal turgor. No rash. Palpitation: Normal elasticity for age Abdomen: Abdomen is soft. Bowel sounds +. There is no abdominal tenderness, no guarding/rigidity or organomegaly Psych: limited insight and has normal affect/mood MSK: no joint tenderness or swelling. Digits and nails normal, no deformity : kidney or bladder not palpable Access: permacath Labs/imaging reviewed. Past medical history, past surgical history, family history, social history, allergy reviewed and noted as below Family Hx: no hx of CKD. Non contributory Objective - Vital Signs/Intake and Output Vital Signs (last 24 hours): Temp Pulse Resp BP Pulse Ox 97.6 F 71 19 142/55 L 96 09/19/17 00:01 09/19/17 06:00 09/19/17 00:01 09/19/17 00:01 09/19/17 00:01 Intake and Output: 09/19/17 09/19/17 06:59 18:59 Intake Total 640 360 Output Total 1 Balance 640 359 - Medications Medications: Current Medications Aspirin (Ecotrin) 81 mg PO DAILY [facility] Last Admin: 09/18/17 12:34 Dose: 81 mg Famotidine (Pepcid) 20 mg PO DAILY [facility] Hydralazine HCl (Apresoline) 10 mg IVP Q6 PRN PRN Reason: Systolic Blood Pressure Meropenem 250 mg/ Sodium (Chloride) 100 mls @ 100 mls/hr IVPB Q12H [facility] PRN Reason: Protocol Stop: 09/27/17 10:16 Last Admin: 09/18/17 22:10 Dose: 100 mls/hr Insulin Human Lispro (Humalog Med) 0 units SC ACHS [facility] PRN Reason: Protocol Last Admin: 09/19/17 08:06 Dose: Not Given Losartan Potassium (Cozaar) 100 mg PO DAILY [facility] Last Admin: 09/18/17 12:34 Dose: 100 mg Metoprolol Succinate (Toprol Xl) 50 mg PO HS [facility] Last Admin: 09/18/17 21:34 Dose: 50 mg Mometasone Furoate (Asmanex Twisthaler 220 Mcg) 1 puff IH QPM [facility] Montelukast Sodium (Singulair) 10 mg PO HS [facility] Last Admin: 09/18/17 21:35 Dose: 10 mg Sevelamer HCl (Renagel) 400 mg PO BID [facility] Last Admin: 09/18/17 18:39 Dose: 400 mg Tramadol HCl (Ultram) 25 mg PO Q8H PRN PRN Reason: Pain, moderate (4-7) Last Admin: 09/19/17 05:45 Dose: 25 mg Vitamin B Complex/Vit C/Folic Acid (Nephro-Yesica) 1 tab PO 0800 [facility] Last Admin: 09/19/17 08:06 Dose: Not Given - Labs Labs: 09/19/17 06:20 09/19/17 06:20 PT 13.1 SECONDS (9.4-12.5) H 09/17/17 20:04 INR 1.20 (0.93-1.08) H 09/17/17 20:04 APTT 28.4 Seconds (25.1-36.5) 09/17/17 20:04
--- NOTE | 2017-09-19 15:21 | CP.PCM.PN ---
<Yaakov Daly - Last Filed: 09/19/17 15:16> Subjective - Date & Time of Evaluation Date of Evaluation: 09/19/17 Time of Evaluation: 10:00 - Subjective Subjective: Medicine progress note: Pt seen and examined at bedside. No acute events overnight. No complaints at this time. Denies any back or lower extremity pain. 12 point ROS performed and negative other than stated above. Objective - Vital Signs/Intake and Output Vital Signs (last 24 hours): Temp Pulse Resp BP Pulse Ox 97.6 F 93 H 18 142/41 L 93 L 09/19/17 14:16 09/19/17 14:16 09/19/17 14:16 09/19/17 14:16 09/19/17 14:16 Intake and Output: 09/19/17 09/19/17 06:59 18:59 Intake Total 640 360 Output Total 1 Balance 640 359 - Medications Medications: Current Medications Aspirin (Ecotrin) 81 mg PO DAILY [facility] Last Admin: 09/19/17 11:22 Dose: 81 mg Famotidine (Pepcid) 20 mg PO DAILY [facility] Last Admin: 09/19/17 11:22 Dose: 20 mg Hydralazine HCl (Apresoline) 10 mg IVP Q6 PRN PRN Reason: Systolic Blood Pressure Meropenem 250 mg/ Sodium (Chloride) 100 mls @ 100 mls/hr IVPB Q12H [facility] PRN Reason: Protocol Stop: 09/27/17 10:16 Last Admin: 09/19/17 11:22 Dose: 100 mls/hr Insulin Human Lispro (Humalog Med) 0 units SC ACHS [facility] PRN Reason: Protocol Last Admin: 09/19/17 13:01 Dose: Not Given Losartan Potassium (Cozaar) 100 mg PO DAILY [facility] Last Admin: 09/19/17 11:21 Dose: 100 mg Metoprolol Succinate (Toprol Xl) 50 mg PO HS [facility] Last Admin: 09/18/17 21:34 Dose: 50 mg Mometasone Furoate (Asmanex Twisthaler 220 Mcg) 1 puff IH QPM [facility] Montelukast Sodium (Singulair) 10 mg PO HS [facility] Last Admin: 09/18/17 21:35 Dose: 10 mg Sevelamer HCl (Renagel) 400 mg PO BID [facility] Last Admin: 09/19/17 11:22 Dose: 400 mg Tramadol HCl (Ultram) 25 mg PO Q8H PRN PRN Reason: Pain, moderate (4-7) Last Admin: 09/19/17 13:44 Dose: 25 mg Vitamin B Complex/Vit C/Folic Acid (Nephro-Yesica) 1 tab PO 0800 [facility] Last Admin: 09/19/17 08:06 Dose: Not Given - Labs Labs: 09/19/17 06:20 09/19/17 06:20 PT 13.1 SECONDS (9.4-12.5) H 09/17/17 20:04 INR 1.20 (0.93-1.08) H 09/17/17 20:04 APTT 28.4 Seconds (25.1-36.5) 09/17/17 20:04 - Constitutional Appears: No Acute Distress - Head Exam Head Exam: ATRAUMATIC, NORMOCEPHALIC - Eye Exam Eye Exam: EOMI, PERRL - ENT Exam ENT Exam: Mucous Membranes Moist - Respiratory Exam Respiratory Exam: Clear to Ausculation Bilateral. absent: Rales, Wheezes - Cardiovascular Exam Cardiovascular Exam: REGULAR RHYTHM, RRR, +S1, +S2 - GI/Abdominal Exam GI & Abdominal Exam: Soft. absent: Tenderness - Extremities Exam Extremities Exam: absent: Calf Tenderness, Pedal Edema - Back Exam Additional comments: sacral decub with necrotic and granulation tissue - Neurological Exam Neurological Exam: Alert, Awake - Psychiatric Exam Psychiatric exam: Normal Affect, Normal Mood - Skin Skin Exam: Dry, Intact, Warm Assessment and Plan - Assessment and Plan (Free Text) Assessment: Patient is a 82 year old female resident of [facility] with a past medical history significant for DM2, COPD, HTN, ESRD on HD (MWF), right eye blindness breast carcinoma s/p bilateral mastectomy, sacral ulcer s/p wound debridement in 07/19/2017 and history of C. diff now with complaint of back pain and bilateral foot pain presenting with sepsis possibly 2/2 to multiple ulcers. 1. Sepsis - wbx 23.1--> 15.4 --> 17.6 today , temp in ED 100.6 currently febrile - Lacatate 2.6 - + 2/4 SIRS criteria met in setting of infectious source - Broad coverage with Vanc & sudhir - blood cultures x 2 thus far negative x 24hr - urine culture and wound culture - infectious disease consulted for recs - Sudhir and Vanc 2. Multiple Ulcers - surgery consulted for recs - Pt refused for any surgical intervention at this time - Boots, turn Q2H, air mattress - bacitracin cream to affected areas - pain control with tramadol (no tylenol as LFT is elevated, no NSAIDs due to patient having CKD on HD- preserve the little kidney function that may be present) - cont abx - Sudhir and Vanc 3. Chronic COPD - c/w home montelukast - oxygen supplementation 2 L via NC PRN 4. CKD on HD - Dialysis done today - avoid nephrotoxins- reconsider home valsartan - continue renvela - nephrology consulted for recs 5. Anemia - Hgb 8.8 at this time - stable at this time - cont to monitor 6. Hx of Htn - Cont metoprolol succinate - hold norvasc and isosorbide mononitrate as patients pressures are WNL - cont losartan as patient is CKD on HD - hydralazine 5mg IV q6 prn SBP > 180, holding parameters- do not administer if HR is > 100 bpm 7. Hx of Diabetes - hold home diabetic medications - fingersticks ACHS - insulin sliding scale- lispro medium - resume diet as carb consistent 8. Prophylaxis - DVT ppx- subq heparin - GI ppx- famotidine Patient case and plan was discussed in detail with attending physician. <Augustine Waite - Last Filed: 09/25/17 15:09> Objective - Vital Signs/Intake and Output Vital Signs (last 24 hours): Temp Pulse Resp BP Pulse Ox 98 F 75 18 135/54 L 98 09/24/17 19:00 09/24/17 19:00 09/24/17 19:00 09/24/17 19:00 09/24/17 19:00 - Labs Labs: 09/24/17 07:00 09/24/17 07:00 PT 13.0 SECONDS (9.4-12.5) H 09/24/17 07:25 INR 1.18 (0.93-1.08) H 09/24/17 07:25 APTT 28.4 Seconds (25.1-36.5) 09/17/17 20:04 Attending/Attestation - Attestation I have personally seen and examined this patient.: Yes I have fully participated in the care of the patient.: Yes I have reviewed all pertinent clinical information, including history, physical exam and plan: Yes Notes (Text): 09/25/17 15:09 Medical record note made by resident after discussion with my direction and input after the patient was personally seen by me. The record reflects my personal performance of the history, physical, data review, and medical decision making.
[2017-09-19] MEDS: Mometasone 220 mcg/puff-14 puff Inh IH SCH (17:53)
[2017-09-19] MEDS: Metoprolol Succinate 50 mg XL Tab PO SCH (22:21)
--- NOTE | 2017-09-19 23:46 | PN ---
DATE: 09/19/2017 SUBJECTIVE: The patient is in bed in no acute distress, nontoxic. PHYSICAL EXAMINATION: VITAL SIGNS: Temperature is 97, blood pressure is 130/50, respiratory rate of 18. HEENT: Unremarkable. NECK: Supple. LUNGS: Decreased breath sounds. HEART: Normal S1 and S2. ABDOMEN: Soft. LABORATORY EXAMINATION: Reveals the patient's white count is 17,600, hemoglobin of 8, and platelets of 271. Coagulation is reviewed. Blood cultures are reviewed. BUN of 29, creatinine of 3.6. Alk phos is 133. MEDICATIONS: Review of the medications reveals the patient to be on meropenem and was given a dose of vancomycin. The patient had a right knee x-ray, normal x-ray of the right knee is noted. Dr. Rajesh Tirado's progress note is reviewed. ASSESSMENT AND PLAN: This is an 82-year-old female who was seen earlier today in room 371/bed 1 who [facility] with end-stage renal disease, on hemodialysis, and history of hypertension, diabetes, chronic obstructive lung disease, [id number] myocardial infarction, coronary artery disease, right eye blindness, breast cancer, and the patient admitted with sepsis with stage IV decubitus ulcer, chronically on vancomycin and intermittently with meropenem and adjusted for renal disease. The patient's overall prognosis is quite poor. We will follow with you. Amrik Rodríguez MD
[2017-09-20 06:37] LABS: BASO # 0.03 K/mm3 (0.0-2.0); BASO % 0.2 % (0.0-3.0); EOS # 0.1 (0.0-0.7); EOS % 0.3 % (1.5-5.0); GRAN # 14.79 (1.4-6.5); GRAN % 85.3 % (50.0-68.0); HEMATOCRIT 26.9 % (36.0-48.0); LYMPH # 1.5 (1.2-3.4); LYMPH % 8.6 % (22.0-35.0); MEAN CELL VOLUME 96.1 fl (80.0-105.0); MEAN CORPUSCULAR HEMOGLOBIN 28.9 pg (25.0-35.0); MEAN CORPUSCULAR HGB CONC 30.1 g/dl (31.0-37.0); MEAN PLATELET VOLUME 8.9 fl (7.0-11.0); MONO % 5.6 % (1.0-6.0); RED CELL DISTRIBUTION WIDTH 17.2 % (11.5-14.5); WHITE BLOOD COUNT 17.4 10^3/ul (4.5-11.0)
[2017-09-20 07:15] LABS: ALB/GLOB RATIO 0.6 (1.1-1.8); BILIRUBIN,TOTAL 0.4 mg/dL (0.2-1.3); CALCIUM 8.7 mg/dL (8.4-10.5); POTASSIUM 3.3 mmol/L (3.6-5.0); TOTAL PROTEIN 6.1 g/dL (5.8-8.3)
[2017-09-20] MEDS: Insulin Lispro (humaLOG) MEDIUM Coverage SC SCH ×4 (08:00→21:15)
[2017-09-20] MEDS ORDERED: Potassium Chloride 20 mEq ER Tab PO ONE ×3 (08:14→09:23)
--- NOTE | 2017-09-20 08:25 | CP.PCM.PN ---
Subjective - Date & Time of Evaluation Date of Evaluation: 09/20/17 Time of Evaluation: 08:21 - Subjective Subjective: Surgery Progress Note for Dr. Tirado Pt seen and examined at bedside. No acute overnight events. Pt complains of some tenderness on sacrum. Pt denied CP, SOB, nausea, vomiting, diarrhea, abdominal pain, ARCOS, fever, or chills. Objective - Vital Signs/Intake and Output Vital Signs (last 24 hours): Temp Pulse Resp BP Pulse Ox 98 F 93 H 19 145/48 L 94 L 09/20/17 06:00 09/20/17 06:00 09/20/17 06:00 09/20/17 06:00 09/20/17 06:00 Intake and Output: 09/20/17 09/20/17 06:59 18:59 Intake Total 120 Output Total 0 Balance 120 - Medications Medications: Current Medications Aspirin (Ecotrin) 81 mg PO DAILY [facility] Last Admin: 09/19/17 11:22 Dose: 81 mg Famotidine (Pepcid) 20 mg PO DAILY [facility] Last Admin: 09/19/17 11:22 Dose: 20 mg Hydralazine HCl (Apresoline) 10 mg IVP Q6 PRN PRN Reason: Systolic Blood Pressure Meropenem 250 mg/ Sodium (Chloride) 100 mls @ 100 mls/hr IVPB Q12H [facility] PRN Reason: Protocol Stop: 09/27/17 10:16 Last Admin: 09/19/17 22:32 Dose: 100 mls/hr Insulin Human Lispro (Humalog Med) 0 units SC ACHS [facility] PRN Reason: Protocol Last Admin: 09/20/17 08:00 Dose: Not Given Losartan Potassium (Cozaar) 100 mg PO DAILY [facility] Last Admin: 09/19/17 11:21 Dose: 100 mg Metoprolol Succinate (Toprol Xl) 50 mg PO HS [facility] Last Admin: 09/19/17 22:21 Dose: Not Given Mometasone Furoate (Asmanex Twisthaler 220 Mcg) 1 puff IH QPM [facility] Last Admin: 09/19/17 17:53 Dose: Not Given Montelukast Sodium (Singulair) 10 mg PO HS [facility] Last Admin: 09/19/17 22:25 Dose: 10 mg Sevelamer HCl (Renagel) 400 mg PO BID [facility] Last Admin: 09/19/17 17:54 Dose: Not Given Tramadol HCl (Ultram) 25 mg PO Q8H PRN PRN Reason: Pain, moderate (4-7) Last Admin: 09/19/17 22:22 Dose: 25 mg Vitamin B Complex/Vit C/Folic Acid (Nephro-Yesica) 1 tab PO 0800 [facility] Last Admin: 09/19/17 08:06 Dose: Not Given - Labs Labs: 09/20/17 05:30 09/20/17 05:30 PT 13.1 SECONDS (9.4-12.5) H 09/17/17 20:04 INR 1.20 (0.93-1.08) H 09/17/17 20:04 APTT 28.4 Seconds (25.1-36.5) 09/17/17 20:04 - Constitutional Appears: No Acute Distress - Head Exam Head Exam: NORMAL INSPECTION - Eye Exam Eye Exam: Normal appearance - ENT Exam ENT Exam: Normal Exam - Respiratory Exam Respiratory Exam: NORMAL BREATHING PATTERN. absent: Accessory Muscle Use, Respiratory Distress - Cardiovascular Exam Cardiovascular Exam: RRR. absent: Gallop, Rubs, Murmur - GI/Abdominal Exam GI & Abdominal Exam: Soft. absent: Distended, Guarding, Tenderness, Rebound - Neurological Exam Neurological Exam: Awake, Oriented x3 - Skin Additional comments: sacral decub with necrotic tissue as well as granulation tissue present Assessment and Plan - Assessment and Plan (Free Text) Assessment: 82F with sacral decub Plan: - Patient currently denying surgical intervention and thorough examination - Will continue to encourage wound care - Continue abx/medical management - Will discuss with Dr. Celestino Joseph, PGY1
[2017-09-20] MEDS: Multivitamin Vitamin B Complex (Nephro-Vite) Tab PO SCH (08:30)
--- NOTE | 2017-09-20 10:23 | CP.PCM.PN ---
Subjective - Date & Time of Evaluation Date of Evaluation: 09/20/17 Time of Evaluation: 10:19 - Subjective Subjective: PGY-[address] RUBY/DR. PATRICIA Patient seen and examined at bedside. No acute events reported overnight. Patient limited particiaption with interview and exam. No complaints other than back pain associated with ulcers. Patient denies chest pain, shob, abd pain, n/v /f/c. Objective - Vital Signs/Intake and Output Vital Signs (last 24 hours): Temp Pulse Resp BP Pulse Ox 98 F 93 H 19 145/48 L 94 L 09/20/17 06:00 09/20/17 06:00 09/20/17 06:00 09/20/17 06:00 09/20/17 06:00 Intake and Output: 09/20/17 09/20/17 06:59 18:59 Intake Total 120 Output Total 0 Balance 120 - Medications Medications: Current Medications Aspirin (Ecotrin) 81 mg PO DAILY [facility] Last Admin: 09/20/17 09:58 Dose: 81 mg Famotidine (Pepcid) 20 mg PO DAILY [facility] Last Admin: 09/20/17 09:40 Dose: 20 mg Hydralazine HCl (Apresoline) 10 mg IVP Q6 PRN PRN Reason: Systolic Blood Pressure Meropenem 250 mg/ Sodium (Chloride) 100 mls @ 100 mls/hr IVPB Q12H [facility] PRN Reason: Protocol Stop: 09/27/17 10:16 Last Admin: 09/19/17 22:32 Dose: 100 mls/hr Insulin Human Lispro (Humalog Med) 0 units SC ACHS [facility] PRN Reason: Protocol Last Admin: 09/20/17 08:00 Dose: Not Given Losartan Potassium (Cozaar) 100 mg PO DAILY [facility] Last Admin: 09/20/17 09:58 Dose: 100 mg Metoprolol Succinate (Toprol Xl) [address] [facility] Last Admin: 09/19/17 22:21 Dose: Not Given Mometasone Furoate (Asmanex Twisthaler 220 Mcg) 1 puff IH QPM [facility] Last Admin: 09/19/17 17:53 Dose: Not Given Montelukast Sodium (Singulair) 10 mg PO HS [facility] Last Admin: 09/19/17 22:25 Dose: 10 mg Sevelamer HCl (Renagel) 400 mg PO BID [facility] Last Admin: 09/20/17 09:58 Dose: 400 mg Tramadol HCl (Ultram) 25 mg PO Q8H PRN PRN Reason: Pain, moderate (4-7) Last Admin: 09/19/17 22:22 Dose: 25 mg Vitamin B Complex/Vit C/Folic Acid (Nephro-Yesica) 1 tab PO 0800 [facility] Last Admin: 09/20/17 08:30 Dose: 1 tab - Labs Labs: 09/20/17 05:30 09/20/17 05:30 PT 13.1 SECONDS (9.4-12.5) H 09/17/17 20:04 INR 1.20 (0.93-1.08) H 09/17/17 20:04 APTT 28.4 Seconds (25.1-36.5) 09/17/17 20:04 - Head Exam Head Exam: ATRAUMATIC, NORMAL INSPECTION, NORMOCEPHALIC - Eye Exam Eye Exam: EOMI, PERRL - ENT Exam ENT Exam: Mucous Membranes Moist - Respiratory Exam Respiratory Exam: Clear to Ausculation Bilateral. absent: Rales, Rhonchi - Cardiovascular Exam Cardiovascular Exam: REGULAR RHYTHM, +S1, +S2 - GI/Abdominal Exam GI & Abdominal Exam: Soft. absent: Tenderness - Extremities Exam Extremities Exam: absent: Calf Tenderness, Pedal Edema - Back Exam Additional comments: sacral devubitus ulcer with necrotic and granulation tissue - Neurological Exam Neurological Exam: Alert, Awake - Psychiatric Exam Psychiatric exam: Normal Affect, Normal Mood - Skin Skin Exam: Dry, Warm. absent: Rash Assessment and Plan - Assessment and Plan (Free Text) Assessment: Patient is a 82 year old female resident of [facility] with a past medical history significant for DM2, COPD, HTN, ESRD on HD (TTS), right eye blindness breast carcinoma s/p bilateral mastectomy, sacral ulcer s/p wound debridement in 07/19/2017 and history of C. diff now with complaint of back pain and bilateral foot pain presenting with sepsis possibly 2/2 to multiple ulcers. Plan: 1. Sepsis - wbx 23.1-> 15.4 -> 17.6 -> 17.4 today , temp in ED 100.6, currently afebrile - Lacatate 2.6 - + 2/4 SIRS criteria met in setting of infectious source - Broad coverage with Vanc & sudhir - blood cultures x 2 thus far negative x 48hr - wound culture growing E. Coli, GNR - infectious disease consulted for recs - Sudhir and Vanc - if stable able to dc back to [facility] 2. Multiple Ulcers - surgery consulted for recs - Pt refused for any surgical intervention at this time - Boots, turn Q2H, air mattress - bacitracin cream to affected areas - pain control with tramadol (no tylenol as LFT is elevated, no NSAIDs due to patient having CKD on HD- preserve the little kidney function that may be present) - cont abx - Sudhir and Vanc 3. Chronic COPD - c/w home montelukast - oxygen supplementation 2 L via [place] PRN 4. CKD on HD - HD on (TTS) - avoid nephrotoxins- reconsider home valsartan - continue renvela - nephrology consulted - continue dialysis, dose meds renally - continue phos binders pRBC as needed for anemia, on TEJINDER as aransep 60mcg weekly 5. Anemia - Hgb 8.1 at this time - slight drop from previous, consider effect due to blood draw/dilution - cont to monitor 6. Hx of Htn - Cont metoprolol succinate - Start norvasc this evening for better BP control - Hold isosorbide mononitrate as patients pressures are WNL - cont losartan as patient is CKD on HD - hydralazine 5mg IV q6 prn SBP > 180, holding parameters- do not administer if HR is > 100 bpm 7. Hx of Diabetes - hold home diabetic medications - fingersticks ACHS - insulin sliding scale- lispro medium - carb consistent diet DVT ppx: Heparin SC GI ppx: Famotidine Patient case and plan was discussed in detail with attending physician.
--- NOTE | 2017-09-20 15:49 | CP.PCM.PN ---
Subjective - Date & Time of Evaluation Date of Evaluation: 09/20/17 Time of Evaluation: 15:49 - Subjective Subjective: Follow up Nephrology Consultation: Assessment: Stable sacral decubitus ulcer with cellulitis Diabetic chronic Kidney Disease (E11.22) Hypertensive Chronic Kidney Disease (I12.0) End stage renal disease (N18.6) dependence on hemodialysis (Z99.2) (TTS) via permacath Anemia (D64.9), Hyperphosphatemia (E83.39), Secondary Hyperparathyroidism (E21.1 ), HTN (I12.0) COPD, CA breast, hx of C diff, hip surgery Plan: for dialysis tomorrow as per TTS schedule. Continue with Nephrovite 1 tab/day. PRBC as needed for anemia. On TEJINDER as aransep 60 mcg weekly last Hb 8.5 Continue with phos binders home dose but lowered, last phos level 3.7 BP control with meds as ordered. Patient on RAAS anna as losartan Glycemic control, Dialysis consistent diet Further work up/management as per primary team Dose meds/antibiotics for ESRD status. Avoid fleets enema/magnesium based laxatives. dose Vanco by level Thanks for allowing me to participate in care of your patient. Will follow patient with you. Please call if any Qs Dr Wang [place] Office: [phone] Chief Complaint; wound at back HPI: Pt is a 82 F with hx of ESRD on hemodialysis (TTS) via permacath, last dialysis yesterday, chronic anemia, hyperphosphatemia, secondary hyperparathyroidism, Diabetes Mellitus, hypertension, COPD, CA breast, hip fracture, C diff presented with complaints of wound at lower back. pt was in LTAC recently. Denies chest pain, palpitation, shortness of breath, leg swelling c/o back and legs pain Physical Examination: General Appearance: Comfortable, in no acute respiratory distress, co-operative . restless Vitals reviewed and noted as below Head; Atraumatic, normocephalic ENT: no ulcers no thrush. Tongue is midline. Oropharynx: no rash or ulcers. EYES: Pupils are equal, round and reactive to light accommodation. Eye muscles and extraocular movement intact. Sclera is anicteric. Neck; supple no lymphadenopathy, no thyromegaly or bruit Lungs: Normal respiratory rate/effort. Breath sounds bilateral equal and clear Heart: Normal rate. s1s2 normal. No rub or gallop. Extremities: no edema. No varicose veins. has ulcers at heel and sacral area ( dressed) Neurological: Patient is alert, awake and oriented to person, place and time. No focal deficit. Strength bilateral appropriate and equal Skin: Warm and dry. Normal turgor. No rash. Palpitation: Normal elasticity for age Abdomen: Abdomen is soft. Bowel sounds +. There is no abdominal tenderness, no guarding/rigidity or organomegaly Psych: limited insight and has normal affect/mood MSK: no joint tenderness or swelling. Digits and nails normal, no deformity : kidney or bladder not palpable Access: permacath Labs/imaging reviewed. Past medical history, past surgical history, family history, social history, allergy reviewed and noted as below Family Hx: no hx of CKD. Non contributory Objective - Vital Signs/Intake and Output Vital Signs (last 24 hours): Temp Pulse Resp BP Pulse Ox 98 F 107 H 19 145/48 L 94 L 09/20/17 06:00 09/20/17 10:00 09/20/17 06:00 09/20/17 06:00 09/20/17 06:00 Intake and Output: 09/20/17 09/20/17 06:59 18:59 Intake Total 120 660 Output Total 0 Balance 120 660 - Medications Medications: Current Medications Amlodipine Besylate (Norvasc) 10 mg PO HS [facility] Aspirin (Ecotrin) 81 mg PO DAILY [facility] Last Admin: 09/20/17 09:58 Dose: 81 mg Famotidine (Pepcid) 20 mg PO DAILY [facility] Last Admin: 09/20/17 09:40 Dose: 20 mg Hydralazine HCl (Apresoline) 10 mg IVP Q6 PRN PRN Reason: Systolic Blood Pressure Meropenem 250 mg/ Sodium (Chloride) 100 mls @ 100 mls/hr IVPB Q12H [facility] PRN Reason: Protocol Stop: 09/27/17 10:16 Last Admin: 09/20/17 11:23 Dose: 100 mls/hr Insulin Human Lispro (Humalog Med) 0 units SC ACHS [facility] PRN Reason: Protocol Last Admin: 09/20/17 12:26 Dose: 1 units Losartan Potassium (Cozaar) 100 mg PO DAILY [facility] Last Admin: 09/20/17 09:58 Dose: 100 mg Metoprolol Succinate (Toprol Xl) 50 mg PO HS [facility] Last Admin: 09/19/17 22:21 Dose: Not Given Mometasone Furoate (Asmanex Twisthaler 220 Mcg) 1 puff IH QPM [facility] Last Admin: 09/19/17 17:53 Dose: Not Given Montelukast Sodium (Singulair) 10 mg PO HS [facility] Last Admin: 09/19/17 22:25 Dose: 10 mg Sevelamer HCl (Renagel) 400 mg PO BID [facility] Last Admin: 09/20/17 09:58 Dose: 400 mg Tramadol HCl (Ultram) 25 mg PO Q8H PRN PRN Reason: Pain, moderate (4-7) Last Admin: 09/20/17 12:26 Dose: 25 mg Vitamin B Complex/Vit C/Folic Acid (Nephro-Yesica) 1 tab PO 0800 [facility] Last Admin: 09/20/17 08:30 Dose: 1 tab - Labs Labs: 09/20/17 05:30 09/20/17 05:30 PT 13.1 SECONDS (9.4-12.5) H 09/17/17 20:04 INR 1.20 (0.93-1.08) H 09/17/17 20:04 APTT 28.4 Seconds (25.1-36.5) 09/17/17 20:04
--- NOTE | 2017-09-20 16:53 | CP.PCM.PN ---
Subjective - Date & Time of Evaluation Date of Evaluation: 09/20/17 Time of Evaluation: 10:50 - Subjective Subjective: Comfortable, no fevers, no diarrhea. Objective - Vital Signs/Intake and Output Vital Signs (last 24 hours): Temp Pulse Resp BP Pulse Ox 98 F 93 H 19 145/48 L 94 L 09/20/17 06:00 09/20/17 06:00 09/20/17 06:00 09/20/17 06:00 09/20/17 06:00 Intake and Output: 09/20/17 09/20/17 06:59 18:59 Intake Total 120 Output Total 0 Balance 120 - Medications Medications: Current Medications Amlodipine Besylate (Norvasc) 10 mg PO HS [facility] Aspirin (Ecotrin) 81 mg PO DAILY [facility] Last Admin: 09/20/17 09:58 Dose: 81 mg Famotidine (Pepcid) 20 mg PO DAILY [facility] Last Admin: 09/20/17 09:40 Dose: 20 mg Hydralazine HCl (Apresoline) 10 mg IVP Q6 PRN PRN Reason: Systolic Blood Pressure Meropenem 250 mg/ Sodium (Chloride) 100 mls @ 100 mls/hr IVPB Q12H [facility] PRN Reason: Protocol Stop: 09/27/17 10:16 Last Admin: 09/19/17 22:32 Dose: 100 mls/hr Insulin Human Lispro (Humalog Med) 0 units SC ACHS [facility] PRN Reason: Protocol Last Admin: 09/20/17 08:00 Dose: Not Given Losartan Potassium (Cozaar) 100 mg PO DAILY [facility] Last Admin: 09/20/17 09:58 Dose: 100 mg Metoprolol Succinate (Toprol Xl) 50 mg PO [facility] Last Admin: 09/19/17 22:21 Dose: Not Given Mometasone Furoate (Asmanex Twisthaler 220 Mcg) 1 puff IH QPM [facility] Last Admin: 09/19/17 17:53 Dose: Not Given Montelukast Sodium (Singulair) 10 mg PO HS [facility] Last Admin: 09/19/17 22:25 Dose: 10 mg Sevelamer HCl (Renagel) 400 mg PO BID [facility] Last Admin: 09/20/17 09:58 Dose: 400 mg Tramadol HCl (Ultram) 25 mg PO Q8H PRN PRN Reason: Pain, moderate (4-7) Last Admin: 09/19/17 22:22 Dose: 25 mg Vitamin B Complex/Vit C/Folic Acid (Nephro-Yesica) 1 tab PO 0800 [facility] Last Admin: 09/20/17 08:30 Dose: 1 tab - Labs Labs: 09/20/17 05:30 09/20/17 05:30 PT 13.1 SECONDS (9.4-12.5) H 09/17/17 20:04 INR 1.20 (0.93-1.08) H 09/17/17 20:04 APTT 28.4 Seconds (25.1-36.5) 09/17/17 20:04 - Constitutional Appears: Non-toxic - Head Exam Head Exam: NORMAL INSPECTION - ENT Exam ENT Exam: Mucous Membranes Moist - Respiratory Exam Respiratory Exam: Decreased Breath Sounds - Cardiovascular Exam Cardiovascular Exam: +S1, +S2 - GI/Abdominal Exam GI & Abdominal Exam: Soft. absent: Tenderness Assessment and Plan - Assessment and Plan (Free Text) Plan: Assessment sepsis from stage 4 sacral decubitus ulcer infection, growing gram negative bacilli so far history of pectoral hematoma history of multiple pressure ulcers (both heels, sacral ulcer stage 3), history of infection with Pseudomonas (sacral ulcer / buttock area); previously had wound vacuum placement done C. diff associated diarrhea, acute infection GI bleeding, etiology to be determined HTN DM ESRD on HD COPD right eye blindness breast cancer S/P bilateral mastectomy Plan on vancomycin and merrem day 3 (renally-adjusted); follow final cx results - follow up further plans of Surgery will monitor clinically
[2017-09-20] MEDS: Mometasone 220 mcg/puff-14 puff Inh IH SCH (18:12)
[2017-09-20] MEDS: Metoprolol Succinate 50 mg XL Tab PO SCH (21:15)
[2017-09-21 06:55] LABS: BASO # 0.04 K/mm3 (0.0-2.0); BASO % 0.2 % (0.0-3.0); EOS # 0.1 (0.0-0.7); EOS % 0.7 % (1.5-5.0); GRAN # 15.09 (1.4-6.5); GRAN % 82.5 % (50.0-68.0); HEMATOCRIT 26.7 % (36.0-48.0); LYMPH # 1.7 (1.2-3.4); LYMPH % 9.3 % (22.0-35.0); MEAN CELL VOLUME 95.4 fl (80.0-105.0); MEAN CORPUSCULAR HEMOGLOBIN 28.9 pg (25.0-35.0); MEAN CORPUSCULAR HGB CONC 30.3 g/dl (31.0-37.0); MEAN PLATELET VOLUME 8.9 fl (7.0-11.0); MONO # 1.3 (0.1-0.6); MONO % 7.3 % (1.0-6.0); RED CELL DISTRIBUTION WIDTH 17.3 % (11.5-14.5); WHITE BLOOD COUNT 18.3 10^3/ul (4.5-11.0)
--- NOTE | 2017-09-21 07:19 | CP.PCM.PN ---
Subjective - Date & Time of Evaluation Date of Evaluation: 09/21/17 Time of Evaluation: 12:53 - Subjective Subjective: Patient seen and examined. Refusing surgical intervention, will continue with medical management. Objective - Vital Signs/Intake and Output Vital Signs (last 24 hours): Temp Pulse Resp BP Pulse Ox 97.9 F 88 18 138/72 100 09/21/17 06:00 09/21/17 06:00 09/21/17 06:00 09/21/17 06:00 09/21/17 06:00 Intake and Output: 09/21/17 09/21/17 06:59 18:59 Intake Total 100 120 Output Total 1 Balance 100 119 - Medications Medications: Current Medications Amlodipine Besylate (Norvasc) 10 mg PO HS [facility] Last Admin: 09/20/17 21:15 Dose: 10 mg Aspirin (Ecotrin) 81 mg PO DAILY [facility] Last Admin: 09/20/17 09:58 Dose: 81 mg Famotidine (Pepcid) 20 mg PO DAILY [facility] Last Admin: 09/20/17 09:40 Dose: 20 mg Hydralazine HCl (Apresoline) 10 mg IVP Q6 PRN PRN Reason: Systolic Blood Pressure Meropenem 250 mg/ Sodium (Chloride) 100 mls @ 100 mls/hr IVPB Q12H [facility] PRN Reason: Protocol Stop: 09/27/17 10:16 Last Admin: 09/20/17 22:02 Dose: 100 mls/hr Insulin Human Lispro (Humalog Med) 0 units SC ACHS [facility] PRN Reason: Protocol Last Admin: 09/20/17 21:15 Dose: Not Given Losartan Potassium (Cozaar) 100 mg PO DAILY [facility] Last Admin: 09/20/17 09:58 Dose: 100 mg Metoprolol Succinate (Toprol Xl) 50 mg PO HS [facility] Last Admin: 09/20/17 21:15 Dose: 50 mg Mometasone Furoate (Asmanex Twisthaler 220 Mcg) 1 puff IH QPM [facility] Last Admin: 09/20/17 18:12 Dose: 1 puff Montelukast Sodium (Singulair) 10 mg PO HS [facility] Last Admin: 09/20/17 21:16 Dose: 10 mg Sevelamer HCl (Renagel) 400 mg PO BID [facility] Last Admin: 09/20/17 18:12 Dose: 400 mg Tramadol HCl (Ultram) 25 mg PO Q8H PRN PRN Reason: Pain, moderate (4-7) Last Admin: 09/20/17 21:16 Dose: 25 mg Vitamin B Complex/Vit C/Folic Acid (Nephro-Yesica) 1 tab PO 0800 [facility] Last Admin: 09/20/17 08:30 Dose: 1 tab - Labs Labs: 09/21/17 06:11 09/20/17 05:30 PT 13.1 SECONDS (9.4-12.5) H 09/17/17 20:04 INR 1.20 (0.93-1.08) H 09/17/17 20:04 APTT 28.4 Seconds (25.1-36.5) 09/17/17 20:04 - Constitutional Appears: No Acute Distress - Head Exam Head Exam: ATRAUMATIC, NORMOCEPHALIC - ENT Exam ENT Exam: Mucous Membranes Moist - Neck Exam Neck Exam: Normal Inspection - Respiratory Exam Respiratory Exam: absent: Rales, Rhonchi, Wheezes - Cardiovascular Exam Cardiovascular Exam: +S1, +S2. absent: Gallop, Murmur - GI/Abdominal Exam GI & Abdominal Exam: Soft. absent: Distended, Firm, Guarding, Rigid, Tenderness - Extremities Exam Extremities Exam: absent: Calf Tenderness - Neurological Exam Neurological Exam: Alert, Awake Assessment and Plan - Assessment and Plan (Free Text) Plan: Patient is a 82 year old female resident of [facility] with a past medical history significant for DM2, COPD, HTN, ESRD on HD (TTS), right eye blindness breast carcinoma s/p bilateral mastectomy, sacral ulcer s/p wound debridement in 07/19/2017 and history of C. diff now with complaint of back pain and bilateral foot pain presenting with sepsis possibly 2/2 to multiple ulcers. 1. Sepsis - afebrile however with leukocytosis - Lacatate 2.6 - + 2/4 SIRS criteria met in setting of infectious source - Broad coverage with Vanc & sudhir - blood cultures x 2 thus far negative x 48hr - wound culture growing E. Coli, GNR - infectious disease consulted for recs - Sudhir and Vanc - if stable able to dc back to [facility] 2. Multiple Ulcers - surgery consulted for recs - Pt refused for any surgical intervention at this time - Boots, turn Q2H, air mattress - bacitracin cream to affected areas - pain control with tramadol (no tylenol as LFT is elevated, no NSAIDs due to patient having CKD on HD- preserve the little kidney function that may be present) - cont abx - Sudhir and Vanc 3. Chronic COPD - c/w home montelukast - oxygen supplementation 2 L via [place] PRN 4. CKD on HD - HD on (TTS) - avoid nephrotoxins- reconsider home valsartan - continue renvela - nephrology consulted - continue dialysis, dose meds renally - continue phos binders pRBC as needed for anemia, on TEJINDER as aransep 60mcg weekly 5. Anemia - Hgb 8.1 at this time - slight drop from previous, consider effect due to blood draw/dilution - cont to monitor 6. Hx of Htn - Cont metoprolol succinate - Start norvasc this evening for better BP control - Hold isosorbide mononitrate as patients pressures are WNL - cont losartan as patient is CKD on HD - hydralazine 5mg IV q6 prn SBP > 180, holding parameters- do not administer if HR is > 100 bpm 7. Hx of Diabetes - hold home diabetic medications - fingersticks ACHS - insulin sliding scale- lispro medium - carb consistent diet DVT ppx: Heparin SC GI ppx: Famotidine Patient case and plan was discussed in detail with attending physician.
[2017-09-21 07:26] LABS: ALB/GLOB RATIO 0.6 (1.1-1.8); BILIRUBIN,TOTAL 0.4 mg/dL (0.2-1.3); CALCIUM 8.7 mg/dL (8.4-10.5); MAGNESIUM 1.8 mg/dL (1.7-2.2)
[2017-09-21] MEDS: Insulin Lispro (humaLOG) MEDIUM Coverage SC SCH ×4 (07:30→22:24)
--- NOTE | 2017-09-21 09:01 | CP.PCM.PN ---
Subjective - Date & Time of Evaluation Date of Evaluation: 09/21/17 Time of Evaluation: 07:00 - Subjective Subjective: General Surgery- Dr. Tirado Patient seen and examined at bedside this AM. No acute events overnight. Currently undergoing hemodialysis. denies f/c cp/sob n/v/d Objective - Vital Signs/Intake and Output Vital Signs (last 24 hours): Temp Pulse Resp BP Pulse Ox 97.9 F 88 18 138/72 100 09/21/17 06:00 09/21/17 06:00 09/21/17 06:00 09/21/17 06:00 09/21/17 06:00 Intake and Output: 09/21/17 09/21/17 06:59 18:59 Intake Total 100 120 Output Total 1 Balance 100 119 - Medications Medications: Current Medications Amlodipine Besylate (Norvasc) 10 mg PO HS [facility] Last Admin: 09/20/17 21:15 Dose: 10 mg Aspirin (Ecotrin) 81 mg PO DAILY [facility] Last Admin: 09/20/17 09:58 Dose: 81 mg Famotidine (Pepcid) 20 mg PO DAILY [facility] Last Admin: 09/20/17 09:40 Dose: 20 mg Hydralazine HCl (Apresoline) 10 mg IVP Q6 PRN PRN Reason: Systolic Blood Pressure Meropenem 250 mg/ Sodium (Chloride) 100 mls @ 100 mls/hr IVPB Q12H [facility] PRN Reason: Protocol Stop: 09/27/17 10:16 Last Admin: 09/20/17 22:02 Dose: 100 mls/hr Insulin Human Lispro (Humalog Med) 0 units SC ACHS [facility] PRN Reason: Protocol Last Admin: 09/20/17 21:15 Dose: Not Given Losartan Potassium (Cozaar) 100 mg PO DAILY [facility] Last Admin: 09/20/17 09:58 Dose: 100 mg Metoprolol Succinate (Toprol Xl) 50 mg PO HS [facility] Last Admin: 09/20/17 21:15 Dose: 50 mg Mometasone Furoate (Asmanex Twisthaler 220 Mcg) 1 puff IH QPM [facility] Last Admin: 09/20/17 18:12 Dose: 1 puff Montelukast Sodium (Singulair) 10 mg PO HS [facility] Last Admin: 09/20/17 21:16 Dose: 10 mg Sevelamer HCl (Renagel) 400 mg PO BID [facility] Last Admin: 09/20/17 18:12 Dose: 400 mg Tramadol HCl (Ultram) 25 mg PO Q8H PRN PRN Reason: Pain, moderate (4-7) Last Admin: 09/20/17 21:16 Dose: 25 mg Vitamin B Complex/Vit C/Folic Acid (Nephro-Yesica) 1 tab PO 0800 [facility] Last Admin: 09/20/17 08:30 Dose: 1 tab - Labs Labs: 09/21/17 06:11 09/21/17 06:11 PT 13.1 SECONDS (9.4-12.5) H 09/17/17 20:04 INR 1.20 (0.93-1.08) H 09/17/17 20:04 APTT 28.4 Seconds (25.1-36.5) 09/17/17 20:04 - Constitutional Appears: Non-toxic, No Acute Distress, Chronically Ill - Head Exam Head Exam: ATRAUMATIC - Eye Exam Eye Exam: EOMI. absent: Scleral icterus - ENT Exam ENT Exam: Mucous Membranes Moist - Respiratory Exam Respiratory Exam: NORMAL BREATHING PATTERN. absent: Accessory Muscle Use, Respiratory Distress - Cardiovascular Exam Cardiovascular Exam: +S1, +S2 - GI/Abdominal Exam GI & Abdominal Exam: Soft. absent: Distended, Tenderness - Extremities Exam Extremities Exam: absent: Calf Tenderness - Neurological Exam Neurological Exam: Alert, Awake - Skin Skin Exam: Warm Assessment and Plan - Assessment and Plan (Free Text) Assessment: 82F w/ sacral decubitus ulcer Plan: - patient refusing to be seen by surgery, or any surgical intervention - encourage local wound care - medical management per primary team - further recs per Dr. Celestino Fuchs PGY1
[2017-09-21] MEDS: Collagenase 250 Units/gm Ointment(30 gm) TOP SCH ×2 (12:00→18:12)
[2017-09-21] MEDS: Multivitamin Vitamin B Complex (Nephro-Vite) Tab PO SCH ×2 (12:00)
--- NOTE | 2017-09-21 13:56 | CP.PCM.PN ---
Subjective - Date & Time of Evaluation Date of Evaluation: 09/21/17 Time of Evaluation: 13:55 - Subjective Subjective: Follow up Nephrology Consultation: Assessment: Stable sacral decubitus ulcer with cellulitis Diabetic chronic Kidney Disease (E11.22) Hypertensive Chronic Kidney Disease (I12.0) End stage renal disease (N18.6) dependence on hemodialysis (Z99.2) (TTS) via permacath Anemia (D64.9), Hyperphosphatemia (E83.39), Secondary Hyperparathyroidism (E21.1 ), HTN (I12.0) COPD, CA breast, hx of C diff, hip surgery Plan: for dialysis today as per TTS schedule. Continue with Nephrovite 1 tab/day. PRBC as needed for anemia. On TEJINDER as aransep 60 mcg weekly last Hb 8.1 Continue with phos binders home dose but lowered, last phos level 3 BP control with meds as ordered. Patient on RAAS anna as losartan Glycemic control, Dialysis consistent diet Further work up/management as per primary team Dose meds/antibiotics for ESRD status. Avoid fleets enema/magnesium based laxatives. dose Vanco by level Thanks for allowing me to participate in care of your patient. Will follow patient with you. Please call if any Qs Dr Wang Fracne Office: [phone] Chief Complaint; wound at back HPI: Pt is a 82 F with hx of ESRD on hemodialysis (TTS) via permacath, last dialysis yesterday, chronic anemia, hyperphosphatemia, secondary hyperparathyroidism, Diabetes Mellitus, hypertension, COPD, CA breast, hip fracture, C diff presented with complaints of wound at lower back. pt was in LTAC recently. Denies chest pain, palpitation, shortness of breath, leg swelling c/o back and legs pain Physical Examination: General Appearance: Comfortable, in no acute respiratory distress, co-operative . Vitals reviewed and noted as below Head; Atraumatic, normocephalic ENT: no ulcers no thrush. Tongue is midline. Oropharynx: no rash or ulcers. EYES: Pupils are equal, round and reactive to light accommodation. Eye muscles and extraocular movement intact. Sclera is anicteric. Neck; supple no lymphadenopathy, no thyromegaly or bruit Lungs: Normal respiratory rate/effort. Breath sounds bilateral equal and clear Heart: Normal rate. s1s2 normal. No rub or gallop. Extremities: no edema. No varicose veins. has ulcers at heel and sacral area ( dressed) Neurological: Patient is alert, awake and oriented to person, place and time. No focal deficit. Strength bilateral appropriate and equal Skin: Warm and dry. Normal turgor. No rash. Palpitation: Normal elasticity for age Abdomen: Abdomen is soft. Bowel sounds +. There is no abdominal tenderness, no guarding/rigidity or organomegaly Psych: limited insight and has normal affect/mood MSK: no joint tenderness or swelling. Digits and nails normal, no deformity : kidney or bladder not palpable Access: permacath Labs/imaging reviewed. Past medical history, past surgical history, family history, social history, allergy reviewed and noted as below Family Hx: no hx of CKD. Non contributory Objective - Vital Signs/Intake and Output Vital Signs (last 24 hours): Temp Pulse Resp BP Pulse Ox 97.9 F 88 18 138/72 100 09/21/17 06:00 09/21/17 06:00 09/21/17 06:00 09/21/17 06:00 09/21/17 06:00 Intake and Output: 09/21/17 09/21/17 06:59 18:59 Intake Total 100 120 Output Total 1 Balance 100 119 - Medications Medications: Current Medications Amlodipine Besylate (Norvasc) 10 mg PO HS [facility] Last Admin: 09/20/17 21:15 Dose: 10 mg Aspirin (Ecotrin) 81 mg PO DAILY [facility] Last Admin: 09/21/17 12:00 Dose: 81 mg Collagenase (Santyl) 1 gm TOP BID [facility] Famotidine (Pepcid) 20 mg PO DAILY [facility] Last Admin: 09/21/17 12:00 Dose: 20 mg Heparin Sodium (Porcine) (Heparin) 2,100 units ICA TTS [facility] Last Admin: 09/21/17 12:21 Dose: Not Given Heparin Sodium (Porcine) (Heparin) 2,200 units ICV TTS [facility] Last Admin: 09/21/17 12:22 Dose: Not Given Hydralazine HCl (Apresoline) 10 mg IVP Q6 PRN PRN Reason: Systolic Blood Pressure Meropenem 250 mg/ Sodium (Chloride) 100 mls @ 100 mls/hr IVPB Q12H [facility] PRN Reason: Protocol Stop: 09/27/17 10:16 Last Admin: 09/21/17 12:00 Dose: 100 mls/hr Insulin Human Lispro (Humalog Med) 0 units SC ACHS [facility] PRN Reason: Protocol Last Admin: 09/21/17 12:22 Dose: Not Given Losartan Potassium (Cozaar) 100 mg PO DAILY [facility] Last Admin: 09/20/17 09:58 Dose: 100 mg Metoprolol Succinate (Toprol Xl) 50 mg PO HS [facility] Last Admin: 09/20/17 21:15 Dose: 50 mg Mometasone Furoate (Asmanex Twisthaler 220 Mcg) 1 puff IH QPM [facility] Last Admin: 09/20/17 18:12 Dose: 1 puff Montelukast Sodium (Singulair) 10 mg PO HS [facility] Last Admin: 09/20/17 21:16 Dose: 10 mg Sevelamer HCl (Renagel) 400 mg PO BID [facility] Last Admin: 09/21/17 12:00 Dose: 400 mg Tramadol HCl (Ultram) 25 mg PO Q8H PRN PRN Reason: Pain, moderate (4-7) Last Admin: 09/20/17 21:16 Dose: 25 mg Vitamin B Complex/Vit C/Folic Acid (Nephro-Yesica) 1 tab PO 0800 [facility] Last Admin: 09/21/17 12:00 Dose: 1 tab - Labs Labs: 09/21/17 06:11 09/21/17 06:11 PT 13.1 SECONDS (9.4-12.5) H 09/17/17 20:04 INR 1.20 (0.93-1.08) H 09/17/17 20:04 APTT 28.4 Seconds (25.1-36.5) 09/17/17 20:04
--- NOTE | 2017-09-21 14:13 | CP.PCM.CON ---
<Shane Madrid - Last Filed: 09/21/17 14:24> History of Present Illness - History of Present Illness History of Present Illness: PGY4 Initial GI Consult Ana Hendrickson is a 82F w. hx of ESRD on HD, DM, HTN, Breast Ca, and stage 4 sacral decubitus ulcer who presented to the ER due back pain, LE ulcers, and cellulites of her sacral decubitis ulcers. Pt was a poor historian though she was oriented x3. GI was consulted for elevated LFTs, elevation of alk Phos, and cholelithiasis. Pt was a hx of chronic elevated LFTs abd Alk Phos. She does not report and RUQ pain, fever, or tenderness. Abd u/s revealed cholelithiasis with GB wall thickening and normal CBD. No reports of any recent episodes of melena , hematemesis, or coffee-ground emesis. She states that she has previously had a colonscopy and EGD but cannot recall the results. In the ER, her hgb was founf to be ~8, which is around her baseline. PMHx: ESRD on HD TThSat, DM, HTN, Breast CA PSHx: Bilat Mastectomy, right subclavian permacath Social Hx: hx of 1+ppd smoker for "many years", quit 20 years ago. Rare ETOH use. Denies any drugs. Resident at [facility]. Allergy: Albuterol, Clonidine, Ibuprofen, Prednisone : [phone] ROS: 12-point ROS conducted, neg other than above Past Patient History - Infectious Disease Hx of Infectious Diseases: None - Tetanus Immunizations Tetanus Immunization: Unknown - Past Medical History & Family History Past Medical History?: Yes - Past Social History Smoking Status: Former Smoker - CARDIAC Hx Cardiac Disorders: Yes Hx Congestive Heart Failure: Yes Hx Hypertension: Yes - PULMONARY Hx Respiratory Disorders: Yes Hx Chronic Obstructive Pulmonary Disease (COPD): Yes - NEUROLOGICAL Hx Neurological Disorder: No - HEENT Hx HEENT Problems: Yes Hx Blind: Yes (right eye) - RENAL Hx Chronic Kidney Disease: Yes Hx Dialysis: Yes Hx Renal Failure: Yes - ENDOCRINE/METABOLIC Hx Endocrine Disorders: Yes Hx Diabetes Mellitus Type 2: Yes - HEMATOLOGICAL/ONCOLOGICAL Hx Blood Disorders: Yes Hx Cancer: Yes (breast) - INTEGUMENTARY Hx Dermatological Problems: Yes Other/Comment: Stage 4 sacral wound. L heel ulcer. R heel ulcer and dorsum ulcers x3. R knee ulcer. R hip bruising with three skin tears - MUSCULOSKELETAL/RHEUMATOLOGICAL Hx Musculoskeletal Disorders: Yes Hx Falls: Yes - GASTROINTESTINAL Hx Gastrointestinal Disorders: Yes Hx Gastroesophageal Reflux: Yes - GENITOURINARY/GYNECOLOGICAL Hx Genitourinary Disorders: Yes Other/Comment: HX OF BREAST CA WITH B/L MASTECTOMY - PSYCHIATRIC Hx Psychophysiologic Disorder: Yes Hx Anxiety: Yes Hx Substance Use: No - SURGICAL HISTORY Hx Mastectomy: Yes (left, right lumpectomy) Hx Orthopedic Surgery: (right hip replacement) - ANESTHESIA Hx Anesthesia: Yes Hx Anesthesia Reactions: No Hx Malignant Hyperthermia: No Meds Allergies/Adverse Reactions: Allergies Allergy/AdvReac Type Severity Reaction Status Date / Time albuterol Allergy DIZZINESS Verified 09/17/17 19:26 clonidine Allergy DIZZINESS Verified 09/17/17 19:26 ibuprofen Allergy VOMITING Verified 09/17/17 19:26 prednisone Allergy VOMITING Verified 09/17/17 19:26 - Medications Medications: Current Medications Amlodipine Besylate (Norvasc) 10 mg PO HS [facility] Last Admin: 09/20/17 21:15 Dose: 10 mg Aspirin (Ecotrin) 81 mg PO DAILY [facility] Last Admin: 09/21/17 12:00 Dose: 81 mg Collagenase (Santyl) 1 gm TOP BID [facility] Famotidine (Pepcid) 20 mg PO DAILY [facility] Last Admin: 09/21/17 12:00 Dose: 20 mg Heparin Sodium (Porcine) (Heparin) 2,100 units ICA TTS [facility] Last Admin: 09/21/17 12:21 Dose: Not Given Heparin Sodium (Porcine) (Heparin) 2,200 units ICV TTS [facility] Last Admin: 09/21/17 12:22 Dose: Not Given Hydralazine HCl (Apresoline) 10 mg IVP Q6 PRN PRN Reason: Systolic Blood Pressure Meropenem 250 mg/ Sodium (Chloride) 100 mls @ 100 mls/hr IVPB Q12H [facility] PRN Reason: Protocol Stop: 09/27/17 10:16 Last Admin: 09/21/17 12:00 Dose: 100 mls/hr Insulin Human Lispro (Humalog Med) 0 units SC ACHS [facility] PRN Reason: Protocol Last Admin: 09/21/17 12:22 Dose: Not Given Losartan Potassium (Cozaar) 100 mg PO DAILY [facility] Last Admin: 09/20/17 09:58 Dose: 100 mg Metoprolol Succinate (Toprol Xl) 50 mg PO HS [facility] Last Admin: 09/20/17 21:15 Dose: 50 mg Mometasone Furoate (Asmanex Twisthaler 220 Mcg) 1 puff IH QPM [facility] Last Admin: 09/20/17 18:12 Dose: 1 puff Montelukast Sodium (Singulair) 10 mg PO HS [facility] Last Admin: 09/20/17 21:16 Dose: 10 mg Sevelamer HCl (Renagel) 400 mg PO BID [facility] Last Admin: 09/21/17 12:00 Dose: 400 mg Tramadol HCl (Ultram) 25 mg PO Q8H PRN PRN Reason: Pain, moderate (4-7) Last Admin: 09/20/17 21:16 Dose: 25 mg Vitamin B Complex/Vit C/Folic Acid (Nephro-Yesica) 1 tab PO 0800 [facility] Last Admin: 09/21/17 12:00 Dose: 1 tab Physical Exam - Constitutional Appears: No Acute Distress - Head Exam Head Exam: ATRAUMATIC, NORMOCEPHALIC - Eye Exam Eye Exam: Normal appearance - ENT Exam ENT Exam: Mucous Membranes Moist - Respiratory Exam Respiratory Exam: Clear to Auscultation Bilateral, NORMAL BREATHING PATTERN. absent: Rhonchi, Wheezes, Respiratory Distress - Cardiovascular Exam Cardiovascular Exam: REGULAR RHYTHM, +S1, +S2 - GI/Abdominal Exam GI & Abdominal Exam: Normal Bowel Sounds, Soft. absent: Distended, Guarding, Rebound, Rigid, Tenderness - Extremities Exam Extremities exam: Negative for: joint swelling, pedal edema - Neurological Exam Neurological exam: Alert, Oriented x3 - Psychiatric Exam Psychiatric exam: Normal Affect, Normal Mood - Skin Skin Exam: Dry, Intact, Normal Color, Warm Results - Vital Signs Recent Vital Signs: Last Vital Signs Temp 97.9 F 09/21/17 06:00 Pulse 88 09/21/17 06:00 Resp 18 09/21/17 06:00 BP 138/72 09/21/17 06:00 Pulse Ox 100 09/21/17 06:00 - Labs Result Diagrams: 09/21/17 06:11 09/21/17 06:11 Labs: Laboratory Results - last 24 hr 09/20/17 09/21/17 09/21/17 16:03 06:11 06:11 WBC 18.3 H RBC 2.80 L Hgb 8.1 L Hct 26.7 L MCV 95.4 MCH 28.9 MCHC 30.3 L RDW 17.3 H Plt Count 296 MPV 8.9 Gran % 82.5 H Lymph % (Auto) 9.3 L [place] % (Auto) 7.3 H Eos % (Auto) 0.7 L Baso % (Auto) 0.2 Gran # 15.09 H Lymph # 1.7 [place] # 1.3 H Eos # 0.1 Baso # 0.04 Sodium 137 Potassium 4.0 Chloride 103 Carbon Dioxide 27 Anion Gap 11 BUN 25 H Creatinine 3.3 H Est GFR ( Amer) 16 Est GFR (Non-Af Amer) 13 POC Glucose (mg/dL) 133 H Random Glucose 80 Calcium 8.7 Phosphorus 3.0 Magnesium 1.8 Total Bilirubin 0.4 AST 37 H D ALT 32 Alkaline Phosphatase 131 H Total Protein 6.0 Albumin 2.3 L Globulin 3.7 Albumin/Globulin Ratio 0.6 L Assessment & Plan - Assessment and Plan (Free Text) Assessment: 82 year old female resident of [facility] with a past medical history significant for DM2, COPD, HTN, ESRD on HD (MWF), right eye blindness breast carcinoma s/p bilateral mastectomy, sacral ulcer s/p wound debridement in 07/19/2017 and history of C. difficile who [place] [facility] [place] for evaluation and treatment of chronic back pain and bilateral foot pain due to chronic ulcers. GI consulted for cholelithiasis without evidence of cholecystitis and she has a normal CBD. Elevated Alk Phos is chronic and is likely 2/2 chronic sacral decubitis ulcers Elevated Alk Phos, etiology unlikely 2/2 bilary tract, rather 2/2 chronic sacral decubitus ulcers Cholelithiasis, asymptomatic Anemia of chronic disease Plan: -no acute intervention recommend -no signs of cholecystitis or cholangitis or biliary colic -Alk Phos at baseline -hgb stable -recommend daily miralax for contipation -will sign off, please reconsult if needed D/W Dr. Manzano <Rosio Manzano MD - Last Filed: 09/21/17 21:12> Meds - Medications Medications: Current Medications Amlodipine Besylate (Norvasc) 10 mg PO HS [facility] Last Admin: 09/21/17 21:00 Dose: 10 mg Aspirin (Ecotrin) 81 mg PO DAILY [facility] Last Admin: 09/21/17 12:00 Dose: Not Given Collagenase (Santyl) 1 gm TOP BID [facility] Last Admin: 09/21/17 18:12 Dose: 1 appl Famotidine (Pepcid) 20 mg PO DAILY [facility] Last Admin: 09/21/17 12:00 Dose: 20 mg Heparin Sodium (Porcine) (Heparin) 2,100 units ICA TTS [facility] Last Admin: 09/21/17 12:21 Dose: Not Given Heparin Sodium (Porcine) (Heparin) 2,200 units ICV TTS [facility] Last Admin: 09/21/17 12:22 Dose: Not Given Hydralazine HCl (Apresoline) 10 mg IVP Q6 PRN PRN Reason: Systolic Blood Pressure Meropenem 250 mg/ Sodium (Chloride) 100 mls @ 100 mls/hr IVPB Q12H [facility] PRN Reason: Protocol Stop: 09/27/17 10:16 Last Admin: 09/21/17 12:00 Dose: 100 mls/hr Insulin Human Lispro (Humalog Med) 0 units SC ACHS [facility] PRN Reason: Protocol Last Admin: 09/21/17 17:27 Dose: Not Given Losartan Potassium (Cozaar) 100 mg PO DAILY [facility] Last Admin: 09/21/17 12:00 Dose: Not Given Metoprolol Succinate (Toprol Xl) 50 mg PO HS [facility] Last Admin: 09/21/17 21:00 Dose: 50 mg Mometasone Furoate (Asmanex Twisthaler 220 Mcg) 1 puff IH QPM [facility] Last Admin: 09/21/17 18:12 Dose: 1 puff Montelukast Sodium (Singulair) 10 mg PO HS [facility] Last Admin: 09/21/17 21:00 Dose: 10 mg Sevelamer HCl (Renagel) 400 mg PO BID [facility] Last Admin: 09/21/17 18:14 Dose: 400 mg Tramadol HCl (Ultram) 25 mg PO Q8H PRN PRN Reason: Pain, moderate (4-7) Last Admin: 09/21/17 18:13 Dose: 25 mg Vitamin B Complex/Vit C/Folic Acid (Nephro-Yesica) 1 tab PO 0800 [facility] Last Admin: 09/21/17 12:00 Dose: Not Given Results - Vital Signs Recent Vital Signs: Last Vital Signs Temp 98.1 F 09/21/17 18:00 Pulse 67 09/21/17 21:00 Resp 19 09/21/17 18:00 BP 142/63 09/21/17 21:00 Pulse Ox 100 09/21/17 06:00 - Labs Result Diagrams: 09/21/17 06:11 09/21/17 06:11 Labs: Laboratory Results - last 24 hr 09/21/17 09/21/17 06:11 06:11 WBC 18.3 H RBC 2.80 L Hgb 8.1 L Hct 26.7 L MCV 95.4 MCH 28.9 MCHC 30.3 L RDW 17.3 H Plt Count 296 MPV 8.9 Gran % 82.5 H Lymph % (Auto) 9.3 L [place] % (Auto) 7.3 H Eos % (Auto) 0.7 L Baso % (Auto) 0.2 Gran # 15.09 H Lymph # 1.7 [place] # 1.3 H Eos # 0.1 Baso # 0.04 Sodium 137 Potassium 4.0 Chloride 103 Carbon Dioxide 27 Anion Gap 11 BUN 25 H Creatinine 3.3 H Est GFR ( Amer) 16 Est GFR (Non-Af Amer) 13 Random Glucose 80 Calcium 8.7 Phosphorus 3.0 Magnesium 1.8 Total Bilirubin 0.4 AST 37 H D ALT 32 Alkaline Phosphatase 131 H Total Protein 6.0 Albumin 2.3 L Globulin 3.7 Albumin/Globulin Ratio 0.6 L Attending/Attestation - Attestation I have personally seen and examined this patient.: Yes I have fully participated in the care of the patient.: Yes I have reviewed all pertinent clinical information: Yes Notes (Text): 09/21/17 21:09 Patient seen with GI fellow on rounds. This is a 82 year old female with DM2, COPD, HTN, ESRD on HD (MWF), right eye blindness breast carcinoma s/p bilateral mastectomy, sacral ulcer s/p wound debridement and history of C. difficile who [place] [facility] [place] for evaluation and treatment of chronic back pain and bilateral foot pain due to chronic ulcers. GI consulted for cholelithiasis without evidence of cholecystitis and she has a normal CBD. Elevated Alk Phos is chronic and is likely 2/2 chronic sacral decubitis ulcers with bony origin. No acute intervention required. No biliary procedure required. Ulcer care as per primary team and surgery. Will sign off. Thank you for letting us participate in the care of this patient. Daily miralax for contipation. Will sign off, please reconsult if needed
--- NOTE | 2017-09-21 18:02 | CP.PCM.PN ---
Subjective - Date & Time of Evaluation Date of Evaluation: 09/21/17 Time of Evaluation: 11:40 - Subjective Subjective: Comfortable, no fevers. Objective - Vital Signs/Intake and Output Vital Signs (last 24 hours): Temp Pulse Resp BP Pulse Ox 97.9 F 88 18 138/72 100 09/21/17 06:00 09/21/17 06:00 09/21/17 06:00 09/21/17 06:00 09/21/17 06:00 Intake and Output: 09/21/17 09/21/17 06:59 18:59 Intake Total 100 120 Output Total 1 Balance 100 119 - Medications Medications: Current Medications Amlodipine Besylate (Norvasc) 10 mg PO HS [facility] Last Admin: 09/20/17 21:15 Dose: 10 mg Aspirin (Ecotrin) 81 mg PO DAILY [facility] Last Admin: 09/20/17 09:58 Dose: 81 mg Famotidine (Pepcid) 20 mg PO DAILY [facility] Last Admin: 09/20/17 09:40 Dose: 20 mg Heparin Sodium (Porcine) (Heparin) 2,100 units ICA TTS [facility] Heparin Sodium (Porcine) (Heparin) 2,200 units ICV TTS [facility] Hydralazine HCl (Apresoline) 10 mg IVP Q6 PRN PRN Reason: Systolic Blood Pressure Meropenem 250 mg/ Sodium (Chloride) 100 mls @ 100 mls/hr IVPB Q12H [facility] PRN Reason: Protocol Stop: 09/27/17 10:16 Last Admin: 09/20/17 22:02 Dose: 100 mls/hr Insulin Human Lispro (Humalog Med) 0 units SC ACHS [facility] PRN Reason: Protocol Last Admin: 09/20/17 21:15 Dose: Not Given Losartan Potassium (Cozaar) 100 mg PO DAILY [facility] Last Admin: 09/20/17 09:58 Dose: 100 mg Metoprolol Succinate (Toprol Xl) 50 mg PO HS [facility] Last Admin: 09/20/17 21:15 Dose: 50 mg Mometasone Furoate (Asmanex Twisthaler 220 Mcg) 1 puff IH QPM [facility] Last Admin: 09/20/17 18:12 Dose: 1 puff Montelukast Sodium (Singulair) 10 mg PO HS [facility] Last Admin: 09/20/17 21:16 Dose: 10 mg Sevelamer HCl (Renagel) 400 mg PO BID [facility] Last Admin: 09/20/17 18:12 Dose: 400 mg Tramadol HCl (Ultram) 25 mg PO Q8H PRN PRN Reason: Pain, moderate (4-7) Last Admin: 09/20/17 21:16 Dose: 25 mg Vitamin B Complex/Vit C/Folic Acid (Nephro-Yesica) 1 tab PO 0800 [facility] Last Admin: 09/20/17 08:30 Dose: 1 tab - Labs Labs: 09/21/17 06:11 09/21/17 06:11 PT 13.1 SECONDS (9.4-12.5) H 09/17/17 20:04 INR 1.20 (0.93-1.08) H 09/17/17 20:04 APTT 28.4 Seconds (25.1-36.5) 09/17/17 20:04 - Constitutional Appears: Non-toxic, Chronically Ill - Head Exam Head Exam: NORMAL INSPECTION - Respiratory Exam Respiratory Exam: Decreased Breath Sounds - Cardiovascular Exam Cardiovascular Exam: +S1, +S2 - GI/Abdominal Exam GI & Abdominal Exam: Soft. absent: Tenderness Assessment and Plan - Assessment and Plan (Free Text) Plan: Assessment sepsis from stage 4 sacral decubitus ulcer infection, growing several types of gram negative bacilli so far history of pectoral hematoma history of multiple pressure ulcers (both heels, sacral ulcer stage 3), history of infection with Pseudomonas (sacral ulcer / buttock area); previously had wound vacuum placement done C. diff associated diarrhea, acute infection GI bleeding, etiology to be determined HTN DM ESRD on HD COPD right eye blindness breast cancer S/P bilateral mastectomy Plan given a dose of vancomycin and will continue merrem day 4 (renally-adjusted) pending final cx results - follow up further plans of Surgery (but so far patient is is refusing surgery) will continue to monitor clinically
[2017-09-21] MEDS: Mometasone 220 mcg/puff-14 puff Inh IH SCH (18:12)
[2017-09-21] MEDS: Metoprolol Succinate 50 mg XL Tab PO SCH (21:00)
[2017-09-22] MEDS: Insulin Lispro (humaLOG) MEDIUM Coverage SC SCH ×4 (07:49→22:46)
[2017-09-22] MEDS: Multivitamin Vitamin B Complex (Nephro-Vite) Tab PO SCH (07:51)
--- NOTE | 2017-09-22 09:13 | CP.PCM.PN ---
Subjective - Date & Time of Evaluation Date of Evaluation: 09/22/17 Time of Evaluation: 07:30 - Subjective Subjective: Medicine progress note: Pt seen and examined at bedside. No acute events overnight. No complaints at this time. Denies any back or lower ext pain. 12 Point ROS performed and negative other than stated above. Objective - Vital Signs/Intake and Output Vital Signs (last 24 hours): Temp Pulse Resp BP Pulse Ox 98.1 F 80 20 136/59 L 91 L 09/22/17 06:00 09/22/17 08:34 09/22/17 06:00 09/22/17 06:00 09/22/17 06:00 Intake and Output: 09/22/17 09/22/17 06:59 18:59 Intake Total 320 Output Total 0 Balance 320 - Medications Medications: Current Medications Amlodipine Besylate (Norvasc) 10 mg PO HS [facility] Last Admin: 09/21/17 21:00 Dose: 10 mg Aspirin (Ecotrin) 81 mg PO DAILY [facility] Last Admin: 09/21/17 12:00 Dose: Not Given Collagenase (Santyl) 1 gm TOP BID [facility] Last Admin: 09/21/17 18:12 Dose: 1 appl Famotidine (Pepcid) 20 mg PO DAILY [facility] Last Admin: 09/21/17 12:00 Dose: 20 mg Heparin Sodium (Porcine) (Heparin) 2,100 units ICA TTS [facility] Last Admin: 09/21/17 12:21 Dose: Not Given Heparin Sodium (Porcine) (Heparin) 2,200 units ICV TTS [facility] Last Admin: 09/21/17 12:22 Dose: Not Given Hydralazine HCl (Apresoline) 10 mg IVP Q6 PRN PRN Reason: Systolic Blood Pressure Meropenem 250 mg/ Sodium (Chloride) 100 mls @ 100 mls/hr IVPB Q12H [facility] PRN Reason: Protocol Stop: 09/27/17 10:16 Last Admin: 09/21/17 22:02 Dose: 100 mls/hr Insulin Human Lispro (Humalog Med) 0 units SC ACHS [facility] PRN Reason: Protocol Last Admin: 09/22/17 07:49 Dose: Not Given Losartan Potassium (Cozaar) 100 mg PO DAILY [facility] Last Admin: 09/21/17 12:00 Dose: Not Given Metoprolol Succinate (Toprol Xl) 50 mg PO HS [facility] Last Admin: 09/21/17 21:00 Dose: 50 mg Mometasone Furoate (Asmanex Twisthaler 220 Mcg) 1 puff IH QPM [facility] Last Admin: 09/21/17 18:12 Dose: 1 puff Montelukast Sodium (Singulair) 10 mg PO HS [facility] Last Admin: 09/21/17 21:00 Dose: 10 mg Sevelamer HCl (Renagel) 400 mg PO BID [facility] Last Admin: 09/21/17 18:14 Dose: 400 mg Tramadol HCl (Ultram) 25 mg PO Q8H PRN PRN Reason: Pain, moderate (4-7) Last Admin: 09/21/17 18:13 Dose: 25 mg Vitamin B Complex/Vit C/Folic Acid (Nephro-Yesica) 1 tab PO 0800 [facility] Last Admin: 09/22/17 07:51 Dose: Not Given - Labs Labs: 09/21/17 06:11 09/21/17 06:11 PT 13.1 SECONDS (9.4-12.5) H 09/17/17 20:04 INR 1.20 (0.93-1.08) H 09/17/17 20:04 APTT 28.4 Seconds (25.1-36.5) 09/17/17 20:04 - Constitutional Appears: No Acute Distress - Head Exam Head Exam: ATRAUMATIC, NORMOCEPHALIC - Eye Exam Eye Exam: EOMI, PERRL - ENT Exam ENT Exam: Mucous Membranes Moist - Respiratory Exam Respiratory Exam: Clear to Ausculation Bilateral. absent: Wheezes - Cardiovascular Exam Cardiovascular Exam: REGULAR RHYTHM, RRR, +S1, +S2 - GI/Abdominal Exam GI & Abdominal Exam: Soft. absent: Tenderness - Extremities Exam Extremities Exam: absent: Calf Tenderness, Pedal Edema - Neurological Exam Neurological Exam: Alert, Awake - Psychiatric Exam Psychiatric exam: Normal Affect, Normal Mood - Skin Skin Exam: Dry, Intact, Warm Assessment and Plan - Assessment and Plan (Free Text) Assessment: Patient is a 82 year old female resident of [facility] with a past medical history significant for DM2, COPD, HTN, ESRD on HD (TTS), right eye blindness breast carcinoma s/p bilateral mastectomy, sacral ulcer s/p wound debridement in 07/19/2017 and history of C. diff now with complaint of back pain and bilateral foot pain presenting with sepsis possibly 2/2 to multiple ulcers. 1. Sepsis - afebrile however wbc pending todays labs - Lacatate 2.6 - + 2/4 SIRS criteria met in setting of infectious source - Broad coverage with Vanc & sudhir - blood cultures x 2 thus far negative x 48hr - wound culture growing E. Coli, GNR - ID consulted for recs - Sudhir and Vanc - if stable able to dc back to [facility] 2. Multiple Ulcers - surgery consulted for recs - Pt refused for any surgical intervention at this time - Boots, turn Q2H, air mattress - Santyl to affected areas - pain control with tramadol (no tylenol as LFT is elevated, no NSAIDs due to patient having CKD on HD- preserve the little kidney function that may be present) - cont abx - Sudhir and Vanc 3. Elevated alk phos - GI consulted for recs - not a gallbladder etiology and likely due to sacral ulcers - signed off 4. Chronic COPD - c/w home montelukast - oxygen supplementation 2 L via [place] PRN 5. CKD on HD - HD on (TTS) - avoid nephrotoxins - continue renvela - nephrology consulted - continue dialysis, dose meds renally - continue phos binders pRBC as needed for anemia, on TEJINDER as aransep 60mcg weekly 6. Anemia - Hgb pending this moring labs - slight drop from previous, consider effect due to blood draw/dilution - cont to monitor 7. Hx of Htn - Cont metoprolol succinate, norvasc, losartan - hydralazine 10mg IV q6 prn 8. Hx of Diabetes - hold home diabetic medications - fingersticks ACHS - insulin sliding scale- lispro medium - carb consistent diet DVT ppx: Heparin SC GI ppx: Famotidine Patient case and plan was discussed in detail with Dr Ibarra .
[2017-09-22] MEDS: Collagenase 250 Units/gm Ointment(30 gm) TOP SCH ×2 (09:27→17:56)
--- NOTE | 2017-09-22 17:44 | CP.PCM.PN ---
Subjective - Date & Time of Evaluation Date of Evaluation: 09/22/17 Time of Evaluation: 17:43 - Subjective Subjective: Follow up Nephrology Consultation: Assessment: Stable sacral decubitus ulcer with cellulitis Diabetic chronic Kidney Disease (E11.22) Hypertensive Chronic Kidney Disease (I12.0) End stage renal disease (N18.6) dependence on hemodialysis (Z99.2) (TTS) via permacath Anemia (D64.9), Hyperphosphatemia (E83.39), Secondary Hyperparathyroidism (E21.1 ), HTN (I12.0) COPD, CA breast, hx of C diff, hip surgery Plan: for dialysis saturday as per TTS schedule. Continue with Nephrovite 1 tab/day. PRBC as needed for anemia. On TEJINDER as aransep 60 mcg weekly last Hb 8.1 Continue with phos binders home dose but lowered, last phos level 3 BP control with meds as ordered. Patient on RAAS anna as losartan Glycemic control, Dialysis consistent diet Further work up/management as per primary team Dose meds/antibiotics for ESRD status. Avoid fleets enema/magnesium based laxatives. dose Vanco by level Thanks for allowing me to participate in care of your patient. Will follow patient with you. Please call if any Qs Dr Wang [place] Office: [phone] Chief Complaint; wound at back HPI: Pt is a 82 F with hx of ESRD on hemodialysis (TTS) via permacath, last dialysis yesterday, chronic anemia, hyperphosphatemia, secondary hyperparathyroidism, Diabetes Mellitus, hypertension, COPD, CA breast, hip fracture, C diff presented with complaints of wound at lower back. pt was in [facility] recently. Denies chest pain, palpitation, shortness of breath, leg swelling c/o back and legs pain on 2 points restraints today Physical Examination: General Appearance: Comfortable, in no acute respiratory distress, co-operative . Vitals reviewed and noted as below Head; Atraumatic, normocephalic ENT: no ulcers no thrush. Tongue is midline. Oropharynx: no rash or ulcers. EYES: Pupils are equal, round and reactive to light accommodation. Eye muscles and extraocular movement intact. Sclera is anicteric. Neck; supple no lymphadenopathy, no thyromegaly or bruit Lungs: Normal respiratory rate/effort. Breath sounds bilateral equal and clear Heart: Normal rate. s1s2 normal. No rub or gallop. Extremities: no edema. No varicose veins. has ulcers at heel and sacral area ( dressed) Neurological: Patient is alert, awake and confused Skin: Warm and dry. Normal turgor. No rash. Palpitation: Normal elasticity for age Abdomen: Abdomen is soft. Bowel sounds +. There is no abdominal tenderness, no guarding/rigidity or organomegaly Psych: limited insight and has normal affect/mood MSK: no joint tenderness or swelling. Digits and nails normal, no deformity : kidney or bladder not palpable Access: permacath Labs/imaging reviewed. Past medical history, past surgical history, family history, social history, allergy reviewed and noted as below Family Hx: no hx of CKD. Non contributory Objective - Vital Signs/Intake and Output Vital Signs (last 24 hours): Temp Pulse Resp BP Pulse Ox 98.2 F 95 H 18 130/65 91 L 09/22/17 12:00 09/22/17 12:00 09/22/17 12:00 09/22/17 12:00 09/22/17 06:00 Intake and Output: 09/22/17 09/22/17 06:59 18:59 Intake Total 320 Output Total 0 Balance 320 - Medications Medications: Current Medications Amlodipine Besylate (Norvasc) 10 mg PO HS [facility] Last Admin: 09/21/17 21:00 Dose: 10 mg Aspirin (Ecotrin) 81 mg PO DAILY [facility] Last Admin: 09/22/17 09:26 Dose: 81 mg Collagenase (Santyl) 1 gm TOP BID [facility] Last Admin: 09/22/17 09:27 Dose: 1 appl Famotidine (Pepcid) 20 mg PO DAILY [facility] Last Admin: 09/22/17 09:26 Dose: 20 mg Heparin Sodium (Porcine) (Heparin) 2,100 units ICA TTS [facility] Last Admin: 09/21/17 12:21 Dose: Not Given Heparin Sodium (Porcine) (Heparin) 2,200 units ICV TTS [facility] [place] Last Admin: 09/21/17 12:22 Dose: Not Given Hydralazine HCl (Apresoline) 10 mg IVP Q6 PRN PRN Reason: Systolic Blood Pressure Meropenem 250 mg/ Sodium (Chloride) 100 mls @ 100 mls/hr IVPB Q12H [facility] PRN Reason: Protocol Stop: 09/27/17 10:16 Last Admin: 09/22/17 11:17 Dose: 100 mls/hr Insulin Human Lispro (Humalog Med) 0 units SC ACHS [facility] PRN Reason: Protocol Last Admin: 09/22/17 16:59 Dose: Not Given Losartan Potassium (Cozaar) 100 mg PO DAILY [facility] Last Admin: 09/22/17 09:26 Dose: 100 mg Metoprolol Succinate (Toprol Xl) 50 mg PO HS [facility] [place] Last Admin: 09/21/17 21:00 Dose: 50 mg Mometasone Furoate (Asmanex Twisthaler 220 Mcg) 1 puff IH QPM [facility] [place] Last Admin: 09/21/17 18:12 Dose: 1 puff Montelukast Sodium (Singulair) 10 mg PO HS [facility] [place] Last Admin: 09/21/17 21:00 Dose: 10 mg Sevelamer HCl (Renagel) 400 mg PO BID [facility] [place] Last Admin: 09/22/17 09:26 Dose: 400 mg Tramadol HCl (Ultram) 25 mg PO Q8H PRN PRN Reason: Pain, moderate (4-7) Last Admin: 09/22/17 10:41 Dose: 25 mg Vitamin B Complex/Vit C/Folic Acid (Nephro-Yesica) 1 tab PO 0800 [facility] [place] Last Admin: 09/22/17 07:51 Dose: Not Given - Labs Labs: 09/21/17 06:11 09/21/17 06:11 PT 13.1 SECONDS (9.4-12.5) H 09/17/17 20:04 INR 1.20 (0.93-1.08) H 09/17/17 20:04 APTT 28.4 Seconds (25.1-36.5) 09/17/17 20:04
[2017-09-22] MEDS: Mometasone 220 mcg/puff-14 puff Inh IH SCH (17:59)
--- NOTE | 2017-09-22 18:17 | CP.PCM.PN ---
Subjective - Date & Time of Evaluation Date of Evaluation: 09/22/17 Time of Evaluation: 11:15 - Subjective Subjective: Still complaining of back pains, no fevers overnight. Objective - Vital Signs/Intake and Output Vital Signs (last 24 hours): Temp Pulse Resp BP Pulse Ox 98.1 F 80 20 136/59 L 91 L 09/22/17 06:00 09/22/17 08:34 09/22/17 06:00 09/22/17 06:00 09/22/17 06:00 Intake and Output: 09/22/17 09/22/17 06:59 18:59 Intake Total 320 Output Total 0 Balance 320 - Medications Medications: Current Medications Amlodipine Besylate (Norvasc) 10 mg PO HS [facility] Last Admin: 09/21/17 21:00 Dose: 10 mg Aspirin (Ecotrin) 81 mg PO DAILY [facility] Last Admin: 09/22/17 09:26 Dose: 81 mg Collagenase (Santyl) 1 gm TOP BID [facility] Last Admin: 09/22/17 09:27 Dose: 1 appl Famotidine (Pepcid) 20 mg PO DAILY [facility] Last Admin: 09/22/17 09:26 Dose: 20 mg Heparin Sodium (Porcine) (Heparin) 2,100 units ICA TTS [facility] Last Admin: 09/21/17 12:21 Dose: Not Given Heparin Sodium (Porcine) (Heparin) 2,200 units ICV TTS [facility] Last Admin: 09/21/17 12:22 Dose: Not Given Hydralazine HCl (Apresoline) 10 mg IVP Q6 PRN PRN Reason: Systolic Blood Pressure Meropenem 250 mg/ Sodium (Chloride) 100 mls @ 100 mls/hr IVPB Q12H [facility] PRN Reason: Protocol Stop: 09/27/17 10:16 Last Admin: 09/21/17 22:02 Dose: 100 mls/hr Insulin Human Lispro (Humalog Med) 0 units SC ACHS [facility] PRN Reason: Protocol Last Admin: 09/22/17 07:49 Dose: Not Given Losartan Potassium (Cozaar) 100 mg PO DAILY [facility] Last Admin: 09/22/17 09:26 Dose: 100 mg Metoprolol Succinate (Toprol Xl) 50 mg PO HS [facility] Last Admin: 09/21/17 21:00 Dose: 50 mg Mometasone Furoate (Asmanex Twisthaler 220 Mcg) 1 puff IH QPM [facility] Last Admin: 09/21/17 18:12 Dose: 1 puff Montelukast Sodium (Singulair) 10 mg PO HS [facility] Last Admin: 09/21/17 21:00 Dose: 10 mg Sevelamer HCl (Renagel) 400 mg PO BID [facility] Last Admin: 09/22/17 09:26 Dose: 400 mg Tramadol HCl (Ultram) 25 mg PO Q8H PRN PRN Reason: Pain, moderate (4-7) Last Admin: 09/21/17 18:13 Dose: 25 mg Vitamin B Complex/Vit C/Folic Acid (Nephro-Yesica) 1 tab PO 0800 [facility] Last Admin: 09/22/17 07:51 Dose: Not Given - Labs Labs: 09/21/17 06:11 09/21/17 06:11 PT 13.1 SECONDS (9.4-12.5) H 09/17/17 20:04 INR 1.20 (0.93-1.08) H 09/17/17 20:04 APTT 28.4 Seconds (25.1-36.5) 09/17/17 20:04 - Constitutional Appears: Non-toxic, No Acute Distress - Head Exam Head Exam: NORMAL INSPECTION - ENT Exam ENT Exam: Mucous Membranes Moist - Neck Exam Neck Exam: absent: Meningismus - Respiratory Exam Respiratory Exam: Decreased Breath Sounds - Cardiovascular Exam Cardiovascular Exam: +S1, +S2 - GI/Abdominal Exam GI & Abdominal Exam: Soft. absent: Tenderness Assessment and Plan - Assessment and Plan (Free Text) Plan: Assessment sepsis from stage 4 sacral decubitus ulcer infection, growing several types of gram negative bacilli so far history of pectoral hematoma history of multiple pressure ulcers (both heels, sacral ulcer stage 3), history of infection with Pseudomonas (sacral ulcer / buttock area); previously had wound vacuum placement done C. diff associated diarrhea, acute infection GI bleeding, etiology to be determined HTN DM ESRD on HD COPD right eye blindness breast cancer S/P bilateral mastectomy Plan given a dose of vancomycin and will continue merrem day 5 (renally-adjusted) pending final cx results - follow up further plans of Surgery (but so far patient is refusing surgery) will continue to follow clinically
[2017-09-22] MEDS: Metoprolol Succinate 50 mg XL Tab PO SCH (21:03)
[2017-09-23 06:58] LABS: BASO # 0.03 K/mm3 (0.0-2.0); BASO % 0.1 % (0.0-3.0); EOS # 0.1 (0.0-0.7); EOS % 0.6 % (1.5-5.0); GRAN # 17.18 (1.4-6.5); GRAN % 82.8 % (50.0-68.0); HEMATOCRIT 27.3 % (36.0-48.0); LYMPH # 2.1 (1.2-3.4); MEAN CELL VOLUME 96.1 fl (80.0-105.0); MEAN CORPUSCULAR HEMOGLOBIN 28.5 pg (25.0-35.0); MEAN CORPUSCULAR HGB CONC 29.7 g/dl (31.0-37.0); MEAN PLATELET VOLUME 8.8 fl (7.0-11.0); MONO # 1.4 (0.1-0.6); MONO % 6.5 % (1.0-6.0); RED CELL DISTRIBUTION WIDTH 17.3 % (11.5-14.5); WHITE BLOOD COUNT 20.8 10^3/ul (4.5-11.0)
[2017-09-23 07:09] LABS: INR 1.21 (0.93-1.08)
[2017-09-23 07:35] LABS: ALB/GLOB RATIO 0.6 (1.1-1.8); BILIRUBIN,TOTAL 0.4 mg/dL (0.2-1.3); CALCIUM 9.1 mg/dL (8.4-10.5); POTASSIUM 4.1 mmol/L (3.6-5.0); TOTAL PROTEIN 5.8 g/dL (5.8-8.3)
[2017-09-23] MEDS: Insulin Lispro (humaLOG) MEDIUM Coverage SC SCH ×4 (08:05→22:31)
--- NOTE | 2017-09-23 09:32 | CP.PCM.PN ---
Subjective - Date & Time of Evaluation Date of Evaluation: 09/23/17 Time of Evaluation: 09:30 - Subjective Subjective: PGY1 IM PROGRESS NOTE DR. RUBY/DR. PATRICIA Patient seen and evaluated at bedside. No acute events reported overnight. Patient indicates pain in her lower extremities. Repositioning patient as to align her spine relieves discomfort. Patient continues to deny surgical intervention at this time. Patient denies chest pain, shortness of breath, abdominal pain, numbness, weakness, n/v/f/c. Objective - Vital Signs/Intake and Output Vital Signs (last 24 hours): Temp Pulse Resp BP Pulse Ox 98.6 F 84 20 125/56 L 99 09/23/17 05:53 09/23/17 05:53 09/23/17 05:53 09/23/17 05:53 09/23/17 05:53 Intake and Output: 09/23/17 09/23/17 06:59 18:59 Intake Total 340 Output Total 0 Balance 340 - Medications Medications: Current Medications Amlodipine Besylate (Norvasc) 10 mg PO HS [facility] Last Admin: 09/22/17 21:03 Dose: 10 mg Aspirin (Ecotrin) 81 mg PO DAILY [facility] Last Admin: 09/22/17 09:26 Dose: 81 mg Collagenase (Santyl) 1 gm TOP BID [facility] Last Admin: 09/22/17 17:56 Dose: 1 appl Famotidine (Pepcid) 20 mg PO DAILY [facility] Last Admin: 09/22/17 09:26 Dose: 20 mg Heparin Sodium (Porcine) (Heparin) 2,100 units ICA TTS [facility] Last Admin: 09/21/17 12:21 Dose: Not Given Heparin Sodium (Porcine) (Heparin) 2,200 units ICV TTS [facility] Last Admin: 09/21/17 12:22 Dose: Not Given Hydralazine HCl (Apresoline) 10 mg IVP Q6 PRN PRN Reason: Systolic Blood Pressure Meropenem 250 mg/ Sodium (Chloride) 100 mls @ 100 mls/hr IVPB Q12H [facility] PRN Reason: Protocol Stop: 09/27/17 10:16 Last Admin: 09/22/17 21:48 Dose: 100 mls/hr Insulin Human Lispro (Humalog Med) 0 units SC ACHS [facility] PRN Reason: Protocol Last Admin: 09/22/17 22:46 Dose: Not Given Losartan Potassium (Cozaar) 100 mg PO DAILY [facility] Last Admin: 09/22/17 09:26 Dose: 100 mg Metoprolol Succinate (Toprol Xl) 50 mg PO [facility] Last Admin: 09/22/17 21:03 Dose: 50 mg Mometasone Furoate (Asmanex Twisthaler 220 Mcg) 1 puff IH QPM [facility] Last Admin: 09/22/17 17:59 Dose: 1 puff Montelukast Sodium (Singulair) 10 mg PO [facility] Last Admin: 09/22/17 21:03 Dose: 10 mg Sevelamer HCl (Renagel) 400 mg PO BID [facility] Last Admin: 09/22/17 17:55 Dose: 400 mg Tramadol HCl (Ultram) 25 mg PO Q8H PRN PRN Reason: Pain, moderate (4-7) Last Admin: 09/23/17 07:36 Dose: 25 mg Vitamin B Complex/Vit C/Folic Acid (Nephro-Yesica) 1 tab PO 0800 [facility] Last Admin: 09/22/17 07:51 Dose: Not Given - Labs Labs: 09/23/17 06:20 09/23/17 06:20 PT 13.4 SECONDS (9.4-12.5) H 09/23/17 06:20 INR 1.21 (0.93-1.08) H 09/23/17 06:20 APTT 28.4 Seconds (25.1-36.5) 09/17/17 20:04 - Head Exam Head Exam: ATRAUMATIC, NORMAL INSPECTION, NORMOCEPHALIC - Eye Exam Eye Exam: EOMI Additional comments: Blind right eye, - Respiratory Exam Respiratory Exam: Clear to Ausculation Bilateral, NORMAL BREATHING PATTERN. absent: Rales, Rhonchi - Cardiovascular Exam Cardiovascular Exam: REGULAR RHYTHM, +S1, +S2 - GI/Abdominal Exam GI & Abdominal Exam: Soft, Normal Bowel Sounds. absent: Guarding, Rigid - Extremities Exam Extremities Exam: absent: Joint Swelling, Pedal Edema - Neurological Exam Neurological Exam: Alert, Awake Additional comments: motor and sensory grossly intact, able to move all four extremities past midline - Psychiatric Exam Psychiatric exam: Normal Affect, Normal Mood - Skin Skin Exam: Dry, Intact Additional comments: Stage 4 sacral wound. L heel ulcer. R heel ulcer and dorsum ulcers x3. R knee ulcer. R hip bruising with three skin tears Assessment and Plan - Assessment and Plan (Free Text) Assessment: Patient is a 82 year old female resident of [facility] with a past medical history significant for DM2, COPD, HTN, ESRD on HD (TTS), right eye blindness breast carcinoma s/p bilateral mastectomy, sacral ulcer s/p wound debridement in 07/19/2017 and history of C. diff now with complaint of back pain and bilateral foot pain presenting with sepsis possibly 2/2 to multiple ulcers. Patient currently receiving IV antibiotics for sacral ulcer infection. Plan: 1. Sepsis - afebrile overnight, WBC trending up - Lacatate 2.6 on admit - + 2/4 SIRS criteria met in setting of infectious source - Broad coverage with Vanc & sudhir - blood cultures x 2 negative - wound culture growing E. Coli, Klebsiella Oxytoca - sensitive to merropenem - ID consulted for recs - Sudhir and Vanc - Vanc renally dosed - Meropenem day 6 today 2. Multiple Ulcers - surgery consulted for recs - Pt refused for any surgical intervention at this time - Boots, turn Q2H, air mattress - Santyl to affected areas - pain control with tramadol (no tylenol as LFT is elevated, no NSAIDs due to patient having CKD on HD- preserve the little kidney function that may be present) - cont abx - Sudhir and Vanc 3. Leukocytosis - elevated WBC on antibiotics, hx of breast CA - ID reporting less likely to sepsis, possible malignancy - evaluate with CA19-9, CA125, AFP, electrophoresis - blood culturesx2 - chest xray, abdominal x ray 4. Elevated alk phos - GI consulted for recs - not a gallbladder etiology and likely due to sacral ulcers - signed off 5. Chronic COPD - c/w home montelukast - oxygen supplementation 2 L via [place] PRN 6. CKD on HD - HD on (TTS) - avoid nephrotoxins - continue renvela - nephrology consulted - continue dialysis, dose meds renally - continue phos binders - pRBC as needed for anemia, on TEJINDER as aransep 60mcg weekly 7. Anemia - H/H 8.11/09 - Patient asymptomatic, appears to be at baseline - cont to monitor 8. Hx of Htn - Cont metoprolol succinate, norvasc, losartan - hydralazine 10mg IV q6 prn 9. Hx of Diabetes - hold home diabetic medications - fingersticks ACHS - insulin sliding scale- lispro medium - carb consistent diet DVT ppx: Heparin SC GI ppx: Famotidine Patient case and plan was discussed in detail with attending
[2017-09-23 10:02] LABS: IRON < 10 ug/dL (45-180)
[2017-09-23] MEDS: Multivitamin Vitamin B Complex (Nephro-Vite) Tab PO SCH (10:34)
[2017-09-23] MEDS: Collagenase 250 Units/gm Ointment(30 gm) TOP SCH ×2 (11:10→17:56)
--- NOTE | 2017-09-23 12:11 | CP.PCM.PN ---
Subjective - Date & Time of Evaluation Date of Evaluation: 09/23/17 Time of Evaluation: 10:45 - Subjective Subjective: Comfortable in bed, no diarrhea, no dysuria, no vomiting, no abdominal pain. Objective - Vital Signs/Intake and Output Vital Signs (last 24 hours): Temp Pulse Resp BP Pulse Ox 98.6 F 84 20 125/56 L 99 09/23/17 05:53 09/23/17 05:53 09/23/17 05:53 09/23/17 05:53 09/23/17 05:53 Intake and Output: 09/23/17 09/23/17 06:59 18:59 Intake Total 340 Output Total 0 Balance 340 - Medications Medications: Current Medications Amlodipine Besylate (Norvasc) 10 mg PO HS [facility] Last Admin: 09/22/17 21:03 Dose: 10 mg Aspirin (Ecotrin) 81 mg PO DAILY [facility] Last Admin: 09/22/17 09:26 Dose: 81 mg Collagenase (Santyl) 1 gm TOP BID [facility] Last Admin: 09/22/17 17:56 Dose: 1 appl Famotidine (Pepcid) 20 mg PO DAILY [facility] Last Admin: 09/22/17 09:26 Dose: 20 mg Heparin Sodium (Porcine) (Heparin) 2,100 units ICA TTS [facility] Last Admin: 09/21/17 12:21 Dose: Not Given Heparin Sodium (Porcine) (Heparin) 2,200 units ICV TTS [facility] Last Admin: 09/21/17 12:22 Dose: Not Given Hydralazine HCl (Apresoline) 10 mg IVP Q6 PRN PRN Reason: Systolic Blood Pressure Meropenem 250 mg/ Sodium (Chloride) 100 mls @ 100 mls/hr IVPB Q12H [facility] PRN Reason: Protocol Stop: 09/27/17 10:16 Last Admin: 09/22/17 21:48 Dose: 100 mls/hr Insulin Human Lispro (Humalog Med) 0 units SC ACHS [facility] PRN Reason: Protocol Last Admin: 09/22/17 22:46 Dose: Not Given Losartan Potassium (Cozaar) 100 mg PO DAILY [facility] Last Admin: 09/22/17 09:26 Dose: 100 mg Metoprolol Succinate (Toprol Xl) 50 mg PO HS [facility] Last Admin: 09/22/17 21:03 Dose: 50 mg Mometasone Furoate (Asmanex Twisthaler 220 Mcg) 1 puff IH QPM [facility] Last Admin: 09/22/17 17:59 Dose: 1 puff Montelukast Sodium (Singulair) 10 mg PO HS [facility] Last Admin: 09/22/17 21:03 Dose: 10 mg Sevelamer HCl (Renagel) 400 mg PO BID [facility] Last Admin: 09/22/17 17:55 Dose: 400 mg Tramadol HCl (Ultram) 25 mg PO Q8H PRN PRN Reason: Pain, moderate (4-7) Last Admin: 09/23/17 07:36 Dose: 25 mg Vitamin B Complex/Vit C/Folic Acid (Nephro-Yesica) 1 tab PO 0800 [facility] Last Admin: 09/22/17 07:51 Dose: Not Given - Labs Labs: 09/23/17 06:20 09/23/17 06:20 PT 13.4 SECONDS (9.4-12.5) H 09/23/17 06:20 INR 1.21 (0.93-1.08) H 09/23/17 06:20 APTT 28.4 Seconds (25.1-36.5) 09/17/17 20:04 - Constitutional Appears: Chronically Ill - Head Exam Head Exam: NORMAL INSPECTION - ENT Exam ENT Exam: Mucous Membranes Moist - Neck Exam Neck Exam: absent: Meningismus - Respiratory Exam Respiratory Exam: Decreased Breath Sounds - Cardiovascular Exam Cardiovascular Exam: +S1, +S2 - GI/Abdominal Exam GI & Abdominal Exam: Soft. absent: Tenderness Assessment and Plan - Assessment and Plan (Free Text) Plan: Assessment sepsis from stage 4 sacral decubitus ulcer infection, growing E. coli and Klebsiella oxytoca history of pectoral hematoma history of multiple pressure ulcers (both heels, sacral ulcer stage 3), history of infection with Pseudomonas (sacral ulcer / buttock area); previously had wound vacuum placement done C. diff associated diarrhea, acute infection GI bleeding, etiology to be determined HTN DM ESRD on HD COPD right eye blindness breast cancer S/P bilateral mastectomy Plan on merrem day 6 (renally-adjusted) pending final cx results - follow up further plans of Surgery (but so far patient is refusing surgery) - can switch to Augmentin when ready for discharge WBC still elevated and will need further work up (not likely from sepsis anymore since patient is on antibiotics, need to rule out malignancy - discussed with medical team)
[2017-09-23 12:28] LABS: FOLATE > 20.0 ng/mL
--- NOTE | 2017-09-23 13:24 | PN ---
DATE: SUBJECTIVE: Emeka is in 4-point restraints in the bed. She consistently refused to let me examine the wound. I have seen her several days ago. ASSESSMENT AND PLAN: There were some necrotic areas. I suggest in with sample. I will follow peripherally. Rajesh Tirado MD
--- NOTE | 2017-09-23 14:43 | CP.PCM.PN ---
Subjective - Date & Time of Evaluation Date of Evaluation: 09/23/17 Time of Evaluation: 14:42 - Subjective Subjective: Follow up Nephrology Consultation: Assessment: Stable sacral decubitus ulcer with cellulitis Diabetic chronic Kidney Disease (E11.22) Hypertensive Chronic Kidney Disease (I12.0) End stage renal disease (N18.6) dependence on hemodialysis (Z99.2) (TTS) via permacath Anemia (D64.9), Hyperphosphatemia (E83.39), Secondary Hyperparathyroidism (E21.1 ), HTN (I12.0) COPD, CA breast, hx of C diff, hip surgery Plan: for dialysis saturday as per TTS schedule. Continue with Nephrovite 1 tab/day. PRBC as needed for anemia. On TEJINDER as aransep 60 mcg weekly last Hb 8.1. due to high ferritin and active infection, don't favor IV iron (despite low TSAT) Continue with phos binders home dose but lowered, last phos level 3 BP control with meds as ordered. Patient on RAAS anna as losartan Glycemic control, Dialysis consistent diet Further work up/management as per primary team Dose meds/antibiotics for ESRD status. Avoid fleets enema/magnesium based laxatives. dose Vanco by level Thanks for allowing me to participate in care of your patient. Will follow patient with you. Please call if any Qs Dr Wang [place] Office: [phone] Chief Complaint; wound at back HPI: Pt is a 82 F with hx of ESRD on hemodialysis (TTS) via permacath, last dialysis yesterday, chronic anemia, hyperphosphatemia, secondary hyperparathyroidism, Diabetes Mellitus, hypertension, COPD, CA breast, hip fracture, C diff presented with complaints of wound at lower back. pt was in LTAC recently. Denies chest pain, palpitation, shortness of breath, leg swelling c/o back and legs pain on 2 points restraints today Physical Examination: General Appearance: Comfortable, in no acute respiratory distress, co-operative . Vitals reviewed and noted as below Head; Atraumatic, normocephalic ENT: no ulcers no thrush. Tongue is midline. Oropharynx: no rash or ulcers. EYES: Pupils are equal, round and reactive to light accommodation. Eye muscles and extraocular movement intact. Sclera is anicteric. Neck; supple no lymphadenopathy, no thyromegaly or bruit Lungs: Normal respiratory rate/effort. Breath sounds bilateral equal and clear Heart: Normal rate. s1s2 normal. No rub or gallop. Extremities: no edema. No varicose veins. has ulcers at heel and sacral area ( dressed) Neurological: Patient is alert, awake and confused Skin: Warm and dry. Normal turgor. No rash. Palpitation: Normal elasticity for age Abdomen: Abdomen is soft. Bowel sounds +. There is no abdominal tenderness, no guarding/rigidity or organomegaly Psych: lacks insight and is irritable MSK: no joint tenderness or swelling. Digits and nails normal, no deformity : kidney or bladder not palpable Access: permacath Labs/imaging reviewed. Past medical history, past surgical history, family history, social history, allergy reviewed and noted as below Family Hx: no hx of CKD. Non contributory Objective - Vital Signs/Intake and Output Vital Signs (last 24 hours): Temp Pulse Resp BP Pulse Ox 97.5 F L 85 18 120/64 99 09/23/17 13:25 09/23/17 13:25 09/23/17 13:25 09/23/17 13:25 09/23/17 05:53 Intake and Output: 09/23/17 09/23/17 06:59 18:59 Intake Total 340 Output Total 0 Balance 340 - Medications Medications: Current Medications Amlodipine Besylate (Norvasc) 10 mg PO HS [facility] Last Admin: 09/22/17 21:03 Dose: 10 mg Aspirin (Ecotrin) 81 mg PO DAILY [facility] Last Admin: 09/23/17 10:34 Dose: 81 mg Collagenase (Santyl) 1 gm TOP BID [facility] Last Admin: 09/22/17 17:56 Dose: 1 appl Famotidine (Pepcid) 20 mg PO DAILY [facility] Last Admin: 09/23/17 10:35 Dose: 20 mg Heparin Sodium (Porcine) (Heparin) 2,100 units ICA TTS [facility] Last Admin: 09/21/17 12:21 Dose: Not Given Heparin Sodium (Porcine) (Heparin) 2,200 units ICV TTS [facility] Last Admin: 09/21/17 12:22 Dose: Not Given Hydralazine HCl (Apresoline) 10 mg IVP Q6 PRN PRN Reason: Systolic Blood Pressure Meropenem 250 mg/ Sodium (Chloride) 100 mls @ 100 mls/hr IVPB Q12H [facility] PRN Reason: Protocol Stop: 09/27/17 10:16 Last Admin: 09/23/17 10:52 Dose: 100 mls/hr Insulin Human Lispro (Humalog Med) 0 units SC ACHS [facility] PRN Reason: Protocol Last Admin: 09/22/17 22:46 Dose: Not Given Losartan Potassium (Cozaar) 100 mg PO DAILY [facility] Last Admin: 09/23/17 10:34 Dose: 100 mg Metoprolol Succinate (Toprol Xl) 50 mg PO HS [facility] Last Admin: 09/22/17 21:03 Dose: 50 mg Mometasone Furoate (Asmanex Twisthaler 220 Mcg) 1 puff IH QPM [facility] Last Admin: 09/22/17 17:59 Dose: 1 puff Montelukast Sodium (Singulair) 10 mg PO HS [facility] Last Admin: 09/22/17 21:03 Dose: 10 mg Sevelamer HCl (Renagel) 400 mg PO BID [facility] Last Admin: 09/23/17 10:34 Dose: 400 mg Tramadol HCl (Ultram) 25 mg PO Q8H PRN PRN Reason: Pain, moderate (4-7) Last Admin: 09/23/17 07:36 Dose: 25 mg Vitamin B Complex/Vit C/Folic Acid (Nephro-Yesica) 1 tab PO 0800 [facility] Last Admin: 09/23/17 10:34 Dose: 1 tab - Labs Labs: 09/23/17 06:20 09/23/17 06:20 PT 13.4 SECONDS (9.4-12.5) H 09/23/17 06:20 INR 1.21 (0.93-1.08) H 09/23/17 06:20 APTT 28.4 Seconds (25.1-36.5) 09/17/17 20:04
--- NOTE | 2017-09-23 15:36 | RAD ---
HISTORY: eval COMPARISON: No prior. FINDINGS: BOWEL: Normal. No obstruction. No free air. BONES: Normal. OTHER FINDINGS: None. IMPRESSION: No active disease.
--- NOTE | 2017-09-23 15:38 | RAD ---
HISTORY: eval COMPARISON: 09/17/2017 FINDINGS: LUNGS: No active pulmonary disease. PLEURA: No significant pleural effusion identified, no pneumothorax apparent. CARDIOVASCULAR: Normal. OSSEOUS STRUCTURES: No significant abnormalities. VISUALIZED UPPER ABDOMEN: Normal. OTHER FINDINGS: The multiple central lines are unchanged IMPRESSION: No active disease.
[2017-09-23] MEDS: Metoprolol Succinate 50 mg XL Tab PO SCH (21:45)
[2017-09-24 07:23] LABS: BASO # 0.03 K/mm3 (0.0-2.0); BASO % 0.2 % (0.0-3.0); EOS # 0.2 (0.0-0.7); EOS % 0.8 % (1.5-5.0); GRAN # 16.82 (1.4-6.5); GRAN % 84.7 % (50.0-68.0); HEMATOCRIT 25.7 % (36.0-48.0); LYMPH # 1.8 (1.2-3.4); LYMPH % 8.8 % (22.0-35.0); MEAN CELL VOLUME 94.5 fl (80.0-105.0); MEAN CORPUSCULAR HEMOGLOBIN 28.3 pg (25.0-35.0); MEAN PLATELET VOLUME 8.9 fl (7.0-11.0); MONO # 1.1 (0.1-0.6); MONO % 5.5 % (1.0-6.0); WHITE BLOOD COUNT 19.9 10^3/ul (4.5-11.0)
[2017-09-24 07:44] LABS: ALB/GLOB RATIO 0.6 (1.1-1.8); BILIRUBIN,TOTAL 0.4 mg/dL (0.2-1.3); CALCIUM 8.6 mg/dL (8.4-10.5); MAGNESIUM 1.8 mg/dL (1.7-2.2); PHOSPHOROUS 3.5 mg/dL (2.5-4.5); POTASSIUM 4.1 mmol/L (3.6-5.0); TOTAL PROTEIN 5.6 g/dL (5.8-8.3)
[2017-09-24 07:54] LABS: INR 1.18 (0.93-1.08)
[2017-09-24] MEDS: Multivitamin Vitamin B Complex (Nephro-Vite) Tab PO SCH (08:39)
[2017-09-24] MEDS: Collagenase 250 Units/gm Ointment(30 gm) TOP SCH ×2 (10:40→18:40)
[2017-09-24] MEDS: Insulin Lispro (humaLOG) MEDIUM Coverage SC SCH ×3 (11:03→17:38)
--- NOTE | 2017-09-24 11:22 | CP.PCM.PN ---
Subjective - Date & Time of Evaluation Date of Evaluation: 09/24/17 Time of Evaluation: 11:20 - Subjective Subjective: Follow up Nephrology Consultation: Assessment: Stable sacral decubitus ulcer with cellulitis Diabetic chronic Kidney Disease (E11.22) Hypertensive Chronic Kidney Disease (I12.0) End stage renal disease (N18.6) dependence on hemodialysis (Z99.2) (TTS) via permacath Anemia (D64.9), Hyperphosphatemia (E83.39), Secondary Hyperparathyroidism (E21.1 ), HTN (I12.0) COPD, CA breast, hx of C diff, hip surgery Plan: for dialysis today as per TTS schedule. Continue with Nephrovite 1 tab/day. PRBC as needed for anemia. On TEJINDER as aransep 60 mcg () last Hb 7.7. due to high ferritin and active infection, don't favor IV iron (despite low TSAT) Continue with phos binders home dose but lowered, last phos level 3.5 BP control with meds as ordered. Patient on RAAS anna as losartan. lowered norvasc as BP tightly controlled Glycemic control, Dialysis consistent diet Further work up/management as per primary team Dose meds/antibiotics for ESRD status. Avoid fleets enema/magnesium based laxatives. dose Vanco by level Thanks for allowing me to participate in care of your patient. Will follow patient with you. Please call if any Qs Dr Wang [place] Office: [phone] Chief Complaint; wound at back HPI: Pt is a 82 F with hx of ESRD on hemodialysis (TTS) via permacath, last dialysis yesterday, chronic anemia, hyperphosphatemia, secondary hyperparathyroidism, Diabetes Mellitus, hypertension, COPD, CA breast, hip fracture, C diff presented with complaints of wound at lower back. pt was in LTAC recently. Denies chest pain, palpitation, shortness of breath, leg swelling c/o back and legs pain Physical Examination: seen on HD General Appearance: uncomfortable, in no acute respiratory distress, co- operative . Vitals reviewed and noted as below Head; Atraumatic, normocephalic ENT: no ulcers no thrush. Tongue is midline. Oropharynx: no rash or ulcers. EYES: Pupils are equal, round and reactive to light accommodation. Eye muscles and extraocular movement intact. Sclera is anicteric. Neck; supple no lymphadenopathy, no thyromegaly or bruit Lungs: Normal respiratory rate/effort. Breath sounds bilateral equal and clear Heart: Normal rate. s1s2 normal. No rub or gallop. Extremities: no edema. No varicose veins. has necrotic ulcers at heel and sacral area (dressed) Neurological: Patient is alert, awake and confused Skin: Warm and dry. Normal turgor. No rash. Palpitation: Normal elasticity for age Abdomen: Abdomen is soft. Bowel sounds +. There is no abdominal tenderness, no guarding/rigidity or organomegaly Psych: lacks insight and is irritable MSK: no joint tenderness or swelling. Digits and nails normal, no deformity : kidney or bladder not palpable Access: permacath Labs/imaging reviewed. Past medical history, past surgical history, family history, social history, allergy reviewed and noted as below Family Hx: no hx of CKD. Non contributory Objective - Vital Signs/Intake and Output Vital Signs (last 24 hours): Temp Pulse Resp BP Pulse Ox 98.3 F 77 20 110/49 L 100 09/24/17 06:00 09/24/17 06:00 09/24/17 06:00 09/24/17 06:00 09/24/17 06:00 Intake and Output: 09/24/17 09/24/17 06:59 18:59 Intake Total 100 Balance 100 - Medications Medications: Current Medications Amlodipine Besylate (Norvasc) 5 mg PO HS [facility] Aspirin (Ecotrin) 81 mg PO DAILY [facility] Last Admin: 09/23/17 10:34 Dose: 81 mg Collagenase (Santyl) 1 gm TOP BID [facility] Last Admin: 09/23/17 17:56 Dose: 1 appl Darbepoetin Luis (Aranesp) 60 mcg IVP ONCE ONE Stop: 09/26/17 07:01 Famotidine (Pepcid) 20 mg PO DAILY [facility] Last Admin: 09/23/17 10:35 Dose: 20 mg Heparin Sodium (Porcine) (Heparin) 2,100 units ICA TTS [facility] Last Admin: 09/21/17 12:21 Dose: Not Given Heparin Sodium (Porcine) (Heparin) 2,200 units ICV TTS [facility] Last Admin: 09/21/17 12:22 Dose: Not Given Hydralazine HCl (Apresoline) 10 mg IVP Q6 PRN PRN Reason: Systolic Blood Pressure Meropenem 250 mg/ Sodium (Chloride) 100 mls @ 100 mls/hr IVPB Q12H [facility] PRN Reason: Protocol Stop: 09/27/17 10:16 Last Admin: 09/23/17 21:45 Dose: 100 mls/hr Insulin Human Lispro (Humalog Med) 0 units SC ACHS [facility] PRN Reason: Protocol Last Admin: 09/23/17 22:31 Dose: Not Given Losartan Potassium (Cozaar) 100 mg PO DAILY [facility] Last Admin: 09/23/17 10:34 Dose: 100 mg Metoprolol Succinate (Toprol Xl) 50 mg PO HS [facility] Last Admin: 09/23/17 21:45 Dose: 50 mg Mometasone Furoate (Asmanex Twisthaler 220 Mcg) 1 puff IH QPM [facility] Last Admin: 09/22/17 17:59 Dose: 1 puff Montelukast Sodium (Singulair) 10 mg PO HS [facility] Last Admin: 09/23/17 21:44 Dose: 10 mg Sevelamer HCl (Renagel) 400 mg PO BID [facility] Last Admin: 09/23/17 17:56 Dose: 400 mg Tramadol HCl (Ultram) 25 mg PO Q8H PRN PRN Reason: Pain, moderate (4-7) Last Admin: 09/23/17 22:59 Dose: 25 mg Vitamin B Complex/Vit C/Folic Acid (Nephro-Yesica) 1 tab PO 0800 [facility] Last Admin: 09/23/17 10:34 Dose: 1 tab - Labs Labs: 09/24/17 07:00 09/24/17 07:00 PT 13.0 SECONDS (9.4-12.5) H 09/24/17 07:25 INR 1.18 (0.93-1.08) H 09/24/17 07:25 APTT 28.4 Seconds (25.1-36.5) 09/17/17 20:04
[2017-09-24 11:55] LABS: CA 19-9 44.9 U/mL (0-37)
--- NOTE | 2017-09-24 16:50 | CP.PCM.DIS ---
Provider - Provider Date of Admission: 09/17/17 20:55 Attending physician: Augustine Waite MD Primary care physician: Dr. Augustine Waite MD Consults: General Surgery: Dr. Rajesh Tirado Nephrology: Dr. Wang [place] ID: Dr. Brandon Catherine Time Spent in preparation of Discharge (in minutes): 30 Diagnosis - Discharge Diagnosis (1) Sacral decubitus ulcer, stage IV Status: Chronic (2) Altered mental status Status: Chronic (3) Anemia Status: Chronic Hospital Course - Lab Results Lab Results: Micro Results 09/18/17 06:45 Sacral Gram Stain - Final 09/18/17 06:45 Sacral Wound Culture - Final Escherichia Coli Most Recent Lab Values WBC 19.9 10^3/ul (4.5-11.0) H 09/24/17 07:00 RBC 2.72 10^6/uL (3.5-6.1) L 09/24/17 07:00 Hgb 7.7 g/dL (12.0-16.0) L 09/24/17 07:00 Hct 25.7 % (36.0-48.0) L 09/24/17 07:00 MCV 94.5 fl (80.0-105.0) 09/24/17 07:00 MCH 28.3 pg (25.0-35.0) 09/24/17 07:00 MCHC 30.0 g/dl (31.0-37.0) L 09/24/17 07:00 RDW 17.0 % (11.5-14.5) H 09/24/17 07:00 Plt Count 347 10^3/uL (120.0-450.0) 09/24/17 07:00 MPV 8.9 fl (7.0-11.0) 09/24/17 07:00 Gran % 84.7 % (50.0-68.0) H 09/24/17 07:00 Lymph % (Auto) 8.8 % (22.0-35.0) L 09/24/17 07:00 [place] % (Auto) 5.5 % (1.0-6.0) 09/24/17 07:00 Eos % (Auto) 0.8 % (1.5-5.0) L 09/24/17 07:00 Baso % (Auto) 0.2 % (0.0-3.0) 09/24/17 07:00 Gran # 16.82 (1.4-6.5) H 09/24/17 07:00 Lymph # 1.8 (1.2-3.4) 09/24/17 07:00 Z[place]ata # 1.1 (0.1-0.6) H 09/24/17 07:00 Eos # 0.2 (0.0-0.7) 09/24/17 07:00 Baso # 0.03 K/mm3 (0.0-2.0) 09/24/17 07:00 PT 13.0 SECONDS (9.4-12.5) H 09/24/17 07:25 INR 1.18 (0.93-1.08) H 09/24/17 07:25 APTT 28.4 Seconds (25.1-36.5) 09/17/17 20:04 pO2 80 mm/Hg (30-55) H 09/18/17 01:12 VBG pH 7.41 (7.32-7.43) 09/18/17 01:12 VBG pCO2 44.0 (40-60) 09/18/17 01:12 VBG HCO3 27.9 mmol/l (21-28) 09/18/17 01:12 VBG Total CO2 29.3 mmol.L (22-28) H 09/18/17 01:12 VBG O2 Sat (Calc) 98.7 % (40-65) H 09/18/17 01:12 VBG Base Excess 2.7 mmol/L (0.0-2.0) H 09/18/17 01:12 VBG Potassium 4.0 mmol/L (3.6-5.2) 09/18/17 01:12 Sodium 135.0 mmol/L (132-148) 09/18/17 01:12 Chloride 102.0 mmol/L (98-107) 09/18/17 01:12 Glucose 77 mg/dl (65-105) 09/18/17 01:12 Lactate 0.8 mmol/L (0.7-2.1) 09/18/17 01:12 FiO2 21.0 % 09/18/17 01:12 Sodium 134 mmol/L (132-148) 09/24/17 07:00 Potassium 4.1 mmol/L (3.6-5.0) 09/24/17 07:00 Chloride 99 mmol/L (98-107) 09/24/17 07:00 Carbon Dioxide 29 mmol/L (21-33) 09/24/17 07:00 Anion Gap 11 (10-20) 09/24/17 07:00 BUN 34 mg/dL (7-21) H 09/24/17 07:00 Creatinine 3.8 mg/dl (0.7-1.2) H 09/24/17 07:00 Est GFR ( Amer) 14 09/24/17 07:00 Est GFR (Non-Af Amer) 11 09/24/17 07:00 POC Glucose (mg/dL) 89 mg/dL (65-110) 09/24/17 16:25 Random Glucose 75 mg/dL (70-110) 09/24/17 07:00 Calcium 8.6 mg/dL (8.4-10.5) 09/24/17 07:00 Phosphorus 3.5 mg/dL (2.5-4.5) 09/24/17 07:00 Magnesium 1.8 mg/dL (1.7-2.2) 09/24/17 07:00 Iron < 10 ug/dL (45-180) L 09/23/17 09:30 TIBC 103 ug/dL (265-497) L 09/23/17 09:30 % Saturation < 10 % (20-55) L 09/23/17 09:30 Transferrin < 80.00 mg/dL (206-381) L 09/23/17 09:30 Ferritin 1130.0 ng/mL 09/23/17 06:20 Total Bilirubin 0.4 mg/dL (0.2-1.3) 09/24/17 07:00 AST 38 U/L (14-36) H 09/24/17 07:00 ALT 19 U/L (7-56) 09/24/17 07:00 Alkaline Phosphatase 119 U/L (38-126) 09/24/17 07:00 Total Protein 5.6 g/dL (5.8-8.3) L 09/24/17 07:00 Albumin 2.1 g/dL (3.0-4.8) L 09/24/17 07:00 Globulin 3.4 gm/dL 09/24/17 07:00 Albumin/Globulin Ratio 0.6 (1.1-1.8) L 09/24/17 07:00 Alpha Fetoprotein < 0.8 ng/mL (0.0-7.5) 09/24/17 07:25 CA 19-9 Antigen 44.9 U/mL (0-37) H 09/24/17 07:00 CA 125 Antigen 45.2 U/mL (0-35) H 09/24/17 07:00 Vitamin B12 423 pg/mL (239-931) 09/23/17 06:20 Folate > 20.0 ng/mL 09/23/17 06:20 Venous Blood Potassium 4.0 mmol/L (3.6-5.2) 09/18/17 01:12 Blood Type A NEGATIVE 09/24/17 08:10 Antibody Screen Negative 09/24/17 08:10 Crossmatch See Detail 09/24/17 08:10 BBK History Checked Patient has bt 09/24/17 08:10 - Hospital Course Hospital Course: Patient is a 82 year old female resident of [facility] with a past medical history significant for DM2, COPD, HTN, ESRD on HD (MWF), right eye blindness breast carcinoma s/p bilateral mastectomy, sacral ulcer s/p wound debridement in 07/19/2017 and history of C. difficile who presents to the [facility] ED from dialysis for evaluation and treatment of chronic back pain and bilateral foot pain due to chronic ulcers in these locations. Patient was evaluated in the ED and found to have sepsis and admitted for further work up for potential causes. General surgery was consulted to evaluate the patient for potential intervention with sacral decubitus ulcers as well as potential cholecystectomy. Patient refused any surgical intervention during hospital stay but did allow for surgical team to manage wound care. Nephrology was consulted and evaluated the patient with continued hemodialysis, renal dosing of medication and BP control. Infectious disease was consulted and evaluated the patient for sepsis. ID continued continued patients chronic vancomycin and intermittent meropenem for potential causes of sepsis with her wound as potential source. Patient white blood cell count continued to maintain elevated over hospital course while on antibiotics. ID recommended possible neoplasm as source of elevated WBC. Labs and imaging were conducted for initial follow up with plan for outpatient follow up with results. Patient was evaluated and patient's wishes were taken into consideration regarding refusal of surgical intervention and patient was deemed appropriate for discharge to sub acute rehab with continued PO antibiotics and wound care of decubitus ulcers. Discharge planning including outpatient follow up with medical team, testing and medications were discussed, patient in understanding and agreement. - Date & Time of H&P Date of H&P: 09/18/17 Time of H&P: 21:24 Discharge Exam - Head Exam Head Exam: ATRAUMATIC, NORMAL INSPECTION, NORMOCEPHALIC - Eye Exam Eye Exam: EOMI Additional comments: blind in right eye - ENT Exam ENT Exam: Mucous Membranes Dry - Respiratory Exam Respiratory Exam: Clear to PA & Lateral, NORMAL BREATHING PATTERN. absent: Rales, Rhonchi, Wheezes - Cardiovascular Exam Cardiovascular Exam: REGULAR RHYTHM, +S1, +S2 - GI/Abdominal Exam GI & Abdominal Exam: Normal Bowel Sounds, Soft. absent: Firm, Guarding - Extremities Exam Extremities exam: calf tenderness, pedal pulses present - Neurological Exam Neurological exam: Alert Additional comments: motor and sensory grossly intact, able to move all four ext past midline - Psychiatric Exam Psychiatric exam: Normal Affect, Normal Mood - Skin Skin Exam: Dry, Intact Discharge Plan - Discharge Medications Prescriptions: Amoxicillin/Clavulanate [Augmentin 500 MG-125 MG] 1 tab PO DAILY 10 Days #10 tab - Follow Up Plan Condition: STABLE Disposition: HOME/ ROUTINE Instructions: Fall Prevention for Older Adults (GEN), Altered Mental Status ( GEN), Fall Prevention (DC) Additional Instructions: - Follow up with PMD with in 1 week upon discharge from [facility] - Follow up malignancy work up upon discharge with PMD - Follow with Manganese Wheeler within 1-2 weeks upon discharge from [facility] - Take medications as prescribed to you - Take Augmentin 500/125mg PO Q24H for 10 days - Return to hospital if your symptoms worsen or return Referrals: Wang France MD [Staff Provider] - Brandon Catherine MD [Staff Provider] - Rajesh Tirado MD [Staff Provider] -
--- NOTE | 2017-09-24 19:10 | PN ---
DATE: 09/24/2017 SUBJECTIVE: The patient is in bed in no acute distress, nontoxic. PHYSICAL EXAMINATION: VITAL SIGNS: Temperature is 98, blood pressure is 120/50, respiratory rate of 20, heart rate of 86. HEENT: Unremarkable. NECK: Supple. LUNGS: Have decreased breath sounds. HEART: Normal S1, S2. ABDOMEN: Soft, nontender. LABORATORY EXAMINATION: Reveals a white count of 19,000, hemoglobin of 7, platelets of 347. Coagulation is noted. The BUN of 34, creatinine of 3.8. Microbiology reveals the decubitus sacral ulcer with Klebsiella oxytoca, another sacral ulcer from 09/18/2017 growing E. coli. The Klebsiella from 09/17/2017 is pansensitive. The E. coli from 09/18/2017 is also pansensitive. Review of orders reveals the patient to have meropenem. ASSESSMENT AND PLAN: An 82-year-old female who was seen early this morning in [facility], bed 1 with sepsis stage IV sacral decubiti ulcer grown Escherichia coli and Klebsiella oxytoca in a patient with diabetes, hypertension, end-stage renal disease on hemodialysis and chronic obstructive lung disease with breast cancer, right eye blindness and day number 7 of meropenem, may be able to switch to p.o. Augmentin to p.o. Augmentin upon discharge. Overall prognosis is poor. Amrik Rodríguez MD
[2017-09-24 19:20] VITALS: BP 135/54; PULSE 75; RESP 18; TEMP 98; O2SAT 98
[2017-09-24] MEDS: Mometasone 220 mcg/puff-14 puff Inh IH SCH (19:37)
[2017-09-25 04:15] LABS: HEMATOCRIT 24.2 % (35.0-45.0); HEMOGLOBIN 7.9 g/dL (11.7-15.5); RDW 17.9 % (11.0-15.0)
[2017-09-25 12:24] LABS: HEMOGLOBIN F <1.0 Percent (<2.0)
[2017-09-26] MEDS ORDERED: Darbepoetin Alfa 60 mcg/ml Inj IVP ONE (07:00)
== END 2017-09-24 20:55 | DRG 871 ==
LOC: ED 19:14 → ERH 20:55 → 3RSO 09-18 01:38
PROVIDERS: ADMIT Internal Medicine; ATTEND Internal Medicine
PROC: 5A1D70Z Performance of Urinary Filtration, Intermittent, Less than 6 Hours Per Day (ICD-10-PCS; principal; 2017-09-19)
PROC: 30233N1 Transfusion of Nonautologous Red Blood Cells into Peripheral Vein, Percutaneous Approach (ICD-10-PCS; 2017-09-24)
DX: A41.9 Sepsis, unspecified organism (principal); L89.154 Pressure ulcer of sacral region, stage 4; I13.2 Hypertensive heart and chronic kidney disease with heart failure and with stage 5 chronic kidney disease, or end stage renal disease; N18.6 End stage renal disease; L03.319 Cellulitis of trunk, unspecified; I50.9 Heart failure, unspecified; N25.81 Secondary hyperparathyroidism of renal origin; R64 Cachexia; Z68.1 Body mass index [BMI] 19.9 or less, adult; E11.22 Type 2 diabetes mellitus with diabetic chronic kidney disease; L89.620 Pressure ulcer of left heel, unstageable; L89.610 Pressure ulcer of right heel, unstageable; L89.899 Pressure ulcer of other site, unspecified stage; E83.39 Other disorders of phosphorus metabolism; J44.9 Chronic obstructive pulmonary disease, unspecified; D63.8 Anemia in other chronic diseases classified elsewhere; B96.20 Unspecified Escherichia coli [E. coli] as the cause of diseases classified elsewhere; H54.61 Unqualified visual loss, right eye, normal vision left eye; G89.29 Other chronic pain; Z96.641 Presence of right artificial hip joint; I25.10 Atherosclerotic heart disease of native coronary artery without angina pectoris; B96.1 Klebsiella pneumoniae [K. pneumoniae] as the cause of diseases classified elsewhere; Z99.2 Dependence on renal dialysis; Z74.01 Bed confinement status; Z85.3 Personal history of malignant neoplasm of breast; Z90.13 Acquired absence of bilateral breasts and nipples; Z87.891 Personal history of nicotine dependence; Z79.84 Long term (current) use of oral hypoglycemic drugs; Z78.1 Physical restraint status; I25.2 Old myocardial infarction